=== PATIENT | female | born 1945 | race Caucasian/White ===

== ENCOUNTER 2020-09-13 18:36 | Outpatient (REF) | payer MEDICARE, BC, SELFPAY ==
[2020-09-13 19:17] LABS: HCT 43.8 % (36.0-46.0); HGB 14.3 g/dL (11.2-15.7); MCH 30.2 pg (27.0-33.0); MCHC 32.6 % (32.0-36.0); MCV 92.6 fL (80-95); MPV 10.2 fL (8.0-11.0); Platelet Count 201 10^3/uL (130-400); RBC 4.73 10^6/uL (3.93-5.22); RDW-SD 40.7 fL; WBC 4.93 10^3/uL (4.4-10.8)
[2020-09-13 20:11] LABS: ALT 34 U/L (14-59); AST 20 U/L (15-37); Albumin 4.4 g/dL (3.4-5.0); Alkaline Phosphatase 68 U/L (46-116); Anion Gap 11.1 mmol/L (3-11); BUN 18 mg/dL (7-18); Bilirubin, Total 0.3 mg/dL (0.2-1.0); CO2 26.9 mmol/L (21.0-32.0); CREATININE 0.89 mg/dL (0.55-1.02); Calcium 9.1 mg/dL (8.5-10.1); Chloride 104 mmol/L (98-107); Glucose 100 mg/dL (74-106); Potassium 4.5 mmol/L (3.5-5.1); Sodium 142 mmol/L (136-145); Total Protein 7.2 g/dL (6.4-8.2); Vitamin B12 720 pg/mL (193-986)
[2020-09-13 20:26] LABS: Creatine Kinase 64 U/L (26-192)
== END 2020-09-13 18:56 ==
LOC: NCHCN 18:36
PROVIDERS: PCP Family Medicine; Visit Provider Family Medicine
DX: R26.81 Unsteadiness on feet (principal); G25.0 Essential tremor; K76.0 Fatty (change of) liver, not elsewhere classified
CPT/HCPCS: 80053; 82550; 85027; 82607; 84443

== ENCOUNTER 2020-09-24 04:25 | Outpatient (CLI) | payer MEDICARE, BC, SELFPAY ==
--- NOTE | 2020-09-24 13:30 | DI.MAMMO_ITS ---
EXAM: MG MAMMO SCREENING CLINICAL HISTORY: screening TECHNIQUE: Bilateral full field digital CC and MLO mammographic images were obtained with 3D tomosyn thesis and utilizing computer aided detection (CAD). COMPARISON: Available for comparison. FINDINGS: Masses/Architectural Distortion: None seen. Microcalcifications: No suspicious pleomorphic-type are seen. Skin Thickening/Nipple Retraction: None. IMPRESSION: 1. No significant interval change with no specific features of malignancy noted. 2. Unless there is more urgent need, screening mammography is recommended, as per [employer] guidelines. BI-RADS Category 1 - Negative Breast Density - Category A - Almost entirely fatty A negative radiographic report should not delay biopsy if a dominant or clinically suspicious mass is present. Up to ten percent of cancers are not identified on mammography. A negative report may reinforce clinical impression. Adenosis and dense breasts may obscure an underlying neoplasm. False positive reports average 6 to 10%. Patient will receive a letter notifying them of these results.
== END 2020-09-24 04:45 ==
PROVIDERS: PCP Family Medicine; Visit Provider Obstetrics & Gynecology Gynecology
DX: Z12.31 Encounter for screening mammogram for malignant neoplasm of breast (principal)
CPT/HCPCS: 77063; 77067

== ENCOUNTER 2020-11-01 03:35 | Outpatient (CLI) | payer MEDICARE, BC, SELFPAY ==
[2020-11-02 16:50] LABS: COVID-19 RT-PCR UVMMC Result Negative (Negative)
== END 2020-11-01 03:55 ==
PROVIDERS: PCP Family Medicine; Visit Provider Surgery
DX: Z11.59 Encounter for screening for other viral diseases (principal); Z01.818 Encounter for other preprocedural examination
CPT/HCPCS: U0003

== ENCOUNTER 2021-02-25 01:53 | Outpatient (CLI) | payer MEDICARE, BC, SELFPAY ==
[2021-02-25 11:33] LABS: Source Nasal/Nares
[2021-02-25 15:19] LABS: COVID-19 PCR Negative (Negative)
== END 2021-02-25 01:54 | disposition home or self-care (01) ==
LOC: LBO 01:53
PROVIDERS: PCP Family Medicine; Visit Provider Surgery
DX: Z20.822 Contact with and (suspected) exposure to COVID-19 (principal); Z01.818 Encounter for other preprocedural examination
CPT/HCPCS: 87635

== ENCOUNTER 2021-08-05 00:56 | Outpatient (CLI) | payer MEDICARE, BC, SELFPAY ==
[2021-08-05 12:32] LABS: HCT 40.2 % (36.0-46.0); HGB 13.6 g/dL (11.2-15.7); MCH 30.6 pg (27.0-33.0); MCHC 33.8 % (32.0-36.0); MCV 90.5 fL (80-95); MPV 9.5 fL (8.0-11.0); Platelet Count 170 10^3/uL (130-400); RBC 4.44 10^6/uL (3.93-5.22); RDW 11.9 % (11.7-14.6); RDW-SD 39.4 fL; WBC 5.63 10^3/uL (4.4-10.8)
[2021-08-05 14:06] LABS: ALT 51 U/L (14-59); AST 23 U/L (15-37); Albumin 4.2 g/dL (3.4-5.0); Alkaline Phosphatase 64 U/L (46-116); Anion Gap 6.8 mmol/L (3-11); BUN 20 mg/dL (7-18); Bilirubin, Total 0.3 mg/dL (0.2-1.0); CO2 31.2 mmol/L (21.0-32.0); CREATININE 0.8 mg/dL (0.55-1.02); Calcium 9.2 mg/dL (8.5-10.1); Calculated LDL 106 mg/dL (<100); Chloride 103 mmol/L (98-107); Cholesterol 226 mg/dL (<200); Glucose 99 mg/dL (74-106); HDL Cholesterol 57 mg/dL (40-60); Potassium 4.6 mmol/L (3.5-5.1); Sodium 141 mmol/L (136-145); Total Protein 7.1 g/dL (6.4-8.2); Triglyceride 319 mg/dL (<150)
== END 2021-08-05 00:57 | disposition home or self-care (01) ==
LOC: LBO 00:57
PROVIDERS: PCP Family Medicine; Visit Provider Family Medicine
DX: I10 Essential (primary) hypertension (principal); K76.0 Fatty (change of) liver, not elsewhere classified; E78.5 Hyperlipidemia, unspecified
CPT/HCPCS: 36415; 80053; 80061; 85027

== ENCOUNTER 2021-10-21 01:40 | Outpatient (CLI) | payer MEDICARE, BC, SELFPAY ==
--- NOTE | 2021-10-21 08:00 | DI.MAMMO_ITS ---
Exam(s) MAMMO SCREENING EXAM: MAMMO SCREENING CLINICAL HISTORY: screening,Z12.39 TECHNIQUE: Bilateral full field digital CC and MLO mammographic images were obtained with 3D tomosyn thesis and utilizing computer aided detection (CAD). COMPARISON: Available for comparison. FINDINGS: Masses/Architectural Distortion: None seen. Microcalcifications: No suspicious pleomorphic-type are seen. Skin Thickening/Nipple Retraction: None. IMPRESSION: 1. No significant interval change with no specific features of malignancy noted. 2. Unless there is more urgent need, screening mammography is recommended, as per [employer] guidelines. BI-RADS Category 1 - Negative Breast Density - Category A - Almost entirely fatty Breast density category C or D implies that the patient has dense breast tissue. Dense breast tissue is very common and is not abnormal but dense breast tissue can make it harder to find cancer on a ma mmogram. Also, dense breast tissue may increase their breast cancer risk. This information about the result of the mammogram report was provided to the patient to raise their awareness. Use this report when you speak with the patient about their risks for breast cancer, which includes their family hist ory. At that time, you may recommend for more screening tests (Ultrasound or MRI) as they might be us eful based on their risk. A negative radiographic report should not delay biopsy if a dominant or clinically suspicious mass is present. Up to ten percent of cancers are not identified on mammography. A negative report may reinforce clinical impression. Adenosis and dense breasts may obscure an underlying neoplasm. False positive reports average 6 to 10%. Patient will receive a letter notifying them of these results.
== END 2021-10-21 02:00 ==
PROVIDERS: PCP Family Medicine; Visit Provider Obstetrics & Gynecology Gynecology
DX: Z12.31 Encounter for screening mammogram for malignant neoplasm of breast (principal)
CPT/HCPCS: 77063; 77067

== ENCOUNTER 2022-07-26 16:36 | Outpatient (REF) | payer MEDICARE, SELFPAY ==
[2022-07-26 16:09] LABS: HCT 40.5 % (36.0-46.0); HGB 13.8 g/dL (11.2-15.7); MCH 30.2 pg (27.0-33.0); MCHC 34.1 % (32.0-36.0); MCV 89 fL (80-95); MPV 10.4 fL (8.0-11.0); Platelet Count 210 10^3/uL (130-400); RBC 4.57 10^6/uL (3.93-5.22); RDW 11.9 % (11.7-14.6); RDW-SD 38.5 fL; WBC 5.51 10^3/uL (4.4-10.8)
[2022-07-26 16:39] LABS: ALT 28 U/L (14-59); AST 22 U/L (15-37); Albumin 4.2 g/dL (3.4-5.0); Alkaline Phosphatase 74 U/L (46-116); Anion Gap 11.3 mmol/L (3-11); BUN 20 mg/dL (7-18); Bilirubin, Total 0.3 mg/dL (0.2-1.0); CO2 24.7 mmol/L (21.0-32.0); Calcium 9.2 mg/dL (8.5-10.1); Chloride 104 mmol/L (98-107); Estimated GFR 57.66 (mL/min/1.73m2); Glucose 102 mg/dL (74-106); Potassium 4.3 mmol/L (3.5-5.1); Sodium 140 mmol/L (136-145); Total Protein 7.4 g/dL (6.4-8.2)
== END 2022-07-26 16:37 | disposition home or self-care (01) ==
LOC: NCHCN 16:36
PROVIDERS: PCP Family Medicine; Visit Provider Family Medicine
DX: K76.0 Fatty (change of) liver, not elsewhere classified (principal)
CPT/HCPCS: 80053; 85027

== ENCOUNTER → 2022-08-30 08:08 | Outpatient (BNVA) | payer MEDICARE, SELFPAY | PROVIDERS: PCP Family Medicine; Referring Provider Family Medicine; Visit Provider Psychiatry & Neurology Neurology | DX: G25.0 Essential tremor (principal) | CPT/HCPCS: 99204 ==

== ENCOUNTER → 2022-10-25 01:02 | Outpatient (CLI) | payer MEDICARE, SELFPAY ==
--- NOTE | 2022-10-25 11:45 | DI.MAMMO_ITS ---
Exam(s) MAMMO SCREENING EXAM: MAMMO SCREENING CLINICAL HISTORY: screening. TECHNIQUE: Bilateral full field digital CC and MLO mammographic images were obtained with 3D tomosyn thesis and utilizing computer aided detection (CAD). COMPARISON: Prior mammograms were reviewed. FINDINGS: There has been no significant change in the appearance and distribution of the fibroglandular tissue. There are no new spiculated masses nor malignant appearing microcalcification groups. There is no significant architectural distortion nor skin thickening-retraction. IMPRESSION: No radiographic evidence of malignancy. BI-RADS Category 1 - Negative Breast Density - Category B - Scattered areas of fibroglandular density Breast density Category C or D implies that the patient has dense breast tissue. Dense breast tissue can make it harder to find cancer on a mammogram. Dense breast tissue is also associated with an incr eased risk of breast cancer. This information about the result of the mammogram report was provided to the patient to raise their awareness. Use this report when you speak with the patient about their risks for breast cancer, which includes their family history. At that time, you may recommend additional screening tests (Ultrasoun d or MRI) as these tests may add significant information. A negative radiographic report should not delay biopsy if a dominant or clinically suspicious mass is present. Up to ten percent of cancers are not identified on mammography. A negative report may reinforce clinical impression. Adenosis and dense breasts may obscure an underlying neoplasm. False positive reports average 6 to 10%. Patient will receive a letter notifying them of these results.
== END ==
PROVIDERS: PCP Family Medicine; Visit Provider Obstetrics & Gynecology Gynecology
DX: Z12.31 Encounter for screening mammogram for malignant neoplasm of breast (principal)
CPT/HCPCS: 77063; 77067

== ENCOUNTER 2023-04-25 11:15 | Outpatient (CLI) | payer MEDICARE, SELFPAY ==
--- NOTE | 2023-04-25 10:00 | DI.RAD_ITS ---
Exam(s) XR WRIST LT COMPLETE EXAM: XR WRIST LT COMPLETE CLINICAL HISTORY: left thumb pain. TECHNIQUE: 2D digital imaging was performed of the left wrist. Images were obtained. Scaphoid, P A, oblique and lateral views were obtained. COMPARISON: No exams were available for comparison FINDINGS: BONES: No acute fracture is present. No bony destructive lesion is seen. JOINTS: The carpal bones are normally aligned. There are mild degenerative changes seen at the 1st CM C joint. SOFT TISSUE: Normal. IMPRESSION: Mild degenerative changes of the 1st CMC joint. DATA REPOSITORY: RADIATION DOSE DELIVERED:
== END 2023-04-25 11:16 | disposition home or self-care (01) ==
LOC: DIORS 11:16
PROVIDERS: PCP Family Medicine; Referring Provider Family Medicine; Visit Provider Physician Assistant
DX: M18.12 Unilateral primary osteoarthritis of first carpometacarpal joint, left hand
CPT/HCPCS: 99213; 73110

== ENCOUNTER → 2023-05-03 13:47 | Outpatient (BNVA) | payer MEDICARE, SELFPAY | PROVIDERS: PCP Family Medicine; Referring Provider Family Medicine; Visit Provider Student in an Organized Health Care Education/Training Program | DX: M18.12 Unilateral primary osteoarthritis of first carpometacarpal joint, left hand (principal) | CPT/HCPCS: 20604; J1030 ==

== ENCOUNTER 2023-07-12 10:55 | Outpatient (REF) | payer MEDICARE, SELFPAY ==
[2023-07-12 15:34] LABS: HCT 41.7 % (36.0-46.0); HGB 14.1 g/dL (11.2-15.7); MCH 30.6 pg (27.0-33.0); MCHC 33.8 % (32.0-36.0); MCV 91 fL (80-95); MPV 9.5 fL (8.0-11.0); Platelet Count 185 10^3/uL (130-400); RBC 4.61 10^6/uL (3.93-5.22); RDW-SD 40.1 fL; WBC 5.12 10^3/uL (4.4-10.8)
[2023-07-12 16:21] LABS: ALT 49 U/L (14-59); AST 28 U/L (15-37); Albumin 4.3 g/dL (3.4-5.0); Alkaline Phosphatase 91 U/L (46-116); Anion Gap 10.5 mmol/L (3-11); BUN 16 mg/dL (7-18); Bilirubin, Total 0.4 mg/dL (0.2-1.0); CO2 28.5 mmol/L (21.0-32.0); Calcium 9.2 mg/dL (8.5-10.1); Chloride 101 mmol/L (98-107); Estimated GFR 57.66 (mL/min/1.73m2); Glucose 115 mg/dL (74-106); Potassium 4.1 mmol/L (3.5-5.1); Sodium 140 mmol/L (136-145); Vitamin B12 1981 pg/mL (193-986)
== END 2023-07-12 10:56 | disposition home or self-care (01) ==
LOC: NCHCN 10:55
PROVIDERS: PCP Family Medicine; Visit Provider Family Medicine
DX: K76.0 Fatty (change of) liver, not elsewhere classified (principal); R26.81 Unsteadiness on feet
CPT/HCPCS: 80053; 85027; 82607

== ENCOUNTER → 2023-10-26 00:44 | Outpatient (CLI) | payer MEDICARE, SELFPAY ==
--- NOTE | 2023-10-26 12:15 | DI.MAMMO_ITS ---
Exam(s) MAMMO SCREENING EXAM: MAMMO SCREENING CLINICAL HISTORY: screening,z12.39 TECHNIQUE: Bilateral full field digital CC and MLO mammographic images were obtained with 3D tomosyn thesis and utilizing computer aided detection (CAD). COMPARISON: Available for comparison. FINDINGS: Masses/Architectural Distortion: There is a new 4 mm nodule in the outer right breast on the cranioca udad view 7 cm from the nipple. There are no areas of architectural distortion. Microcalcifications: No suspicious pleomorphic-type are seen. Skin Thickening/Nipple Retraction: None. IMPRESSION: 1. New nodule in the outer right breast. 2. Further evaluation with a spot compression views requested. Targeted right breast ultrasound shou ld also be obtained. BI-RADS Category 0 - Assessment Incomplete: Need additional imaging evaluation Breast Density - Category B - Scattered areas of fibroglandular density Breast density category C or D implies that the patient has dense breast tissue. Dense breast tissue is very common and is not abnormal but dense breast tissue can make it harder to find cancer on a ma mmogram. Also, dense breast tissue may increase their breast cancer risk. This information about the result of the mammogram report was provided to the patient to raise their awareness. Use this report when you speak with the patient about their risks for breast cancer, which includes their family hist ory. At that time, you may recommend for more screening tests (Ultrasound or MRI) as they might be us eful based on their risk. A negative radiographic report should not delay biopsy if a dominant or clinically suspicious mass is present. Up to ten percent of cancers are not identified on mammography. A negative report may reinforce clinical impression. Adenosis and dense breasts may obscure an underlying neoplasm. False positive reports average 6 to 10%. Patient will receive a letter notifying them of these results.
== END ==
PROVIDERS: PCP Family Medicine; Visit Provider Obstetrics & Gynecology Gynecology
DX: Z12.31 Encounter for screening mammogram for malignant neoplasm of breast (principal); N63.11 Unspecified lump in the right breast, upper outer quadrant
CPT/HCPCS: 77063; 77067

== ENCOUNTER → 2023-10-31 00:50 | Outpatient (CLI) | payer MEDICARE, SELFPAY ==
--- NOTE | 2023-10-31 | DI.MAMMO_ITS ---
Exam(s) MG MAMMO SCREEN CALL BACK UNI US BREAST RT COMPLETE EXAM: MG MAMMO SCREEN CALL BACK UNI-RIGHT AND COMPLETE RIGHT BREAST ULTRASOUND CLINICAL HISTORY: F/U MAMMO, R91.8.NEW NODULE OUTER RT BREAST,. TECHNIQUE: Unilateral spot mammographic images obtained with 3D tomosynthesisand utilizing computer aided detection (CAD). . Complete RIGHT breast Ultrasound was also performed, including all 4 quadrants, the retroareolar doc on, and the ipsilateral axilla. COMPARISON: Prior mammograms were reviewed. This additional imaging was performed due to findings described on the recent screening mammogram of 10/26/2023. FINDINGS: DIAGNOSTIC MAMMOGRAM: Additional mammographic views performed todaydo not dissipate this small nodule described on the scre ening mammogram. We proceeded with ultrasound COMPLETE RIGHT BREAST ULTRASOUND: Ultrasound performed today reveals a solitary finding which corresponds to the finding on the mammogr am. This is at the 10 o'clock position and has appearance of a small 3x 2 mm microcyst.. There are no other focal ultrasound findings in all 4 quadrants nor in the retroareolar region. Scanning of the ipsilateral axilla reveals no significant adenopathy. IMPRESSION: 1. Benign-appearing finding. There is a solitary 3 mm microcysts at 10 o'clock position of the righ t breast seen on ultrasound which most probably corresponds to the new small similar size nodule at s imilar location on the mammogram. 2. There are no solid lesions seen in the right breast on ultrasound exam. Appropriate follow-up is repeat right breast mammogram in 6 months. The patient and her daughter informed of these findings and recommendations by myself prior to leavin g the department today. BI-RADS Category 3 - 6 month - Probably Benign Finding: Recommend follow-up mammography in 6 months Breast Density - Category B - Scattered areas of fibroglandular density Breast density Category C or D implies that the patient has dense breast tissue. Dense breast tissue can make it harder to find cancer on a mammogram. Dense breast tissue is also associated with an incr eased risk of breast cancer. This information about the result of the mammogram report was provided to the patient to raise their awareness. Use this report when you speak with the patient about their risks for breast cancer, which includes their family history. At that time, you may recommend additional screening tests (Ultrasoun d or MRI) as these tests may add significant information. A negative radiographic report should not delay biopsy if a dominant or clinically suspicious mass is present. Up to ten percent of cancers are not identified on mammography. A negative report may reinforce clinical impression. Adenosis and dense breasts may obscure an underlying neoplasm. False positive reports average 6 to 10%. Patient will receive a letter notifying them of these results.
== END ==
PROVIDERS: PCP Family Medicine; Visit Provider Obstetrics & Gynecology Gynecology
DX: Z12.31 Encounter for screening mammogram for malignant neoplasm of breast (principal); N60.01 Solitary cyst of right breast
CPT/HCPCS: 76642; 77063; 77067

== ENCOUNTER → 2023-11-08 10:35 | Outpatient (BNVA) | payer MEDICARE, SELFPAY | PROVIDERS: PCP Family Medicine; Referring Provider Family Medicine; Visit Provider Student in an Organized Health Care Education/Training Program | DX: M18.12 Unilateral primary osteoarthritis of first carpometacarpal joint, left hand (principal) | CPT/HCPCS: 20604; J1030 ==

== ENCOUNTER → 2024-04-14 04:07 | Outpatient (CLI) | payer MEDICARE, SELFPAY ==
--- NOTE | 2024-04-14 | DI.MAMMO_ITS ---
Exam(s) MAMMO DIAGNOSTIC UNI EXAM: MAMMO DIAGNOSTIC UNI-RIGHT CLINICAL HISTORY: 6 MO F/U, F/U ABNL MAMMO, R92.8, RT MICROCYSTS. TECHNIQUE: Unilateral RIGHT BREAST CC AND MLO mammographic images were obtained with 3D tomosynthesi s technique and utilizing computer aided detection (CAD). COMPARISON: Prior mammograms were reviewed, the most recent being October 2023. Ultrasound at that time was also reviewed.. FINDINGS: The small nodular density seen at 10 o'clock position is mammographically unchanged from 10/26/2023. This was shown to be a microcyst on ultrasound exam of 10/31/2023. There are no new spiculated masses nor malignant-appearing microcalcification groups in the right tiara ast. There is no significant architectural distortion or skin thickening-traction. Do not feel that it is necessary to repeat the ultrasound examination at this time. IMPRESSION: Stable benign-appearing small nodule in the lateral aspect of the right breast, unchanged mammographi sergo from 10/26/2023 and correspond to a small microcyst on prior ultrasound examination of October 2023. Appropriate follow-up as discussed by myself with the patient today, is to keep her on her yearly [facility] mogram schedule, this implying the next bilateral mammogram would be in 6 months from now in October 2024, with earlier imaging if a self detected breast change is noted.. The patient was informed of the findings and follow-up recommendations by myself prior to leaving the department today. BI-RADS Category 2 - Benign Findings Breast Density - Category B - Scattered areas of fibroglandular density Breast density Category C or D implies that the patient has dense breast tissue. Dense breast tissue can make it harder to find cancer on a mammogram. Dense breast tissue is also associated with an incr eased risk of breast cancer. This information about the result of the mammogram report was provided to the patient to raise their awareness. Use this report when you speak with the patient about their risks for breast cancer, which includes their family history. At that time, you may recommend additional screening tests (Ultrasoun d or MRI) as these tests may add significant information. A negative radiographic report should not delay biopsy if a dominant or clinically suspicious mass is present. Up to ten percent of cancers are not identified on mammography. A negative report may reinforce clinical impression. Adenosis and dense breasts may obscure an underlying neoplasm. False positive reports average 6 to 10%. Patient will receive a letter notifying them of these results.
== END ==
PROVIDERS: PCP Family Medicine; Visit Provider Nurse Practitioner
DX: Z12.31 Encounter for screening mammogram for malignant neoplasm of breast (principal); R92.8 Other abnormal and inconclusive findings on diagnostic imaging of breast
CPT/HCPCS: 77061; 77065; G0279

== ENCOUNTER → 2024-08-07 13:46 | Outpatient (BNVA) | payer MEDICARE, SELFPAY | PROVIDERS: PCP Family Medicine; Referring Provider Family Medicine; Visit Provider Student in an Organized Health Care Education/Training Program | DX: M18.12 Unilateral primary osteoarthritis of first carpometacarpal joint, left hand (principal) | CPT/HCPCS: 20600; J1010 ==

== ENCOUNTER 2024-08-27 19:44 | Outpatient (REF) | payer MEDICARE, SELFPAY ==
--- OUTSIDE RECORDS SUMMARY | 2024-08-27 19:46 | XMS_ITS | Encounter Summary ---
Author Organization [facility] Address [address] [place] [address] Care Team Providers Care Cheerleading Coach Name Role Phone Unavailable Primary Care Provider Unavailabl e Encounter Details Date Type Department Care Team (Late st Contact Info) Description 06/25/2009 Orders Only [facility] Laboratory Services - [facility] ([facility]) [address] [place], [place] [id number] Gideon Bowen, DO [address] [facility] [address] [place] [address] Social History Tobacco Use Types Packs/Day Years Used Date Smoking Tobacco: Never Assessed Sex and Gender Information Value Date Recorded Sex Assigned at Female 02/05/2024 10:57 EDT Gender Identity Not on file Sexual Orientation Not on file documented as of this encounter Plan of Treatment Not on file documented as of this encounter Procedures Procedure Name Priority Date/Time Associated Diagnosis Comments SURGICAL PATHOLOGY Routine 06/25/2009 0:00 EDT documented in this encounter Results * SURGICAL PATHOLOGY (06/25/2009 0:00 EDT) Pathology Report: SURGICAL PATHOLOGY REPORT ? Reports generated via electronic interface contain original data; ? however they are lacking the format of the original report. ? Caution should be taken when reading/interpreti ng unformatted reports. ? Name: ? THELMA BONNER ? Accession #: ? [id number] ? : ? 1945 (Age: 63) ??F ? Collect Date: ? 06/25/2009 ? Location: ? [facility] ? Receive Date: ? 06/26/2009 ? Provider: GIDEON BOWEN DO ? Copy to: RAH ARGUELLES MD ? Final Pathologic Diagnosis: ? A. ?Stomach, antrum, biopsies: ? 1. ?Chronic gastritis, mild. ? 2. ? No Helicobacter pylori-like organisms identified on H+E stained sections. ? B. ?Esophagus, distal, biopsies: ? 1. ?Squamous mucosa with reactive changes. See comment. ? 2. ? Gastric, fundic type mucosa with mild chronic gastritis. ? Comment: ? Histologic sections of the esophageal biopsy show squamous mucosa with ? basal cell hyperplasia, elongated rete pegs, and inflammation. ??The histologic ?? features are consistent with reflux. ??Clinical and endoscopic correlation is ? required. ??(Dr. Martinez)/delilah ? Document reviewed and electronically signed by: ? Mack Martinez MD ? Report ??Date: 06/29/2009 12:12 ? By the signature above, the attending physician certifies that he/she has ? personally conducted a gross and/or microscopic examination of the described ? specimens and rendered or confirmed the above diagnosis. ? Specimen(s) Received: ? A. ?Bx antrum ? B. ? Bx distal esophagus ? Clinical History: ? Heme positive stool; distal esophagitis; gastritis ? Gross Description: ? Received in [employer]'s solution labelled Thelma Bonner and biopsy ? antrum are two pink-morales irregular soft tissues, 0.3 x 0.2 x 0.2 cm and 0.3 x ?? 0.3 x 0.2 cm. ??Submitted in toto as (A). ? Received in [employer]'s solution labelled Thelma Bonner and biopsy distal ? esophagus are three pink-morales irregular soft tissues ranging from 0.2 x 0.2 x ?? 0.2 cm to 0.5 x 0.3 x 0.1 cm. ??Submitted in toto as (B). ??(Jaqueline Gonzales)/delilah ? End of Report ? [facility] 06/25/2009 06/26/2009 9:1 7 EDT Gideon Bowen DO PATHOLOGY ORDER MAURISIO [facility] [address] [place] [address] documented in this encounter Visit Diagnoses Not on filedocumented in this encounter
--- OUTSIDE RECORDS SUMMARY | 2024-08-27 19:46 | XMS_ITS | Encounter Summary ---
Author Organization [facility] Address [address] [place] [address] Care Team Providers Care Tow Boat Captain Name Role Phone Handy Oneill MD Primary Care Provider [phone] Encounter Details Date Type Department Care Team (Late st Contact Info) Description 08/02/2004 Results Only [facility] - [facility] [address] [place] [address] Bebeto Ferrari MD [address] [facility] [address] [address] Social History Tobacco Use Types Packs/Day Years Used Date Smoking Tobacco: Never Assessed Sex and Gender Information Value Date Recorded Sex Assigned at Female 02/05/2024 10:57 EDT Gender Identity Not on file Sexual Orientation Not on file documented as of this encounter Plan of Treatment Not on file documented as of this encounter Procedures Procedure Name Priority Date/Time Associated Diagnosis Comments CYTOPATHOLOGY Routine 08/02/2004 0:00 EDT documented in this encounter Results * CYTOPATHOLOGY (08/02/2004 0:00 EDT) Pathology Report: CYTOPATHOLOGY REPORT Reports generated via electronic interface contain original data; however they are lacking the format of the original report. Caution should be taken when reading/interpreti ng unformatted reports. Name: ? THELMA BONNER ? Accession #: ? [id number] : ? 1945 (Age: 59) ??F ?Collect Date: ? 08/02/2004 Location: ? [facility] ? Receive Date: ? 08/04/2004 Provider: ?BEBETO FERRARI MD Copy to: ? Specimen/Source: ?ThinPrep Pap Test, Cervix/Endocervix Last Menstrual Period: ? SPECIMEN ADEQUACY ? Satisfactory for Evaluation - assessment of transformation zone component not applicable ( e.g. atrophy, vaginal sample, hysterectomy) GENERAL CATEGORIZATION ? Negative for Intraepithelial Lesion or Malignancy ? Document reviewed and electronically signed by: ? SUZI Rod(ASCP) ? Report Date: ??08/09/2004 10:38 End of Report [facility] 08/02/2004 08/04/2004 Bebeto Ferrari MD PATHOLOGY ORDERABLES Performing Organization Address City/State/[facility] Co de Phone Number [facility] [address] [place] [address] documented in this encounter Visit Diagnoses Not on filedocumented in this encounter Care Teams Tow Boat Captain Relationship Specialty Start Date End Date Handy Oneill MD [address] [place] [address] PCP - General 06/29/09 02/04/24 documented as of this encounter
--- OUTSIDE RECORDS SUMMARY | 2024-08-27 19:46 | XMS_ITS | Referral Summary ---
Author Organization [facility] Address [address] [place] [address] Care Team Providers Care Chief Payroll Clerk Name Role Phone Handy James MD Primary Care Provider [phone] Allergies No known active allergies Medications Medication Sig Dispensed Refills Start Date End Date Status primidone (MYSOLINE) 250 mg tablet Take 1 Tablet by mouth every evening. Active propRANolol (INDERAL LA) 60 mg SR capsule Take 160 mg by mouth daily. Active lisinopriL (PRINIVIL) 5 mg tablet Take 1 Tablet by mouth every evening. Active traZODone (DESYREL) 50 mg tablet Take 1 Tablet by mouth at bedtime. Active Multivitamin Cmb No.21-Iron-FA tablet Take 1 Tablet by mouth daily. Active calcium carbonate (OS-ANTWON) 1250 mg (500 mg elemental) tablet tablet Take 1 Tablet by mouth daily. Active Social History Tobacco Use Types Packs/Day Years Used Date Smoking Tobacco: Never Smokeless Tobacco: Never Tobacco Cessation:Counseling Given: Not Answered Alcohol Use Standard Drinks/Week Comments Not Currently 0 (1 standard drink = 0.6 oz pur e alcohol) Sex and Gender Information Value Date Recorded Sex Assigned at Female 02/05/2024 10:57 EDT Gender Identity Not on file Sexual Orientation Not on file Last Filed Vital Signs Vital Sign Reading Time Taken Comments Blood Pressure 125/72 02/05/2024 1041 EDT Pulse - - Temperature 36.7 ??C (98 ??F) 02/05/2024 1141 EDT Respiratory Rate 20 02/05/2024 1152 EDT Oxygen Saturation 97% 02/05/2024 1152 EDT Inhaled Oxygen Concentration - - Weight 73.8 kg (162 lb 12.8 oz) 02/05/2024 1041 EDT Height 167.6 cm (5' 6) 02/05/2024 1041 EDT Body Mass Index 26.28 02/05/2024 1041 EDT Plan of Treatment Not on file Medical Devices Implanted Type Area Tandem Mill Sticker Device Identifier Shelf Expiration Date Model / Serial / Lot Lens Intraocular Monofocal +6.5d [employer]ecnis Simplicity - [id number] Implanted:Qty: 1 on 01/22/2024 by Ray Kimball MD at [facility] Lens Right: Lens [employer] [id number] 09/15/2026 [id number] / [id number] / Lens Intraocular Monofocal +5.0d [employer]nis Simplicity - [id number] Implanted:Qty: 1 on 02/05/2024 by Ray Kimball MD at [facility] Lens Left: Eye [employer] [id number] 09/15/2025 [id number] / [id number] / Advance Directives For more information, please contact: [phone] * Full Code (Latest Code Status on File) Date Activated Date Inactivated Comments 02/05/2024 10:31 02/06/2024 6:06 Question Answer Comments When the patient has NO PULSE: Full Code / CPR Who Made the Decision? Patient * Full Code Date Activated Date Inactivated Comments 01/22/2024 11:19 01/22/2024 15:33 Question Answer Comments When the patient has NO PULSE: Full Code / CPR Who Made the Decision? Patient Care Teams Chief Payroll Clerk Relationship Specialty Start Date End Date [place]y [place] [address] [place] [address] PCP - General 02/05/24
--- OUTSIDE RECORDS SUMMARY | 2024-08-27 19:46 | XMS_ITS | Encounter Summary ---
[place] [address] Care Team Providers Care Prorate Clerk Name Role Phone Handy James MD Primary Care Provider [phone] Reason for Visit * Reason Onset Date Comments Botox Injection 03/24/2024 Encounter Details Date Type Department Care Team (Late st Contact Info) Description 03/24/2024 Telephone Neurology at [address] [phone] Debbie Becker MD [facility] [place] [address] Botox Injection Social History Tobacco Use Types Packs/Day Years Used Date Smoking Tobacco: Former Cigarettes Q uit: 11/05/1977 Smokeless Tobacco: Never Alcohol Use Standard Drinks/Week Comments Yes 0.8 (1 standard drink = 0.6 oz p ure alcohol) Sex and Gender Information Value Date Recorded Sex Assigned at Female 08/02/2021 10:16 PM EDT Gender Identity Female 08/02/2021 10:16 PM EDT Sexual Orientation Straight 08/02/2021 10 :16 PM EDT documented as of this encounter Miscellaneous Notes * Telephone Encounter - Regine Little 03/24/2024 2:07 PM EDT The updated process for Botox authorization includes needing a new order once a year. In order to get the authorization updated we need a new updated Botox entered using the Botox Smart Set Authorization for Botox Injection signed. The frequency on the previous order was q 12 wks, and the dx was G24.3. Thank you for your assistance with this. Claire documented in this encounter Plan of Treatment Upcoming Encounters Date Type Department Care Team (Late st Contact Info) Description 11/14/2024 9:30 AM EST Procedure visit Neurology at [address] [phone] Debbie Becker MD [facility] [address] documented as of this encounter Visit Diagnoses Not on filedocumented in this encounter Care Teams Prorate Clerk Relationship Specialty Start Date End Date Handy James MD PCP - General Family Medicine 08/09/20 documented as of this encounter
--- OUTSIDE RECORDS SUMMARY | 2024-08-27 19:46 | XMS_ITS | Clinical Summary ---
Author Organization [facility] Address [address] [place] [address] Care Team Providers Care Sales Inspector Name Role Phone Handy James MD Primary Care Provider [phone] Allergies No known active allergies Medications Medication [...] Take 1 Tablet by mouth daily. Active Medical History Medical History Date Comments Hypertension Essential tremor Social History Tobacco Use Types Packs/Day Years Used Date Smoking Tobacco: Never Smokeless Tobacco: Never Tobacco Cessation:Counseling Given: Not Answered Alcohol Use Standard Drinks/Week Comments Not Currently 0 (1 standard drink = 0.6 oz pur e alcohol) Sex and Gender Information Value Date Recorded Sex Assigned at Female 02/05/2024 10:57 EDT Gender Identity Not on file Sexual Orientation Not on file Obstetrics History Last Filed Vital Signs Vital Sign Reading [...] 26.28 02/05/2024 1041 EDT Plan of Treatment Health Maintenance Due Date Last Done Comments Hepatitis C Screen 1945 RSV Immunization ( o r 60+ Years) (1 - 1-dose 60+ series) 2004 Fall Risk Screening 2009 COVID-19 Vaccine (2022-24 season) 2023 Medical Devices Implanted Type Area Radiology Therapist Device Identifier Shelf Expiration Date Model / Serial / Lot Lens Intraocular Monofocal +6.5d Tecnis Simplicity - [id number] Implanted:Qty: 1 on 01/22/2024 by Ray Kimball MD at [facility] Lens Right: Lens [employer] [id number] 09/15/2026 [id number] / [id number] / Lens Intraocular Monofocal +5.0d [employer]nis Simplicity - [id number] Implanted:Qty: 1 on 02/05/2024 by Ray Kimball MD at [facility] Lens Left: Eye [employer] [id number] 09/15/2025 [id number] / [id number] / Advance Directives For more information, please contact: [phone] * Full Code (Latest Code Status on [...] Who Made the Decision? Patient Care Teams Sales Inspector Relationship Specialty Start Date End Date Handy James MD [address] [place] [address] PCP - General 02/05/24
--- OUTSIDE RECORDS SUMMARY | 2024-08-27 19:46 | XMS_ITS | Clinical Summary ---
Author Organization Count Includes [facility] [place] [address] [place] [address] Care Team Providers Care Elementary [employer] Reading Teacher Name Role Phone Handy James MD Primary Care Provider [phone] Allergies No known active allergies Medications Medication Sig Dispensed Refills Start Date End Date Status CLOBETASOL PROPIONATE, BULK, MISC Apply topically as needed. Cream form Active FEXOFENADINE HCL (FEXOFENADINE ORAL) Take 1 tablet by mouth as needed. 02/16/2011 Active CALCIUM CITRATE/VITAMIN D3 (CALCITRATE-VITAMIN D ORAL) Take 2 tablets by mouth daily. Active MULTIVITS W-FE,OTHER MIN (CENTRUM ORAL) Take 1 tablet by mouth daily. Active Propranolol (INDERAL LA) 160 mg CR capsuleIndications: Tremor Take 1 capsule by mouth daily. 90 capsule 3 02/15/2012 Active aspirin 81 mg EC tablet Take 81 mg by mouth daily. Active lisinopril (PRINIVIL;ZESTRIL) 10 mg tablet Take 10 mg by mouth daily. Active FLUoxetine (PROzac) 10 mg capsule Take 10 mg by mouth daily. 11/02/2022 Active primidone (Mysoline) 250 mg tablet Take 250 mg by mouth nightly. 11/02/2022 Active traZODone (Desyrel) 50 mg tablet Take 100 mg by mouth daily. 11/02/2022 Active primidone (Mysoline) 50 mg tablet Take 1 tablet by mouth daily. 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 Trigeminal neuralgia 08/22/2011 Meralgia paresthetica 08/22/2011 Essential tremor 01/22/2011 Encounters Date Type Department Care Team Description 08/22/2024 11:00 AM EDT Procedure visit Neurology at [address] [phone] Debbie Becker MD Cervical dystonia 08/22/2024 Travel from Last 3 Months Family History Medical History Relation Comments Lung Cancer Father High Blood Pressure Mother Relation Status Comments Father (Age 87) Mother Social History Tobacco Use Types Packs/Day Years [...] Orientation Straight 08/02/2021 10 :16 PM EDT Last Filed Vital Signs Vital Sign Reading Time Taken Comments Blood Pressure 141/62 02/06/2023 12:06 PM EDT Pulse 74 02/06/2023 12:06 PM EDT Temperature - - Respiratory Rate 16 08/22/2011 12:5 0 PM EDT Oxygen Saturation - - Inhaled Oxygen Concentration - - Weight 73.8 kg (162 lb 11.2 oz) 023 12:06 PM EDT Height 167.6 cm (5' 6) 02/06/2023 12:0 6 PM EDT Body Mass Index 26.26 02/06/2023 12:06 PM EDT Plan of Treatment Upcoming Encounters Date Type Department Care Team (Late st Contact Info) Description 11/14/2024 9:30 AM EST Procedure visit Neurology at [address] [phone] Debbie Becker MD [facility] [address] Health Maintenance Due Date Last Done Comments Hepatitis C Screening 1962 Tetanus/Diphtheria/Pertussis Vaccines (1 - Tdap) 07/17 Zoster vaccine (1 of 2) 1994 Advance Directive 1999 Bone Density Scan 2009 Pneumoccocal Vaccine: 65+ (1 of 1 - PCV) 2009 Covid-19 Vaccine (1 - 2022-24 season) 2024 Influenza (Flu) vaccine (1 o f 1 - Influenza standard series) 07/06/2024 Procedures Procedure Name Priority Date/Time Associated Diagnosis Comments CHEMODENERVATION W/ EMG GUIDANCE Routine 08/22/2024 11:00 AM EDT from Last 3 Months Results * CHEMODENERVATION W/ EMG GUIDANCE (08/22/2024 11:00 AM EDT) Narrative Debbie Becker MD - 08/22/2024 11:00 AM EDT Debbie Becker MD ? 08/22/2024 11:36 AM Chemodenervation Procedure Note Diagnosis: cervical dystonia with dystonic tremor HPI: She has head tremor and has not done well with oral medications. We discussed risks, benefits and reasonable expectations of botox and will proceed with injections today. She is still having some early wearing off but is having moderate benefit. There is some mild tremor between injections but much better than it was. She did better overall with the full 200 units dose. Codes for chemodenervation visit: 35070, 01520 Exam: Procedure: A time out was performed The patient was positioned for best access to muscles to be injected. The area was cleaned with alcohol swabs. 200 units of onabotulinumtoxinA was prepared by 1cc saline to 100 units toxin dilution with preservative free saline EMG guidance was used for this procedure for anatomic localization of the neck muscles. Injections: Bilateral SCM 40 units each side = 80 units Bilateral splenius capitus 40 units each side = 80 units Semisplenalis 20 units each side = 40 units Total 200 units Waste 0 units The patient tolerated the procedure well with no immediate adverse events. F/u in 3 months. Debbie Becker MD [facility] Neurology-Movement Disorders Debbie Becker MD NEUROLOGY ORDERABL ES from Last 3 Months Care Teams Elementary School Reading Teacher Relationship Specialty Start Date End Date Handy James MD PCP - General Family Medicine 08/09/20
--- OUTSIDE RECORDS SUMMARY | 2024-08-27 19:46 | XMS_ITS | Encounter Summary ---
Author Organization [facility] Address [address] [place] [address] Care Team Providers Care Quality Assurance Assessor Name Role Phone Handy Oneill MD Primary Care Provider [phone] Encounter Details Date Type Department Care Team (Late st Contact Info) Description 11/08/2010 Results Only [facility] Laboratory Services - [facility] ([facility]) [address] [place] [address] Ana Jerome MD [address] [place] [address] [place] [address] Social History Tobacco Use Types Packs/Day Years Used Date Smoking Tobacco: Never Assessed Sex and Gender Information Value Date Recorded Sex Assigned at Female 02/05/2024 10:57 EDT Gender Identity Not on file Sexual Orientation Not on file documented as of this encounter Plan of Treatment Not on file documented as of this encounter Procedures Procedure Name Priority Date/Time Associated Diagnosis Comments CYTOPATHOLOGY Routine 11/08/2010 0:00 EST documented in this encounter Results * CYTOPATHOLOGY (11/08/2010 0:00 EST) Pathology Report: CYTOPATHOLOGY REPORT ? Reports generated via electronic interface contain original data; ? however they are lacking the format of the original report. ? Caution should be taken when reading/interpreti ng unformatted reports. ? Name: ? THELMA BONNER ? Accession #: ? [id number] ? : ? 1945 (Age: 65) ??F ?Collect Date: ? 11/08/2010 ? Location: ? [facility] ? Receive Date: ? 11/09/2010 ? Provider: ANA RADHA MD ? Copy to: ? Final Report ? SPECIMEN ADEQUACY ? Satisfactory for Evaluation ? - assessment of transformation zone component not applicable ( e.g. atrophy, ? vaginal sample, hysterectomy) ? GENERAL CATEGORIZATION ? Negative for Intraepithelial Lesion or Malignancy ? Last Menstural Period: 06/05/00 ? Specimen/Source: ??Pap Test, Cervix/Endocervix, ThinPrep Imaging System with ? manual evaluation ? Document reviewed and electronically signed by: ? Doreen Verville,CT(ASCP) ? Report ??Date: 11/11/2010 14:05 ? HPV with Pap Test ? Date Ordered: ? 11/11/2010 ? Status: ?? Signed Out ?Date Complete: ? 11/15/2010 ? By: ??System Interface ? Date Reported: ? 11/15/2010 ? Interpretation ? RESULT: Negative for HPV types 16, 18, 31, 33, 35, 39, 45, 51, 52, ? 56, 58, 59, and 68. ? Comments ? Document reviewed and electronically signed by: ? System Interface ? Report date: 11/15/2010 ? By the signature above, the attending physician certifies that he/she has ? personally conducted a gross and/or microscopic examination of the described ? specimens and rendered or confirmed the above diagnosis. ? End of Report ? [facility] 11/08/2010 11/09/2010 Ana Jerome MD PATHOLOGY ORDERABLES [facility] [address] [place] [address] documented in this encounter Visit Diagnoses Not on filedocumented in this encounter Care Teams Quality Assurance Assessor Relationship Specialty Start Date End Date Handy Oneill MD [address] [place] [phone] PCP - General 06/29/09 02/04/24 documented as of this encounter
--- OUTSIDE RECORDS SUMMARY | 2024-08-27 19:46 | XMS_ITS | Encounter Summary ---
Author Organization [facility] Address [address] [place] [address] Care Team Providers Care Belt Lacer Name Role Phone Handy Oneill MD Primary Care Provider [phone] Handy James MD Primary Care Provider [phone] Encounter Details Date Type Department Care Team (Late st Contact Info) Description 11/01/2020 Lab Requisition [facility] Pathology & Laboratory Medicine - [address] [phone] Outr Resulting Lab, Provider Social History Tobacco Use Types Packs/Day Years Used Date Smoking Tobacco: Never Assessed Sex and Gender Information Value Date Recorded Sex Assigned at Female 02/05/2024 10:57 EDT Gender Identity Not on file Sexual Orientation Not on file documented as of this encounter Plan of Treatment Not on file documented as of this encounter Procedures Procedure Name Priority Date/Time Associated Diagnosis Comments ZZCOVID-19 TEST [facility] PCR Today 11/01/2020 10:52 EST COVID-19 TESTING Routine 11/01/2020 10:5 2 EST documented in this encounter Results * COVID-19 TEST [facility] PCR (11/01/2020 10:52 EST) Swab ENTIRE NASOPHARYNX / Unknown 11/01/2020 10:52 EST 11/01/2020 15:33 EST Provider Outr Resulting Lab MICROBIOLOGY - GENERAL ORDERABLES [facility] [address] [place] [address] * COVID-19 TESTING (11/01/2020 10:52 EST) COVID-19 rt-PCR Result Negative Negative 11/02/2020 16:[address] [facility] Comment: Negative results do not preclude 2019-nCoV infection and should not be used as the sole basis for treatment or other patient management decisions. Negative results must be combined with clinical observations, patient history, and epidemiological information. This test was developed and its performance characteristics determined by [facility]. It has not been cleared or approved by the US Food and Drug Administration. FDA does not require this test to go through premarket FDA review. This test is used for clinical purposes. It should not be regarded as investigational or for research. This laboratory is certified under the Clinical Laboratory Improvement Amendments (CLIA) as qualified to perform high complexity clinical laboratory testing. This test is based on the CDC COVID-19 Emergency Use Authorization (EUA) assay, with minor modification as defined by the FDA Performed on the Emgo 7 Flex. Performing Lab [employer] 7 [facility] 11/02/2020 16:[address] [facility] Swab 11/01/2020 10:5 2 EST 11/01/2020 15:33 EST Provider Outr Resulting Lab MICROBIOLOGY - GENERAL ORDERABLES [facility] [address] [place] [address] documented in this encounter Visit Diagnoses Not on filedocumented in this encounter Care Teams Belt Lacer Relationship Specialty Start Date End Date Handy Oneill MD [address] [place] [address] PCP - General 06/29/09 02/04/24 Handy James MD [address] [place] [address] [place] [address] PCP - General 02/05/24 documented as of this encounter
--- OUTSIDE RECORDS SUMMARY | 2024-08-27 19:46 | XMS_ITS | Encounter Summary ---
Author Organization [facility] Address [address] [place] [address] Care Team Providers Care Senior Business Process Analyst Name Role Phone Handy Oneill MD Primary Care Provider [phone] Encounter Details Date Type Department Care Team (Late st Contact Info) Description 07/18/2001 Results Only [facility] [address] [place] [address] Bebeto Ferrari MD [address] [facility] [address] [address] Social History Tobacco Use Types [...] Priority Date/Time Associated Diagnosis Comments CYTOPATHOLOGY Routine 07/18/2001 0:00 EDT documented in this encounter Results * CYTOPATHOLOGY (07/18/2001 0:00 EDT) Pathology Report: CYTOPATHOLOGY REPORT Reports generated via electronic interface contain original data; however they are lacking the format of the original report. Caution should be taken when reading/interpreti ng unformatted reports. Name: ? THELMA BONNER ? Accession #: ? [id number] : ? 1945 (Age: 56) ??F ?Collect Date: ? 07/18/2001 Location: ? [facility] ? Receive Date: ? 07/22/2001 Provider: ?BEBETO FERRARI MD Copy to: ? Specimen/Source: ?ThinPrep Pap Test, Cervix/Endocervix Last Menstrual Period: ? 06/11/01 Menstrual/Pregnanc y Status: ? Menopausal: tere, menses at 56 ? SPECIMEN ADEQUACY ? Satisfactory for evaluation. GENERAL CATEGORIZATION ? Within Normal Limits ? Document reviewed and electronically signed by: ? OLY Jhaveri(ASCP) ? Report Date: ??07/24/2001 09:09 End of Report [facility] 07/18/2001 07/22/2001 Bebeto Ferrari MD PATHOLOGY ORDERABLES Performing Organization Address City/State/[place] Co de Phone Number [facility] [address] [place] [address] documented in this encounter Visit Diagnoses Not on filedocumented in this encounter Care Teams Senior Business Process Analyst Relationship Specialty Start Date End Date Handy Oneill MD [address] [place] [address] PCP - General 06/29/09 02/04/24 documented as of this encounter
--- OUTSIDE RECORDS SUMMARY | 2024-08-27 19:46 | XMS_ITS | Encounter Summary ---
[place] [address] Care Team Providers Care Engineering Drafter Name Role Phone Handy James MD Primary Care Provider [phone] Reason for Visit * Reason Onset Date Comments Medication Refill 04/21/2024 Encounter Details Date Type Department Care Team (Late st Contact Info) Description 04/21/2024 Telephone Neurology at [address] [phone] Debbie Becker MD [facility] [place] [address] Medication Refill Social History Tobacco Use Types Packs/Day Years [...] encounter Miscellaneous Notes * Telephone Encounter - Makenzie Osborne RN - 04/22/2024 10:16 AM EDT Called and spoke with patient. I had called [facility] in [place], [place] yesterday and confirmed that they had the primidone (Mysoline) prescription. They stated that it could not be filled until 05/04. I relayed this to patient. She states she has enough of the medication to last until 05/04 and she wanted to make sure the current prescription was for a 90 day supply as she is not home for 6 months of the year. I confirmed that the prescription was for 90 days. Patient gets the nightly 250 mg Mysoline prescription from a different Provider and she said she does not need a refill for the nightly prescription. * Telephone Encounter - Makenzie Osborne RN - 04/21/2024 4:03 PM EDT Copied from CRM #[id number]. Topic: Specialty Dept CRMs - Medication Issues >> Apr 21, 2024 2:53 PM Maddison Cedeño wrote: Medication Issues Specialist Debbie Becker Relationship (if other than patient-full name): Thelma Bonner Reason for call: Medication Issue (if symptom based used Triage Subtopic) Message/information for the nurse: Patient called, states that her pharmacy[facility] did not receive the prescription that was sent on 04/18 for a 90 day supply, please advise. Name of Medication: primidone (Mysoline) 50 mg tablet Issue with the medication: pharmacy did not receive documented in this encounter Plan of Treatment Upcoming Encounters Date Type Department Care Team (Late st Contact Info) Description 11/14/2024 9:30 AM EST Procedure visit Neurology at [address] [phone] Debbie Becker MD [facility] [place] [address] documented as of this encounter Visit Diagnoses Not on filedocumented in this encounter Care Teams Engineering Drafter Relationship Specialty Start Date End Date Handy James MD PCP - General Family Medicine 08/09/20 documented as of this encounter
--- OUTSIDE RECORDS SUMMARY | 2024-08-27 19:46 | XMS_ITS | Encounter Summary ---
Author Organization [facility] Address [address] [place] [address] Care Team Providers Care Art Librarian Name Role Phone Handy Oneill MD Primary Care Provider [phone] Encounter Details Date Type Department Care Team (Late st Contact Info) Description 08/31/2014 Results Only [facility] Laboratory Services - [facility] ([facility]) [address] [place], [place] [phone] Ana Jerome MD [address] [place] [address] [place] [address] Social History Tobacco Use Types Packs/Day Years Used Date Smoking Tobacco: Never Assessed Sex and Gender Information Value Date Recorded Sex Assigned at Female 02/05/2024 10:57 EDT Gender Identity Not on file Sexual Orientation Not on file documented as of this encounter Plan of Treatment Not on file documented as of this encounter Procedures Procedure Name Priority Date/Time Associated Diagnosis Comments PAP TEST- RESULT ONLY Routine 08/31/2014 0:00 EDT documented in this encounter Results * PAP TEST- RESULT ONLY (08/31/2014 0:00 EDT) Pathology Report: CYTOPATHOLOGY REPORT Reports generated via electronic interface contain original data; however they are lacking the format of the original report. Caution should be taken when reading/interpreti ng unformatted reports. Name: ? THELMA BONNER ? Accession #: ? [id number] ? : ? 1945 (Age: 69) ??F ?Collect Date: ? 08/31/2014 ? Location: ? [facility] ? Receive Date: ? 09/01/2014 ? Provider: ANA JEROME MD Copy to: ALFONZO DOBSON MD ? Final Report SPECIMEN ADEQUACY ? Satisfactory for Evaluation - transformation zone component present GENERAL CATEGORIZATION ? Negative for Intraepithelial Lesion or Malignancy ?? Specimen/Source: ??Pap Test, Cervix/Endocervix, ThinPrep Imaging System with manual evaluation Document reviewed and electronically signed by: ? OLY Mortensen(ASCP) ? Report ??Date: 09/07/2014 10:50 HPV with Pap Test ? Date Ordered: ? 09/07/2014 ? Status: ?? Signed Out ?Date Complete: ? 09/08/2014 ? By: ??System Interface ? Date Reported: ? 09/08/2014 ? Interpretation RESULT: Negative for HPV. No E6 or E7 mRNA is detected from HPV types 16,18,31,33,35, 39,45,51,52,56,58, 59,66, and 68 by chancellor mediated amplification. Comments Document reviewed and electronically signed by: ? System Interface ? Report date: 09/08/2014 By the signature above, the attending physician certifies that he/she has personally conducted a gross and/or microscopic examination of the described specimens and rendered or confirmed the above diagnosis. End of Report [facility] 08/31/2014 09/01/2014 Ana Jerome MD PATHOLOGY ORDERABLES [facility] [address] [place] [address] documented in this encounter Visit Diagnoses Not on filedocumented in this encounter Care Teams Art Librarian Relationship Specialty Start Date End Date Handy Oneill MD [address] [place] [phone] PCP - General 06/29/09 02/04/24 documented as of this encounter
--- OUTSIDE RECORDS SUMMARY | 2024-08-27 19:46 | XMS_ITS | Encounter Summary ---
Author Organization [facility] Address [address] [place] [address] Care Team Providers Care Powertrain Control Systems Engineer Name Role Phone Handy James MD Primary Care Provider [phone] Reason for Visit * Auth/Cert (Routine) Specialty Diagnoses / Procedures [facility]erred To Contact Diagnoses Cataract, left Cataract, left [H26.9] Procedures MI XCAPSL CTRC RMVL INSJ IO LENS PROSTH W/O ECP EXTRACTION, CATARACT, EXTRACAPSULAR, WITH IOL INSERTION Referral ID Status Reason Start Date Expiration Date Visits Re quested Visits Authorized [id number] 1 1 Encounter Details Date Type Department Care Team (Late st Contact Info) Description 02/05/2024 11:35 EDT - 02/05/2024 12:10 EDT Surgery [facility] Operating Room [address] [place] [id number] Ray Kimball MD [facility] [address] [place] [address] [id number] EXTRACTION, CATARACT, EXTRACAPSULAR, WITH IOL INSERTION [31273 (CPT??)] Surgery Details Date/Time Status Location OR Service Patient Class Case Cl ass Case Type Trauma Case? 02/05/24 1135 Posted [facility] OR OR Ophthalmology Hosp ital Outpatient Surgery H - Elective Panel 1 Procedure LRB Anes Op Region Wound Class Comments EXTRACTION, CATARACT, EXTRACAPSULAR, WITH IOL INSERTION Left Monitored Anesthesia Care Eye Class I/ Clean Surgeon Surgeon Role Service Panel Ray Kimball MD Primary Ophthalmolog y 1 Special Needs SF documented in this encounter Social History Tobacco Use Types Packs/Day Years Used Date Smoking Tobacco: Never Smokeless Tobacco: Never Alcohol Use Standard Drinks/Week Comments Not Currently 0 (1 standard drink = 0.6 oz pur e alcohol) Sex and Gender Information Value Date Recorded Sex Assigned at Female 02/05/2024 10:57 EDT Gender Identity Not on file Sexual Orientation Not on file documented as of this encounter Last Filed Vital Signs Vital Sign Reading [...] Body Mass Index 26.28 02/05/2024 1041 EDT documented in this encounter Discharge Instructions * Discharge Instructions* Ray Kimball MD - 02/05/2024 11:37 EDT Images from the original note were not included. Cataract Surgery: What to Expect at Home Your Recovery You had cataract surgery. It replaced your cloudy natural lens with a clear artificial one. After surgery, your eye may feel scratchy, sticky, or uncomfortable. It may also water more than usual. Your vision will start off blurry and improve over the week following surgery. The average patient begins to see better 1 to 3 days after surgery, but it could take up to 4 weeksto get the full benefits of surgery and to see as clearly as possible. You may also need a new glasses prescription for your best vision. Your doctor may send you home with a bandage, patch, or clear shield on your eye. This will keep you from rubbing your eye. Your doctor will also give you eyedrops to help your eye heal. Use them exactly as directed. You can read or watch TV right away, but things may look blurry. Most people are able to return to work or their normal routine in 1 to 3 days. After your eye heals, you may still need to wear glasses, especially for reading. This care sheet gives you a general idea about how long it will take for you to recover. But each person recovers at a different pace. Follow the steps below to get better as quickly as possible. How can you care for yourself at home? Activity Rest when you feel tired. Getting enough sleep will help you recover. You may have trouble judging distances for a few days. Move slowly, and be careful going up and down stairs and pouring hot liquids. Ask for help if you need it. Ask your doctor when it is okay to drive. Wear your eye bandage, patch, or shield for as long as your doctor recommends. You may only need towear it when you sleep. You can shower or wash your hair the day after surgery. Keep water, soap, shampoo, hair spray, and shaving lotion out of your eye, especially for the first week. Do not rub or put pressure on your eye for at least 4 weeks. Do not wear eye makeup for 2 weeks. You may also want to avoid face cream or lotion. Do not get your hair colored or permed for 2 weeks after surgery. Do not bend over or do any strenuous activities, such as biking, jogging, weight lifting, or aerobic exercise, for 2 weeks or until your doctor says it is okay. Avoid swimming and hot tubs for 2 weeks. Wear sunglasses on bright days Medicines Your doctor will tell you if and when you can restart your medicines. You will also be given instructions about taking any new medicines. If you stopped taking aspirin or some other blood thinner, your doctor will tell you when to start taking it again. Follow your doctor's instructions for when to use your eyedrops. Always wash your hands before you put your drops in. To put in eyedrops: Tilt your head back, and pull your lower eyelid down with one finger. Drop or squirt the medicine inside the lower lid. Close your eye for 30 seconds to let the drops or ointment move around. Do not touch the ointment or dropper tip to your eyelashes or any other surface. Follow your doctor's instructions for taking pain medicines. Follow-up care is a hazel part of your treatment and safety. Be sure to make and go to all appointments, and call your doctor if you are having problems. When should you call for help? Call 911 anytime you think you may need emergency care. For example, call if: You passed out (lost consciousness). You have a sudden loss of vision. You have sudden chest pain, are short of breath, or cough up blood. Call your doctor now or seek immediate medical care if: You have signs of an eye infection, such as: Pus or thick discharge coming from the eye. Redness or swelling around the eye. A fever. You have new or worse eye pain. You have significant vision changes. You have symptoms of a blood clot in your leg (called a deep vein thrombosis), such as: Pain in the calf, back of the knee, thigh, or groin. Redness and swelling in your leg or groin. Watch closely for changes in your health, and be sure to contact your doctor if: You do not get better as expected. Where can you learn more? Go to [email or web address] or log into your [employer] account at [email or web address] Enter R255 in the search box to learn more about Cataract Surgery: What to Expect at Home. Current as of: November 28, 2021 Content Version: 13.4 ?? [employer]. Care instructions adapted under license by [facility]. If you have questions about a medical condition or this instruction, always ask your healthcare professional. [employer] disclaims any warranty or liability for your use of this information. documented in this encounter Medications at Time of Discharge Medication Sig Dispensed Refills Start Date End Date calcium carbonate (OS-ANTWON) 1250 mg (500 mg elemental) tablet tablet Take 1 Tablet by mouth daily. lisinopriL (PRINIVIL) 5 mg tablet Take 1 Tablet by mouth every evening. Multivitamin Cmb No.21-Iron-FA tablet Take 1 Tablet by mouth daily. primidone (MYSOLINE) 250 mg tablet Take 1 Tablet by mouth every evening. propRANolol (INDERAL LA) 60 mg SR capsule Take 160 mg by mouth daily. traZODone (DESYREL) 50 mg tablet Take 1 Tablet by mouth at bedtime. documented as of this encounter Discharge Disposition Disposition Code Departure Means Destination Comment s Home or Self Care Car Home documented in this encounter H&P Notes * Ray Kimball MD - 02/05/2024 1104 EDT The preoperative history and physical which was performed within 30 days of this procedure has been reviewed and the clinically appropriate elements of the physical examination have been repeated. There are no changes to the documented history and physical or if so such changes are documented below Ray Kimball MD 02/05/2024 11:04 Source Note - Handy James - 02/05/2024 0:00 EDT documented in this encounter OR Notes * OR Surgeon - Ray Kimball MD - 02/05/2024 1136 EDT EXTRACTION, CATARACT, EXTRACAPSULAR, WITH IOL INSERTION (L) Operative Note Date: 02/05/2024 Location: [facility] OR Name: Thelma Bonner, : 1945, Diagnosis Pre-Op Diagnosis Codes: * Cataract, left [H26.9] Post-op Diagnosis * Cataract, left [H26.9] Procedures * EXTRACTION, CATARACT, EXTRACAPSULAR, WITH IOL INSERTION Surgeons * Ray Kimball MD - Primary Procedure Summary Anesthesia: Monitored Anesthesia Care ASA: II Estimated Blood Loss: No Blood Loss Documented Total IV Fluids: 0 mL LDAs: Peripheral IV 02/05/24 1051 Anterior;Left Forearm (Active) Wound 01/22/24 Right Eye (Active) Wound 02/05/24 Left Eye (Active) Implants Type Name Action Serial No. Lens LENS INTRAOCULAR MONOFOCAL +5.0D TECNIS [id number] - [id number] Implanted [id number] Staff: Small Arms Artillery Repairer: Kristy Juan RN; Dior Momin RN Relief Small Arms Artillery Repairer: Daylin Doran RN Scrub Person: Jennifer Lew Indications: Thelma Bonner is an 78 y.o. female who is having surgery for Cataract, left [H26.9] Procedure Details: The patient was seen in the preoperative area. The risks, benefits, complications, treatment options, non-operative alternatives, expected recovery and outcomes were discussed with the patient. The possibilities of reaction to medication, pulmonary aspiration, injury to surrounding structures, bleeding, recurrent infection, the need for additional procedures, failure to diagnose a condition, and creating a complication requiring transfusion or operation were discussed with the patient. The patient concurred with the proposed plan, giving informed consent. The site of surgery was properly noted/marked if necessary per policy. The patient has been actively warmed in preoperative area. Preopera tive antibiotics are not indicated. Venous thrombosis prophylaxis are not indicated. Findings: none Complications: None; patient tolerated the procedure well. Disposition: PACU - hemodynamically stable. Condition: stable Specimens:None Implants: IOL The patient was identified in the preoperative holding area. The operative site was agreed upon andmarked by the surgeon. The patient was taken back to the operating room and prepped and draped in the usual sterile ophthalmic fashion with an eyelid speculum inserted into the left eye. A 1mm blade was used to create a paracentesis in the inferotemporal peripheral cornea. A preservative free lidocaine, BSS, and epinephrine mixture was injected into the anterior chamber followed by viscoelastic. A 2.6mm keratome was used to make the main corneal incision in the peripheral temporal cornea. A cystotome and Utrata forceps were used to create a continuous curvilinear capsulorhexis. Balanced salt solution on a blunt tipped cannula was used to hydrodissect and hydrodelineate the lens, following which free rotation within the capsular bag was noted. The phacoemulsification device was used to remove the nucleus with a vertical chop technique and the irrigation/aspiration device used to remove co rtical material and to dominican the capsular bag. The capsular bag was filled with viscoelastic and the intra-ocular lens inserted into the capsular bag. The remaining viscoelastic was removed from thecapsular bag and anterior chamber using the irrigation/aspiration device. The corneal wounds were hydrated with balanced salt solution on a blunt-tipped cannula and the eye pressurized to approximately 20mmHg. The wounds were tested with Weck-saige sponges and found to be water tight. At this time the eye had a good reflex, the intra-ocular lens was well centered and fully contained within the capsular bag. Two drops of Tobra-Dex ophthalmic solution were placed onto the cornea followed by removalof the eyelid speculum and drape and placement of a hard shield over the eye. Ray Kimball MD * Preprocedure Instructions - aKt Edwards RN - 01/30/2024 1238 EDT The following preoperative instructions have been provided via phone. Date of procedure: 02/05/24 Arrival time: 1015 (this time is subject to change, we would call you the day before if a change occurs) Thelma Bonner has been instructed as follows regarding medication administration for the day of the scheduled procedure. Instructions for Taking Medications Day of Surgery Medication Dose and frequency Last Dose Hold Day of Surgery Take Day of Surgery calcium carbonate (OS-ANTWON) 1250 mg (500 mg elemental) tablet tablet Take 1 Tablet by mouth daily. hold lisinopriL (PRINIVIL) 5 mg tablet Take 1 Tablet by mouth every evening. Takes at bedtime Multivitamin Cmb No.21-Iron-FA tablet Take 1 Tablet by mouth daily. hold primidone (MYSOLINE) 250 mg tablet Take 1 Tablet by mouth every evening. Takes at bedtime propRANolol (INDERAL LA) 60 mg SR capsule Take 160 mg by mouth daily. take traZODone (DESYREL) 50 mg tablet Take 1 Tablet by mouth at bedtime. Takes at bedtime Instructions for Thelma Leeann Kailey's Procedure at [facility] . These instructions are being given for your safety and to prevent your surgery from being delayed or canceled. IF YOU FEEL SICK within 7 days of your procedure CALL YOUR SURGEON. If you have MyChart, you will receive 2 questionnaires (???Pre-surgery Questionnaire?? and ???History?? ) prior to your procedure. Please fill these out so we can safely care for you during your procedure. Getting ready at home 24 hours before your procedure: Stop any smoking, vaping or chewing products. Before your procedure: Stop eating and drinking by midnight. This includes chewing gum, mints, candy and Tums. EXCEPT: You CAN have a small sip of water (only water) with the medications your doctor or nurse asked you to take before arriving at the hospital. You CAN have water or a clear electrolyte drink 4 hours before you arrive (Pedialyte, Gatorade, Powerade, etc.) Avoid red colored drinks Grooming Please take a bath or shower to clean your skin. Do not put on any lotions, makeup, deodorants, oils, powders, perfumes or colognes. Do not shave the procedure area. Remove all nail polishes from fingers and toes. What to bring to the hospital and what to keep at home: Plan to wear clean and comfortable clothing. If you wear contacts, plan to wear glasses instead. Please leave at home: Any body piercings or jewelry, including your wedding band. Your home medications. Extra luggage or a large bag. We will provide you with a bag for any items. Valuables, archuleta or credit cards. [facility] is not responsible for any lost items during your hospital visit. If you experience fevers, swelling, redness, rash or a break in your skin prior to your surgery contact your surgeon. Arriving for your procedure: Enter through the main entrance, and check in at the patient registration information desk. They will take your name and let us know you have arrived. A patient blue print control clerk will then verify your information and give you an identification bracelet. You will then be directed to the [employer] waiting area around the corner to check in at the window. You will be asked to provide the name and number of the responsible adult driving you home; this isrequired to receive sedation for a procedure. We recommend you are in the care of another adult for 24 hours after anesthesia. You should not drive or make any important personal decisions for 24 hours. You are at a high risk for a fall and nausea/vomiting after anesthesia. We recommend you rest at home with mild activity for the remainder of the day. Day of procedure at hospital: The nursing team will take your vital signs, check your information, and discuss what to expect. They may also prepare your procedural area (clip hair/clean skin), start an IV and give you medications as needed. Your anesthesia team will meet with you to discuss your anesthesia plan and any questions you may have prior to the procedure. Your doctor will see you before going into your procedure. They will verify the correct procedure and answer any questions you may have. Once you are ready, an operating room or procedural nurse will ask you many of the same questions for safety reasons. They will then take you to the procedural room. If you have additional questions before your procedure, please call . Updated 11/26/23 documented in this encounter Plan of Treatment Not on file documented as of this encounter Procedures Procedure Name Priority Date/Time Associated Diagnosis Comments ECG REPORT - SCANNED 02/06/2024 13:33 EDT EXTRACTION, CATARACT, EXTRACAPSULAR, WITH IOL INSERTION 02/05/2024 11:08 EDT Cataract, left Special Needs SF documented in this encounter Results * ECG REPORT - SCANNED (02/06/2024 13:33 EDT) 02/06/2024 13:3 3 EDT Scan 2 Machine Icer PROCEDURE/MINOR TARA GICAL ORDERABLES documented in this encounter Visit Diagnoses Diagnosis Cataract, left Unspecified cataract documented in this encounter Administered Medications Inactive Administered Medications - up to 3 most recent administrations Medication Order MAR Action Action Date Dose Rate Site balanced salt solution inrrigation solution (BSS PLUS) 500 mL, EPINEPHrine HCl (PF) (ADRENALIN) 0.3 mL irrigation PRN, Starting on Sun02/05/24 at 1124, Until Sun02/05/24 at 1137, Routine, Intraprocedure Given 02/05/2024 11:24 EDT 500 mL Left Eye balanced salts (BSS) ophthalmic solution PRN, Starting on Sun02/05/24 at 1124, Until Sun02/05/24 at 1137, Routine, Intraprocedure Given 02/05/2024 11:24 EDT 30 mL Left Eye chondroitin-sodium hyaluronate (VISCOAT) ophthalmic solution PRN, Starting on Sun02/05/24 at 1124, Until Sun02/05/24 at 1137, Routine, Intraprocedure Given 02/05/2024 11:24 EDT 0.5 mL Left Eye yqwrintbyklhkz-kdsznjridwk-lornz rqfqgnu-vhcseebrckorj-dryrxpeyq 1%-1%-0.1%-2.5%-0.4% ophthalmic solution drops 1 Drop 1 Drop, left eye, PREOP LINKED EYE MEDS-SEE ADMIN INSTRUCTIONS, 3 doses, First dose on Sun02/05/24 at 1100, Last dose on Sun02/05/24 at 1110, Routine, Preprocedure Given 02/05/2024 10:51 EDT 1 Drop Given 02/05/2024 10:41 EDT 1 Drop lidocaine (GLYDO/URO-JET) 2 % jelly in applicator PRN, Starting on Sun02/05/24 at 1124, Until Sun02/05/24 at 1137, Intraprocedure Given 02/05/2024 11:24 EDT 3 Drops Left Eye lidocaine (PF) 10 mg/mL (1 %) injection 2 mg 2 mg, intradermal, PRN, 4 doses, Starting on Sun02/05/24 at 1031, Until Sun02/06/24 at 0606, peripheral intravenous catheter placement, Routine, Preprocedure lidocaine 4 % (7.6 mg) + EPINEPHrine 1 mg/mL (0.25 mg) + BSS (0.56 mL) intra-op in 1 mL syringe 1 mL, intracameral, INTRA-OP ONCE, 1 dose, On Sun02/05/24 at 1145, Routine, Intraprocedure Given 02/05/2024 11:26 EDT 1 mL Left Eye povidone-iodine 5 % ophthalmic solution PRN, Starting on Sun02/05/24 at 1126, Until Sun02/05/24 at 1137, Routine, Intraprocedure Given 02/05/2024 11:26 EDT 3 Drops Left Eye sodium chloride 0.9 % (flush) flush 5 mL 5 mL, intravenous, EVERY 8 HOURS, First dose on Sun02/05/24 at 1100, Until Discontinued, Routine, Preprocedure sodium hyaluronate (HEALON) ophthalmic injection PRN, Starting on Sun02/05/24 at 1126, Until Sun02/05/24 at 1137, Routine, Intraprocedure Given 02/05/2024 11:26 EDT 8.5 mg Left Eye tetracaine (PONTOCAINE) 0.5 % ophthalmic solution PRN, Starting on Sun02/05/24 at 1126, Until Sun02/05/24 at 1137, Routine, Intraprocedure Given 02/05/2024 11:26 EDT 3 Drops Left Eye tobramycin-dexamethasone (TOBRADEX) ophthalmic suspension 2 Drop 2 Drop, left eye, INTRA-OP ONCE, 1 dose, On Sun02/05/24 at 1145, Routine, Intraprocedure Given 02/05/2024 11:27 EDT 2 Drops Left Eye documented in this encounter Active and Recently Administered Medications Times are shown in EDT. Scheduled Medication Order 02/03/2024 02/04/2024 02/05/2024 vpowazmfwmdblw-ksdqwjkwgwx-dzobj ymgsbyq-qkdpporyqzvtv-kzcsnhsfi 1%-1%-0.1%-2.5%-0.4% ophthalmic solution drops 1 Drop () 1 Drop, left eye, PREOP LINKED EYE MEDS-SEE ADMIN INSTRUCTIONS, 3 doses, First dose on Sun02/05/24 at 1100, Last dose on Sun02/05/24 at 1110, Routine, Preprocedure 1041 (Given - Provid er: Santiago Lozano RN)1051 (Given - Provider: Santiago Lozano RN)1110 (Due) lidocaine 4 % (7.6 mg) + EPINEPHrine 1 mg/mL (0.25 mg) + BSS (0.56 mL) intra-op in 1 mL syringe (COMPLETED) 1 mL, intracameral, INTRA-OP ONCE, 1 dose, On Sun02/05/24 at 1145, Routine, Intraprocedure 1126 (Given - Provid er: Ray Kimball MD)1145 (Due) sodium chloride 0.9 % (flush) flush 5 mL(Linked Group 1) 5 mL, intravenous, EVERY 8 HOURS, First dose on Sun02/05/24 at 1100, Until Discontinued, Routine, Preprocedure 1100 (Canceled Entry - Provider: Batch Job User Admin - Comment: Automatically canceled at discontinue of medication order)1600 (Canceled Entry - Provider: Batch Job User Admin - Comment: Automatically canceled at discontinue of medication order) tobramycin-dexamethasone (TOBRADEX) ophthalmic suspension 2 Drop (COMPLETED) 2 Drop, left eye, INTRA-OP ONCE, 1 dose, On Sun02/05/24 at 1145, Routine, Intraprocedure 1127 (Given - Provid er: Ray Kimball MD)1145 (Due) PRN Medication Order 02/03/2024 02/04/2024 02/05/2024 balanced salt solution inrrigation solution (BSS PLUS) 500 mL, EPINEPHrine HCl (PF) (ADRENALIN) 0.3 mL irrigation (CANCELED) PRN, Starting on Sun02/05/24 at 1124, Until Sun02/05/24 at 1137, Routine, Intraprocedure 1124 (Given - Provid er: Ray Kimball MD) balanced salts (BSS) ophthalmic solution (CANCELED) PRN, Starting on Sun02/05/24 at 1124, Until Sun02/05/24 at 1137, Routine, Intraprocedure 1124 (Given - Provid er: Ray Kimball MD) chondroitin-sodium hyaluronate (VISCOAT) ophthalmic solution (CANCELED) PRN, Starting on Sun02/05/24 at 1124, Until Sun02/05/24 at 1137, Routine, Intraprocedure 112 (Given - Provid er: Ray Kimball MD) lidocaine (GLYDO/URO-JET) 2 % jelly in applicator (CANCELED) PRN, Starting on Sun02/05/24 at 1124, Until Sun02/05/24 at 1137, Intraprocedure 112 (Given - Provid er: Ray Kimball MD) lidocaine (PF) 10 mg/mL (1 %) injection 2 mg 2 mg, intradermal, PRN, 4 doses, Starting on Sun02/05/24 at 1031, Until Sun02/06/24 at 0606, peripheral intravenous catheter placement, Routine, Preprocedure povidone-iodine 5 % ophthalmic solution (CANCELED) PRN, Starting on Sun02/05/24 at 1126, Until Sun02/05/24 at 1137, Routine, Intraprocedure 112 (Given - Provid er: Ray Kimball MD) sodium hyaluronate (HEALON) ophthalmic injection (CANCELED) PRN, Starting on Sun02/05/24 at 1126, Until Sun02/05/24 at 1137, Routine, Intraprocedure 1126 (Given - Provid er: Ray Kimball MD) tetracaine (PONTOCAINE) 0.5 % ophthalmic solution (CANCELED) PRN, Starting on Sun02/05/24 at 1126, Until Sun02/05/24 at 1137, Routine, Intraprocedure 1126 (Given - Provid er: Ray Kimball MD) Linked Groups Order Group 1: Insert Saline Lock (CANCELED) Routine, ONE TIME, On Sun02/05/24 at 1035, For 1 occurrence, Preprocedure And sodium chloride 0.9 % (flush) flush 5 mLJump to med 5 mL, intravenous, EVERY 8 HOURS, First dose on Sun02/05/24 at 1100, Until Discontinued, Routine, Preprocedure documented in this encounter Orders Medications Ordered That Josiah ht Not Have Been Administered Count Last Ordered Date First Ordered Date lidocaine (PF) 10 mg/mL (1 % ) injection 2 mg 1 02/05/2024 sodium chloride 0.9 % (flush) flush 5 mL 1 02/05/2024 Discharge Count Last Ordered Date First Orde red Date DISCHARGE PATIENT 1 02/05/2024 documented in this encounter Care Teams Powertrain Control Systems Engineer Relationship Specialty Start Date End Date Handy James MD [address] [facility] [place] [address] PCP - General 02/05/24 documented as of this encounter
--- OUTSIDE RECORDS SUMMARY | 2024-08-27 19:46 | XMS_ITS | Encounter Summary ---
Author Organization [facility] [place] [address] Care Team Providers Care Wire Frame Dipper Name Role Phone Handy James MD Primary Care Provider [phone] Reason for Visit * High Dollar Medication (Routine) - Authorized Specialty Diagnoses / Procedures Referred By Contac t Referred To Contact Neurology Diagnoses Cervical dystonia Procedures Onabotulinumtoxin A (BOTOX) Authorizations Request (IN CLINIC) TC ONABOTULINUMTOXINA, 1 UNIT, INJECTION Debbie Becker MD [facility] [place] [address] Debbie Becker MD [facility] [address] [place] [address] Referral ID Status Reason Start Date Expiration Date Visits Requested Visits Authorized [id number] Authorized Consult, Test & Treat 03/28/2024 03/28/2025 4 4 Encounter Details Date Type Department Care Team (Late st Contact Info) Description 08/22/2024 11:00 AM EDT Procedure visit Neurology at [facility] [address] [place] [address] Debbie Becker MD [facility] DR [place] [address] Cervical dystonia Social History Tobacco Use Types Packs/Day Years [...] PM EDT documented as of this encounter Procedure Notes * Debbie Becker MD - 08/22/2024 11:00 AM EDTAssociated Order(s): CHEMODENERVATION W/ EMG GUIDANCE Chemodenervation Procedure Note Diagnosis: cervical dystonia with dystonic tremor HPI: She has head tremor and has not done well with oral medications. We discussed risks, benefits and reasonable expectations of botox and will proceed with injections today. She is still having some early wearing off but is having moderate benefit. There is some mild tremor between injections but muchbetter than it was. She did better overall with the full 200 units dose. Codes for chemodenervation visit: 43128, 45537 Exam: Procedure: A time out was performed [...] F/u in 3 months. Debbie Becker MD [facility] Neurology-Movement Disorders documented in this encounter Plan of Treatment Upcoming Encounters Date Type Department Care Team (Late st Contact Info) Description 11/14/2024 9:30 AM EST Procedure visit Neurology at [facility] [address] [place] [address] Debbie Becker MD [facility] DR [place] [address] documented as of this encounter Procedures Procedure Name Priority Date/Time Associated Diagnosis Comments CHEMODENERVATION W/ EMG GUIDANCE Routine 08/22/2024 11:00 AM EDT documented in this encounter Results * CHEMODENERVATION W/ EMG GUIDANCE (08/22/2024 [...] 200 units dose. Codes for chemodenervation visit: 05928, 36219 Exam: Procedure: A time out was performed [...] F/u in 3 months. Debbie Becker MD [facility] Neurology-Movement Disorders Debbie Becker MD NEUROLOGY ORDERABL ES documented in this encounter Visit Diagnoses Diagnosis Cervical dystonia Spasmodic torticollis documented in this encounter Administered Medications Inactive Administered Medications - up to 3 most recent administrations Medication Order MAR Action Action Date Dose Rate Site botulinum toxin type A (Botox) injection 200 Units 200 Units, Intramuscular, ONCE, 1 dose, On Sun08/22/24 at 1130, Routine Given 08/22/2024 11:36 AM EDT 200 Units documented in this encounter Care Teams Wire Frame Dipper Relationship Specialty Start Date End Date Handy James MD PCP - General Family Medicine 08/09/20 documented as of this encounter
--- OUTSIDE RECORDS SUMMARY | 2024-08-27 19:46 | XMS_ITS | Encounter Summary ---
Author Organization [facility] Address [address] [place] [address] Care Team Providers Care Insulation Board Head Saw Operator Name Role Phone Handy Oneill MD Primary Care Provider [phone] Reason for Visit * Auth/Cert (Routine) Specialty Diagnoses / Procedures [facility] To Contact Diagnoses Cataract, right Cataract, right [H26.9] Procedures WA XCAPSL CTRC RMVL INSJ IO LENS PROSTH W/O ECP EXTRACTION, CATARACT, EXTRACAPSULAR, WITH IOL INSERTION Referral ID Status Reason Start Date Expiration Date Visits Re quested Visits Authorized [id number] 1 1 Encounter Details Date Type Department Care Team (Latest Contact Info) Description 01/22/2024 11:08 EDT - 01/22/2024 13:28 EDT Hospital Encounter [facility] Operating Room [address] [place] [address] Ray Kimball MD [facility] [address] [place] [address] [id number] Discharge Disposition: Home or Self Care Social History Tobacco Use Types Packs/Day Years [...] Sign Reading Time Taken Comments Blood Pressure 132/63 01/22/2024 1313 EDT Pulse - - Temperature 36.7 ??C (98 ??F) 01/22/2024 1313 EDT Respiratory Rate 19 01/22/2024 1313 EDT Oxygen Saturation 98% 01/22/2024 1313 EDT Inhaled Oxygen Concentration - - Weight 73 kg (161 lb) 01/22/2024 1125 EDT Height 167.6 cm (5' 6) 01/22/2024 1125 EDT Body Mass Index 25.99 01/22/2024 1125 EDT documented in this encounter Discharge Instructions * Discharge Instructions* Ray Kimball MD - 01/22/2024 12:50 EDT Images from the original note were [...] Where can you learn more? Go to [email or web address] or log into your [employer] account at [email or web address]://General [email or web address].IRL Connect Enter R255 in the search box to learn more about Cataract Surgery: What to Expect at Home. Current as of: November 28, 2021 Content Version: 13.4 ?? [employer]. Care instructions adapted under license by [facility]. If you have questions about a medical condition or this instruction, always ask your healthcare professional. [employer] disclaims any warranty or liability for your [...] Destination Comment s Home or Self Care Wheelchair Home documented in this encounter H&P Notes * Ray Kimball MD - 01/22/2024 1214 EDT The preoperative history and physical which was performed within 30 days of this procedure has been reviewed and the clinically appropriate elements of the physical examination have been repeated. There are no changes to the documented history and physical or if so such changes are documented below Ray Kimball MD 01/22/2024 12:14 Source Note - Handy James - 01/22/2024 0:00 EDT documented in this encounter OR Notes * OR Surgeon - Ray Kimball MD - 01/22/2024 1249 EDT EXTRACTION, CATARACT, EXTRACAPSULAR, WITH IOL INSERTION (R) Operative Note Date: 01/22/2024 Location: [facility] [place] [place] OR Name: Thelma Bonner, : 1945, Diagnosis Pre-Op Diagnosis Codes: * Cataract, right [H26.9] Post-op Diagnosis * Cataract, right [H26.9] Procedures * EXTRACTION, CATARACT, EXTRACAPSULAR, WITH IOL INSERTION Surgeons * Ray Kimball MD - Primary Procedure Summary Anesthesia: Monitored Anesthesia Care ASA: II Estimated Blood Loss: No Blood Loss Documented Total IV Fluids: 0 mL LDAs: Peripheral IV 01/22/24 1201 Posterior;Right Hand (Active) Wound 01/22/24 Right Eye (Active) Implants Type Name Action Serial No. Lens LENS INTRAOCULAR MONOFOCAL +6.5D TECNIS DCB00 - [id number] Implanted [id number] Staff: Plastics Fabricator And Assembler: Dior Momin RN; Patricia Cadet RN Scrub Person: Fannie Dowell Indications: Thelma Bonner is an 78 y.o. female who is having surgery for Cataract, right [H26.9] Procedure Details: The patient was seen [...] with an eyelid speculum inserted into the right eye. A 1mm bladewas used to create a paracentesis in the superotemporal peripheral cornea. A preservative free lidocaine, BSS, and epinephrine mixture was injected into the anterior chamber followed by viscoelastic.A 2.6mm keratome was used to make the main corneal incision in the peripheral temporal cornea. A cystotome and Utrata forceps were used to create a continuous curvilinear capsulorhexis. Balanced saltsolution on a blunt tipped cannula was used to hydrodissect and hydrodelineate the lens, following which free rotation within the capsular bag was noted. The phacoemulsification device was used to remove the nucleus with a vertical chop technique and the irrigation/aspiration device used to remove c ortical material and to divehi the capsular bag. The capsular bag was filled with viscoelastic and the intra-ocular lens inserted into the capsular bag. The remaining viscoelastic was removed from the capsular bag and anterior chamber using the irrigation/aspiration [...] were placed onto the cornea followed by removal of the eyelid speculum and drape and placement of a hard shield over the eye. Ray Kimball MD * Preprocedure Instructions - Carolina Andres RN - 01/17/2024 1247 EDT The following preoperative instructions have been provided via phone. Date of procedure: 01/22/24 Arrival time: 1120 am (this time is subject to change, we would call you the day before if a changeoccurs) Thelma Bonner has been instructed as follows regarding medication administration for the day of the scheduled procedure. Instructions for Taking Medications Day of Surgery Medication Dose and frequency Last Dose Hold Day of Surgery Take Day of Surgery calcium carbonate (OS-ANTWON) 1250 mg (500 mg elemental) tablet tablet Take 1 Tablet by mouth daily. Yes lisinopriL (PRINIVIL) 5 mg tablet Take 1 Tablet by mouth daily. Yes Multivitamin Cmb No.21-Iron-FA tablet Take 1 Tablet by mouth daily. Yes primidone (MYSOLINE) 250 mg tablet Take 1 Tablet by mouth daily. Yes propRANolol (INDERAL LA) 60 mg SR capsule Take 160 mg by mouth daily. Yes traZODone (DESYREL) 50 mg tablet Take 1 Tablet by mouth at bedtime. Yes Instructions for Thelma Bradshaw Kailey's Procedure at [facility] . These instructions [...] any items. Valuables, archuleta or credit cards. [facility] [place] [place] is not responsible for any lost items during your hospital visit. If you experience fevers, swelling, redness, rash or a break in your skin prior to your surgery contact your surgeon. Arriving for your procedure: Enter through the main entrance, and check in at the patient registration information desk. They will take your name and let us know you have arrived. A patient patient access manager will then verify your information and give you an identification bracelet. You will then be directed to the Plant Protection Officer waiting area around the corner to check [...] Associated Diagnosis Comments ECG REPORT - SCANNED 01/23/2024 14:44 EDT EXTRACTION, CATARACT, EXTRACAPSULAR, WITH IOL INSERTION 01/22/2024 12:24 EDT Cataract, right Special Needs SF documented in this encounter Results * ECG REPORT - SCANNED (01/23/2024 14:44 EDT) 01/23/2024 14:4 4 EDT Scan 2 Podopediatrician PROCEDURE/MINOR TARA GICAL ORDERABLES documented in this encounter Visit Diagnoses Not on filedocumented in this encounter Administered Medications Inactive Administered Medications - up to 3 most recent administrations Medication Order MAR Action Action Date Dose Rate Site acetaminophen (TYLENOL) tablet 650 mg 650 mg, oral, Once (Without Time Specified), Starting on Sun01/22/24 at 1301, Until Sun01/22/24 at 1528, Routine, Recovery (only) yosdasjztvyviy-yrytqgdofal-xgydeoxft gqo-ufrwlpnsqgfpp-qrysykqnh 1%-1%-0.1%-2.5%-0.4% ophthalmic solution drops 1 Drop 1 Drop, right eye, PREOP LINKED EYE MEDS-SEE ADMIN INSTRUCTIONS, 3 doses, First dose on Sun01/22/24 at 1145, Last dose on Sun01/22/24 at 1155, Routine, Preprocedure Given 01/22/2024 11:42 EDT 1 Drop Given 01/22/2024 11:36 EDT 1 Drop Given 01/22/2024 11:31 EDT 1 Drop lidocaine (PF) 10 mg/mL (1 %) injection 2 mg 2 mg, intradermal, PRN, 4 doses, Starting on Sun01/22/24 at 1119, Until Sun01/22/24 at 1528, peripheral intravenous catheter placement, Routine, Preprocedure ondansetron (PF) (ZOFRAN) injection 4 mg 4 mg, intravenous, ONCE PRN, 1 dose, Starting on Sun01/22/24 at 1301, Until Sun01/22/24 at 1528, Nausea, Routine, Recovery (only) sodium chloride 0.9 % (flush) flush 5 mL 5 mL, intravenous, EVERY 8 HOURS, First dose on Sun01/22/24 at 1600, Until Discontinued, Routine, Preprocedure documented in this encounter Historical Medications * This list may reflect changes made after this encounter. Medication Sig Dispensed Refills Start Date End Date calcium carbonate (OS-ANTWON) 1250 mg (500 mg elemental) tablet tablet Take 1 Tablet by mouth daily. Multivitamin Cmb No.21-Iron-FA tablet Take 1 Tablet by mouth daily. traZODone (DESYREL) 50 mg tablet Take 1 Tablet by mouth at bedtime. lisinopriL (PRINIVIL) 5 mg tablet Take 1 Tablet by mouth every evening. propRANolol (INDERAL LA) 60 mg SR capsule Take 160 mg by mouth daily. primidone (MYSOLINE) 250 mg tablet Take 1 Tablet by mouth every evening. added in this encounter Active and Recently Administered Medications Times are shown in EDT. Scheduled Medication Order 01/20/2024 01/21/2024 01/22/2024 acetaminophen (TYLENOL) tablet 650 mg 650 mg, oral, Once (Without Time Specified), Starting on Sun01/22/24 at 1301, Until Sun01/22/24 at 1528, Routine, Recovery (only) ltfgihkgajjnao-qyytjqcvnmy-fthjyt mxbnnp-oaemengxaqddx-ktxnrxexu 1%-1%-0.1%-2.5%-0.4% ophthalmic solution drops 1 Drop (COMPLETED) 1 Drop, right eye, PREOP LINKED EYE MEDS-SEE ADMIN INSTRUCTIONS, 3 doses, First dose on Sun01/22/24 at 1145, Last dose on Sun01/22/24 at 1155, Routine, Preprocedure 1131 (Given - Provid er: Narcisa Caldwell RN)1136 (Given - Provider: Narcisa Caldwell RN)1142 (Given - Provider: Narcisa Caldwell RN) lidocaine 4 % (7.6 mg) + EPINEPHrine 1 mg/mL (0.25 mg) + BSS (0.56 mL) intra-op in 1 mL syringe (COMPLETED) 1 mL, intracameral, INTRA-OP ONCE, 1 dose, On Sun01/22/24 at 1245, Routine, Intraprocedure 1236 (Given - Provid er: Ray Kimball MD)1245 (Due) sodium chloride 0.9 % (flush) flush 5 mL(Linked Group 1) 5 mL, intravenous, EVERY 8 HOURS, First dose on Sun01/22/24 at 1600, Until Discontinued, Routine, Preprocedure tobramycin-dexamethasone (TOBRADEX) ophthalmic suspension 2 Drop (COMPLETED) 2 Drop, right eye, INTRA-OP ONCE, 1 dose, On 01/21/24 at 1245, Routine, Intraprocedure 1237 (Given - Provid er: Ray Kimball MD)1245 (Due) PRN Medication Order 01/20/2024 01/21/2024 01/22/2024 balanced salt solution inrrigation solution (BSS PLUS) 500 mL, EPINEPHrine HCl (PF) (ADRENALIN) 0.3 mL irrigation (CANCELED) PRN, Starting on Sun01/22/24 at 1235, Until Sun01/22/24 at 1250, Routine, Intraprocedure 1235 (Given - Provid er: Ray Kimball MD) balanced salts (BSS) ophthalmic solution (CANCELED) PRN, Starting on Sun01/22/24 at 1235, Until Sun01/22/24 at 1250, Routine, Intraprocedure 1235 (Given - Provid er: Ray Kimball MD) chondroitin-sodium hyaluronate (VISCOAT) ophthalmic solution (CANCELED) PRN, Starting on Sun01/22/24 at 1236, Until 01/22/24 at 1250, Routine, Intraprocedure 1236 (Given - Provid er: Ray Kimball MD) lidocaine (GLYDO/URO-JET) 2 % jelly in applicator (CANCELED) PRN, Starting on Sun01/22/24 at 1236, Until 01/22/24 at 1250, Intraprocedure 1236 (Given - Provid er: Ray Kimball MD) lidocaine (PF) 10 mg/mL (1 %) injection 2 mg 2 mg, intradermal, PRN, 4 doses, Starting on Sun01/22/24 at 1119, Until e 01/22/24 at 1528, peripheral intravenous catheter placement, Routine, Preprocedure ondansetron (PF) (ZOFRAN) injection 4 mg 4 mg, intravenous, ONCE PRN, 1 dose, Starting on Sun01/22/24 at 1301, Until 01/22/24 at 1528, Nausea, Routine, Recovery (only) povidone-iodine 5 % ophthalmic solution (CANCELED) PRN, Starting on Sun01/22/24 at 1236, Until Sun01/22/24 at 1250, Routine, Intraprocedure 1236 (Given - Provid er: Ray Kimball MD) sodium hyaluronate (HEALON) ophthalmic injection (CANCELED) PRN, Starting on Sun01/22/24 at 1237, Until Sun01/22/24 at 1250, Routine, Intraprocedure 1237 (Given - Provid er: Ray Kimball MD) tetracaine (PONTOCAINE) 0.5 % ophthalmic solution (CANCELED) PRN, Starting on Sun01/22/24 at 1237, Until Sun01/22/24 at 1250, Routine, Intraprocedure 1237 (Given - Provid er: Ray Kimball MD) Linked Groups Order Group 1: Insert Saline Lock (CANCELED) Routine, ONE TIME, On Sun01/22/24 at 1120, For 1 occurrence, Preprocedure And sodium chloride 0.9 % (flush) flush 5 mLJump to med 5 mL, intravenous, EVERY 8 HOURS, First dose on Sun01/22/24 at 1600, Until Discontinued, Routine, Preprocedure documented in this encounter Orders Medications Ordered That Josiah ht Not Have Been Administered Count Last Ordered Date First Ordered Date acetaminophen (TYLENOL) tablet 650 mg 1 balanced salt solution inrri gation solution (BSS PLUS) 500 mL, EPINEPHrine HCl (PF) (ADRENALIN) 0.3 mL irrigation 1 01/22/2024 balanced salts (BSS) ophthalmic solution 01/22/2024 chondroitin-sodium hyalurona te (VISCOAT) ophthalmic solution 01/22/2024 lidocaine (GLYDO/URO-JET) 2 % jelly in applicator 1 01/22/2024 lidocaine (PF) 10 mg/mL (1 % ) injection 2 mg 1 01/22/2024 lidocaine 4 % (7.6 mg) + EPI NEPHrine 1 mg/mL (0.25 mg) + BSS (0.56 mL) intra-op in 1 mL syringe 1 01/22/2024 ondansetron (PF) (ZOFRAN) injection 4 mg 1 01/22/2024 povidone-iodine 5 % ophthalmic solution 1 0 01/22/2024 sodium chloride 0.9 % (flush) flush 5 mL 1 01/22/2024 sodium hyaluronate (HEALON) ophthalmic injection 1 01/22/2024 tetracaine (PONTOCAINE) 0.5 % ophthalmic solution 1 01/22/2024 tobramycin-dexamethasone (TO BRADEX) ophthalmic suspension 2 Drop 1 01/22/2024 Discharge Count Last Ordered Date First Orde red Date DISCHARGE PATIENT 1 01/22/2024 documented in this encounter Care Teams Insulation Board Head Saw Operator Relationship Specialty Start Date End Date Handy Oneill MD [address] [place] [address] PCP - General 06/29/09 02/04/24 documented as of this encounter
--- OUTSIDE RECORDS SUMMARY | 2024-08-27 19:46 | XMS_ITS | Encounter Summary ---
[place] [address] Care Team Providers Care Systems Analyst Engineer Name Role Phone Handy James MD Primary Care Provider [phone] Encounter Details Date Type Department Care Team (Latest Contact Info) Description 01/18/2024 Travel Social History Tobacco Use Types Packs/Day Years [...] PM EDT documented as of this encounter Plan of Treatment Upcoming Encounters Date Type Department Care Team (Late st Contact Info) Description 11/14/2024 9:30 AM EST Procedure visit Neurology at [facility] [address] [place] [id number] Debbie Becker MD [facility] [place] [address] documented as of this encounter Visit Diagnoses Not on filedocumented in this encounter Care Teams Systems Analyst Engineer Relationship Specialty Start Date End Date Handy James MD PCP - General Family Medicine 08/09/20 documented as of this encounter
--- OUTSIDE RECORDS SUMMARY | 2024-08-27 19:46 | XMS_ITS | Encounter Summary ---
Author Organization [facility] Address [address] [place] [address] Care Team Providers Care Nuisance Wildlife Specialist Name Role Phone Handy James MD Primary Care Provider [phone] Encounter Details Date Type Department Care Team (Latest Contact Info) Description 02/05/2024 Travel Social History Tobacco Use Types Packs/Day [...] on file documented as of this encounter Visit Diagnoses Not on filedocumented in this encounter Care Teams Nuisance Wildlife Specialist Relationship Specialty Start Date End Date Handy James MD [address] [place] [address] PCP - General 02/05/24 documented as of this encounter
--- OUTSIDE RECORDS SUMMARY | 2024-08-27 19:46 | XMS_ITS | Encounter Summary ---
Author Organization [facility] Address [address] [place] [address] Care Team Providers Care Professor Of Art History Name Role Phone Handy Oneill MD Primary Care Provider [phone] Encounter Details Date Type Department Care Team (Late st Contact Info) Description 11/26/2007 Results Only [facility] [address] [place] [address] Bebeto Ferrari MD [address] [place] [address] [address] Social History Tobacco Use Types [...] Priority Date/Time Associated Diagnosis Comments CYTOPATHOLOGY Routine 11/26/2007 0:00 EST documented in this encounter Results * CYTOPATHOLOGY (11/26/2007 0:00 EST) Pathology Report: CYTOPATHOLOGY REPORT Reports generated via electronic interface contain original data; however they are lacking the format of the original report. Caution should be taken when reading/interpreti ng unformatted reports. Name: ? THELMA BONNER ? Accession #: ? [id number] : ? 1945 (Age: 62) ??F ?Collect Date: ? 11/26/2007 Location: ? [facility] ? Receive Date: ? 11/27/2007 Provider: ?BEBETO FERRARI MD Copy to: ? Specimen/Source: ?ThinPrep Pap Test, Cervix/Endocervix, processed on PlaceFirst ThinPrep Imaging System, with manual evaluation Last Menstrual Period: ? Previous Gynecologic Pathology: ? Yes: Atrophic vagina Other: ? HPVA - HPV testing requested if ASC-US on the current ThinPrep Pap test. ? SPECIMEN ADEQUACY ? Satisfactory for Evaluation - assessment of transformation zone component not applicable ( e.g. atrophy, vaginal sample, hysterectomy) GENERAL CATEGORIZATION ? Negative for Intraepithelial Lesion or Malignancy ? Document reviewed and electronically signed by: ? Laura Gavin, [facility](ASCP) ? Report Date: ??12/02/2007 14:27 End of Report [facility] 11/26/2007 11/27/2007 Bebeto Ferrari MD PATHOLOGY ORDERABLES Performing Organization Address [facility]/State/ZIP Co de Phone Number [facility] [address] [place] [address] documented in this encounter Visit Diagnoses Not on filedocumented in this encounter Care Teams Professor Of Art History Relationship Specialty Start Date End Date Handy Oneill MD [address] [place] [address] PCP - General 06/29/09 02/04/24 documented as of this encounter
--- OUTSIDE RECORDS SUMMARY | 2024-08-27 19:46 | XMS_ITS | Encounter Summary ---
Author Organization [facility] Address [address] [place] [address] Care Team Providers Care Hand Pattern Marker Name Role Phone Handy Oneill MD Primary Care Provider [phone] Encounter Details Date Type Department Care Team (Late st Contact Info) Description 05/18/2000 Results Only [facility] - [facility] conversion [address] [place] [address] Bebeto Ferrari MD [address] [facility] [address] [address] Social History Tobacco Use Types [...] Priority Date/Time Associated Diagnosis Comments CYTOPATHOLOGY Routine 05/18/2000 0:00 EDT documented in this encounter Results * CYTOPATHOLOGY (05/18/2000 0:00 EDT) Pathology Report: CYTOPATHOLOGY REPORT Reports generated via electronic interface contain original data; however they are lacking the format of the original report. Caution should be taken when reading/interpreti ng unformatted reports. Name: ? GEOVANI BONNERITH Leeann ? Accession #: ? [id number] : ? 1945 (Age: 54) ??F ?Collect Date: ? 05/18/2000 Location: ? [facility] ? Receive Date: ? 05/22/2000 Provider: ?BEBETO FERRARI MD Copy to: ? Specimen/Source: ?ThinPrep Pap Test, Cervix/Endocervix Last Menstrual Period: ? 05/12/00 Menstrual/Pregnanc y Status: ? Regular Previous Gynecologic Pathology: ? Yes ? SPECIMEN ADEQUACY ? Satisfactory for evaluation. GENERAL CATEGORIZATION ? Benign Cellular Changes DESCRIPTIVE DIAGNOSIS ? Parakeratosis - surface reaction present. ? COMMENT ? Rare groups of benign endometrial cells are present representing most likely menstrual flow (day 7) ??induced by hormonal therapy. ? Document reviewed and electronically signed by: ? Zena James MD ? Report Date: ??05/30/2000 11:35 End of Report [facility] 05/18/2000 05/22/2000 Bebeto Ferrari MD PATHOLOGY ORDERABLES [facility] [address] [place] [address] documented in this encounter Visit Diagnoses Not on filedocumented in this encounter Care Teams Hand Pattern Marker Relationship Specialty Start Date End Date Handy Oneill MD [address] [place] [address] PCP - General 06/29/09 02/04/24 documented as of this encounter
--- OUTSIDE RECORDS SUMMARY | 2024-08-27 19:46 | XMS_ITS | Encounter Summary ---
Author Organization [facility] [place] [address] Care Team Providers Care Photographic Processor Name Role Phone Handy James MD Primary Care Provider [phone] Reason for Visit * High Dollar Medication (Routine) - Closed Specialty Diagnoses / Procedures Referred By Contac t Referred To Contact Neurology Diagnoses Cervical dystonia Procedures Onabotulinumtoxin A (BOTOX) Authorizations Request (IN CLINIC) TC ONABOTULINUMTOXINA, 1 UNIT, INJECTION Debbie Becker MD [facility] [place] [address] Debbie Becker MD [facility] [place] [address] Referral ID Status Reason Start Date Expiration Date V isits Requested Visits Authorized [id number] Closed Consult, Test & Treat 02/06/2023 03/24/2025 9 11 Encounter Details Date Type Department Care Team (Late st Contact Info) Description 04/11/2024 10:30 AM EDT Office Visit Neurology at [address] [address] Debbie Becker MD [facility] [place] [address] Cervical dystonia Social History Tobacco Use Types [...] Procedure Notes * Debbie Becker MD - 04/11/2024 10:30 AM EDTAssociated Order(s): CHEMODENERVATION W/ EMG GUIDANCE [...] 200 units dose. Codes for chemodenervation visit: 11543, 27308 Exam: Procedure: A time out was performed [...] F/u in 3 months. Debbie Becker MD [facility] Neurology-Movement Disorders documented in this encounter Plan of Treatment Upcoming Encounters Date Type Department Care Team (Late st Contact Info) Description 11/14/2024 9:30 AM EST Procedure visit Neurology at [facility] [address] [place] [address] Debbie Becker MD [facility] [place] [address] documented as of this encounter Procedures Procedure Name Priority Date/Time Associated Diagnosis Comments CHEMODENERVATION W/ EMG GUIDANCE Routine 04/11/2024 10:30 AM EDT documented in this encounter Results * CHEMODENERVATION W/ EMG GUIDANCE (04/11/2024 10:30 AM EDT) Narrative Debbie Becker MD - 04/11/2024 10:30 AM EDT Debbie Becker MD ? 04/11/2024 10:48 AM Chemodenervation Procedure Note Diagnosis: cervical dystonia [...] 200 units dose. Codes for chemodenervation visit: 56981, 88460 Exam: Procedure: A time out was performed [...] F/u in 3 months. Debbie Becker MD [facility] Neurology-Movement Disorders Debbie Becker MD NEUROLOGY ORDERABL ES documented in this encounter Visit Diagnoses Diagnosis Cervical dystonia Spasmodic torticollis documented in this encounter Administered Medications Inactive Administered Medications - up to 3 most recent administrations Medication Order MAR Action Action Date Dose Rate Site botulinum toxin type A (Botox) injection 200 Units 200 Units, Intramuscular, ONCE, 1 dose, On Sun04/11/24 at 1045, Routine Given 04/11/2024 10:48 AM EDT 200 Units documented in this encounter Care Teams Photographic Processor Relationship Specialty Start Date End Date Handy James MD PCP - General Family Medicine 08/09/20 documented as of this encounter
--- OUTSIDE RECORDS SUMMARY | 2024-08-27 19:46 | XMS_ITS | Encounter Summary ---
Author Organization [facility] [place] [place] [address] Care Team Providers Care Graphite Mill Operator Name Role Phone Handy James MD Primary Care Provider [phone] Reason for Referral * High Dollar Medication (Routine) - Authorized Specialty Diagnoses / Procedures Referred By Contac t Referred To Contact Neurology Diagnoses Cervical dystonia Procedures Onabotulinumtoxin A (BOTOX) Authorizations Request (IN CLINIC) TC ONABOTULINUMTOXINA, 1 UNIT, INJECTION Debbie Becker MD [facility] [place] [address] Debbie Becker MD [facility] [place] [address] Referral ID Status Reason Start Date Expiration Date Visits Requested Visits Authorized [id number] Authorized Consult, Test & Treat 03/28/2024 03/28/2025 4 4 Encounter Details Date Type Department Care Team (Late st Contact Info) Description 03/28/2024 Orders Only Neurology at [facility] [address] [place] [address] Debbie Becker MD [facility] [place] [address] Cervical dystonia Social History Tobacco Use Types [...] 9:30 AM EST Procedure visit Neurology at [address] [address] Debbie Becker MD [facility] [place] [address] documented as of this encounter Visit Diagnoses Diagnosis Cervical dystonia Spasmodic torticollis documented in this encounter Care Teams Graphite Mill Operator Relationship Specialty Start Date End Date Handy James MD PCP - General Family Medicine 08/09/20 documented as of this encounter
--- OUTSIDE RECORDS SUMMARY | 2024-08-27 19:46 | XMS_ITS | Encounter Summary ---
[place] [address] Care Team Providers Care Is Analyst Name Role Phone Handy James MD Primary Care Provider [phone] Encounter Details Date Type Department Care Team (Latest Contact Info) Description 08/22/2024 Travel Social History Tobacco Use Types Packs/Day [...] 9:30 AM EST Procedure visit Neurology at [facility] [address] [place] [phone] Debbie Becker MD [facility] [place] [address] documented as of this encounter Visit Diagnoses Not on filedocumented in this encounter Care Teams Is Analyst Relationship Specialty Start Date End Date Handy James MD PCP - General Family Medicine 08/09/20 documented as of this encounter
--- OUTSIDE RECORDS SUMMARY | 2024-08-27 19:46 | XMS_ITS | Encounter Summary ---
Author Organization [facility] Address [address] [place] [address] Care Team Providers Care Logistics Associate Name Role Phone Handy Oneill MD Primary Care Provider [phone] Reason for Visit * Auth/Cert (Routine) Specialty Diagnoses / Procedures [facility] Referred To Contact Diagnoses Cataract, right Cataract, right [H26.9] Procedures MT XCAPSL CTRC RMVL INSJ IO LENS PROSTH W/O ECP EXTRACTION, CATARACT, EXTRACAPSULAR, WITH IOL INSERTION Referral ID Status Reason Start Date Expiration Date Visits Re quested Visits Authorized [id number] 1 1 Encounter Details Date Type Department Care Team (Late st Contact Info) Description 01/22/2024 12:20 EDT - 01/22/2024 12:55 EDT Surgery [facility] [address] [place] [phone] Ray Kimball MD [facility] [address] [place] [address] [id number] EXTRACTION, CATARACT, EXTRACAPSULAR, WITH IOL INSERTION [21974 (CPT??)] Surgery Details Date/Time Status Location OR Service Patient Class Case Cl ass Case Type Trauma Case? 01/22/24 1220 Posted [facility] [place] Ophthalmology [facility] Outpatient Surgery H - Elective Panel 1 Procedure LRB Anes Op Region Wound Class Comments EXTRACTION, CATARACT, EXTRACAPSULAR, WITH IOL INSERTION Right Monitored Anesthesia Care Eye Class I/ Clean [...] Sign Reading Time Taken Comments Blood Pressure 117/74 01/22/2024 1254 EDT Pulse - - Temperature 36.8 ??C (98.2 ??F) 01/22/2024 1254 EDT Respiratory Rate 17 01/22/2024 1254 EDT Oxygen Saturation 95% 01/22/2024 1254 EDT Inhaled Oxygen Concentration - - Weight [...] Where can you learn more? Go to [email or web address] or log into your [email or web address] account at [email or web address] Enter R255 in the search box to learn more about Cataract Surgery: What to Expect at Home. Current as of: November 28, 2021 Content Version: 13.4 ?? [id number] [employer]. Care instructions adapted under license by [facility]. If you have questions about a medical condition or this instruction, always ask your healthcare professional. [employer] disclaims any warranty or liability for your [...] INSERTION (R) Operative Note Date: 01/22/2024 Location: [facility] [place] Name: Thelma Bonner, : 1945, Diagnosis [...] LENS INTRAOCULAR MONOFOCAL +6.5D TECNIS DCB00 - [id number] Implanted [id number] Staff: Toll Test Worker: Dior Momin RN; Patricia Cadet RN Scrub [...] to remove c ortical material and to greenlandic the capsular bag. The capsular bag was [...] mouth at bedtime. Yes Instructions for Thelma Bonner's Procedure at [facility] . These instructions are being [...] any items. Valuables, archuleta or credit cards. [facility] is not responsible for any lost items during your hospital visit. If you experience fevers, swelling, redness, rash or a break in your skin prior to your surgery contact your surgeon. Arriving for your procedure: Enter through the main entrance, and check in at the patient registration information desk. They will take your name and let us know you have arrived. A patient fishing accessories maker will then verify your information and give you an identification bracelet. You will then be directed to the Access Consultant waiting area around the corner to check [...] EDT) 01/23/2024 14:4 4 EDT Scan 2 Acquisition Analyst PROCEDURE/MINOR TARA GICAL ORDERABLES documented in this encounter Visit Diagnoses Diagnosis Cataract, right Unspecified cataract documented in this encounter Administered Medications Inactive Administered Medications - up to 3 most recent administrations Medication Order MAR Action Action Date Dose Rate Site acetaminophen (TYLENOL) tablet 650 mg 650 mg, oral, Once (Without Time Specified), Starting on Sun01/22/24 at 1301, Until Sun01/22/24 at 1528, Routine, Recovery (only) balanced salt solution inrrigation solution (BSS PLUS) 500 mL, EPINEPHrine HCl (PF) (ADRENALIN) 0.3 mL irrigation PRN, Starting on Sun01/22/24 at 1235, Until Sun01/22/24 at 1250, Routine, Intraprocedure Given 01/22/2024 12:35 EDT 500 mL Right Eye balanced salts (BSS) ophthalmic solution PRN, Starting on Sun01/22/24 at 1235, Until Sun01/22/24 at 1250, Routine, Intraprocedure Given 01/22/2024 12:35 EDT 15 mL chondroitin-sodium hyaluronate (VISCOAT) ophthalmic solution PRN, Starting on Sun01/22/24 at 1236, Until Sun01/22/24 at 1250, Routine, Intraprocedure Given 01/22/2024 12:36 EDT 1 Each cvwirlqabbhywk-slenzkpficv-eypg eayiarnt-xzyzogvwjmwot-avezsvjf c 1%-1%-0.1%-2.5%-0.4% ophthalmic solution drops 1 Drop 1 Drop, right eye, PREOP LINKED EYE MEDS-SEE ADMIN INSTRUCTIONS, 3 doses, First dose on Sun01/22/24 at 1145, Last dose on Sun01/22/24 at 1155, Routine, Preprocedure Given 01/22/2024 11:42 EDT 1 Drop Given 01/22/2024 11:36 EDT 1 Drop Given 01/22/2024 11:31 EDT 1 Drop lidocaine (GLYDO/URO-JET) 2 % jelly in applicator PRN, Starting on Sun01/22/24 at 1236, Until Sun01/22/24 at 1250, Intraprocedure Given 01/22/2024 12:36 EDT 3 mL Right Eye lidocaine (PF) 10 mg/mL (1 %) injection 2 mg 2 mg, intradermal, PRN, 4 doses, Starting on Sun01/22/24 at 1119, Until Sun01/22/24 at 1528, peripheral intravenous catheter placement, Routine, Preprocedure lidocaine 4 % (7.6 mg) + EPINEPHrine 1 mg/mL (0.25 mg) + BSS (0.56 mL) intra-op in 1 mL syringe 1 mL, intracameral, INTRA-OP ONCE, 1 dose, On Sun01/22/24 at 1245, Routine, Intraprocedure Given 01/22/2024 12:36 EDT 1 mL Right Eye ondansetron (PF) (ZOFRAN) injection 4 mg 4 mg, intravenous, ONCE PRN, 1 dose, Starting on Sun01/22/24 at 1301, Until Sun01/22/24 at 1528, Nausea, Routine, Recovery (only) povidone-iodine 5 % ophthalmic solution PRN, Starting on Sun01/22/24 at 1236, Until Sun01/22/24 at 1250, Routine, Intraprocedure Given 01/22/2024 12:36 EDT 5 Drops sodium chloride 0.9 % (flush) flush 5 mL 5 mL, intravenous, EVERY 8 HOURS, First dose on Sun01/22/24 at 1600, Until Discontinued, Routine, Preprocedure sodium hyaluronate (HEALON) ophthalmic injection PRN, Starting on Sun01/22/24 at 1237, Until Sun01/22/24 at 1250, Routine, Intraprocedure Given 01/22/2024 12:37 EDT 8.5 mg Right Eye tetracaine (PONTOCAINE) 0.5 % ophthalmic solution PRN, Starting on Sun01/22/24 at 1237, Until Sun01/22/24 at 1250, Routine, Intraprocedure Given 01/22/2024 12:37 EDT 2 Drops tobramycin-dexamethasone (TOBRADEX) ophthalmic suspension 2 Drop 2 Drop, right eye, INTRA-OP ONCE, 1 dose, On Sun01/22/24 at 1245, Routine, Intraprocedure Given 01/22/2024 12:37 EDT 2 Drops documented in this encounter Historical Medications * [...] Until Sun01/22/24 at 1528, Routine, Recovery (only) zlfirxyoemttsv-kezsvsqbgfa-qmuiwt jargny-idzsdebhkdwhn-gmtefixdi 1%-1%-0.1%-2.5%-0.4% ophthalmic solution drops 1 Drop (COMPLETED) [...] right eye, INTRA-OP ONCE, 1 dose, On Sun01/22/24 at 1245, Routine, Intraprocedure 1237 (Given - [...] Sun01/22/24 at 1236, Until Sun01/22/24 at 1250, Intraprocedure 1236 (Given - Provid [...] Sun01/22/24 at 1528, Nausea, Routine, Recovery (only) povidone-iodine [...] Date acetaminophen (TYLENOL) tablet 650 mg 1 lidocaine (PF) 10 mg/mL (1 % ) injection 2 mg 1 01/22/2024 ondansetron (PF) (ZOFRAN) injection 4 mg 1 01/22/2024 sodium chloride 0.9 % (flush) flush 5 mL 1 01/22/2024 Discharge Count Last Ordered Date First Orde red Date DISCHARGE PATIENT 1 01/22/2024 documented in this encounter Care Teams Logistics Associate Relationship Specialty Start Date End Date Handy Oneill MD [address] [place] [address] PCP - General 06/29/09 02/04/24 documented as of this encounter
--- OUTSIDE RECORDS SUMMARY | 2024-08-27 19:46 | XMS_ITS | Encounter Summary ---
Author Organization [facility] Address [address] [place] [address] Care Team Providers Care Mine Car Repairer Name Role Phone Handy James MD Primary Care Provider [phone] Reason for Visit * Auth/Cert (Routine) Specialty Diagnoses / Procedures [facility] Referred To Contact Diagnoses Cataract, left Cataract, left [H26.9] Procedures ND XCAPSL CTRC RMVL INSJ IO LENS PROSTH W/O ECP EXTRACTION, CATARACT, EXTRACAPSULAR, WITH IOL INSERTION Referral ID Status Reason Start Date Expiration Date Visits Re quested Visits Authorized [id number] 1 1 Encounter Details Date Type Department Care Team (Late st Contact Info) Description 02/05/2024 11:16 EDT Anesthesia Event [facility] Operating Room [address] [place], [place] [address] Bindu Farley MD [address] [place] [phone] Anesthesia Record Procedure Summary Procedure Name Responsible Anesthesiologist Anesthesia Start Time Anesthesia Stop Time EXTRACTION, CATARACT, EXTRACAPSULAR, WITH IOL INSERTION (Left: Eye) Bindu Farley MD 02/05/24 1116 02/05/24 1140 Events Date Time Event Comment 02/05/2024 1116 An Start The patient was re-evaluated immediately before moderate or deep sedation use, before anesthesia induction, or before the anesthesia procedure. 1116 An Start Data 1116 Anesthesia Ready 1136 an stop data 1140 Handoff to RN I completed my handoff to the receiving nurse during which we: 1. Identified the patient 2. Identified the responsible provider 3. Reviewed the pertinent medical history 4. Discussed the surgical course 5. Reviewed intra-op anesthesia management and issues during anesthesia 6. Set expectations for post-procedure period 7. Allowed opportunity for questions and acknowledgement of understanding. 1140 An Stop Meds Name Total midazolam 1 mg/mL 2 mL vial 2 mg * Agents Name O2 N2O Air * Blood No blood administrations on file. Lines, Drains, and Airways Type Details Placement Removal Wound 01/22/24; Right; Eye ; Healed 01/22/24 0000 by Dior Momin RN Wound 02/05/24; Left; Eye 02/05/24 000 0 by Dior Momin RN Peripheral IV 02/05/24; 1051; 22; Anterior, Left; Forearm; Inserted by RN; 1; None; 2% Chlorhexidine with IPA; 02/05/24; 1155; Discharged; Catheter intact, Dressing applied, No complications 02/05/24 1051 by Santiago Lozano RN 02/05/24 1155 by Santiago Lozano RN documented in this encounter Social History Tobacco [...] on file documented as of this encounter OR Notes * Anesthesia Postprocedure Evaluation - Bindu Farley MD - 02/05/2024 1140 EDT Patient: Thelma Bradshaw Kailey Vital signs were reviewed with the recovery nurse. Complete vitals history is available in the Epicflowsheets. Vitals Value Taken Time BP 02/05/24 1149 Temp 36.7 ??C (98 ??F) 02/05/24 1141 Resp 18 02/05/24 1149 Pulse From Oximetry 81 BPM 02/05/24 1149 SpO2 95 % 02/05/24 1149 Heart Rate 82 BPM 02/05/24 1149 Vitals shown include unvalidated device data. Last Pain Score - Numeric Pain Level (Scale 1-10): 0 Type of Anesthesia - MAC Anesthesia Post Evaluation Post-procedure vitals reviewed and are stable. Level of consciousness: awake and alert and oriented Temperature status: normothermia Respiratory status: airway patent and room air Cardiovascular status: stable and within patient's normal range Hydration status: adequate Nausea/Vomiting: none Pain management: adequate Post-Op Assessment: patient tolerated procedure well with no complications and patient satisfied with anesthesia care Patient participation: able to participate Disposition: outpatient/home Anesthesia Complications: No apparent anesthesia complications * Anesthesia Preprocedure Evaluation - Bindu Farley MD - 02/04/2024 1435 EDT Anesthesia Preprocedure Evaluation Patient Medical History, including Anesthesia History reviewed. Chart and Nursing Notes reviewed, including NPO status and Medication History. Additional ROS/History Findings: PMHx HTN, essential tremor S/p R cataract surgery w/ 2 mg versed 01/22/24 No Known Allergies Review of Systems Constitutional: Negative. Respiratory: Negative. Cardiovascular: Negative. Neurological: Positive for tremors. Past Medical History: Diagnosis Date Essential tremor Hypertension Relevant Problems No relevant active problems Physical Exam Airway Mallampati: II TM distance: >3 FB Neck ROM: full Cardiovascular - normal exam Dental Comments: Some missing teeth Pulmonary - normal exam Abdominal Anesthesia Plan ASA 2 Anesthesia Type - MAC Anesthesia plan and risks discussed. Informed consent obtained from patient. The preoperative history and physical which was performed within 30 days of this procedure, has been reviewed and the clinically appropriate elements of the physical examination have been repeated. There are no changes to the documented history and physical or, if so, such changes are documented inthis note PAT Note Notes from 01/05/24 through 02/04/24 No notes of this type exist for this encounter. documented in this encounter Plan of Treatment Not on file documented as of this encounter Visit Diagnoses Not on filedocumented in this encounter Administered Medications Inactive Administered Medications - up to 3 most recent administrations Medication Order MAR Action Action Date Dose Rate Site midazolam (PF) (VERSED) injection intravenous, PRN, Starting on Sun02/05/24 at 1118, Until Sun02/05/24 at 1149, Routine, Anesthesia Intraprocedure Given 02/05/2024 11:18 EDT 2 mg documented in this encounter Orders Medications Ordered That Josiah ht Not Have Been Administered Count Last Ordered Date First Ordered Date midazolam (PF) (VERSED) injection 1 024 documented in this encounter Care Teams Mine Car Repairer Relationship Specialty Start Date End Date Handy James MD [address] [place] [address] PCP - General 02/05/24 documented as of this encounter
--- OUTSIDE RECORDS SUMMARY | 2024-08-27 19:46 | XMS_ITS | Encounter Summary ---
Author Organization [facility] Address [address] [place] [address] Care Team Providers Care Hot Blast Worker Name Role Phone Handy James MD Primary Care Provider [phone] Reason for Visit * Auth/Cert (Routine) Specialty Diagnoses / Procedures [facility] Referred To Contact Diagnoses Cataract, left Cataract, left [H26.9] Procedures DE XCAPSL CTRC RMVL INSJ IO LENS PROSTH W/O ECP EXTRACTION, CATARACT, EXTRACAPSULAR, WITH IOL INSERTION Referral ID Status Reason Start Date Expiration Date Visits Re quested Visits Authorized [id number] 1 1 Encounter Details Date Type Department Care Team (Latest Contact Info) Description 02/05/2024 10:22 EDT - 02/05/2024 23:59 EDT Hospital Encounter [facility] Operating Room [address] [place] [address] Ray Kimball MD [facility] [address] [place] [address] [id number] Discharge Disposition: Home or Self Care Social [...] Where can you learn more? Go to [email or web address] or log into your Eat Local account at [email or web address] Enter R255 in the search box to learn more about Cataract Surgery: What to Expect at Home. Current as of: November 28, 2021 Content Version: 13.4 ?? [employer]. Care instructions adapted under license by [facility]. If you have questions about a medical condition or this instruction, always ask your healthcare professional. [employer] disclaims any warranty or liability for your [...] INSERTION (L) Operative Note Date: 02/05/2024 [place] [facility] [place] Thelma Bonner, : 1945, Diagnosis [...] LENS INTRAOCULAR MONOFOCAL +5.0D TECNIS DCB00 - [id number] Implanted [id number] Staff: Informatics Manager: Kristy Juan RN; Dior Momin RN Relief Informatics Manager: Daylin Doran RN Scrub Person: Jennifer Lew [...] to remove co rtical material and to ukrainian the capsular bag. The capsular bag was [...] Ray Kimball MD * Preprocedure Instructions - Kat Edwards RN - 01/30/2024 1238 EDT The [...] bedtime. Takes at bedtime Instructions for Thelma Bonner's Procedure at [facility] . These instructions are [...] any items. Valuables, archuleta or credit cards. [facility] [place] responsible for any lost items during your hospital visit. If you experience fevers, swelling, redness, rash or a break in your skin prior to your surgery contact your surgeon. Arriving for your procedure: Enter through the main entrance, and check in at the patient registration information desk. They will take your name and let us know you have arrived. A patient parachute accessories attacher will then verify your information and give you an identification bracelet. You will then be directed to the Pharmacoepidemiologist waiting area around the corner to check [...] EDT) 02/06/2024 13:3 3 EDT Scan 2 Retail Advertising Account Executive PROCEDURE/MINOR TARA GICAL ORDERABLES documented in this encounter Visit Diagnoses Not on filedocumented in this encounter Administered Medications Inactive Administered Medications - up to 3 most recent administrations Medication Order MAR Action Action Date Dose Rate Site pjgvcdnoimrbhu-ujhckjqzytw-itbbjyjmh foo-qqweykykawvxo-chynxzpky 1%-1%-0.1%-2.5%-0.4% ophthalmic solution drops 1 Drop 1 Drop, left eye, PREOP LINKED EYE MEDS-SEE ADMIN INSTRUCTIONS, 3 doses, First dose on Sun02/05/24 at 1100, Last dose on Sun02/05/24 at 1110, Routine, Preprocedure Given 02/05/2024 10:51 EDT 1 Drop Given 02/05/2024 10:41 EDT 1 Drop lidocaine (PF) 10 mg/mL (1 %) injection 2 mg 2 mg, intradermal, PRN, 4 doses, Starting on Sun02/05/24 at 1031, Until Sun02/06/24 at 0606, peripheral intravenous catheter placement, Routine, Preprocedure sodium chloride 0.9 % (flush) flush 5 mL 5 mL, intravenous, EVERY 8 HOURS, First dose on Sun02/05/24 at 1100, Until Discontinued, Routine, Preprocedure documented in this encounter Active and Recently Administered Medications Times are shown in EDT. Scheduled Medication Order 02/03/2024 02/04/2024 02/05/2024 hmjipgaxkodivg-hojrhlwudka-mxtgu xvskhda-afdgycslqtrfv-vvwdoamwd 1%-1%-0.1%-2.5%-0.4% ophthalmic solution drops 1 Drop () [...] at 1124, Until Sun02/05/24 at 1137, Intraprocedure 1124 (Given - Provid er: Ray [...] Count Last Ordered Date First Ordered Date balanced salt solution inrri gation solution (BSS PLUS) 500 mL, EPINEPHrine HCl (PF) (ADRENALIN) 0.3 mL irrigation 1 02/05/2024 balanced salts (BSS) ophthalmic solution 1 02/05/2024 chondroitin-sodium hyalurona te (VISCOAT) ophthalmic solution 1 02/05/2024 lidocaine (GLYDO/URO-JET) 2 % jelly in applicator 1 02/05/2024 lidocaine (PF) 10 mg/mL (1 % ) injection 2 mg 1 02/05/2024 lidocaine 4 % (7.6 mg) + EPI NEPHrine 1 mg/mL (0.25 mg) + BSS (0.56 mL) intra-op in 1 mL syringe 1 02/05/2024 povidone-iodine 5 % ophthalmic solution 1 0 02/05/2024 sodium chloride 0.9 % (flush) flush 5 mL 1 02/05/2024 sodium hyaluronate (HEALON) ophthalmic injection 1 02/05/2024 tetracaine (PONTOCAINE) 0.5 % ophthalmic solution 1 02/05/2024 tobramycin-dexamethasone (TO BRADEX) ophthalmic suspension 2 Drop 1 02/05/2024 Discharge Count Last Ordered Date First Orde red Date DISCHARGE PATIENT 1 02/05/2024 documented in this encounter Care Teams Hot Blast Worker Relationship Specialty Start Date End Date Handy James MD [address] [facility] [address] PCP - General 02/05/24 documented as of this encounter
--- OUTSIDE RECORDS SUMMARY | 2024-08-27 19:46 | XMS_ITS | Encounter Summary ---
Author Organization [facility] Address [address] [place] [address] Care Team Providers Care Wet Process Miller Head Assistant Name Role Phone Handy Oneill MD Primary Care Provider [phone] Reason for Visit * Auth/Cert (Routine) Specialty Diagnoses / Procedures [facility] Referred To Contact Diagnoses Cataract, right Cataract, right [H26.9] Procedures NC XCAPSL CTRC RMVL INSJ IO LENS PROSTH W/O ECP EXTRACTION, CATARACT, EXTRACAPSULAR, WITH IOL INSERTION Referral ID Status Reason Start Date Expiration Date Visits Re quested Visits Authorized [id number] 1 1 Encounter Details Date Type Department Care Team (Late st Contact Info) Description 01/22/2024 12:30 EDT Anesthesia Event [facility] Operating Room [address] [place] [address] Maddison Drake MD [address] [facility], [address] [place] [address] Anesthesia Record Procedure Summary Procedure Name Responsible Anesthesiologist Anesthesia Start Time Anesthesia Stop Time EXTRACTION, CATARACT, EXTRACAPSULAR, WITH IOL INSERTION (Right: Eye) Maddison Drake MD 01/22/24 1230 01/22/24 1252 Events Date Time Event Comment 01/22/2024 1230 An Start The patient was re-evaluated immediately before moderate or deep sedation use, before anesthesia induction, or before the anesthesia procedure. 1230 An Start Data 1233 Anesthesia Ready 1249 an stop data 1252 Handoff to RN I completed my handoff to the receiving nurse during which we: 1. Identified the patient 2. Identified the responsible provider 3. Reviewed the pertinent medical history 4. Discussed the surgical course 5. Reviewed intra-op anesthesia management and issues during anesthesia 6. Set expectations for post-procedure period 7. Allowed opportunity for questions and acknowledgement of understanding. 1252 An Stop Meds Name Total midazolam 1 mg/mL 2 mL vial 2 mg * Agents Name O2 N2O Air Aux O2 flow * Blood No blood administrations on file. Lines, Drains, and Airways Type Details Placement Removal Wound 01/22/24; Right; Eye ; Healed 01/22/24 0000 by Dior Momin RN Peripheral IV 01/22/24; 1201; 24; Posterior, Right; Hand; Inserted by RN; 2 (very tiny veins, reports difficult stick); None; Chlorhexidine; 01/22/24; 1321; Discharged; No complications 01/22/24 1201 by Narcisa Caldwell RN 01/22/24 1321 by Arelis Gonzáles RN documented in this encounter Social History [...] OR Notes * Anesthesia Postprocedure Evaluation - Maddison Drake MD - 01/22/2024 1253 EDT Patient: Thelma Bonner Vital signs were reviewed with the recovery nurse. Complete vitals history is available in the Epicflowsheets. Vitals Value Taken Time BP 117/74 01/22/24 1253 Temp 98.1 01/22/24 1253 Resp 18 01/22/24 1253 Pulse From Oximetry 72 BPM 01/22/24 1253 SpO2 95 % 01/22/24 1253 Heart Rate 72 BPM 01/22/24 1253 Vitals shown include unvalidated device data. Last Pain Score - Numeric Pain Level (Scale 1-10): 0 Type of Anesthesia - MAC Anesthesia Post Evaluation Post-procedure vitals reviewed and are stable. Level of consciousness: alert and oriented Temperature status: normothermia Respiratory status: airway patent Cardiovascular status: acceptable Hydration status: adequate Nausea/Vomiting: none Pain management: adequate Post-Op Assessment: patient tolerated procedure well with no complications Patient participation: able to participate Disposition: outpatient/home Anesthesia Complications: No apparent anesthesia complications * Anesthesia Preprocedure Evaluation - Devi Mansfield MD - 01/22/2024 0930 EDT Anesthesia Preprocedure Evaluation Patient Medical History, including Anesthesia History reviewed. Chart and Nursing Notes reviewed, including NPO status and Medication History. Additional ROS/History Findings: Past Medical History: Diagnosis Date Essential tremor Hypertension Relevant Problems No relevant active problems History reviewed. No pertinent surgical history. Past Anesthetics [] None on file SOCIAL HISTORY: [] None [] Current smoking [] Vaping [] Marijuana [] Alcohol Social History Tobacco Use Smoking Status Never Smokeless Tobacco Never Social History Substance and Sexual Activity Drug Use Never Social History Substance and Sexual Activity Alcohol Use Not Currently FAMILY HISTORY: []No family history of allergic reactions to anesthesia No current facility-administered medications on file prior to encounter. Current Outpatient Medications on File Prior to Encounter Medication Sig Dispense Refill calcium carbonate (OS-ANTWON) 1250 mg (500 mg elemental) tablet tablet Take 1 Tablet by mouth daily. lisinopriL (PRINIVIL) 5 mg tablet Take 1 Tablet by mouth daily. Multivitamin Cmb No.21-Iron-FA tablet Take 1 Tablet by mouth daily. primidone (MYSOLINE) 250 mg tablet Take 1 Tablet by mouth daily. propRANolol (INDERAL LA) 60 mg SR capsule Take 160 mg by mouth daily. traZODone (DESYREL) 50 mg tablet Take 1 Tablet by mouth at bedtime. No current facility-administered medications for this encounter. Current Outpatient Medications Medication calcium carbonate (OS-ANTWON) 1250 mg (500 mg elemental) tablet tablet lisinopriL (PRINIVIL) 5 mg tablet Multivitamin Cmb No.21-Iron-FA tablet primidone (MYSOLINE) 250 mg tablet propRANolol (INDERAL LA) 60 mg SR capsule traZODone (DESYREL) 50 mg tablet No Known Allergies EKG: [] None on file ECHO: [] None on file Cardiac Stress: [] None on file Left Heart Cath: [] None on file Ht 167.6 cm (66) Wt 72.6 kg (160 lb) BMI 25.82 kg/m?? NPO Status: Liquids: Solids: Review of Systems Constitutional: Negative for chills, fever and malaise/fatigue. Respiratory: Negative for shortness of breath and wheezing. Cardiovascular: Negative for chest pain and palpitations. HTN Gastrointestinal: Positive for heartburn. IBS Musculoskeletal: OA Neurological: Positive for tremors. Physical Exam Airway Mallampati: III TM distance: >3 FB Neck ROM: full Cardiovascular Rhythm: regular Rate: normal Dental - normal exam Pulmonary Breath sounds clear to auscultation Abdominal Anesthesia Plan ASA 2 Anesthesia Type - MAC Anesthesia plan and risks discussed. Informed consent obtained from patient. Specific risks discussed were , incomplete block, nausea, vomiting, infection, nerve damage, stroke and myocardial infarction. Code status discussed? Yes (Full) The preoperative history and physical which was performed within 30 days of this procedure, has been reviewed and the clinically appropriate elements of the physical examination have been repeated. There are no changes to the documented history and physical or, if so, such changes are documented inthis note documented in this encounter Plan of Treatment Not on file documented as of this encounter Visit Diagnoses Not on filedocumented in this encounter Administered Medications Inactive Administered Medications - up to 3 most recent administrations Medication Order MAR Action Action Date Dose Rate Site midazolam (PF) (VERSED) injection intravenous, PRN, Starting on Sun01/22/24 at 1232, Until Sun01/22/24 at 1252, Routine, Anesthesia Intraprocedure Given 01/22/2024 12:35 EDT 0.5 mg Given 01/22/2024 12:32 EDT 1.5 mg documented in this encounter Care Teams Wet Process Miller Head Assistant Relationship Specialty Start Date End Date Handy Oneill MD [address] [place] [id number] PCP - General 06/29/09 02/04/24 documented as of this encounter
--- OUTSIDE RECORDS SUMMARY | 2024-08-27 19:46 | XMS_ITS | Encounter Summary ---
Author Organization [facility] Address [address] [place] [address] Care Team Providers Care Scarf And Anneal Operator Name Role Phone Handy Oneill MD Primary Care Provider [phone] Encounter Details Date Type Department Care Team (Late st Contact Info) Description 07/31/2003 Results Only [facility] [address] [place] [address] Bebeto Ferrari MD [address] [facility] [address] [address] Social History Tobacco Use Types [...] Priority Date/Time Associated Diagnosis Comments CYTOPATHOLOGY Routine 07/31/2003 0:00 EDT documented in this encounter Results * CYTOPATHOLOGY (07/31/2003 0:00 EDT) Pathology Report: CYTOPATHOLOGY REPORT Reports generated via electronic interface contain original data; however they are lacking the format of the original report. Caution should be taken when reading/interpreti ng unformatted reports. Name: ? THELMA BONNER ? Accession #: ? [id number] : ? 1945 (Age: 58) ??F ?Collect Date: ? 07/31/2003 Location: ? [facility] ? Receive Date: ? 08/04/2003 Provider: ?BEBETO FERRARI MD Copy to: ? Specimen/Source: ?ThinPrep Pap Test, Cervix/Endocervix Last Menstrual Period: ? 06/05 ? SPECIMEN ADEQUACY ? Satisfactory for Evaluation - transformation zone component present GENERAL CATEGORIZATION ? Negative for Intraepithelial Lesion or Malignancy ? Document reviewed and electronically signed by: ? OLY Erickson(ASCP) ? Report Date: ??08/06/2003 10:50 End of Report [facility] 07/31/2003 08/04/2003 Bebeto Ferrari MD PATHOLOGY ORDERABLES Performing Organization Address City/State/[facility] Co de Phone Number [facility] [address] [place] [address] documented in this encounter Visit Diagnoses Not on filedocumented in this encounter Care Teams Scarf And Anneal Operator Relationship Specialty Start Date End Date Handy Oneill MD [address] [place] [address] PCP - General 06/29/09 02/04/24 documented as of this encounter
--- OUTSIDE RECORDS SUMMARY | 2024-08-27 19:46 | XMS_ITS | Encounter Summary ---
Author Organization [facility] Address [address] [place] [address] Care Team Providers Care Acrobatic Dancer Name Role Phone Handy Oneill MD Primary Care Provider [phone] Encounter Details Date Type Department Care Team (Latest Contact Info) Description 01/17/2024 Travel Social History Tobacco Use Types Packs/Day [...] on filedocumented in this encounter Care Teams Acrobatic Dancer Relationship Specialty Start Date End Date Handy Oneill MD [address] [place] [phone] PCP - General 06/29/09 02/04/24 documented as of this encounter
--- OUTSIDE RECORDS SUMMARY | 2024-08-27 19:46 | XMS_ITS | Encounter Summary ---
Author Organization [facility] Address [address] [place] [address] Care Team Providers Care Genetic Counselor Name Role Phone Handy Oneill MD Primary Care Provider [phone] Encounter Details Date Type Department Care Team (Late st Contact Info) Description 09/21/2006 Results Only [facility] - [facility] [address] [place] [address] Bebeto Ferrari MD [address] [place] [address] [address] [address] Social History Tobacco Use Types [...] Priority Date/Time Associated Diagnosis Comments CYTOPATHOLOGY Routine 09/21/2006 0:00 EST documented in this encounter Results * CYTOPATHOLOGY (09/21/2006 0:00 EST) Pathology Report: CYTOPATHOLOGY REPORT Reports generated via electronic interface contain original data; however they are lacking the format of the original report. Caution should be taken when reading/interpreti ng unformatted reports. Name: ? THELMA BONNER ? Accession #: ? [id number] : ? 1945 (Age: 61) ??F ?Collect Date: ? 09/21/2006 Location: ? [facility] ? Receive Date: ? 09/24/2006 Provider: ?BEBETO FERRARI MD Copy to: ? Specimen/Source: ?ThinPrep Pap Test, Cervix/Endocervix, processed on kinkon ThinPrep Imaging System, with manual evaluation Last Menstrual Period: ? SPECIMEN ADEQUACY ? Satisfactory for Evaluation - transformation zone component present GENERAL CATEGORIZATION ? Negative for Intraepithelial Lesion or Malignancy ? Document reviewed and electronically signed by: ? OLY Helm(ASCP) ? Report Date: ??10/03/2006 09:39 End of Report [facility] 09/21/2006 09/24/2006 Bebeto Ferrari MD PATHOLOGY ORDERABLES Performing Organization Address City/State/[facility] Co de Phone Number [facility] [address] [place] [address] documented in this encounter Visit Diagnoses Not on filedocumented in this encounter Care Teams Genetic Counselor Relationship Specialty Start Date End Date Handy Oneill MD [address] [place] [phone] PCP - General 06/29/09 02/04/24 documented as of this encounter
--- OUTSIDE RECORDS SUMMARY | 2024-08-27 19:46 | XMS_ITS | Continuity of Care Document ---
Author Organization [facility] Address [address] [place] [address] Encounter LTTL_MT FIN NBR [id number] Date(s): 04/27/24 - 04/27/24 [facility] [address] [place] [address]- Encounter Diagnosis Fall(Discharge Diagnosis) - 04/27/24 Laceration of face(Discharge Diagnosis) - 04/27/24 Contusion of forehead(Discharge Diagnosis) - 04/27/24 Discharge Disposition: Home f/u External Provider Attending Physician: Tamir Reilly MD Admitting Physician: Tamir Reilly MD Allergies, Adverse Reactions, Alerts No Known Allergies Assessment and Plan Extracted from: Title:ED Provider Note Author:ESTEFANÍA Aguero Date:04/27/24 Assessment/Plan 1.??Fall??W19.XXXA ??Patient discharged home with her daughter.?? Wound care and laceration care discussed. ??Plans on follow-up with primary care??in a week and suture removal in 7 to 10 days.?? Strict return precautions understood. Ordered: Discharge Patient, 04/27/24 14:36:00 EDT, Home Independently ?? 2.??Laceration of face??S01.81XA Ordered: Discharge Patient, 04/27/24 14:36:00 EDT, Home Independently ?? 3.??Contusion of forehead??S00.83XA Ordered: Discharge Patient, 04/27/24 14:36:00 EDT, Home Independently ?? Patient Education Laceration Care, Adult Facial Laceration Follow Up With When Contact Information Follow up with primary care provider Within 1 week Additional Instructions: Immunizations Given and Recorded Vaccine Date Status Refusal Reason tetanus/diphth/pertuss (Tdap) adult/adol 04/27/24 Given Medications FLUoxetine 10 mg oral capsule TAKE ONE CAPSULE BY MOUTH EVERY DAY Start Date: 04/27/24 Status: Ordered lisinopril 5 mg oral tablet TAKE ONE TABLET BY MOUTH EVERY NIGHT Start Date: 04/27/24 Status: Ordered primidone 250 mg oral tablet TAKE ONE TABLET BY MOUTH EVERY EVENING Start Date: 04/27/24 Status: Ordered primidone 50 mg oral tablet TAKE 1 TABLET BY MOUTH IN THE MORNING FOR 2 WEEKS THEN INCREASE TO 2 TABLETS IN THE MORNING IN ADDITION TO THE 250MG PRIMIDONE NIGHTLY Start Date: 04/27/24 Status: Ordered propranolol 160 mg oral capsule, extended release TAKE ONE CAPSULE BY MOUTH EVERY DAY Start Date: 04/27/24 Status: Ordered traZODone 50 mg oral tablet TAKE TWO TABLETS BY MOUTH EVERY DAY Start Date: 04/27/24 Status: Ordered Mental Status 04/27/24 Eye Opening Response [place] Spontaneous ly Best Verbal Response Asmita Oriented Best Motor Response Asmita Obeys comman ds Asmita Coma Score 15 Results Laboratory List Name Date Basic Metabolic Panel (BMP) 04/27/24 CBC w/ Diff 04/27/24 Automated Diff 04/27/24 Most recent to oldest [Reference Range]: 1 WBC [4.8-10.8 K/mcL] 4.5 K/mcL *LOW* (04/27/24 12:50 PM) RBC [4.20-5.40 Million/mcL] 3.96 Million /mcL *LOW* (04/27/24 12:50 PM) Neutro Auto [42.2-75.2 %] 61.9 % (04/27/24 12:50 PM) Lymph Auto [20.5-51.1 %] 23.6 % (04/27/24 12:50 PM) [place] Auto [1.7-9.3 %] 10.1 % *HI* (04/27/24 12:50 PM) Basophil Auto [0.0-0.8 %] 1.2 % *HI* (04/27/24 12:50 PM) BUN [7-25 mg/dL] 16 mg/dL (04/27/24 12:50 PM) Glucose Level [70-109 mg/dL] 124 mg/dL *HI* (04/27/24 12:50 PM) Potassium Level [3.5-5.1 mmol/L] 3.9 mmo l/L (04/27/24 12:50 PM) Baso Absolute [0.0-0.2 K/mcL] 0.1 K/mcL (04/27/24 12:50 PM) MCV [81.0-99.0 fL] 91.0 fL (04/27/24 12:50 PM) MCHC [32.0-37.0 g/dL] 34.9 g/dL (04/27/24 12:50 PM) Osmolality [275-295 mOsm/kg] 275 mOsm/kg (04/27/24 12:50 PM) Sodium Level [136-145 mmol/L] 136 mmol/L (04/27/24 12:50 PM) Lymph Absolute [1.2-3.4 K/mcL] 1.1 K/mcL *LOW* (04/27/24 12:50 PM) Hct [37.0-47.0 %] 36.0 % *LOW* (04/27/24 12:50 PM) Calcium Level [8.6-10.3 mg/dL] 8.9 mg/dL (04/27/24 12:50 PM) [place] Absolute [0.1-0.6 K/mcL] 0.5 K/mcL (04/27/24 12:50 PM) MCH [27.0-31.0 pg] 31.7 pg *HI* (04/27/24 12:50 PM) Neutro Absolute [1.4-6.5 K/mcL] 2.8 K/mc L (04/27/24 12:50 PM) Hgb [12.0-16.0 g/dL] 12.6 g/dL (04/27/24 12:50 PM) MPV [7.4-10.4 fL] 7.4 fL (04/27/24 12:50 PM) Platelets [130-400 K/mcL] 152 K/mcL (04/27/24 12:50 PM) CO2 [21-31 mmol/L] 23 mmol/L (04/27/24 12:50 PM) Eos Absolute [0.0-0.2 K/mcL] 0.1 K/mcL (04/27/24 12:50 PM) Chloride Level [98-107 mmol/L] 105 mmol/ L (04/27/24 12:50 PM) RDW-CV [11.5-14.5 %] 13.4 % (04/27/24 12:50 PM) BUN/Creat Ratio [8.0-20.0] 20.0 (04/27/24 12:50 PM) Creatinine Level [0.60-1.20 mg/dL] 0.80 mg/dL (04/27/24 12:50 PM) Anion Gap [3.0-12.0] 8.0 (04/27/24 12:50 PM) Eos, Auto [0.00-3.00 %] 3.20 % *HI* (04/27/24 12:50 PM) eGFR CKD-EPI [>=60 mL/min/1.73 m2] 75 mL /min/1.73 m2 (04/27/24 12:50 PM) Radiology Reports * Exam Date Time Procedure Performing Provider Status 04/27/24 1:[address] Head w/o Contrast Fior Palmer; Auth (Verified) Notes: (CT Head w/o Contrast) Reason For Exam: headache fall CT Head w/o Contrast PROCEDURE INFORMATION: Exam: CT Head Without Contrast Exam date and time: 04/27/2024 1:01 PM Age: 78 years old Clinical indication: Injury or trauma; Fall; Blunt trauma (contusions or hematomas); Consciousness not specified; Additional info: Headache fall TECHNIQUE: Imaging protocol: Computed tomography of the head without contrast. Radiation optimization: All CT scans at this facility use at least one of these dose optimization techniques: automated exposure control; mA and/or kV adjustment per patient size (includes targeted exams where dose is matched to clinical indication); or iterative reconstruction. COMPARISON: CT SPINE CERVICAL WO CONTRAST 04/27/2024 1:01 PM FINDINGS: Brain: Generalized atrophy and chronic white matter ischemic changes. There is no mass, acute hemorrhage or acute infarct. Cerebral ventricles: No ventriculomegaly. Paranasal sinuses: Visualized sinuses are unremarkable. No fluid levels. Mastoid air cells: Visualized mastoid air cells are well aerated. Bones: Unremarkable. No acute fracture. Soft tissues: Mild forehead contusion. IMPRESSION: Superficial scalp injury without intra-cranial hemorrhage or acute fracture. THIS DOCUMENT HAS BEEN ELECTRONICALLY SIGNED BY JAY GILLIAM MD on 04/27/2024 02:13 PM Final Signed by: Jay Gilliam MD Signed (Electronic Signature): 04/27/2024 2:13 pm * Exam Date Time Procedure Performing Provider Status 04/27/24 1:[address] Spine Cervical w/o Contrast Fior Palmer; Kenny (Verified) Notes: (CT Spine Cervical w/o Contrast) Reason For Exam: fall CT Spine Cervical w/o Contrast PROCEDURE INFORMATION: Exam: CT Cervical Spine Without Contrast Exam date and time: 04/27/2024 1:01 PM Age: 78 years old Clinical indication: Injury or trauma; Fall; Concussion/head injury TECHNIQUE: Imaging protocol: Computed tomography of the cervical spine without contrast. Radiation optimization: All CT scans at this facility use at least one of these dose optimization techniques: automated exposure control; mA and/or kV adjustment per patient size (includes targeted exams where dose is matched to clinical indication); or iterative reconstruction. COMPARISON: CT HEAD WO CONTRAST 04/27/2024 1:01 PM FINDINGS: Bones: No acute fracture. Normal alignment. No significant disc bulge or herniation. Degenerative changes of the spine without acute osseous abnormality. Lungs: Lung apices are normal. Soft tissues: Unremarkable. IMPRESSION: No acute findings. THIS DOCUMENT HAS BEEN ELECTRONICALLY SIGNED BY JAY GILLIAM MD on 04/27/2024 02:14 PM Final Signed by: Jay Gilliam MD Signed (Electronic Signature): 04/27/2024 2:14 pm * Exam Date Time Procedure Performing Provider Status 04/27/24 12:49 PM XR Chest 1 View Wilbert Kumar ( Verified) Notes: (XR Chest 1 View) Reason For Exam: fall XR Chest 1 View PROCEDURE INFORMATION: Exam: XR Chest Exam date and time: 04/27/2024 12:39 PM Age: 78 years old Clinical indication: Injury or trauma; Fall; Blunt trauma (contusions or hematomas) TECHNIQUE: Imaging protocol: Radiologic exam of the chest. Views: 1 view. COMPARISON: No relevant prior studies available. FINDINGS: Lungs: The lungs are hyperinflated with changes of COPD. No consolidation. Pleural spaces: Unremarkable. No pleural effusion. No pneumothorax. Heart/Mediastinum: Unremarkable. No cardiomegaly. Bones/joints: Unremarkable. IMPRESSION: No acute findings. THIS DOCUMENT HAS BEEN ELECTRONICALLY SIGNED BY JAY GILLIAM MD on 04/27/2024 01:50 PM Final Signed by: Jay Gilliam MD Signed (Electronic Signature): 04/27/2024 1:50 pm * Exam Date Time Procedure Performing Provider Status 04/27/24 12:56 PM XR Knee 3 Views Right Catia Kumar; Kenny (Verified) Notes: (XR Knee 3 Views Right) Reason For Exam: fall XR Knee 3 Views Right PROCEDURE INFORMATION: Exam: XR Right Knee Exam date and time: 04/27/2024 12:35 PM Age: 78 years old Clinical indication: Injury or trauma; Fall; Blunt trauma and laceration; Right; Patella or knee; Without foreign body TECHNIQUE: Imaging protocol: Radiologic exam of the right knee. Views: 3 views. COMPARISON: No relevant prior studies available. FINDINGS: Bones/joints: No acute fracture or dislocation. Soft tissues: Chondrocalcinosis of the menisci. IMPRESSION: No acute findings. THIS DOCUMENT HAS BEEN ELECTRONICALLY SIGNED BY JAY GILLIAM MD on 04/27/2024 01:51 PM Final Signed by: Jay Gilliam MD Signed (Electronic Signature): 04/27/2024 1:51 pm Vital Signs Most recent to oldest [Reference Range]: 1 Temperature Temporal Artery [36-38 Deg C ] 36.6 Deg C (04/27/24 12:17 PM) Peripheral Pulse Rate [60-100 bpm] 77 bp m (04/27/24 12:17 PM) Respiratory Rate [12-24 br/min] 16 br/mi n (04/27/24 12:17 PM) Blood Pressure [90-140/60-90 mmHg] 144/7 2mmHg *HI* (04/27/24 12:17 PM) Mean Arterial Pressure, Cuff [65-140 mmH g] 96 mmHg (04/27/24 12:17 PM) Weight Estimated 77 kg (04/27/24 12:17 PM) Body Mass Index Estimated 27.28 kg/m2 (04/27/24 12:17 PM) Height/Length Estimated 168 cm (04/27/24 12:17 PM) Social History Social History Type Response Tobacco Never tobacco user T obacco Use:. Sex Hospital Discharge Instructions Patient Education 04/27/2024 13:38:06 Laceration Care, Adult Laceration Care, Adult A laceration is a cut that may go through all layers of the skin and into the tissue that is right under the skin. Some lacerations heal on their own. Others need to be closed with stitches (sutures), murtaza, skin adhesive strips, or skin glue. Proper care of a laceration reduces the risk for infection, helps the laceration heal better, and may prevent scarring. General tips ??? Keep the wound clean and dry. ??? Do not scratch or pick at the wound. ??? Wash your hands with soap and water for at least 20 seconds before and after touching your wound or changing your bandage (dressing). If soap and water are not available, use hand retail coordinator. ??? Do not usedisinfectants or antiseptics, such as rubbing alcohol, to clean your wound unless told by your health care provider. ??? If you were given a dressing, you should change it at least once a day, or as told by your health care provider. You should also change it if it becomes wet or dirty. How to care for your laceration If sutures or murtaza were used: ??? Keep the wound completely dry for the first 24 hours, or as told by your health care provider. After that time, you may shower or bathe. Do not soak your wound in water until after the sutures orstaples have been removed. ??? Clean the wound once each day, or as told by your health care provider. To do this: ??? Wash the wound with soap and water. ??? Rinse the wound with water to remove all soap. ??? Pat the wound dry with a clean towel. Do not rub the wound. ??? After cleaning the wound, apply a thin layer of antibiotic ointment, other topical ointments, or a non-adherent dressing as told by your health care provider. This will help prevent infection andkeep the dressing from sticking to the wound. ??? Have the sutures or murtaza removed as told by your health care provider. Do not remove suturesor murtaza yourself. If skin adhesive strips were used: ??? Do not get the skin adhesive strips wet. You may shower or bathe, but keep the wound dry. ??? If the wound gets wet, pat it dry with a clean towel. Do not rub the wound. ??? Skin adhesive strips fall off on their own. If adhesive strip edges start to loosen and curl up, you may trim the loose edges. Do not remove adhesive strips completely unless your health care provider tells you to do that. If skin glue was used: ??? You may shower or bathe, but try to keep the wound dry. Do not soak the wound in water. ??? After showering or bathing, pat the wound dry with a clean towel. Do not rub the wound. ??? Do not do any activities that will make you sweat a lot until the skin glue has fallen off. ??? Do not apply liquid, cream, or ointment medicine to the wound while the skin glue is in place. Doing this may loosen the film before the wound has healed. ??? If a dressing is placed over the wound, do not apply tape directly over the skin glue. Doing this may cause the glue to be pulled off before the wound has healed. ??? Do not pick at the glue. Skin glue usually remains in place for 5???10 days and then falls off the skin. Follow these instructions at home: Medicines ??? Take myoa-wyk-khmxivt and prescription medicines only as told by your health care provider. ??? If you were prescribed an antibiotic medicine or ointment, take or apply it as told by your health care provider. Do not stop using it even if your condition improves. Managing pain and swelling ??? If directed, put ice on the injured area. To do this: ??? Put ice in a plastic bag. ??? Place a towel between your skin and the bag. ??? Leave the ice on for 20 minutes, 2???3 times a day. ??? Remove the ice if your skin turns bright red. This is very important. If you cannot feel pain, heat, or cold, you have a greater risk of damage to the area. ??? Raise (elevate) the injured area above the level of your heart while you are sitting or lying down for the first 24???48 hours after the laceration is repaired. General instructions ??? Avoid any activity that could cause your wound to reopen. ??? Check your wound every day for signs of infection. Watch for: ??? More redness, swelling, or pain. ??? Fluid or blood. ??? Warmth. ??? Pus or a bad smell. ??? Keep all follow-up visits. This is important. Contact a health care provider if: ??? You received a tetanus shot and you have swelling, severe pain, redness, or bleeding at the injection site. ??? Your closed wound breaks open. ??? You have any of these signs of infection: ??? More redness, swelling, or pain around your wound. ??? Fluid or blood coming from your wound. ??? Warmth coming from your wound. ??? Pus or a bad smell coming from your wound. ??? A fever. ??? You notice something coming out of the wound, such as wood or glass. ??? Your pain is not controlled with medicine. ??? You notice a change in the color of your skin near your wound. ??? You need to change the dressing often. ??? You develop a new rash. ??? You have numbness around the wound. Get help right away if: ??? You develop severe swelling around the wound. ??? Your pain suddenly increases and is severe. ??? You develop painful lumps near the wound or on skin anywhere else on your body. ??? You have a red streak going away from your wound. ??? The wound is on your hand or foot, and you cannot properly move a finger or toe. ??? The wound is on your hand or foot, and you notice that your fingers or toes look pale or bluish. Summary ??? A laceration is a cut that may go through all layers of the skin and into the tissue that is right under the skin. ??? Some lacerations heal on their own. Others need to be closed with stitches (sutures), murtaza, skin adhesive strips, or skin glue. ??? Proper care of a laceration reduces the risk of infection, helps the laceration heal better, and may prevent scarring. This information is not intended to replace advice given to you by your health care provider. Make sure you discuss any questions you have with your health care provider. Document Revised: 12/29/2021 Document Reviewed: 12/29/2021 Elsevier Patient Education ?? 2022 [employer]. 04/27/2024 13:38:02 Facial Laceration Facial Laceration A facial laceration is a cut (laceration) on the face. It is caused by any injury that cuts or tears the skin or tissues on the face. Facial lacerations can bleed and be painful. You may need medical attention to stop the bleeding, help the wound heal, lower your risk of infection, and prevent scarring. Lacerations usually heal quickly after treatment. What are the causes? This condition may be caused by: ??? A motor vehicle crash. ??? A sports injury. ??? A violent attack. ??? A fall. What are the signs or symptoms? Common symptoms of this condition include: ??? An obvious cut on the face. ??? Bleeding. ??? Pain. ??? Swelling. ??? Bruising. ??? A change in the appearance of the face. How is this diagnosed? Your health care provider can diagnose a facial laceration by doing a physical exam and asking how the injury happened. Your health care provider may also check for areas of bleeding, tissue damage, nerve injury, and objects (foreign bodies) in your wound. How is this treated? Treatment for a facial laceration depends on how severe and deep the wound is. It also depends on the risk for infection. First, your health care provider will clean the wound to prevent infection. Then, your health care provider will decide whether to close the wound. This depends on how deep the laceration is and how long ago your injury happened. If there is an increased risk of infection, thewound will not be closed. ??? If your wound needs to be closed: ??? Your health care provider will use stitches (sutures), skin glue (skin adhesive), or skin adhesive strips to repair the laceration. ??? Your health care provider may numb the area around your wound by injecting a numbing medicine in and around your laceration before doing the sutures. ??? Torn skin edges or skin may be removed. ??? If sutures are used, the laceration may be closed in layers. Absorbable sutures will be used for deep tissues and muscle. Removable sutures will be used to close the skin. ??? You may be given: ??? Pain medicine. ??? A tetanus shot. ??? Oral antibiotic medicines. ??? Antibiotic ointment. Follow these instructions at home: Wound care Follow instructions from your health care provider about how to take care of your wound. Make sure you: ??? Wash your hands with soap and water for at least 20 seconds before and after you change your bandage (dressing). If soap and water are not available, use hand retail coordinator. ??? Change your dressing as told by your health care provider. ??? Leave sutures, skin adhesive, or adhesive strips in place. These skin closures may need to stayin place for 2 weeks or longer. If adhesive strip edges start to loosen and curl up, you may trim the loose edges. Do not remove adhesive strips completely unless your health care provider tells you to do that. These instructions will vary depending on how the wound was closed. For sutures: ??? Keep the wound clean and dry. ??? If you were given a dressing, change it at least once a day, or as told by your health care provider. Also change the dressing if it gets wet or dirty. ??? Wash the wound with soap and water two times a day, or as told by your health care provider. Rinse off the soap with water. Pat the wound dry with a clean towel. ??? After cleaning, apply a thin layer of antibiotic ointment as told by your health care provider.This helps prevent infection and keeps the dressing from sticking to the wound. ??? You may shower as usual after the first 24 hours. Do not soak the wound until the sutures are removed. ??? Return to have your sutures removed as told by your health care provider. ??? Do not wear makeup in the area of the wound until your health care provider has approved. For skin adhesive: ??? You may briefly wet your wound in the shower or bath. ??? Do not soak or scrub the wound. ??? Do not swim. ??? Do not sweat heavily until the skin adhesive has fallen off on its own. ??? After showering or bathing, gently pat the wound dry with a clean towel. ??? Do not apply liquid medicine, cream medicine, ointment, or makeup to your wound while the skin adhesive is in place. This may loosen the film before your wound is healed. ??? If you have a dressing over your wound, be careful not to apply tape directly over the skin adhesive. This may pull off the adhesive before the wound is healed. ??? Do not spend a long time in the sun or use a tanning lamp while the skin adhesive is in place. ??? The skin adhesive will usually remain in place for 5???10 days and then naturally fall off the skin. Do not pick at the adhesive film. For skin adhesive strips: ??? Keep the wound clean and dry. ??? Do not let the skin adhesive strips get wet. ??? Bathe carefully to keep the wound and adhesive strips dry. If the wound gets wet, pat it dry with a clean towel right away. ??? Skin adhesive strips fall off on their own over time. You may trim the strips as the wound heals. Do not remove skin adhesive strips that are still stuck to the wound. General instructions ??? Check your wound area every day for signs of infection. Check for: ??? More redness, swelling, or pain. ??? Fluid or blood. ??? Warmth. ??? Pus or a bad smell. ??? Take yaqb-thv-cjylkys and prescription medicines only as told by your health care provider. ??? If you were prescribed an antibiotic medicine, take it or apply it as told by your health care provider. Do not stop using the antibiotic even if you start to feel better. ??? After the laceration has healed: ??? Know that it can take a year or two for redness or scarring to fade. ??? Apply sunscreen to the skin of your healed wound to minimize scarring. Ultraviolet (UV) rays can darken scar tissue. Contact a health care provider if: ??? You have a fever. A fever is a body temperature that is 100.4??F (38??C) or higher. ??? You have more redness, swelling, or pain around your wound. ??? You have fluid or blood coming from your wound. ??? Your wound feels warm to the touch. ??? You have pus or a bad smell coming from your wound. Get help right away if: ??? You have a red streak going away from your wound. Summary ??? You may need treatment for a facial laceration to prevent infection, stop bleeding, help healing, and prevent scarring. ??? A deep laceration may be closed with stitches (sutures). ??? Follow your health care provider's wound care instructions carefully. This information is not intended to replace advice given to you by your health care provider. Make sure you discuss any questions you have with your health care provider. Document Revised: 01/19/2021 Document Reviewed: 01/19/2021 Elsevier Patient Education ?? 2022 [employer]. Follow Up Care 04/27/2024 12:14:55 With:Follow up with primary care provider Address: When:1 week Physician Emergency department Note * ESTEFANÍA Aguero: PERFORM Event Display: ED Note Physician Authored Date: [id number] DEON MCKOY :1945 Age:78 years Sex:Female Visit Date:04/27/2024 Basic Information Time Seen: ESTEFANÍA Aguero / 04/27/2024 12:16 Chief Complaint Pt BIBA after tripping on stairs at [place] and hitting head. Pt has lac on L eye, abrasion to nose and R knee. History Of Present Illness: This is a 78-year-old??female not anticoagulated brought in by ambulance??for concern of a mechanical fall. ??She explains that she was walking up to the cement??steps into her bahai approximately an hour ago when she fell forward??landing on the??right knee and??forehead. ??She??is expressing a fr ontal headache??but denies pain elsewhere. ??She??denies loss of consciousness or vomiting since the fall.?? Denies any chest pain or dyspnea pelvic pain or abdominal pain.?? She denies any precedingmedical events. ??She does have a history of??tremors and so she typically walks using 2 canes which she was using at the time. Review of Systems: See HPI Physical Exam Vitals & Measurements T:??36.6?C ??(Temporal Artery)?? HR:??77??(Peripheral)?? RR:??16?? BP:??144/72?? SpO2:??97%?? HT:??168??cm?? WT:??77??kg??(Estimated)?? BMI:??27.28?? Pain Score:??5?? O2 Therapy:??Room air?? General: Patient is alert and engaging, appears well. Is in no acute distress. Speaking comfortablyin full sentences.?? Constitutional: No fevers, chills or diaphoresis.?? HEENT: Head normocephalic. 3??cm laceration??directly above the??left??brow. ??Minor abrasions on the forehead??and bridge of the nose. ??Neck supple with FROM w/o lymphadenopathy or JVD. Trachea midline. No c-spine tenderness. EOMs intact w/o pain. Pupils equal and reactive to light.?No??perior bital??ecchymosis. Respiratory: ??No obvious work of breathing, regular rate. BS equal b/l, clear to auscultation.?? Cardiovascular: Heart regular rate and rhythm w/o murmurs, rubs or gallops. No peripheral edema present.?? GI: normoactive BS. Abdomen soft non tender, nondistended without guarding, rebound or rigidity. NoHSM Extremities: No obvious deformities. FROM.?? Integumentary: Skin warm and pink. No rashes or ecchymosis present.?? Neuro: CN III-XII grossly intact.?? Psychiatric: acting appropriate for age and circumstance. Normal mood without obvious ??affect.?? Medical Decision Making: This is a pleasant well-appearing 78-year-old female??here for evaluation after mechanical fall.?? She is alert and oriented??with a GCS of 15.?? Exam as described above. ??Patient is sitting comfortably on the bed speaking in full sentences managing??her own airway. ??Lungs clear to auscultation and abdomen is soft nontender. ??There is no focal neurological deficits??on exam and she has good strength in the upper or lower extremities.?? She does have??minor bleeding from a laceration of the left eyebrow??along with abrasions on the forehead??and the bridge of the nose.?? No epistaxis.?Nodeformity or tenderness to palpation along the bridge of the nose or??orbits.?? Obtain the labs miguel CT of the head and neck.?? Given Tylenol. Patient remained feeling well and hemodynamically stable in the emergency department.?? The laceration was cleaned and closed with 4 simple interrupted sutures. ??Please see??procedural note below for further details. ??Tetanus updated. No acute findings on the head and neck CT.?? Neurological exam remained??unremarkable. She did well with ambulation trial. ??We did use a walker as she did not have her cane's here. Case discussed with Dr. Reilly Procedure For??6-0 nylon sutures placed. No Qualifying Data Assessment/Plan 1.??Fall??W19.XXXA ??Patient discharged home with her daughter.?? Wound care and laceration care discussed. ??Plans onfollow-up with primary care??in a week and suture removal in 7 to 10 days.?? Strict return precautions understood. Ordered: Discharge Patient, 04/27/24 14:36:00 EDT, Home Independently ?? 2.??Laceration of face??S01.81XA Ordered: Discharge Patient, 04/27/24 14:36:00 EDT, Home Independently ?? 3.??Contusion of forehead??S00.83XA Ordered: Discharge Patient, 04/27/24 14:36:00 EDT, Home Independently ?? Patient Education Laceration Care, Adult Facial Laceration Follow Up With When Contact Information Follow up with primary care provider Within 1 week Additional Instructions: Medication Reconciliation Unchanged FLUoxetine (FLUoxetine 10 mg oral capsule)TAKE ONE CAPSULE BY MOUTH EVERY DAY. ?? lisinopril (lisinopril 5 mg oral tablet)TAKE ONE TABLET BY MOUTH EVERY NIGHT. ?? primidone (primidone 250 mg oral tablet)TAKE ONE TABLET BY MOUTH EVERY EVENING. ?? primidone (primidone 50 mg oral tablet)TAKE 1 TABLET BY MOUTH IN THE MORNING FOR 2 WEEKS THEN INCREASE TO 2 TABLETS IN THE MORNING IN ADDITION TO THE 250MG PRIMIDONE NIGHTLY. ?? propranolol (propranolol 160 mg oral capsule, extended release)TAKE ONE CAPSULE BY MOUTH EVERY DAY. ?? traZODone (traZODone 50 mg oral tablet)TAKE TWO TABLETS BY MOUTH EVERY DAY. Problem List/Past Medical History Ongoing No qualifying data Historical No qualifying data Medication Administration Given Sodium Chloride 0.9%, 1000 mL, Hydration Bolus acetaminophen, 1000 mg, IV Piggyback tetanus/diphth/pertuss (Tdap) adult/adol, 0.5 mL, Intramuscular Allergies No Known Allergies Social History Alcohol Never Electronic Cigarette/Vaping Electronic Cigarette Use: Never. Substance Use Never Tobacco Never tobacco user Tobacco Use:. Diagnostic Results CT Head w/o Contrast 04/27/2024 14:[address] Spine Cervical w/o Contrast 04/27/2024 14:15 EDT XR Chest 1 View 04/27/2024 13:50 EDT XR Knee 3 Views Right 04/27/2024 13:[address] Spine Cervical w/o Contrast ?? 04/27/24 13:01:00 PROCEDURE INFORMATION: Exam: CT Cervical Spine Without Contrast Exam date and time: 04/27/2024 1:01 PM Age: 78 years old Clinical indication: Injury or trauma; Fall; Concussion/head injury ?? TECHNIQUE: Imaging protocol: Computed tomography of the cervical spine without contrast. Radiation optimization: All CT scans at this facility use at least one of these dose optimization techniques: automated exposure control; mA and/or kV adjustment per patient size (includes targeted exams where dose is matched to clinical indication); or iterative reconstruction. ?? COMPARISON: CT HEAD WO CONTRAST 04/27/2024 1:01 PM ?? FINDINGS: Bones: No acute fracture. Normal alignment. No significant disc bulge or herniation. Degenerative changes of the spine without acute osseous abnormality. ?? Lungs: Lung apices are normal. ?? Soft tissues: Unremarkable. ?? IMPRESSION: No acute findings. ? THIS DOCUMENT HAS BEEN ELECTRONICALLY SIGNED BY JAY GILLIAM MD on 04/27/2024 02:14 PM ?? Signed By: Jay Gilliam MD ?? XR Knee 3 Views Right ?? 04/27/24 12:35:16 PROCEDURE INFORMATION: Exam: XR Right Knee Exam date and time: 04/27/2024 12:35 PM Age: 78 years old Clinical indication: Injury or trauma; Fall; Blunt trauma and laceration; Right; Patella or knee; Without foreign body ?? TECHNIQUE: Imaging protocol: Radiologic exam of the right knee. Views: 3 views. ?? COMPARISON: No relevant prior studies available. ?? FINDINGS: Bones/joints: No acute fracture or dislocation. Soft tissues: Chondrocalcinosis of the menisci. ?? IMPRESSION: No acute findings. ? THIS DOCUMENT HAS BEEN ELECTRONICALLY SIGNED BY JAY GILLIAM MD on 04/27/2024 01:51 PM ?? Signed By: Jay Gilliam MD ?? CT Head w/o Contrast ?? 04/27/24 13:01:00 PROCEDURE INFORMATION: Exam: CT Head Without Contrast Exam date and time: 04/27/2024 1:01 PM Age: 78 years old Clinical indication: Injury or trauma; Fall; Blunt trauma (contusions or hematomas); Consciousness not specified; Additional info: Headache fall ?? TECHNIQUE: Imaging protocol: Computed tomography of the head without contrast. Radiation optimization: All CT scans at this facility use at least one of these dose optimization techniques: automated exposure control; mA and/or kV adjustment per patient size (includes targeted exams where dose is matched to clinical indication); or iterative reconstruction. ?? COMPARISON: CT SPINE CERVICAL WO CONTRAST 04/27/2024 1:01 PM ?? FINDINGS: Brain: Generalized atrophy and chronic white matter ischemic changes. There is no mass, acute hemorrhage or acute infarct. Cerebral ventricles: No ventriculomegaly. Paranasal sinuses: Visualized sinuses are unremarkable. No fluid levels. Mastoid air cells: Visualized mastoid air cells are well aerated. Bones: Unremarkable. No acute fracture. Soft tissues: Mild forehead contusion. ?? IMPRESSION: Superficial scalp injury without intra-cranial hemorrhage or acute fracture. ? THIS DOCUMENT HAS BEEN ELECTRONICALLY SIGNED BY JAY GILLIAM MD on 04/27/2024 02:13 PM ?? Signed By: Jay Gilliam MD ?? XR Chest 1 View ?? 04/27/24 12:39:33 PROCEDURE INFORMATION: Exam: XR Chest Exam date and time: 04/27/2024 12:39 PM Age: 78 years old Clinical indication: Injury or trauma; Fall; Blunt trauma (contusions or hematomas) ?? TECHNIQUE: Imaging protocol: Radiologic exam of the chest. Views: 1 view. ?? COMPARISON: No relevant prior studies available. ?? FINDINGS: Lungs: The lungs are hyperinflated with changes of COPD. No consolidation. Pleural spaces: Unremarkable. No pleural effusion. No pneumothorax. Heart/Mediastinum: Unremarkable. No cardiomegaly. Bones/joints: Unremarkable. ?? IMPRESSION: No acute findings. ? THIS DOCUMENT HAS BEEN ELECTRONICALLY SIGNED BY JAY GILLIAM MD on 04/27/2024 01:50 PM ?? Signed By: Jay Gilliam MD Lab Results CBC and Differential?? LATEST RESULTS?? WBC?? 04/27/24 12:50?? 4.5 ??Low?? RBC?? 04/27/24 12:50?? 3.96 ??Low?? Hgb?? 04/27/24 12:50?? 12.6?? Hct?? 04/27/24 12:50?? 36.0 ??Low?? MCV?? 04/27/24 12:50?? 91.0?? MCH?? 04/27/24 12:50?? 31.7 ??High?? MCHC?? 04/27/24 12:50?? 34.9?? RDW-CV?? 04/27/24 12:50?? 13.4?? Platelets?? 04/27/24 12:50?? 152?? MPV?? 04/27/24 12:50?? 7.4?? Neutro Auto?? 04/27/24 12:50?? 61.9?? Lymph Auto?? 04/27/24 12:50?? 23.6?? [place] Auto?? 04/27/24 12:50?? 10.1 ??High?? Eos, Auto?? 04/27/24 12:50?? 3.20 ??High?? Basophil Auto?? 04/27/24 12:50?? 1.2 ??High?? Neutro Absolute?? 04/27/24 12:50?? 2.8?? Lymph Absolute?? 04/27/24 12:50?? 1.1 ??Low?? [place] Absolute?? 04/27/24 12:50?? 0.5?? Eos Absolute?? 04/27/24 12:50?? 0.1?? Baso Absolute?? 04/27/24 12:50?? 0.1? Routine Chemistry?? LATEST RESULTS?? Sodium Level?? 04/27/24 12:50?? 136?? Potassium Level?? 04/27/24 12:50?? 3.9?? Chloride Level?? 04/27/24 12:50?? 105?? CO2?? 04/27/24 12:50?? 23?? BUN?? 04/27/24 12:50?? 16?? Glucose Level?? 04/27/24 12:50?? 124 ??High?? Creatinine Level?? 04/27/24 12:50?? 0.80?? BUN/Creat Ratio?? 04/27/24 12:50?? 20.0?? eGFR CKD-EPI?? 04/27/24 12:50?? 75?? Calcium Level?? 04/27/24 12:50?? 8.9?? Anion Gap?? 04/27/24 12:50?? 8.0?? Osmolality?? 04/27/24 12:50?? 275? Electronically Signed on 04/27/2024 15:27 EDT [facility] Emergency department Discharge instructions * ESTEFAN[facility]A Augero: PERFORM Event Display: ED Discharge Information Authored Date: [id number] DEON MCKOY :1945 Age:78 years Sex:Female Visit Date:04/27/2024 Discharge Instructions We would like to thank you for allowing us to assist you with your healthcare needs. The following includes patient education materials and information regarding your injury/illness. Diagnosis from Today's Visit Fall Laceration of face Contusion of forehead Discharge Vitals Temperature??(Temporal Artery) 97.9 ??F (36.6 ??C) Heart Rate??(Peripheral) 77 Respiratory Rate?? 16 Blood Pressure?? 144/72?? SpO2?? 97% Height?? 66.14 in (168 cm) Weight??(Estimated) 169.78 lb (77 kg) BMI?? 27.28 Allergies No Known Allergies What to Do Next Instructions from Your Care Team You were seen here for evaluation after a fall. ??There was??fortunately no acute findings on the head and neck CT as well as CF x-ray of the right knee.?? Abrasions were cleaned and covered with bacitracin and the laceration on??the left eyebrow was closed with 4 simple interrupted sutures. ??These need to be removed in 7 to 10 days.?? Please keep this dressing on for the next 24 hours and can change daily??to keep clean. ??Wash gently with soap and water refrain from putting any antiseptic??washes or hydrogen peroxide on the area.?? Tetanus was updated while here. ??Return to your nearest emergency department if you begin to experience any worsening of headache, vision changes vomiting??or any redness swelling??or increased pain at the site of the laceration. You Need to Schedule the Following Appointments Follow Up with??Follow up with primary care provider When:??Within 1 week You were treated today on an emergency basis; it may be chowdary to contact your primary care provider to notify them of your visit today. You may have been referred to your regular doctor or a specialist, please follow up as instructed. If your condition worsens or you can't get in to see the doctor, contact the Emergency Department. Medications What When Instructions Next Dose Unchanged FLUoxetine (FLUoxetine 10 mg oral capsule) TAKE ONE CAPSULE BY MOUTH EVERY DAY ?? Unchanged lisinopril (lisinopril 5 mg oral tablet) TAKE ONE TABLET BY MOUTH EVERY NIGHT ?? Unchanged primidone (primidone 250 mg oral tablet) TAKE ONE TABLET BY MOUTH EVERY EVENING ?? Unchanged primidone (primidone 50 mg oral tablet) TAKE 1 TABLET BY MOUTH IN THE MORNING FOR 2 WEEKS THEN INCREASE TO 2 TABLETS IN THE MORNING IN ADDITION TO THE 250MG PRIMIDONE NIGHTLY ?? Unchanged propranolol (propranolol 160 mg oral capsule, extended release) TAKE ONE CAPSULE BY MOUTH EVERY DAY ?? Unchanged traZODone (traZODone 50 mg oral tablet) TAKE TWO TABLETS BY MOUTH EVERY DAY ?? Education Materials Laceration Care, Adult A laceration is a cut that may go through all layers of the skin and into the tissue that is right under the skin. Some lacerations heal on their own. Others need to be closed with stitches (sutures), murtaza, skin adhesive strips, or skin glue. Proper care of a laceration reduces the risk for infection, helps the laceration heal better, and may prevent scarring. General tips ? Keep the wound clean and dry. ? Do not scratch or pick at the wound. ? Wash your hands with soap and water for at least 20 seconds before and after touching your wound orchanging your bandage (dressing). If soap and water are not available, use hand retail coordinator. ? Do not usedisinfectants or antiseptics, such as rubbing alcohol, to clean your wound unless told byyour health care provider. ? If you were given a dressing, you should change it at least once a day, or as told by your health care provider. You should also change it if it becomes wet or dirty. How to care for your laceration If sutures or murtaza were used: ? Keep the wound completely dry for the first 24 hours, or as told by your health care provider. After that time, you may shower or bathe. Do not soak your wound in water until after the sutures or murtaza have been removed. ? Clean the wound once each day, or as told by your health care provider. To do this: ? Wash the wound with soap and water. ? Rinse the wound with water to remove all soap. ? Pat the wound dry with a clean towel. Do not rub the wound. ? After cleaning the wound, apply a thin layer of antibiotic ointment, other topical ointments, or a non-adherent dressing as told by your health care provider. This will help prevent infection and keep the dressing from sticking to the wound. ? Have the sutures or murtaza removed as told by your health care provider. Do not remove sutures or murtaza yourself. If skin adhesive strips were used: ? Do not get the skin adhesive strips wet. You may shower or bathe, but keep the wound dry. ? If the wound gets wet, pat it dry with a clean towel. Do not rub the wound. ? Skin adhesive strips fall off on their own. If adhesive strip edges start to loosen and curl up, you may trim the loose edges. Do not remove adhesive strips completely unless your health care provider tells you to do that. If skin glue was used: ? You may shower or bathe, but try to keep the wound dry. Do not soak the wound in water. ? After showering or bathing, pat the wound dry with a clean towel. Do not rub the wound. ? Do not do any activities that will make you sweat a lot until the skin glue has fallen off. ? Do not apply liquid, cream, or ointment medicine to the wound while the skin glue is in place. Doing this may loosen the film before the wound has healed. ? If a dressing is placed over the wound, do not apply tape directly over the skin glue. Doing this may cause the glue to be pulled off before the wound has healed. ? Do not pick at the glue. Skin glue usually remains in place for 5???10 days and then falls off the skin. Follow these instructions at home: Medicines ? Take [id number] and prescription medicines only as told by your health care provider. ? If you were prescribed an antibiotic medicine or ointment, take or apply it as told by your health care provider. Do not stop using it even if your condition improves. Managing pain and swelling ? If directed, put ice on the injured area. To do this: ? Put ice in a plastic bag. ? Place a towel between your skin and the bag. ? Leave the ice on for 20 minutes, 2???3 times a day. ? Remove the ice if your skin turns bright red. This is very important. If you cannot feel pain, heat, or cold, you have a greater risk of damage to the area. ? Raise (elevate) the injured area above the level of your heart while you are sitting or lying down for the first 24???48 hours after the laceration is repaired. General instructions ? Avoid any activity that could cause your wound to reopen. ? Check your wound every day for signs of infection. Watch for: ? More redness, swelling, or pain. ? Fluid or blood. ? Warmth. ? Pus or a bad smell. ? Keep all follow-up visits. This is important. Contact a health care provider if: ? You received a tetanus shot and you have swelling, severe pain, redness, or bleeding at the injection site. ? Your closed wound breaks open. ? You have any of these signs of infection: ? More redness, swelling, or pain around your wound. ? Fluid or blood coming from your wound. ? Warmth coming from your wound. ? Pus or a bad smell coming from your wound. ? A fever. ? You notice something coming out of the wound, such as wood or glass. ? Your pain is not controlled with medicine. ? You notice a change in the color of your skin near your wound. ? You need to change the dressing often. ? You develop a new rash. ? You have numbness around the wound. Get help right away if: ? You develop severe swelling around the wound. ? Your pain suddenly increases and is severe. ? You develop painful lumps near the wound or on skin anywhere else on your body. ? You have a red streak going away from your wound. ? The wound is on your hand or foot, and you cannot properly move a finger or toe. ? The wound is on your hand or foot, and you notice that your fingers or toes look pale or bluish. Summary ? A laceration is a cut that may go through all layers of the skin and into the tissue that is right under the skin. ? Some lacerations heal on their own. Others need to be closed with stitches (sutures), murtaza, skinadhesive strips, or skin glue. ? Proper care of a laceration reduces the risk of infection, helps the laceration heal better, and may prevent scarring. This information is not intended to replace advice given to you by your health care provider. Make sure you discuss any questions you have with your health care provider. Document Revised: 12/29/2021 Document Reviewed: 12/29/2021 [employer] Patient Education ?? 2022 [employer] Facial Laceration A facial laceration is a cut (laceration) on the face. It is caused by any injury that cuts or tears the skin or tissues on the face. Facial lacerations can bleed and be painful. You may need medical attention to stop the bleeding, help the wound heal, lower your risk of infection, and prevent scarring. Lacerations usually heal quickly after treatment. What are the causes? This condition may be caused by: ? A motor vehicle crash. ? A sports injury. ? A violent attack. ? A fall. What are the signs or symptoms? Common symptoms of this condition include: ? An obvious cut on the face. ? Bleeding. ? Pain. ? Swelling. ? Bruising. ? A change in the appearance of the face. How is this diagnosed? Your health care provider can diagnose a facial laceration by doing a physical exam and asking how the injury happened. Your health care provider may also check for areas of bleeding, tissue damage, nerve injury, and objects (foreign bodies) in your wound. How is this treated? Treatment for a facial laceration depends on how severe and deep the wound is. It also depends on the risk for infection. First, your health care provider will clean the wound to prevent infection. Then, your health care provider will decide whether to close the wound. This depends on how deep the laceration is and how long ago your injury happened. If there is an increased risk of infection, thewound will not be closed. ? If your wound needs to be closed: ? Your health care provider will use stitches (sutures), skin glue (skin adhesive), or skin adhesive strips to repair the laceration. ? Your health care provider may numb the area around your wound by injecting a numbing medicine in and around your laceration before doing the sutures. ? Torn skin edges or skin may be removed. ? If sutures are used, the laceration may be closed in layers. Absorbable sutures will be used for deep tissues and muscle. Removable sutures will be used to close the skin. ? You may be given: ? Pain medicine. ? A tetanus shot. ? Oral antibiotic medicines. ? Antibiotic ointment. Follow these instructions at home: Wound care Follow instructions from your health care provider about how to take care of your wound. Make sure you: ? Wash your hands with soap and water for at least 20 seconds before and after you change your bandage (dressing). If soap and water are not available, use hand retail coordinator. ? Change your dressing as told by your health care provider. ? Leave sutures, skin adhesive, or adhesive strips in place. These skin closures may need to stay in place for 2 weeks or longer. If adhesive strip edges start to loosen and curl up, you may trim the loose edges. Do not remove adhesive strips completely unless your health care provider tells you to do that. These instructions will vary depending on how the wound was closed. For sutures: ? Keep the wound clean and dry. ? If you were given a dressing, change it at least once a day, or as told by your health care provider. Also change the dressing if it gets wet or dirty. ? Wash the wound with soap and water two times a day, or as told by your health care provider. Rinse off the soap with water. Pat the wound dry with a clean towel. ? After cleaning, apply a thin layer of antibiotic ointment as told by your health care provider. This helps prevent infection and keeps the dressing from sticking to the wound. ? You may shower as usual after the first 24 hours. Do not soak the wound until the sutures are removed. ? Return to have your sutures removed as told by your health care provider. ? Do not wear makeup in the area of the wound until your health care provider has approved. For skin adhesive: ? You may briefly wet your wound in the shower or bath. ? Do not soak or scrub the wound. ? Do not swim. ? Do not sweat heavily until the skin adhesive has fallen off on its own. ? After showering or bathing, gently pat the wound dry with a clean towel. ? Do not apply liquid medicine, cream medicine, ointment, or makeup to your wound while the skin adhesive is in place. This may loosen the film before your wound is healed. ? If you have a dressing over your wound, be careful not to apply tape directly over the skin adhesive. This may pull off the adhesive before the wound is healed. ? Do not spend a long time in the sun or use a tanning lamp while the skin adhesive is in place. ? The skin adhesive will usually remain in place for 5???10 days and then naturally fall off the skin. Do not pick at the adhesive film. For skin adhesive strips: ? Keep the wound clean and dry. ? Do not let the skin adhesive strips get wet. ? Bathe carefully to keep the wound and adhesive strips dry. If the wound gets wet, pat it dry with aclean towel right away. ? Skin adhesive strips fall off on their own over time. You may trim the strips as the wound heals. Do not remove skin adhesive strips that are still stuck to the wound. General instructions ? Check your wound area every day for signs of infection. Check for: ? More redness, swelling, or pain. ? Fluid or blood. ? Warmth. ? Pus or a bad smell. ? Take [id number] and prescription medicines only as told by your health care provider. ? If you were prescribed an antibiotic medicine, take it or apply it as told by your health care provider. Do not stop using the antibiotic even if you start to feel better. ? After the laceration has healed: ? Know that it can take a year or two for redness or scarring to fade. ? Apply sunscreen to the skin of your healed wound to minimize scarring. Ultraviolet (UV) rays can darken scar tissue. Contact a health care provider if: ? You have a fever. A fever is a body temperature that is 100.4??F (38??C) or higher. ? You have more redness, swelling, or pain around your wound. ? You have fluid or blood coming from your wound. ? Your wound feels warm to the touch. ? You have pus or a bad smell coming from your wound. Get help right away if: ? You have a red streak going away from your wound. Summary ? You may need treatment for a facial laceration to prevent infection, stop bleeding, help healing, and prevent scarring. ? A deep laceration may be closed with stitches (sutures). ? Follow your health care provider's wound care instructions carefully. This information is not intended to replace advice given to you by your health care provider. Make sure you discuss any questions you have with your health care provider. Document Revised: 01/19/2021 Document Reviewed: 01/19/2021 Elsevier Patient Education ?? 2022 [employer] Tests Performed Radiology CT Head w/o Contrast 04/27/2024 14:[address] Spine Cervical w/o Contrast 04/27/2024 14:15 EDT XR Chest 1 View 04/27/2024 13:50 EDT XR Knee 3 Views Right 04/27/2024 13:51 EDT Medications and Immunizations Administered Given Sodium Chloride 0.9%, 1000 mL, Hydration Bolus acetaminophen, 1000 mg, IV Piggyback tetanus/diphth/pertuss (Tdap) adult/adol, 0.5 mL, Intramuscular Lab Test Name Test Result Date/Time WBC 4.5 K/mcL 04/27/2024 12:50 EDT RBC 3.96 Million/mcL 04/27/2024 12:50 EDT Hgb 12.6 g/dL 04/27/2024 12:50 EDT Hct 36.0 % 04/27/2024 12:50 EDT MCV 91.0 fL 04/27/2024 12:50 EDT MCH 31.7 pg 04/27/2024 12:50 EDT MCHC 34.9 g/dL 04/27/2024 12:50 EDT RDW-CV 13.4 % 04/27/2024 12:50 EDT Platelets 152 K/mcL 04/27/2024 12:50 EDT MPV 7.4 fL 04/27/2024 12:50 EDT Neutro Auto 61.9 % 04/27/2024 12:50 EDT Lymph Auto 23.6 % 04/27/2024 12:50 EDT Newport Auto 10.1 % 04/27/2024 12:50 EDT Eos, Auto 3.20 % 04/27/2024 12:50 EDT Basophil Auto 1.2 % 04/27/2024 12:50 EDT Neutro Absolute 2.8 K/mcL 04/27/2024 12:50 EDT Lymph Absolute 1.1 K/mcL 04/27/2024 12:50 EDT Newport Absolute 0.5 K/mcL 04/27/2024 12:50 EDT Eos Absolute 0.1 K/mcL 04/27/2024 12:50 EDT Baso Absolute 0.1 K/mcL 04/27/2024 12:50 EDT Sodium Level 136 mmol/L 04/27/2024 12:50 EDT Potassium Level 3.9 mmol/L 04/27/2024 12:50 EDT Chloride Level 105 mmol/L 04/27/2024 12:50 EDT CO2 23 mmol/L 04/27/2024 12:50 EDT BUN 16 mg/dL 04/27/2024 12:50 EDT Glucose Level 124 mg/dL 04/27/2024 12:50 EDT Creatinine Level 0.80 mg/dL 04/27/2024 12:50 EDT BUN/Creat Ratio 20.0 04/27/2024 12:50 EDT eGFR CKD-EPI 75 mL/min/1.73 m2 04/27/2024 12:50 EDT Calcium Level 8.9 mg/dL 04/27/2024 12:50 EDT Anion Gap 8.0 04/27/2024 12:50 EDT Osmolality 275 mOsm/kg 04/27/2024 12:50 EDT Patient/Pole Frame Construction Worker Signature Patient Name:DEON MCKOY I have received this information and my questions have been answered. Patient/Pole Frame Construction Worker Name: Patient/Pole Frame Construction Worker Signature: Relationship to Patient: Witness Name/Signature: Date: Electronically Signed on: 04/27/2024 14:40 EDTSigned by:MAYELA Patient Care team information Care Team Related Persons Name: GIOVANI MCKOY
--- OUTSIDE RECORDS SUMMARY | 2024-08-27 19:46 | XMS_ITS | Encounter Summary ---
Author Organization [facility] Address [address] [place] [address] Care Team Providers Care Head Shipper Name Role Phone Rah Arguelles MD Primary Care Provider [phone] Encounter Details Date Type Department Care Team (Late st Contact Info) Description 05/23/2004 Results Only [facility] - Maple conversion [address] [place] [address] Gideon Bowen, DO [address] [facility] [address] [place], [place] [id number] Social History Tobacco Use Types Packs/Day Years [...] Date/Time Associated Diagnosis Comments SURGICAL PATHOLOGY Routine 05/23/2004 0:00 EDT documented in this encounter Results * SURGICAL PATHOLOGY (05/23/2004 0:00 EDT) Pathology Report: SURGICAL PATHOLOGY REPORT Reports generated via electronic interface contain original data; however they are lacking the format of the original report. Caution should be taken when reading/interpreti ng unformatted reports. Name: ? THELMA BONNER ? Accession #: ? [id number] ? : ? 1945 (Age: 58) ??F ? N #: ? [id number] ? Collect Date: ? 05/23/2004 ? Location: ? [facility] ? Receive Date: ? 05/23/2004 ? Provider: GIDEON BOWEN DO Copy to: RAH ARGUELLES MD ? Final Pathologic Diagnosis: A. ?Stomach, antrum, biopsy: 1. ?Mild chronic gastritis. 2. ?Negative for Helicobacter pylori-like microorganisms on Alcian yellow stain. B. ?Stomach, fundus, polypectomy: 1. ?Hyperplastic polyp. C. ?Distal esophagus, biopsy: 1. ?No specific pathologic features. Document reviewed and electronically signed by: Delfino Daly MD Report ??Date: 05/25/2004 14:54 By the signature above, the attending physician certifies that he/she has personally conducted a gross and/or microscopic examination of the described specimens and rendered or confirmed the above diagnosis. Specimen(s) Received: A. ?Antral biopsy B. ?Polyp fundus stomach C. ?Distal esophageal biopsy Clinical History: ? Heme-positive stool Gross Description: ? Received in Hollande's fixative labelled Kailey and antral biopsy is an irregular 0.1 x 0.1 x 0.1 cm morales-pink soft tissue which is submitted in toto as (A). ?? Received in Hollande's fixative labelled Kailey and stomach polyp/hot biopsy is an irregular 0.5 x 0.4 x 0.4 cm morales-pink lobulated polypoid tissue which is submitted in toto as (B). ?? Received in [facility]'s fixative labelled Kailey and distal esophagus biopsy are two irregular morales-pink soft tissues averaging 0.2 x 0.2 x 0.1 cm which are submitted in toto as (C). ??(Leila Hazel)/tmg ?? End of Report [facility] 05/23/2004 05/23/2004 15: 18 EDT Gideon Bowen DO PATHOLOGY ORDER MAURISIO [facility] [address] [place] [address] documented in this encounter Visit Diagnoses Not on filedocumented in this encounter Care Teams Head Shipper Relationship Specialty Start Date End Date Rah Arguelles MD [address] [place] [phone] PCP - General 06/29/09 02/04/24 documented as of this encounter
--- OUTSIDE RECORDS SUMMARY | 2024-08-27 19:46 | XMS_ITS | Encounter Summary ---
Author Organization [facility] Address [address] [place] [address] Care Team Providers Care Cigar Packer And Picker Name Role Phone Handy Arguelles MD Primary Care Provider [phone] Encounter Details Date Type Department Care Team (Late st Contact Info) Description 06/08/2000 Results Only [facility] - Maple conversion [address] [place] [address] Bebeto Ferrari MD [address] [place] [address] [address] Social History Tobacco Use Types [...] Date/Time Associated Diagnosis Comments SURGICAL PATHOLOGY Routine 06/08/2000 0:00 EDT documented in this encounter Results * SURGICAL PATHOLOGY (06/08/2000 0:00 EDT) Pathology Report: SURGICAL PATHOLOGY REPORT Reports generated via electronic interface contain original data; however they are lacking the format of the original report. Caution should be taken when reading/interpreti ng unformatted reports. Name: ? THELMA BONNER ? Accession #: ? [id number] ? : ? 1945 (Age: 54) ??F ? Collect Date: ? 06/08/2000 ? Location: ? [facility] ? Receive Date: ? 06/12/2000 ? Provider: BEBETO FERRARI MD Copy to: GEORGES ARGUELLES MD ? Final Pathologic Diagnosis: ? Endometrium, biopsy: - Secretory endometrium. (Jefferson Yanez M.D.) Document reviewed and electronically signed by: Mario Alberto Loredo MD Report ??Date: 06/14/2000 18:46 By the signature above, the attending physician certifies that he/she has personally conducted a gross and/or microscopic examination of the described specimens and rendered or confirmed the above diagnosis. Specimen(s) Received: ? Endometrial biopsy Clinical History: ? Menses at age 54; R/O hyperplasia; LMP 05/12/00 Gross Description: ? Received in formalin labelled Kailey and endometrium is 2.0 x 1.5 x 0.2 cm of multiple morales-red slightly mucoid soft tissue fragments. ??The specimen is entirely submitted in one cassette. ??(Elizabeth Juárez)/delilah End of Report [facility] 06/08/2000 06/12/2000 8:0 9 EDT Bebeto Ferrari MD PATHOLOGY ORDERABLES [facility] [address] [place] [address] documented in this encounter Visit Diagnoses Not on filedocumented in this encounter Care Teams Cigar Packer And Picker Relationship Specialty Start Date End Date Handy Arguelles MD [address] [place] [address] [phone] (work) PCP - General 06/29/09 02/04/24 documented as of this encounter
--- OUTSIDE RECORDS SUMMARY | 2024-08-27 19:46 | XMS_ITS | Encounter Summary ---
[place] [address] Care Team Providers Care Testing Manager Name Role Phone Handy James MD Primary Care Provider [phone] Reason for Visit * Reason Onset Date Comments Medication Problem 04/14/2024 Encounter Details Date Type Department Care Team (Late st Contact Info) Description 04/14/2024 Refill Neurology at [address] [address] Debbie Becker MD [facility] [place] [address] Social History Tobacco Use Types Packs/Day Years [...] encounter Miscellaneous Notes * Telephone Encounter - Scarlet Miguel CMA - 04/18/2024 7:45 AM EDT Prescription Renewal Request Name: Thelma Bonner : 1945 Prescription(s) Requested: Requested Prescriptions Pending Prescriptions Disp Refills primidone (Mysoline) 50 mg tablet 180 tablet 3 Sig: Take 50mg morning for two weeks then increase to 100mg in the morning. In addition to the 250mg primidone nightly. Pt requesting 90 day supply, note from call center: Issue with the medication: Patient called and states that she travels proximately 3 months at a time. Patient states she is leave 05/01/2024 and is requesting for a 90 day supply. Patient has alreadypicked up a one month supply. Please call to further discuss. Date of Encounter last in This Dept (If need an appointment send to secretaries to schedule): 04/11/2024 with Debbie Becker MD Next Encounter in This Dept: 07/18/2024 with Debbie Becker MD Date of Last Refill (for each medication): primidone (Mysoline) 50 mg tablet Take 50mg morning for two weeks then increase to 100mg in the morning. In addition to the 250mg primidone nightly. Dispense: 60 tablet, Refills: 11 ordered 04/11/2024 Status of request: Pended No Known Allergies Scarlet Miguel CMA 04/18/24 7:45 AM * Telephone Encounter - Marisa Maldonado RN - 04/14/2024 10:09 AM EDT Copied from [facility] #[id number]. Topic: Specialty Dept CRMs - Medication Issues >> Apr 14, 2024 9:19 AM Nayana Lewis wrote: Medication Issues Specialist Dr. Becker Relationship (if other than patient-full name): Thelma Bonner Reason for call: Medication Issue (if symptom based used Triage Subtopic) Message/information for the nurse: needs a 90 day supply Name of Medication: primidone (Mysoline) 50 mg tablet Issue with the medication: Patient called and states that she travels proximately 3 months at a time. Patient states she is leave 05/01/2024 and is requesting for a 90 day supply. Patient has already picked up a one month supply. Please call to further discuss. documented in this encounter Plan of Treatment Upcoming Encounters Date Type Department Care Team (Late st Contact Info) Description 11/14/2024 9:30 AM EST Procedure visit Neurology at [address] [address] Debbie Becker MD [facility] [place] [address] documented as of this encounter Visit Diagnoses Not on filedocumented in this encounter Care Teams Testing Manager Relationship Specialty Start Date End Date Handy James MD PCP - General Family Medicine 08/09/20 documented as of this encounter
--- OUTSIDE RECORDS SUMMARY | 2024-08-27 19:46 | XMS_ITS | Encounter Summary ---
Author Organization [facility] Address [address] [place] [address] Care Team Providers Care Sales Host Name Role Phone Handy Oneill MD Primary Care Provider [phone] Encounter Details Date Type Department Care Team (Late st Contact Info) Description 08/04/2005 Results Only [facility] - Maple conversion [address] [place] [address] Bebeto Ferrari MD [address] [facility] [address] [address] Social History Tobacco Use Types [...] Priority Date/Time Associated Diagnosis Comments CYTOPATHOLOGY Routine 08/04/2005 0:00 EDT documented in this encounter Results * CYTOPATHOLOGY (08/04/2005 0:00 EDT) Pathology Report: CYTOPATHOLOGY REPORT Reports generated via electronic interface contain original data; however they are lacking the format of the original report. Caution should be taken when reading/interpreti ng unformatted reports. Name: ? THELMA BONNER ? Accession #: ? [id number] : ? 1945 (Age: 60) ??F ?Collect Date: ? 08/04/2005 Location: ? [facility] ? Receive Date: ? 08/08/2005 Provider: ?BEBETO FERRARI MD Copy to: ? Specimen/Source: ?ThinPrep Pap Test, Cervix/Endocervix, processed on [employer] ThinPrep Imaging System, with manual evaluation Last Menstrual Period: ? SPM Other: ? Additional clinical information: Atrophic vagina HPVA - HPV testing requested if ASC-US on the current ThinPrep Pap test. ? SPECIMEN ADEQUACY ? Satisfactory for Evaluation - assessment of transformation zone component not applicable ( e.g. atrophy, vaginal sample, hysterectomy) GENERAL CATEGORIZATION ? Negative for Intraepithelial Lesion or Malignancy ? Document reviewed and electronically signed by: ? OLY Diop(ASCP) ? Report Date: ??08/14/2005 09:38 End of Report [facility] 08/04/2005 08/08/2005 Bebeto Ferrari MD PATHOLOGY ORDERABLES [facility] [address] [place] [address] documented in this encounter Visit Diagnoses Not on filedocumented in this encounter Care Teams Sales Host Relationship Specialty Start Date End Date Handy Oneill MD [address] [place] [address] PCP - General 06/29/09 02/04/24 documented as of this encounter
--- OUTSIDE RECORDS SUMMARY | 2024-08-27 19:46 | XMS_ITS | Encounter Summary ---
Author Organization [facility] Address [address] [place] [address] Care Team Providers Care Director Of Software Development Name Role Phone Handy Oneill MD Primary Care Provider [phone] Encounter Details Date Type Department Care Team (Late st Contact Info) Description 07/25/2002 Results Only [facility] - Maple conversion [address] [place] [address] Bebeto Ferrari MD [address] [facility] [address] [address] Social History Tobacco Use Types [...] Priority Date/Time Associated Diagnosis Comments CYTOPATHOLOGY Routine 07/25/2002 0:00 EDT documented in this encounter Results * CYTOPATHOLOGY (07/25/2002 0:00 EDT) Pathology Report: CYTOPATHOLOGY REPORT Reports generated via electronic interface contain original data; however they are lacking the format of the original report. Caution should be taken when reading/interpreti ng unformatted reports. Name: ? EAN THELMA Leeann ? Accession #: ? [id number] : ? 1945 (Age: 57) ??F ?Collect Date: ? 07/25/2002 Location: ? [facility] ? Receive Date: ? 07/29/2002 Provider: ?BEBETO FERRARI MD Copy to: ? Specimen/Source: ?ThinPrep Pap Test, Cervix/Endocervix Last Menstrual Period: ? 06/05 Menstrual/Pregnanc y Status: ? Amenorrhea ? SPECIMEN ADEQUACY ? Satisfactory for Evaluation - transformation zone component present GENERAL CATEGORIZATION ? Negative for Intraepithelial Lesion or Malignancy ? Document reviewed and electronically signed by: ? Laura Gavin, SCT(ASCP) ? Report Date: ??08/05/2002 10:06 End of Report [facility] 07/25/2002 07/29/2002 Bebeto Ferrari MD PATHOLOGY ORDERABLES Performing Organization Address City/State/[facility] Co de Phone Number [facility] [address] [place] [address] documented in this encounter Visit Diagnoses Not on filedocumented in this encounter Care Teams Director Of Software Development Relationship Specialty Start Date End Date Handy Oneill MD [address] [place] [address] PCP - General 06/29/09 02/04/24 documented as of this encounter
--- OUTSIDE RECORDS SUMMARY | 2024-08-27 19:46 | XMS_ITS | Encounter Summary ---
[place] [address] Care Team Providers Care Roller Inspector And Mender Name Role Phone Handy Jaems MD Primary Care Provider [phone] Encounter Details Date Type Department Care Team (Latest Contact Info) Description 04/11/2024 Travel Social History Tobacco Use Types Packs/Day [...] 9:30 AM EST Procedure visit Neurology at [facility] [address] [place] [phone] Debbie Becker MD [facility] [place] [address] documented as of this encounter Visit Diagnoses Not on filedocumented in this encounter Care Teams Roller Inspector And Mender Relationship Specialty Start Date End Date Handy James MD PCP - General Family Medicine 08/09/20 documented as of this encounter
--- OUTSIDE RECORDS SUMMARY | 2024-08-27 19:46 | XMS_ITS | Encounter Summary ---
[place] [address] Care Team Providers Care Hot Mix Operator Name Role Phone Handy James MD Primary Care Provider [phone] Encounter Details Date Type Department Care Team (Late st Contact Info) Description 10/12/2023 [place] [phone] Josiane Jaime Social History Tobacco Use Types Packs/Day Years [...] 9:30 AM EST Procedure visit Neurology at [address] [address] Debbie Becker MD [facility] [address] NEUROLOGY DEPT [place], [place] [phone] documented as of this encounter Visit Diagnoses Not on filedocumented in this encounter Care Teams Hot Mix Operator Relationship Specialty Start Date End Date Handy James MD PCP - General Family Medicine 08/09/20 documented as of this encounter
--- OUTSIDE RECORDS SUMMARY | 2024-08-27 19:46 | XMS_ITS | Encounter Summary ---
Author Organization [facility] [place] [address] Care Team Providers Care Fitter Mechanic Name Role Phone Handy James MD Primary Care Provider [phone] Reason for Visit * High Dollar Medication (Routine) - Closed Specialty Diagnoses / Procedures Referred By Contac t Referred To Contact Neurology Diagnoses Cervical dystonia Procedures Onabotulinumtoxin A (BOTOX) Authorizations Request (IN CLINIC) TC ONABOTULINUMTOXINA, 1 UNIT, INJECTION Debbie Becker MD [facility] [place] [address] Debbie Becker MD [facility] [place] [address] Referral ID Status Reason Start Date Expiration Date V isits Requested Visits Authorized [id number] Closed Consult, Test & Treat 02/06/2023 03/24/2025 9 11 Encounter Details Date Type Department Care Team (Late st Contact Info) Description 01/18/2024 10:00 AM EDT Office Visit Neurology at [address] [address] Debbie Becker MD [facility] [place] [address] Cervical dystonia Social History Tobacco Use Types [...] Procedure Notes * Debbie Becker MD - 01/18/2024 10:00 AM EDTAssociated Order(s): CHEMODENERVATION W/ EMG GUIDANCE [...] 200 units dose. Codes for chemodenervation visit: 10009, 28960 Exam: Procedure: A time out was performed [...] F/u in 3 months. Debbie Becker MD [facility] Neurology-Movement Disorders documented in this encounter Plan of Treatment Upcoming Encounters Date Type Department Care Team (Late st Contact Info) Description 11/14/2024 9:30 AM EST Procedure visit Neurology at [facility] [address] [place] [address] Debbie Becker MD [facility] [place] [address] documented as of this encounter Procedures Procedure Name Priority Date/Time Associated Diagnosis Comments CHEMODENERVATION W/ EMG GUIDANCE Routine 01/18/2024 10:00 AM EDT documented in this encounter Results * CHEMODENERVATION W/ EMG GUIDANCE (01/18/2024 10:00 AM EDT) Narrative Debbie Becker MD - 01/18/2024 10:00 AM EDT Debbie Becker MD ? 01/18/2024 10:06 AM Chemodenervation Procedure Note Diagnosis: cervical dystonia [...] 200 units dose. Codes for chemodenervation visit: 27480, 26961 Exam: Procedure: A time out was performed [...] F/u in 3 months. Debbie Becker MD [facility] Neurology-Movement Disorders Debbie Becker MD NEUROLOGY ORDERABL ES documented in this encounter Visit Diagnoses Diagnosis Cervical dystonia Spasmodic torticollis documented in this encounter Administered Medications Inactive Administered Medications - up to 3 most recent administrations Medication Order MAR Action Action Date Dose Rate Site botulinum toxin type A (Botox) injection 200 Units 200 Units, Intramuscular, ONCE, 1 dose, On Sun01/18/24 at 1015, Routine Given 01/18/2024 10:05 AM EDT 200 Units documented in this encounter Care Teams Fitter Mechanic Relationship Specialty Start Date End Date Handy James MD PCP - General Family Medicine 08/09/20 documented as of this encounter
--- OUTSIDE RECORDS SUMMARY | 2024-08-27 19:46 | XMS_ITS | Encounter Summary ---
Author Organization [facility] Address [address] [place] [address] Care Team Providers Care Still Operator Helper Name Role Phone Rah Arguelles MD Primary Care Provider [phone] Encounter Details Date Type Department Care Team (Late st Contact Info) Description 09/11/2002 Results Only [facility] - Maple conversion [address] [place] [address] Rah Arguelles MD [address] [place] [address] Social History Tobacco Use Types Packs/Day Years [...] Date/Time Associated Diagnosis Comments SURGICAL PATHOLOGY Routine 09/11/2002 0:00 EST documented in this encounter Results * SURGICAL PATHOLOGY (09/11/2002 0:00 EST) Pathology Report: SURGICAL PATHOLOGY REPORT Reports generated via electronic interface contain original data; however they are lacking the format of the original report. Caution should be taken when reading/interpreti ng unformatted reports. Name: ? THELMA BONNER ? Accession #: ? [id number] ? : ? 1945 (Age: 57) ??F ? Collect Date: ? 09/11/2002 ? Location: ? [facility] ? Receive Date: ? 09/15/2002 ? Provider: RAH ARGUELLES MD Copy to: GEORGES POWER MD ? Final Pathologic Diagnosis: ? Skin of ear, left, shave biopsy: - Hemangioma. Document reviewed and electronically signed by: Tripp Solorzano MD Report ??Date: 09/16/2002 16:26 By the signature above, the attending physician certifies that he/she has personally conducted a gross and/or microscopic examination of the described specimens and rendered or confirmed the above diagnosis. Specimen(s) Received: ? Shave biopsy lesion L ear Clinical History: ? Not listed Gross Description: ? Received in formalin labelled Kailey and shave biopsy lesion L ear is a shave biopsy of morales-falcon smooth tissue measuring 0.2 x 0.2 cm. ??The specimen is submitted intact in one cassette. ??(Dr. Tan)/delilah End of Report [facility] 09/11/2002 09/15/2002 9:0 2 EST Rah Arguleles MD PATHOLOGY ORDERABLES [facility] [address] [place] [address] documented in this encounter Visit Diagnoses Not on filedocumented in this encounter Care Teams Still Operator Helper Relationship Specialty Start Date End Date Rah Arguelles MD [address] [place] [phone] PCP - General 06/29/09 02/04/24 documented as of this encounter
--- OUTSIDE RECORDS SUMMARY | 2024-08-27 19:46 | XMS_ITS | Encounter Summary ---
Author Organization [facility] Address [address] [place] [address] Care Team Providers Care Consulting Group Analyst Name Role Phone Handy Oneill MD Primary Care Provider [phone] Encounter Details Date Type Department Care Team (Latest Contact Info) Description 01/22/2024 Travel Social History Tobacco Use Types Packs/Day [...] on filedocumented in this encounter Care Teams Consulting Group Analyst Relationship Specialty Start Date End Date Handy Oneill MD [address] [place] [address] PCP - General 06/29/09 02/04/24 documented as of this encounter
--- OUTSIDE RECORDS SUMMARY | 2024-08-27 19:46 | XMS_ITS | Encounter Summary ---
Author Organization [facility] Address [address] [place] [address] Care Team Providers Care Deburring Machine Operator Name Role Phone Handy Oneill MD Primary Care Provider [phone] Encounter Details Date Type Department Care Team (Latest Contact Info) Description 01/30/2024 Travel Social History Tobacco Use Types Packs/Day [...] on filedocumented in this encounter Care Teams Deburring Machine Operator Relationship Specialty Start Date End Date Handy Oneill MD [address] [place] [address] PCP - General 06/29/09 02/04/24 documented as of this encounter
--- OUTSIDE RECORDS SUMMARY | 2024-08-27 19:47 | XMS_ITS | Encounter Summary ---
Author Organization [place] [address] Care Team Providers Care Senior Director Name Role Phone Handy James MD Primary Care Provider [phone] Reason for Referral * Diagnostic Test (Routine) - Closed Specialty Diagnoses / Procedures Referred By Contac t Referred To Contact Radiology Diagnoses Pulmonary nodule Procedures CT Chest wo Contrast (Generic) Teresa Nair MD [address] [place] [phone] [facility] [place] [address] Referral ID Status Reason Start Date Expiration Date V isits Requested Visits Authorized [id number] Closed Specialty Service Requested 08/17/2020 02/12/2021 1 1 Reason for Visit * Diagnostic Test (Routine) - Closed Specialty Diagnoses / Procedures Referred By Contac t Referred To Contact Radiology Diagnoses Pulmonary nodule Procedures CT Chest wo Contrast (Generic) Teresa Nair MD [address] [place] [phone] [facility] [place] [address] Referral ID Status Reason Start Date Expiration Date V isits Requested Visits Authorized [id number] Closed Specialty Service Requested 08/17/2020 02/12/2021 1 1 Encounter Details Date Type Department Care Team (Latest Contact Info) Description 08/17/2020 11:38 AM EDT - 08/17/2020 11:59 PM EDT Hospital [place] [address] Teresa Nair MD [address] [place] [phone] Pulmonary nodule Discharge Disposition: Home Social History Tobacco Use Types Packs/Day Years [...] PM EDT documented as of this encounter Medications at Time of Discharge Medication Sig Dispensed Refills Start Date End Date lisinopril (PRINIVIL;ZESTRIL) 10 mg tablet Take 10 mg by mouth daily. aspirin 81 mg EC tablet Take 81 mg by mouth daily. Propranolol (INDERAL LA) 160 mg CR capsuleIndications:Trem or Take 1 capsule by mouth daily. 90 capsule 3 02/15/2012 CALCIUM CITRATE/VITAMIN D3 (CALCITRATE-VITAMIN D ORAL) Take 2 tablets by mouth daily. MULTIVITS W-FE,OTHER MIN (CENTRUM ORAL) Take 1 tablet by mouth daily. CLOBETASOL PROPIONATE, BULK, MISC Apply topically as needed. Cream form FEXOFENADINE HCL (FEXOFENADINE ORAL) Take 1 tablet by mouth as needed. 02/16/2011 documented as of this encounter Plan of Treatment Upcoming Encounters Date Type Department Care Team (Late st Contact Info) Description 11/14/2024 9:30 AM EST Procedure visit Neurology at [facility] [address] [place] [phone] Debbie Becker MD [facility] [place] [address] documented as of this encounter Procedures Procedure Name Priority Date/Time Associated Diagnosis Comments CT CHEST WO CONTRAST (GENERIC) Routine 08/17/2020 11:58 AM EDT Pulmonary nodule documented in this encounter Results * CT Chest wo Contrast (Generic) (08/17/2020 11:58 AM EDT) Anatomical Region Laterality Modality Chest Computed Tomogra phy Impressions 08/17/2020 1:23 PM EDT 1. ??Scattered bilateral pulmonary nodules, predominantly peripheral, perifissural, juxtavascular, and subpleural, most sub-3 mm in size, several others sub-6 mm, and one that is 7 mm at the right base, favored to be intrapulmonary lymph nodes, although some indeterminate. Thus, if no prior chest CTs are available for comparison of interval stability versus change, consider noncontrast low radiation dose chest CT follow-up in 6 months. 2. ??Hepatic steatosis. Thank you for letting us participate in the care of this patient. For questions regarding this report, please contact the number below. ? Electronically signed by: Syeda Rene MD, [facility] ([phone]), at 08/17/2020 1:23 PM Narrative 08/17/2020 1:23 PM EDT EXAMINATION: CT CHEST WO CONTRAST (GENERIC) CLINICAL HISTORY: Pulmonary nodule TECHNIQUE: 3.0mm thick axial contiguous sections were obtained through the chest via helical acquisition without intravenous contrast administration. Thin-section reconstructions as well as coronal and sagittal reformatted images were generated. COMPARISON: None FINDINGS: Pulmonary parenchyma: Scattered sub-3 mm nodules in the lungs, predominantly peripheral, perifissural, juxtavascular, and subpleural, see for example series 4 images 71, 87, 108, 112, 132, 137, 153, 158, 163, 210 and 216 on the right as well as series 4 images 134, 156, 182, 195, 220 on the left. Nodules measuring 3 mm in the right middle lobe, 5 mm, 4 mm, 5 mm and 7 mm in the right lower lobe as well as 4 mm left upper lobe nodule on series 4 images 186, 186, 191, 196, 261, and 139, predominantly peripheral and juxtavascular, with the largest at the right lung base being subpleural just above the dome of the right hemidiaphragm. No air trapping, allowing for expiratory technique. No significant heterogeneity of pulmonary parenchymal attenuation. Airways: No endobronchial opacities, airways wall thickening, or bronchiectasis. Pleura: No pleural effusion. Lymph nodes:Within limits of noncontrast technique, no enlarged lymph nodes seen. Heart, pericardium, and great vessels: Mild coronary atherosclerotic calcification. Mild descending thoracic aortic atherosclerotic calcification, focally moderate by the aortic arch. Other mediastinal structures: No significant findings. Lower neck: No significant findings. Upper abdomen: Mild atherosclerotic calcification of upper abdominal aorta. Slightly reduced attenuation of liver parenchyma, 35 Hounsfield units, compared to 55 Hounsfield units for the spleen, consistent with fatty change. Body wall soft tissues: No significant findings. Skeletal structures: Mild degenerative changes of the spine. Procedure Note Syeda Rene MD - 08/17/2020 EXAMINATION: CT CHEST WO CONTRAST (GENERIC) CLINICAL HISTORY: Pulmonary nodule TECHNIQUE: 3.0mm thick axial contiguous sections were obtained through thechest via helical acquisition without intravenous contrast administration. Thin-section reconstructions as well as coronal and sagittal reformattedimages were generated. COMPARISON: None FINDINGS: Pulmonary parenchyma: Scattered sub-3 mm nodules in the lungs, predominantly peripheral,perifissural, juxtavascular, and subpleural, see for example series 4 images 71, 87,108, 112, 132, 137, 153, 158, 163, 210 and 216 on the right as well as series 4images 134, 156, 182, 195, 220 on the left. Nodules measuring 3 mm in the right middle lobe, 5 mm, 4 mm, 5 mm and 7 mmin the right lower lobe as well as 4 mm left upper lobe nodule on series 4images 186, 186, 191, 196, 261, and 139, predominantly peripheral andjuxtavascular, with the largest at the right lung base being subpleural just above thedome of the right hemidiaphragm. No air trapping, allowing for expiratory technique. No significantheterogeneity of pulmonary parenchymal attenuation. Airways: No endobronchial opacities, airways wall thickening, orbronchiectasis. Pleura: No pleural effusion. Lymph nodes:Within limits of noncontrast technique, no enlarged lymphnodes seen. Heart, pericardium, and great vessels: Mild coronary atherosclerotic calcification. Mild descending thoracic aortic atheroscleroticcalcification, focally moderate by the aortic arch. Other mediastinal structures: No significant findings. Lower neck: No significant findings. Upper abdomen: Mild atherosclerotic calcification of upper abdominalaorta. Slightly reduced attenuation of liver parenchyma, 35 Hounsfield units,compared to 55 Hounsfield units for the spleen, consistent with fatty change. Body wall soft tissues: No significant findings. Skeletal structures: Mild degenerative changes of the spine. IMPRESSION 1. Scattered bilateral pulmonary nodules, predominantly peripheral, perifissural, juxtavascular, and subpleural, most sub-3 mm in size,several others sub-6 mm, and one that is 7 mm at the right base, favored to be intrapulmonary lymph nodes, although some indeterminate. Thus, if no priorchest CTs are available for comparison of interval stability versus change,consider noncontrast low radiation dose chest CT follow-up in 6 months. 2. Hepatic steatosis. Thank you for letting us participate in the care of this patient. Forquestions regarding this report, please contact the number below. Teresa Nair MD IMG CT ORDERABLES documented in this encounter Visit Diagnoses Diagnosis Pulmonary nodule Solitary pulmonary nodule documented in this encounter Care Teams Senior Director Relationship Specialty Start Date End Date Handy James MD PCP - General Family Medicine 08/09/20 documented as of this encounter
--- OUTSIDE RECORDS SUMMARY | 2024-08-27 19:47 | XMS_ITS | Encounter Summary ---
Author Organization [facility] [place] [address] Care Team Providers Care Security Systems Technician Name Role Phone Handy James MD Primary Care Provider [phone] Reason for Visit * High Dollar Medication (Routine) - Closed Specialty Diagnoses / Procedures Referred By Contac t Referred To Contact Neurology Diagnoses Cervical dystonia Procedures Onabotulinumtoxin A (BOTOX) Authorizations Request (IN CLINIC) TC ONABOTULINUMTOXINA, 1 UNIT, INJECTION Debbie Becker MD [facility] [place] [address] [facility] [place] [address] Referral ID Status Reason Start Date Expiration Date V isits Requested Visits Authorized [id number] Closed Consult, Test & Treat 02/06/2023 03/24/2025 9 11 Encounter Details Date Type Department Care Team (Late st Contact Info) Description 10/08/2023 11:30 AM EST Office Visit Neurology at [facility] [address] [place] [address] [facility] [place] [address] Cervical dystonia Social History Tobacco Use Types [...] Procedure Notes * Debbie Becker MD - 10/08/2023 11:30 AM ESTAssociated Order(s): CHEMODENERVATION W/ EMG GUIDANCE Chemodenervation Procedure Note Diagnosis: cervical dystonia with dystonic tremor HPI: She has head tremor and has not done well with oral medications. We discussed risks, benefits and reasonable expectations of botox and will proceed with injections today. She is still having some early wearing off but is having moderate benefit. We will increase the dose to give the full 200 units today. Codes for chemodenervation visit: 77724, 34683 Exam: Procedure: A time out was performed [...] in 3 months. Debbie Becker MD [facility] Neurology-Movement Disorders documented in this encounter Plan of Treatment Upcoming Encounters Date Type Department Care Team (Late st Contact Info) Description 11/14/2024 9:30 AM EST Procedure visit Neurology at [address] [place] [address] [facility] [place] [address] documented as of this encounter Procedures Procedure Name Priority Date/Time Associated Diagnosis Comments CHEMODENERVATION W/ EMG GUIDANCE Routine 10/08/2023 11:30 AM EST documented in this encounter Results * CHEMODENERVATION W/ EMG GUIDANCE (10/08/2023 11:30 AM EST) Narrative Debbie Becker MD - 10/08/2023 11:30 AM EST Debbie Becker MD ? 10/08/2023 11:57 AM Chemodenervation Procedure Note Diagnosis: cervical dystonia with dystonic tremor HPI: She has head tremor and has not done well with oral medications. We discussed risks, benefits and reasonable expectations of botox and will proceed with injections today. She is still having some early wearing off but is having moderate benefit. We will increase the dose to give the full 200 units today. Codes for chemodenervation visit: 66953, 87467 Exam: Procedure: A time out was performed [...] in 3 months. Debbie Becker MD [facility] Neurology-Movement Disorders Debbie Becker MD NEUROLOGY ORDERABL ES documented in this encounter Visit Diagnoses Diagnosis Cervical dystonia Spasmodic torticollis documented in this encounter Administered Medications Inactive Administered Medications - up to 3 most recent administrations Medication Order MAR Action Action Date Dose Rate Site botulinum toxin type A (Botox) injection 200 Units 200 Units, Intramuscular, ONCE, 1 dose, On Sun10/08/23 at 1200, Routine Given 10/08/2023 11:54 AM EST 200 Units documented in this encounter Care Teams Security Systems Technician Relationship Specialty Start Date End Date Handy James MD PCP - General Family Medicine 08/09/20 documented as of this encounter
--- OUTSIDE RECORDS SUMMARY | 2024-08-27 19:47 | XMS_ITS | Encounter Summary ---
[place] [address] Care Team Providers Care All Around Patternmaker Name Role Phone Handy James MD Primary Care Provider [phone] Encounter Details Date Type Department Care Team (Latest Contact Info) Description 03/02/2021 9:19 PM EDT - 03/02/2021 11:59 PM EDT Hospital [place] [phone] Discharge Disposition: Home Social History Tobacco Use [...] 9:30 AM EST Procedure visit Neurology at [address] [address] Debbie Becker MD [facility] [place] [address] documented as of this encounter Procedures Procedure Name Priority Date/Time Associated Diagnosis Comments SURGICAL PATHOLOGY REPORT Routine 03/02/2021 12:22 PM EDT documented in this encounter Results * Surgical Pathology Report (03/02/2021 12:22 PM EDT) Final Diagnosis [id number] ? Location: [facility] The signing pathologist has (i) examined the relevant preparation(s) for the specimen(s) and (ii) rendered or confirmed the diagnosis(es). . ?Surgical Pathology DIAGNOSIS Rectum, ??polypectomy: Hyperplastic polyp. CR-PX Electronically signed by: ?Lyndsey CAMPO PhD, Meron Verified: ??03/07/2021 9:36 ?? Pathologist Performed at: ??-[facility] Dept. of Pathology, [place], [place] SPECIMEN(S) SUBMITTED A - Rectal polyp, biopsy (1) Referring Identifier: ?(not provided) Report to: O'moe, Arelis CLINICAL INFORMATION Screening colonoscopy SPECIMEN PROCESSING A - Labeled/Fixativ e: Rectal polyp, formalin. Quantity/Size: Single, 0.2 cm. Tissue Description: Soft, morales-brown tissue. Sections/Proces sing: Submitted en toto ??in 1 cassette labeled A1. ??eunice 03/07/2021 9:36 AM EDT [facility] GI Biopsy 03/02/2021 12:2 2 PM EDT 03/02/2021 12:22 PM EDT Gideon Forman DO PATHOLOGY/CYTOL OGY ORDERABLES [facility] [place] [address] documented in this encounter Visit Diagnoses Not on filedocumented in this encounter Care Teams All Around Patternmaker Relationship Specialty Start Date End Date Handy James MD PCP - General Family Medicine 08/09/20 documented as of this encounter
--- OUTSIDE RECORDS SUMMARY | 2024-08-27 19:47 | XMS_ITS | Encounter Summary ---
[place] [address] Care Team Providers Care Sprigger Name Role Phone Handy James MD Primary Care Provider [phone] Encounter Details Date Type Department Care Team (Latest Contact Info) Description 02/19/2023 Travel Social History Tobacco Use Types Packs/Day [...] 9:30 AM EST Procedure visit Neurology at [facility] [address] [place] [phone] Debbie Becker MD [facility] [place] [address] documented as of this encounter Visit Diagnoses Not on filedocumented in this encounter Care Teams Sprigger Relationship Specialty Start Date End Date Handy James MD PCP - General Family Medicine 08/09/20 documented as of this encounter
--- OUTSIDE RECORDS SUMMARY | 2024-08-27 19:47 | XMS_ITS | Encounter Summary ---
[place] [address] Care Team Providers Care Roller Printing Supervisor Name Role Phone Handy James MD Primary Care Provider [phone] Encounter Details Date Type Department Care Team (Late st Contact Info) Description 01/25/2021 Telephone [place] [phone] Laureen Turcios Social History Tobacco Use Types Packs/Day Years [...] encounter Miscellaneous Notes * Telephone Encounter - Laureen Turcios - 01/25/2021 1:41 PM EDT Called patient to pre-chart, but was unable to reach her. Left voicemail notifying patient that shedoes not need to call back. documented in this encounter Plan of Treatment Upcoming Encounters Date Type Department Care Team (Late st Contact Info) Description 11/14/2024 9:30 AM EST Procedure visit Neurology at [facility] [address] [place] [address] Debbie Becker MD [facility] [place] [address] documented as of this encounter Visit Diagnoses Not on filedocumented in this encounter Care Teams Roller Printing Supervisor Relationship Specialty Start Date End Date Handy James MD PCP - General Family Medicine 08/09/20 documented as of this encounter
--- OUTSIDE RECORDS SUMMARY | 2024-08-27 19:47 | XMS_ITS | Encounter Summary ---
[place] [address] Care Team Providers Care Motor Overhauler Name Role Phone Handy James MD Primary Care Provider [phone] Reason for Referral * Consultation (Routine) - Canceled Specialty Diagnoses / Procedures Referred By Ileana alexis Referred To Contact Endocrinology Diagnoses Hypothyroidism, unspecified type Clarisa Day MD [address] [place] [address] [facility] [address] [place] [phone] Referral ID Status Reason Start Date Expiration Date V isits Requested Visits Authorized [id number] Canceled Consult, Test & Treat 09/11/2022 09/11/2022 6 6 Encounter Details Date Type Department Care Team (Latest Contact Info) Description 09/12/2022 Transcribe Orders eDH Incoming Referrals [phone] Clarisa Day MD [address] [place] [address] Hypothyroidism, unspecified type Social History Tobacco Use Types Packs/Day Years [...] 9:30 AM EST Procedure visit Neurology at [address] [address] Debbie Becker MD [facility] [place] [address] Scheduled Referrals Name Type Priority Associated Diagnoses Order Schedule Referral to Endocrinology Outpatient Referral Routine Hypothyroidism, unspecified type Ordered: 09/12/2022 documented as of this encounter Visit Diagnoses Diagnosis Hypothyroidism, unspecified type documented in this encounter Care Teams Motor Overhauler Relationship Specialty Start Date End Date Handy James MD PCP - General Family Medicine 08/09/20 documented as of this encounter
--- OUTSIDE RECORDS SUMMARY | 2024-08-27 19:47 | XMS_ITS | Encounter Summary ---
[place] [address] Care Team Providers Care Industrial Millwright Name Role Phone Handy James MD Primary Care Provider [phone] Encounter Details Date Type Department Care Team (Latest Contact Info) Description 02/06/2023 Travel Social History Tobacco Use Types Packs/Day [...] 9:30 AM EST Procedure visit Neurology at [facility] [address] [place] [phone] Debbie Becker MD [facility] [place] [address] documented as of this encounter Visit Diagnoses Not on filedocumented in this encounter Care Teams Industrial Millwright Relationship Specialty Start Date End Date Handy James MD PCP - General Family Medicine 08/09/20 documented as of this encounter
--- OUTSIDE RECORDS SUMMARY | 2024-08-27 19:47 | XMS_ITS | Encounter Summary ---
[place] [address] Care Team Providers Care Veterinary Surgery Technician Name Role Phone Handy Oneill MD Primary Care Provider [phone] Reason for Visit * Reason Comments Essential Tremor Encounter Details Date Type Department Care Team (Late st Contact Info) Description 08/22/2011 11:15 AM EDT [place] [phone] Pete Zurita MD [facility] [place] [address] Tremor; Trigeminal neuralgia; Essential and other specified forms of tremor; Meralgia paresthetica Discharge Disposition: Home Social History Tobacco Use Types Packs/Day Years Used Date Smoking Tobacco: Former Cigarettes Q uit: 11/05/1977 Alcohol Use Standard Drinks/Week Comments Yes 0.8 (1 standard drink = 0.6 oz p ure alcohol) Sex and Gender Information Value Date Recorded Sex Assigned at Female 08/02/2021 10:16 PM EDT Gender Identity Female 08/02/2021 10:16 PM EDT Sexual Orientation Straight 08/02/2021 10 :16 PM EDT documented as of this encounter Last Filed Vital Signs Vital Sign [place] Time Taken Comments Blood Pressure 127/82 08/22/2011 12:50 PM EDT Pulse 64 08/22/2011 12:50 PM EDT Temperature - - Respiratory Rate 16 08/22/2011 12:50 PM EDT Oxygen Saturation - - Inhaled Oxygen Concentration - - Weight - - Height - - Body Mass Index - - documented in this encounter Progress Notes * Pete Zurita MD - 08/22/2011 12:49 PM EDT Copy: Handy Oneill M.D. [facility], [address] [place] [address] I saw Thelma Bonner today in follow up. Twenty minutes of our 30-minute visit were in supportive counseling and therapeutic planning with regards to several issues. First of all, the meralgia paresthetica symptoms that she had before have simply gotten better with no real explanation. This is fortunate, of course. Beginning several months ago, she began having throbbing, severe burning pain in the left side of her face in the lower two divisions of the trigeminal nerve distribution. These did not seem to be accompanied by any lancinations or stabbing components and she did not have a trigger point. She did have a very thorough workup, however, including several visits to her dentist, a Panorex x-ray of her dentition and jaw, CT scan of the head looking for any structural issues, and a pleural ENT examination, which did not reveal any primary cause for this pain. Therefore, it is considered that it is likely to be a form of trigeminal neuralgia. Dr. Oneill wisely treated this with Neurontin, now at a dose of 300 mg twice daily. 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 The essential tremor for which we treat Thelma does tend to be worse if she is under stress or in pain, but is under pretty good control all in all right now. Sometimes her head tremor comes out. That does not bother her too much since it does not interfere with function. It is more visible to her in fact than it is to her. All in all, she would like to keep the medicines as they are, but I rewrote her prescription for gabapentin to include a third dose daily if needed. This may correspond better to the half life of this particular medication. I will see her back in follow up. documented in this encounter Plan of Treatment Upcoming Encounters Date Type Department Care Team (Late st Contact Info) Description 11/14/2024 9:30 AM EST Procedure visit Neurology at [address] [address] Debbie Becker MD [facility] [place] [place] [address] documented as of this encounter Visit Diagnoses Diagnosis Tremor Abnormal involuntary movements Trigeminal neuralgia Essential and other specified forms of tremor Meralgia paresthetica documented in this encounter Care Teams Veterinary Surgery Technician Relationship Specialty Start Date End Date Handy Oneill MD PCP - General 09/27/10 02/23/19 documented as of this encounter
--- OUTSIDE RECORDS SUMMARY | 2024-08-27 19:47 | XMS_ITS | Encounter Summary ---
[place] [address] Care Team Providers Care Lifestyle Block Farmer Name Role Phone Handy James MD Primary Care Provider [phone] Encounter Details Date Type Department Care Team (Late st Contact Info) Description 03/06/2023 Telephone [place] [phone] Debbie Becker MD [facility] [place] [address] Social History Tobacco Use Types Packs/Day Years [...] encounter Miscellaneous Notes * Telephone Encounter - Maria L Torres RN - 03/13/2023 3:[address] Becker, could try higher dose of Botox, or pt could try Artane if she wants to try a medication. Pt would like to discuss increasing dose of Botox/changing/adding muscles before trying an oral medication * Telephone Encounter - Maria L Torres RN - 03/06/2023 12:19 PM EDT Will forward update to Dr Becker * Telephone Encounter - Maria L Torres RN - 03/06/2023 12:08 PM EDT Copied from [facility] #[id number]. Topic: Specialty Dept CRMs - Generic Call >> March 06, 2023 11:24 AM Guzman Oquendo wrote: Specialist: Debbie Becker MD Relationship (if other than patient-full name): Reason for Call: Thelma Bradshaw Kailey called to inform Dr Becker that she and her family observed no differences over the past 2 weeks. Thelma explained that Dr Becker asked her to report if there hadbeen a change upon receiving the 100 mg of Botox at her neck. documented in this encounter Plan of Treatment Upcoming Encounters Date Type Department Care Team (Late st Contact Info) Description 11/14/2024 9:30 AM EST Procedure visit Neurology at [address] [address] Debbie Becker MD [facility] [place] [address] documented as of this encounter Visit Diagnoses Not on filedocumented in this encounter Care Teams Lifestyle Block Farmer Relationship Specialty Start Date End Date Handy James MD PCP - General Family Medicine 08/09/20 documented as of this encounter
--- OUTSIDE RECORDS SUMMARY | 2024-08-27 19:47 | XMS_ITS | Encounter Summary ---
[place] [address] Care Team Providers Care Hearings Reporter Name Role Phone Handy Oneill MD Primary Care Provider Reason for Visit * Reason Onset Date Comments Medication Refill 02/15/2012 Encounter Details Date Type Department Care Team (Late st Contact Info) Description 02/15/2012 [place] [phone] Pete Zurita MD [facility] [place] [address] Tremor Social History Tobacco Use Types Packs/Day Years [...] encounter Miscellaneous Notes * Telephone Encounter - Josiane Valdez - 02/15/2012 11:07 AM EDT Name of Med: Propranolol ER Strength of Pills: 160 mg Dosing Directions: Take once a day Pharmacy: [facility] 30 [facility] 90 Day: Patient would like 90 days, with enough refills to get her through the year documented in this encounter Plan of Treatment Upcoming Encounters Date Type Department Care Team (Late st Contact Info) Description 11/14/2024 9:30 AM EST Procedure visit Neurology at [address] [address] [facility] [place] [address] documented as of this encounter Visit Diagnoses Diagnosis Tremor Abnormal involuntary movements documented in this encounter Care Teams Hearings Reporter Relationship Specialty Start Date End Date Handy Oneill MD PCP - General 09/27/10 02/23/19 documented as of this encounter
--- OUTSIDE RECORDS SUMMARY | 2024-08-27 19:47 | XMS_ITS | Encounter Summary ---
Author Organization [facility] [place] [place] [address] Care Team Providers Care Caramel Candy Maker Name Role Phone Handy James MD Primary Care Provider [phone] Reason for Referral * Diagnostic Test (Routine) - Closed Specialty Diagnoses / Procedures Referred By Ileana alexis Referred To Contact Radiology Diagnoses Lung nodules Procedures CT Chest w Contrast Handy James MD [address] [place] [address] [place] [address] [facility] [place] [address] Referral ID Status Reason Start Date Expiration Date V isits Requested Visits Authorized [id number] Closed Specialty Service Requested 09/10/2023 03/10/2025 1 1 Reason for Visit * Diagnostic Test (Routine) - Closed Specialty Diagnoses / Procedures Referred By Ileana alexis Referred To Contact Radiology Diagnoses Lung nodules Procedures CT Chest w Contrast Handy James MD [address] [place] [address] [place] [address] [facility] [place] [address] Referral ID Status Reason Start Date Expiration Date V isits Requested Visits Authorized [id number] Closed Specialty Service Requested 09/10/2023 03/10/2025 1 1 Encounter Details Date Type Department Care Team (Latest Contact Info) Description 10/08/2023 9:53 AM EST - 10/08/2023 11:59 PM EST Hospital [place] [address] Handy James MD [address] [place] [address] [place] [address] Lung nodules Discharge Disposition: Home Social History Tobacco Use [...] Sig Dispensed Refills Start Date End Date FLUoxetine (PROzac) 10 mg capsule Take 10 mg by mouth daily. 11/02/2022 primidone (Mysoline) 250 mg tablet Take 250 mg by mouth nightly. 11/02/2022 traZODone (Desyrel) 50 mg tablet Take 100 mg by mouth daily. 11/02/2022 lisinopril (PRINIVIL;ZESTRIL) 10 mg tablet Take 10 mg by mouth daily. aspirin 81 mg EC tablet Take 81 mg by mouth daily. Propranolol (INDERAL LA) 160 mg CR capsuleIndications:Markie mor Take 1 capsule by mouth daily. 90 capsule 3 02/15/2012 CALCIUM CITRATE/VITAMIN D3 (CALCITRATE-VITAMIN D ORAL) Take 2 tablets by mouth daily. MULTIVITS W-FE,OTHER MIN (CENTRUM ORAL) Take 1 tablet by mouth daily. CLOBETASOL PROPIONATE, BULK, MISC Apply topically as needed. Cream form FEXOFENADINE HCL (FEXOFENADINE ORAL) Take 1 tablet by mouth as needed. 02/16/2011 primidone (Mysoline) 50 mg tablet TAKE 1 TABLET BY MOUTH EVERY NIGHT AT BEDTIME WITH 250 MG 11/25/2022 04/11/2024 documented as of this encounter Plan of Treatment Upcoming Encounters Date Type Department Care Team (Late st Contact Info) Description 11/14/2024 9:30 AM EST Procedure visit Neurology at [address] [address] Debbie Becker MD [facility] DR NEUROLOGY [place] [address] documented as of this encounter Procedures Procedure Name Priority Date/Time Associated Diagnosis Comments CT CHEST W CONTRAST Routine 10/08/2023 1 0:28 AM EST Lung nodules documented in this encounter Results * CT Chest w Contrast (10/08/2023 10:28 AM EST) Anatomical Region Laterality Modality Chest Computed Tomogra phy Impressions 10/08/2023 8:25 PM EST Stable bilateral pulmonary nodules dating back to August 17, 2020. No further routine follow-up is indicated. Thank you for letting us participate in the care of this patient. ??If you are a health care provider and have any questions regarding this report, please contact the number below. ??For patients who have questions please contact the health home visit field care manager that requested your imaging first. ? Electronically signed by: Starla Tierney MD, [facility] ([phone]), at 10/08/2023 8:25 PM Narrative 10/08/2023 8:25 PM EST EXAMINATION: CT CHEST W CONTRAST CLINICAL HISTORY: Pulmonary nodule follow-up TECHNIQUE: Chest CT with 60 ml of Omnipaque 350 COMPARISON: 08/14/2022 FINDINGS: Pulmonary parenchyma: Again seen are numerous bilateral sub-6 mm pulmonary nodules. There has been no overt change in number or size dating back to 08/17/2020. The dominant nodule at the right base measures again 7 to 8 mm (series 4 image 248). Minimal new atelectasis/scarring in the middle lobe. Airways: Central and segmental airways are patent. Pleura: No effusion. Lymph nodes: No lymphadenopathy within the chest. Heart and vasculature: Normal size of the heart. No pericardial effusion. Mild coronary artery atherosclerotic calcification. Limited upper abdomen: No significant change. Skeleton: No significant change. Procedure Note Starla Pak MD - 10/08/2023 EXAMINATION: CT CHEST W CONTRAST CLINICAL HISTORY: Pulmonary nodule follow-up TECHNIQUE: Chest CT with 60 ml of Omnipaque 350 COMPARISON: 08/14/2022 FINDINGS: Pulmonary parenchyma: Again seen are numerous bilateral sub-6 mmpulmonary nodules. There has been no overt change in number or size dating back to 08/17/2020. The dominant nodule at the right base measures again 7 to 8mm (series 4 image 248). Minimal new atelectasis/scarring in the middle lobe. Airways: Central and segmental airways are patent. Pleura: No effusion. Lymph nodes: No lymphadenopathy within the chest. Heart and vasculature: Normal size of the heart. No pericardial effusion.Mild coronary artery atherosclerotic calcification. Limited upper abdomen: No significant change. Skeleton: No significant change. IMPRESSION Stable bilateral pulmonary nodules dating back to August 17, 2020. No further routine follow-up is indicated. Thank you for letting us participate in the care of this patient. If youare a health care provider and have any questions regarding this report,please contact the number below. For patients who have questions please contactthe health home visit field care manager that requested your imaging first. Handy James MD IMG CT ORDERABLES documented in this encounter Visit Diagnoses Diagnosis Lung nodules Other nonspecific abnormal finding of lung field documented in this encounter Administered Medications Inactive Administered Medications - up to 3 most recent administrations Medication Order MAR Action Action Date Dose Rate Site iohexoL (Omnipaque) (350 mg/mL) solution 0-200 mL 0-200 mL, Intravenous, ONCE PRN, 1 dose, Starting on Sun10/08/23 at 1028, Until Sun10/08/23 at 1028, Per Protocol, Warning Vesicant/Irritant Medication , Radiology Contrast, Routine Given 10/08/2023 10:28 AM EST 60 mLs documented in this encounter Care Teams Caramel Candy Maker Relationship Specialty Start Date End Date Handy James MD PCP - General Family Medicine 08/09/20 documented as of this encounter
--- OUTSIDE RECORDS SUMMARY | 2024-08-27 19:47 | XMS_ITS | Encounter Summary ---
[place] [address] Care Team Providers Care Semiconductor Equipment Technician Name Role Phone Handy James MD Primary Care Provider Reason for Visit * Reason Onset Date Comments Referral 09/28/2020 Encounter Details Date Type Department Care Team (Late st Contact Info) Description 09/28/2020 Telephone [place] [phone] Letty Alicea LPN Referral Social History Tobacco Use Types Packs/Day Years [...] encounter Miscellaneous Notes * Telephone Encounter - Letty Carmichael - 09/28/2020 10:01 AM EST Patient called to schedule with for a Cat eval. I let her know our policy and she opted to schedulean appointment with an optom to hold a spot but she will also have her Precision Thread Grinder Operator in [place] send us notes and referral to see a cataract specialist. She is particularly concerned about the surgery due to her head termor and how it would effect the surgery. documented in this encounter Plan of Treatment Upcoming Encounters Date Type Department Care Team (Late st Contact Info) Description 11/14/2024 9:30 AM EST Procedure visit Neurology at [address] [address] Debbie Becker MD [facility] [place] [address] documented as of this encounter Visit Diagnoses Not on filedocumented in this encounter Care Teams Semiconductor Equipment Technician Relationship Specialty Start Date End Date Handy James MD PCP - General Family Medicine 08/09/20 documented as of this encounter
--- OUTSIDE RECORDS SUMMARY | 2024-08-27 19:47 | XMS_ITS | Encounter Summary ---
[place] [address] Care Team Providers Care Filling Station Laborer Name Role Phone Handy James MD Primary Care Provider [phone] Encounter Details Date Type Department Care Team (Late st Contact Info) Description 08/16/2020 [place] [address] Lynn Fairbanks LNA Social History Tobacco Use Types Packs/Day Years [...] encounter Miscellaneous Notes * Telephone Encounter - Lynn Fairbanks LNA - 08/16/2020 10:53 AM EDT Call from pt asking what she needs to be scheduled her in pulmonary? Her family is relocating back to [place]. Let her know we need a referral from her physician and notes,reports, images sent to us and we will call her to schedule when we have the referral. documented in this encounter Plan of Treatment Upcoming Encounters Date Type Department Care Team (Late st Contact Info) Description 11/14/2024 9:30 AM EST Procedure visit Neurology at [address] [address] Debbie Becker MD [facility] [place] [address] documented as of this encounter Visit Diagnoses Not on filedocumented in this encounter Care Teams Filling Station Laborer Relationship Specialty Start Date End Date Handy James MD PCP - General Family Medicine 08/09/20 documented as of this encounter
--- OUTSIDE RECORDS SUMMARY | 2024-08-27 19:47 | XMS_ITS | Encounter Summary ---
[place] [address] Care Team Providers Care Blood Splatter Analyst Name Role Phone Handy Oneill MD Primary Care Provider [phone] Encounter Details Date Type Department Care Team (Late st Contact Info) Description 08/21/2011 Abstract [place] [address] Pete Zurita MD [facility] [place] [address] Social History Tobacco Use Types Packs/Day Years [...] 9:30 AM EST Procedure visit Neurology at [facility] [address] [place] [address] Debbie Becker MD [facility] [place] [address] documented as of this encounter Visit Diagnoses Not on filedocumented in this encounter Care Teams Blood Splatter Analyst Relationship Specialty Start Date End Date Handy Oneill MD PCP - General 09/27/10 02/23/19 documented as of this encounter
--- OUTSIDE RECORDS SUMMARY | 2024-08-27 19:47 | XMS_ITS | Encounter Summary ---
[place] [address] Care Team Providers Care Transformer Repairer Name Role Phone Handy Oneill MD Primary Care Provider [phone] Reason for Visit * Reason Comments Follow-up Encounter Details Date Type Department Care Team (Late st Contact Info) Description 02/16/2011 1:00 PM EDT [place] [phone] Pete Zurita MD [facility] [place] [address] Tremor, essential (Primary Dx) Discharge Disposition: Home Social History Tobacco Use [...] Sign Reading Time Taken Comments Blood Pressure 125/68 02/16/2011 1:02 PM EDT Pulse 78 02/16/2011 1:02 PM EDT Temperature - - Respiratory Rate - - Oxygen Saturation - - Inhaled Oxygen Concentration - - Weight - - Height - - Body Mass Index - - documented in this encounter Progress Notes * Pete Zurita MD - 02/16/2011 4:30 PM EDT AUDIO LOSS AT BLANK I saw Thelma Bonner today in followup in reference to essential tremor to other concerns that she raised during our counseling session today. 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 Oneill believes are probably on the basis of osteoarthritis, after doing very specific x-ray and laboratory testing. The tremor that she has is much improved in her hands, and shows up only rarely when operating a computer mouse or doing some other dexterous task. She seems to be getting reasonably good control of her tremor with the current dose of Inderal and I think we can leave it as it is. With regard to her meralgia paresthetica symptoms, examination shows that she has decreased sensitivity, but tenderness in the distribution of the left lateral femoral cutaneous nerve only. There is no corresponding reflex change. There is no change in bulk, tone or power of muscles. This is a pure sensory phenomenon. I talked to her at some length about meralgia paresthetica and provided her with written materials and diagrams for her understanding. In my examination of her joints, I would agree that she seems to have osteoarthritis. This is particularly true in the distal interphalangeal joints, although she is symptomatic in her neck and shoulders as well. Dr. Oneill will be addressing that. We will schedule a followup for her. As always, she knows that she can call if she has any concerns and we can bring her in for additional discussion. documented in this encounter Plan of Treatment Upcoming Encounters Date Type Department Care Team (Late st Contact Info) Description 11/14/2024 9:30 AM EST Procedure visit Neurology at [facility] [address] [place] [address] Debbie Becker MD [facility] [place] [address] documented as of this encounter Visit Diagnoses Diagnosis Tremor, essential- Primary Essential and other specified forms of tremor documented in this encounter Care Teams Transformer Repairer Relationship Specialty Start Date End Date Handy Oneill MD PCP - General 09/27/10 02/23/19 documented as of this encounter
--- OUTSIDE RECORDS SUMMARY | 2024-08-27 19:47 | XMS_ITS | Encounter Summary ---
[place] [address] Care Team Providers Care Manager Utilization Name Role Phone Handy Oneill MD Primary Care Provider [phone] Encounter Details Date Type Department Care Team (Late st Contact Info) Description 08/21/2013 1:45 PM EDT [place] [phone] Pete Zurita MD [facility] [place] [address] Tremor (Primary Dx) Discharge Disposition: Home Social History [...] Sign Reading Time Taken Comments Blood Pressure 128/55 08/21/2013 2:05 PM EDT Pulse 77 08/21/2013 2:05 PM EDT Temperature - - Respiratory Rate - - Oxygen Saturation - - Inhaled Oxygen Concentration - - Weight 72.6 kg (160 lb) 08/21/2013 2:05 PM EDT Height 168.9 cm (5' 6.5) 08/21/2013 2:05 PM EDT Body Mass Index 25.44 08/21/2013 2:05 PM EDT documented in this encounter Progress Notes * Pete Zurita MD - 08/21/2013 2:54 PM EDT COPY: Handy Oneill M.D. It was my pleasure to see Thelma Bonner today in followup. It has been about a year. We have treated her over quite a long time for three different conditions: essential tremor, trigeminal neuralgia, and meralgia paresthetica. In reviewing any changes that may have taken place in her overall condition since we saw her last, we, by review, discover that she is feeling a little less control of her balance than she used to. This is not severe and does not have any specific symptoms or signs associated with it otherwise. I do not see anything in her examination to account for it from a neurological perspective and I do not really think it requires additional workup. Usually the best approach to improving balance is either physical therapy or an alternative equivalent such as yoga, vickie chi, or other exercise. She inquires as to whether the Neurontin is still needed. It definitely helped face pain and thigh pain from her other conditions but she has been asymptomatic for so long that she could reasonably, I think, try to taper off the Neurontin and see if she still needs it. Certainly, if pain reemerges, she should just go back to what she is doing now. Inderal at its current dose does not completely abolish her hand and head tremor but it is in sufficient control by her accounting and by mine as well. Fifteen minutes of our 25-minute visit today were in supportive counseling and therapeutic planning with regard to these issues. I will see her back in followup. documented in this encounter Plan of Treatment Upcoming Encounters Date Type Department Care Team (Late st Contact Info) Description 11/14/2024 9:30 AM EST Procedure visit Neurology at [address] [address] Debbie Becker MD [facility] [place] [address] documented as of this encounter Visit Diagnoses Diagnosis Tremor- Primary Abnormal involuntary movements documented in this encounter Care Teams Manager Utilization Relationship Specialty Start Date End Date Handy Oneill MD PCP - General 09/27/10 02/23/19 documented as of this encounter
--- OUTSIDE RECORDS SUMMARY | 2024-08-27 19:47 | XMS_ITS | Encounter Summary ---
[place] [address] Care Team Providers Care Mushroom Growing Supervisor Name Role Phone Handy James MD Primary Care Provider [phone] Reason for Visit * Reason Onset Date Comments Appointment 02/06/2023 Encounter Details Date Type Department Care Team (Late st Contact Info) Description 02/06/2023 [place] [phone] Debbie Becker MD [facility] [place] [address] Appointment Social History Tobacco Use Types Packs/Day Years [...] encounter Miscellaneous Notes * Telephone Encounter - Ann Marie Hart - 02/07/2023 8:08 AM EDT Patient called about this stating she is leaving state on 02/20/22 and needs to have the BOTOX done before then, please call to assist in rescheduling * Telephone Encounter - EddiJayde - 02/06/2023 4:21 PM EDT Copied from CRM #[id number]. Topic: Specialty Dept CRMs - Appointment Needed >> Feb 06, 2023 4:10 PM Cy Anaya wrote: Appt Needed Specialist Debbie Becker Relationship (if other than patient-full name): Patient Appt. Type Needed: Other Reason for Visit: Patient called asking to reschedule her 02/14/23 BOTOX to later in the day. Patient states Debbie Becker advised there was a 2:00 or 2:30 that day. Please call to advise at [phone]. documented in this encounter Plan of Treatment Upcoming Encounters Date Type Department Care Team (Late st Contact Info) Description 11/14/2024 9:30 AM EST Procedure visit Neurology at [address] [address] Debbie Becker MD [facility] [place] [address] documented as of this encounter Visit Diagnoses Not on filedocumented in this encounter Care Teams Mushroom Growing Supervisor Relationship Specialty Start Date End Date Handy James MD PCP - General Family Medicine 08/09/20 documented as of this encounter
--- OUTSIDE RECORDS SUMMARY | 2024-08-27 19:47 | XMS_ITS | Encounter Summary ---
[place] [address] Care Team Providers Care Parking Meter Mechanic Name Role Phone Handy James MD Primary Care Provider [phone] Reason for Visit * High Dollar Medication (Routine) - Closed Specialty Diagnoses / Procedures Referred By Contac t Referred To Contact Neurology Diagnoses Cervical dystonia Procedures Onabotulinumtoxin A (BOTOX) Authorizations Request (IN CLINIC) TC ONABOTULINUMTOXINA, 1 UNIT, INJECTION Debbie Becker MD [facility] [place] [address] Debbie Becker MD [facility] [place] [address] Referral ID Status Reason Start Date Expiration Date V isits Requested Visits Authorized [id number] Closed Consult, Test & Treat 02/06/2023 03/24/2025 9 11 Encounter Details Date Type Department Care Team (Late st Contact Info) Description 02/19/2023 3:30 PM EDT [place] [address] Debbie Becker MD [facility] [address] Cervical dystonia; Essential tremor Social History Tobacco Use Types [...] Procedure Notes * Debbie Becker MD - 02/19/2023 3:30 PM EDTAssociated Order(s): CHEMODENERVATION W/ EMG GUIDANCE Chemodenervation Procedure Note Diagnosis: cervical dystonia with dystonic tremor HPI: She has head tremor and has not done well with oral medications. We discussed risks, benefits and reasonable expectations of botox and will proceed with injections today. Codes for chemodenervation visit: 58340, [id number] Exam: Procedure: A time out was performed The patient was positioned for best access to muscles to be injected. The area was cleaned with alcohol swabs. 100 units of onabotulinumtoxinA was prepared by 1cc saline to 100 units toxin dilution with preservative free saline EMG guidance was used for this procedure for anatomic localization of the neck muscles. Injections: Bilateral SCM 25 units each side = 50 units Bilateral splenius capitus 25 units each side = 50 units Total 100 units Waste 0 units The patient tolerated the procedure well with no immediate adverse events. She will let me know howthis works. She will be in [place] when her next injections are due. If she has great benefit I will try to find someone there to do her injections end of May. If she does not have good benefitI will have her come here in July when she is back so we can regroup on dosing pattern. Debbie Becker MD [facility] Neurology-Movement Disorders documented in this encounter Plan of Treatment Upcoming Encounters Date Type Department Care Team (Late st Contact Info) Description 11/14/2024 9:30 AM EST Procedure visit Neurology at [facility] [address] [place] [address] Debbie Becker MD [facility] [place] [address] documented as of this encounter Procedures Procedure Name Priority Date/Time Associated Diagnosis Comments CHEMODENERVATION W/ EMG GUIDANCE Routine 02/19/2023 3:30 PM EDT documented in this encounter Results * CHEMODENERVATION W/ EMG GUIDANCE (02/19/2023 3:30 PM EDT) Narrative Debbie Becker MD - 02/19/2023 3:30 PM EDT Debbie Becker MD ? 02/19/2023 ??4:05 PM Chemodenervation Procedure Note Diagnosis: cervical dystonia with dystonic tremor HPI: She has head tremor and has not done well with oral medications. We discussed risks, benefits and reasonable expectations of botox and will proceed with injections today. Codes for chemodenervation visit: 89583, 04392 Exam: Procedure: A time out was performed The patient was positioned for best access to muscles to be injected. The area was cleaned with alcohol swabs. 100 units of onabotulinumtoxinA was prepared by 1cc saline to 100 units toxin dilution with preservative free saline EMG guidance was used for this procedure for anatomic localization of the neck muscles. Injections: Bilateral SCM 25 units each side = 50 units Bilateral splenius capitus 25 units each side = 50 units Total 100 units Waste 0 units The patient tolerated the procedure well with no immediate adverse events. She will let me know how this works. She will be in [place] when her next injections are due. If she has great benefit I will try to find someone there to do her injections end of May. If she does not have good benefit I will have her come here in July when she is back so we can regroup on dosing pattern. Debbie Becker MD [facility] Neurology-Movement Disorders Debbie Becker MD NEUROLOGY ORDERABL ES documented in this encounter Visit Diagnoses Diagnosis Cervical dystonia Spasmodic torticollis Essential tremor Essential and other specified forms of tremor documented in this encounter Administered Medications Inactive Administered Medications - up to 3 most recent administrations Medication Order MAR Action Action Date Dose Rate Site botulinum toxin type A (Botox) injection 100 Units 100 Units, Intramuscular, ONCE, 1 dose, On Sun02/19/23 at 1600, Routine Given 02/19/2023 4:05 PM EDT 100 Units documented in this encounter Care Teams Parking Meter Mechanic Relationship Specialty Start Date End Date Handy James MD PCP - General Family Medicine 08/09/20 documented as of this encounter
--- OUTSIDE RECORDS SUMMARY | 2024-08-27 19:47 | XMS_ITS | Encounter Summary ---
[place] [address] Care Team Providers Care Transfer Machine Operator Name Role Phone Handy James MD Primary Care Provider [phone] Reason for Referral * Consultation (Routine) - Closed Specialty Diagnoses / Procedures Referred By Contac t Referred To Contact Pulmonology Diagnoses Abnormal findings on diagnostic imaging of lung Handy James MD [address] [place] [address] [place] [address] [facility] [address] [place] [phone] Referral ID Status Reason Start Date Expiration Date V isits Requested Visits Authorized [id number] Closed Consult, Test & Treat 10/02/2023 10/01/2024 6 6 Encounter Details Date Type Department Care Team (Late st Contact Info) Description 10/02/2023 Transcribe Orders eDH Incoming Referrals [phone] Handy James MD [address] [place] [address] [address] [place], [place] [id number] Abnormal findings on diagnostic imaging of lung Social History Tobacco Use Types Packs/Day Years [...] AM EST Procedure visit Neurology at [address] [address] Debbie Becker MD [facility] [place] [address] Scheduled Referrals Name Type Priority Associated Diagnoses Order Schedule Referral to Pulmonology Outpatient Referral Routine Abnormal findings on diagnostic imaging of lung Ordered: 10/02/2023 documented as of this encounter Visit Diagnoses Diagnosis Abnormal findings on diagnostic imaging of lung Other nonspecific abnormal finding of lung field documented in this encounter Care Teams Transfer Machine Operator Relationship Specialty Start Date End Date Handy James MD PCP - General Family Medicine 08/09/20 documented as of this encounter
--- OUTSIDE RECORDS SUMMARY | 2024-08-27 19:47 | XMS_ITS | Encounter Summary ---
[place] [address] Care Team Providers Care Program Professional Name Role Phone Handy James MD Primary Care Provider [phone] Encounter Details Date Type Department Care Team (Latest Contact Info) Description 06/25/2023 Travel Social History Tobacco Use Types Packs/Day [...] 9:30 AM EST Procedure visit Neurology at [facility] [address] [place] [phone] Debbie Becker MD [facility] [place] [address] documented as of this encounter Visit Diagnoses Not on filedocumented in this encounter Care Teams Program Professional Relationship Specialty Start Date End Date Handy James MD PCP - General Family Medicine 08/09/20 documented as of this encounter
--- OUTSIDE RECORDS SUMMARY | 2024-08-27 19:47 | XMS_ITS | Encounter Summary ---
[place] [address] Care Team Providers Care Slide Forming Machine Operator Name Role Phone Handy James MD Primary Care Provider [phone] Encounter Details Date Type Department Care Team (Latest Contact Info) Description 10/08/2023 Travel Social History Tobacco Use Types Packs/Day [...] 9:30 AM EST Procedure visit Neurology at [facility] [address] [place] [address] Debbie Becker MD [facility] [place] [address] documented as of this encounter Visit Diagnoses Not on filedocumented in this encounter Care Teams Slide Forming Machine Operator Relationship Specialty Start Date End Date Handy James MD PCP - General Family Medicine 08/09/20 documented as of this encounter
--- OUTSIDE RECORDS SUMMARY | 2024-08-27 19:47 | XMS_ITS | Encounter Summary ---
[place] [address] Care Team Providers Care City Plant Supervisor Name Role Phone Handy James MD Primary Care Provider Reason for Referral * Consultation (Routine) - Closed Specialty Diagnoses / Procedures Referred By Ileana alexis Referred To Contact Neurology Diagnoses Essential tremor Fior Deal MD [facility] [address] [place] [address] [facility] [address] [place] [phone] Referral ID Status Reason Start Date Expiration Date V isits Requested Visits Authorized [id number] Closed Consult, Test & Treat 08/31/2022 08/31/2023 1 1 Encounter Details Date Type Department Care Team (Late st Contact Info) Description 08/31/2022 Transcribe Orders eDH Incoming Referrals [phone] Fior Deal MD [facility] [address] [place], [place] [id number] Essential tremor (Primary Dx) Social History Tobacco Use Types Packs/Day Years [...] AM EST Procedure visit Neurology at [address] [address] Debbie Becker MD [facility] [place] [address] Scheduled Referrals Name Type Priority Associated Diagnoses Orde r Schedule Referral to Neurology Outpatient Referral Routine Essential tremor Ordered: 08/31/2022 documented as of this encounter Visit Diagnoses Diagnosis Essential tremor- Primary Essential and other specified forms of tremor documented in this encounter Care Teams City Plant Supervisor Relationship Specialty Start Date End Date Handy James MD PCP - General Family Medicine 08/09/20 documented as of this encounter
--- OUTSIDE RECORDS SUMMARY | 2024-08-27 19:47 | XMS_ITS | Encounter Summary ---
[place] [address] Care Team Providers Care Film Flat Inspector Name Role Phone Handy Oneill MD Primary Care Provider [phone] Encounter Details Date Type Department Care Team (Late st Contact Info) Description 05/20/2012 2:45 PM EDT [place] [address] Pete Zurita MD [facility] [address] Essential and other specified forms of tremor; Meralgia paresthetica; Trigeminal neuralgia Discharge Disposition: Home Social History Tobacco Use [...] Sign Reading Time Taken Comments Blood Pressure 129/61 05/20/2012 2:53 PM EDT Pulse 70 05/20/2012 2:53 PM EDT Temperature - - Respiratory Rate - - Oxygen Saturation - - Inhaled Oxygen Concentration - - Weight 72.6 kg (160 lb) 05/20/2012 2:53 PM EDT Height 168.9 cm (5' 6.5) 05/20/2012 2:53 PM EDT Body Mass Index 25.44 05/20/2012 2:53 PM EDT documented in this encounter Progress Notes * Pete Zurita MD - 05/20/2012 4:34 PM EDT I saw Thelma Bonner today in follow up. Ordinarily, we would see one another every year, but in this case, there were three separate issues that needed to be addressed and we agreed that it would be a six-month interval, as it has been. I am pleased to report that after we discussed it in detail, I now learned that the trigeminal neuralgia pain in her face and the neuralgia paresthetica pain in her thigh have both largely disappeared with the use of Neurontin. In reviewing it with her, I find no evidence for any side effects of the Neurontin and she is very pleased, as am I. With regard to her tremor, it comes and goes, but when it occurs, she has developed strategies to deal with it. She is not upset by it emotionally and it does not interfere with her willingness to participate in any activities, including such things as going out to eat, which she still enjoys immensely. She had a busy year, but all in activities that she has enjoyed. A lot of time has been spent traveling to visit with family members and this has been gratifying for her and her . She is really enjoying assisted on that account. Her medications do not need renewal at the moment. Once again, we reviewed their purposes, potential side effects, and drawbacks, as well as answering any questions she have about them. Fifteen minutes of our 25-minute visit were in supportive counseling and therapeutic planning. I will see her back in follow up in a year, or sooner if needed. documented in this encounter Plan of Treatment Upcoming Encounters Date Type Department Care Team (Late st Contact Info) Description 11/14/2024 9:30 AM EST Procedure visit Neurology at [facility] [address] [place] [address] Debbie Becker MD [facility] [place] [address] documented as of this encounter Visit Diagnoses Diagnosis Essential and other specified forms of tremor Meralgia paresthetica Trigeminal neuralgia documented in this encounter Care Teams Film Flat Inspector Relationship Specialty Start Date End Date Handy Oneill MD PCP - General 09/27/10 02/23/19 documented as of this encounter
--- OUTSIDE RECORDS SUMMARY | 2024-08-27 19:47 | XMS_ITS | Encounter Summary ---
Author Organization [facility] [place] [address] Care Team Providers Care Chaplain Name Role Phone Handy James MD Primary Care Provider [phone] Reason for Visit * High Dollar Medication (Routine) - Closed Specialty Diagnoses / Procedures Referred By Contac t Referred To Contact Neurology Diagnoses Cervical dystonia Procedures Onabotulinumtoxin A (BOTOX) Authorizations Request (IN CLINIC) TC ONABOTULINUMTOXINA, 1 UNIT, INJECTION Debbie Becker MD [facility] [place] [address] Dbebie Becker MD [facility] [place] [address] Referral ID Status Reason Start Date Expiration Date V isits Requested Visits Authorized [id number] Closed Consult, Test & Treat 02/06/2023 03/24/2025 9 11 Encounter Details Date Type Department Care Team (Late st Contact Info) Description 06/25/2023 11:30 AM EDT Office Visit Neurology at [address] [address] Debbie Becker MD [facility] [place] [address] Cervical dystonia Social History Tobacco Use Types [...] Procedure Notes * Debbie Becker MD - 06/25/2023 11:30 AM EDTAssociated Order(s): CHEMODENERVATION W/ EMG GUIDANCE Chemodenervation Procedure Note Diagnosis: cervical dystonia with dystonic tremor HPI: She has head tremor and has not done well with oral medications. We discussed risks, benefits and reasonable expectations of botox and will proceed with injections today. This is her second round of shots. We went conservative with dosing on the first round and she had minimal benefit with no weakness. I am going to increase the dose today to try to attain better benefit. Codes for chemodenervation visit: 09387, 79069 Exam: Procedure: A time out was performed [...] side = 80 units Bilateral splenius capitus 45 units each side = 90 units Total 170 units Waste 30 units The patient tolerated the procedure well with no immediate adverse events. F/u in 3 months. Debbie Becker MD [facility] Neurology-Movement Disorders documented in this encounter Plan of Treatment Upcoming Encounters Date Type Department Care Team (Late st Contact Info) Description 11/14/2024 9:30 AM EST Procedure visit Neurology at [facility] [address] [place] [address] Debbie Becker MD [facility] [place] [address] documented as of this encounter Procedures Procedure Name Priority Date/Time Associated Diagnosis Comments CHEMODENERVATION W/ EMG GUIDANCE Routine 06/25/2023 11:30 AM EDT documented in this encounter Results * CHEMODENERVATION W/ EMG GUIDANCE (06/25/2023 11:30 AM EDT) Narrative Debbie Becker MD - 06/25/2023 11:30 AM EDT Debbie Becker MD ? 06/25/2023 11:56 AM Chemodenervation Procedure Note Diagnosis: cervical dystonia with dystonic tremor HPI: She has head tremor and has not done well with oral medications. We discussed risks, benefits and reasonable expectations of botox and will proceed with injections today. This is her second round of shots. We went conservative with dosing on the first round and she had minimal benefit with no weakness. I am going to increase the dose today to try to attain better benefit. Codes for chemodenervation visit: 62257, 97928 Exam: Procedure: A time out was performed [...] side = 80 units Bilateral splenius capitus 45 units each side = 90 units Total 170 units Waste 30 units The patient tolerated the procedure well with no immediate adverse events. F/u in 3 months. Debbie Becker MD [facility] Neurology-Movement Disorders Debbie Becker MD NEUROLOGY ORDERABL ES documented in this encounter Visit Diagnoses Diagnosis Cervical dystonia Spasmodic torticollis documented in this encounter Administered Medications Inactive Administered Medications - up to 3 most recent administrations Medication Order MAR Action Action Date Dose Rate Site botulinum toxin type A (Botox) injection 200 Units 200 Units, Intramuscular, ONCE, 1 dose, On Sun06/25/23 at 1200, Routine Given 06/25/2023 11:55 AM EDT 170 Units documented in this encounter Care Teams Chaplain Relationship Specialty Start Date End Date Handy James MD PCP - General Family Medicine 08/09/20 documented as of this encounter
--- OUTSIDE RECORDS SUMMARY | 2024-08-27 19:47 | XMS_ITS | Encounter Summary ---
[place] [address] Care Team Providers Care Notching Press Operator Name Role Phone Handy Oneill MD Primary Care Provider [phone] Reason for Visit * Reason Onset Date Comments Medication Refill 08/25/2011 Encounter Details Date Type Department Care Team (Late st Contact Info) Description 08/25/2011 [place] [address] Pete Zurita MD [facility] [place] [address] Trigeminal neuralgia; Tremor Social History Tobacco Use Types Packs/Day [...] 9:30 AM EST Procedure visit Neurology at [address] [place] [address] Debbie Becker MD [facility] [place] [address] documented as of this encounter Visit Diagnoses Diagnosis Trigeminal neuralgia Tremor Abnormal involuntary movements documented in this encounter Care Teams Notching Press Operator Relationship Specialty Start Date End Date Handy Oneill MD PCP - General 09/27/10 02/23/19 documented as of this encounter
--- OUTSIDE RECORDS SUMMARY | 2024-08-27 19:47 | XMS_ITS | Encounter Summary ---
Author Organization [facility] [place] [address] Care Team Providers Care Airplane Fueler Name Role Phone Handy James MD Primary Care Provider [phone] Reason for Referral * High Dollar Medication (Routine) - Closed Specialty Diagnoses / Procedures Referred By Contac t Referred To Contact Neurology Diagnoses Cervical dystonia Procedures Onabotulinumtoxin A (BOTOX) Authorizations Request (IN CLINIC) TC ONABOTULINUMTOXINA, 1 UNIT, INJECTION Debbie Becker MD [facility] [place] [place] [address] Debbie Becker MD [facility] [place] [address] Referral ID Status Reason Start Date Expiration Date V isits Requested Visits Authorized [id number] Closed Consult, Test & Treat 02/06/2023 03/24/2025 9 11 Reason for Visit * Consultation (Routine) - Closed Specialty Diagnoses / Procedures Referred By Contac t Referred To Contact Neurology Diagnoses Essential tremor Fior Deal MD [facility] [address] [place] [address] [facility] [address] [place] [phone] Referral ID Status Reason Start Date Expiration Date V isits Requested Visits Authorized [id number] Closed Consult, Test & Treat 08/31/2022 08/31/2023 1 1 Encounter Details Date Type Department Care Team (Late st Contact Info) Description 02/06/2023 12:00 PM EDT Office [place] [address] Debbie Becker MD [facility] [place] [address] Essential tremor; Cervical dystonia Social History Tobacco Use Types [...] Mass Index 26.26 02/06/2023 12:06 PM EDT documented in this encounter Progress Notes * Debbie Becker MD - 02/06/2023 12:00 PM EDT Images from the original note were not included. [facility] Movement Disorders New Patient Evaluation Date of service 02/06/2023 Referring provider Handy James MD [address] [place] [address] Cc: tremor History of present illness Thelma Bonner is a 77 y.o. right handed woman who presents to the movement disorders clinic for evaluation of tremor. 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 Tremors since her 40s. She has noted some worsening of her head and voice tremor since she retired at age 64. She is on propranolol and primidone. The propranolol has been on for over 30 years and the primidone was added in about 2014. The primidone has been somewhat helpful for the hands but not helping thehead tremor. No pain from the head tremor. No particular alleviating or exacerbating factors for the tremor. She has noted some balance changes. She did some PT in the fall and she did not continue to do the exercises. She also has dry macular degeneration. Her father had ET. Her brother had LBD. She has been considering the idea of invasive therapies for the tremor. She is more interested in DBS than FUS because she would want benefit from the head tremor. Patient Active Problem List Diagnosis Code ??? Essential tremor G25.0 ??? Trigeminal neuralgia G50.0 ??? Meralgia paresthetica G57.10 Current Outpatient Medications: ??? FLUoxetine (PROzac) 10 mg capsule, Take 10 mg by mouth daily., Disp: , Rfl: ??? primidone (Mysoline) 250 mg tablet, Take 250 mg by mouth nightly., Disp: , Rfl: ??? primidone (Mysoline) 50 mg tablet, TAKE 1 TABLET BY MOUTH EVERY NIGHT AT BEDTIME WITH 250 MG, Disp: , Rfl: ??? traZODone (Desyrel) 50 mg tablet, Take 100 mg by mouth daily., Disp: , Rfl: ??? lisinopril (PRINIVIL;ZESTRIL) 10 mg tablet, Take 10 mg by mouth daily., Disp: , Rfl: ??? Propranolol (INDERAL LA) 160 mg CR capsule, Take 1 capsule by mouth daily., Disp: 90 capsule, Rfl: 3 ??? CALCIUM CITRATE/VITAMIN D3 (CALCITRATE-VITAMIN D ORAL), Take 2 tablets by mouth daily., Disp: ,Rfl: ??? MULTIVITS W-FE,OTHER MIN (CENTRUM ORAL), Take 1 tablet by mouth daily., Disp: , Rfl: ??? CLOBETASOL PROPIONATE, BULK, MISC, Apply topically as needed. Cream form, Disp: , Rfl: ??? aspirin 81 mg EC tablet, Take 81 mg by mouth daily., Disp: , Rfl: ??? FEXOFENADINE HCL (FEXOFENADINE ORAL), Take 1 tablet by mouth as needed., Disp: , Rfl: Past Medical History: Diagnosis Date ??? Arthritis ??? Eczema ??? Hearing loss ??? High blood pressure ??? IBS (irritable bowel syndrome) ??? Insomnia ??? Rectocele Past Surgical History: Procedure Laterality Date ??? CHOLECYSTECTOMY ??? TUBAL LIGATION Social History: Four children live around the country, Daughter lives close in [place] Family History Problem Relation Age of Onset ??? Lung Cancer Father ??? High Blood Pressure Mother Review of Systems - All others negative except as per HPI Physical Exam Patient Vitals for the past 24 hrs: Pulse BP 02/06/23 1206 74 141/62 General: the patient appears stated age, not in any acute distress, well groomed, Body mass index is 26.26 kg/m??. HEENT: normal cephalic atraumatic, eye conjunctiva moist with no abnormal discharge, no abnormal nasal discharge Voice/language: no vocal tremor or dysarthria. Normal fluency and comprehension Mental status: oriented to place, self, date and reason for visit Cranial Nerves: III, IV, : EOMI, normal saccades and pursuit VIII: hearing normal in conversation Coordination: Finger to nose: L>R action tremor Gait: Pushes up to standing, uses a cane for further distance Additional movement disorder specific findings: Head tremor, no no tremor direction Review of available labs and imaging: Assessment: ICD-10-CM 1. Essential tremor G25.0 2. Cervical dystonia G24.3 Onabotulinumtoxin A (BOTOX) Authorizations Request (IN CLINIC) She has many years of action tremor in the hands and more recently worsening in the head. She has some impaired balance and hearing which can also go along with ET. The head tremor is now the most bothersome symptom and is significantly worse than the hand tremors. We discussed advanced options of DBS and FUS. FUS would not necessarily help the head. I did also bring up botox for the head tremor and she is willing to try this. Plan: - prior auth for botox for dystonic head tremor and plan to inject 02/14 Debbie Becker MD [facility] Neurology-Movement Disorders documented in this encounter Plan of Treatment Upcoming Encounters Date Type Department Care Team (Late st Contact Info) Description 11/14/2024 9:30 AM EST Procedure visit Neurology at [address] [address] Debbie Becker MD [facility] [place] [place] [address] documented as of this encounter Visit Diagnoses Diagnosis Essential tremor Essential and other specified forms of tremor Cervical dystonia Spasmodic torticollis documented in this encounter Care Teams Airplane Fueler Relationship Specialty Start Date End Date Handy James MD PCP - General Family Medicine 08/09/20 documented as of this encounter
--- OUTSIDE RECORDS SUMMARY | 2024-08-27 19:47 | XMS_ITS | Encounter Summary ---
Author Organization [facility] [place] [address] Care Team Providers Care Stamp Pad Finisher Name Role Phone Handy James MD Primary Care Provider Reason for Referral * Diagnostic Test (Routine) - Closed Specialty Diagnoses / Procedures [facility] Referred To Contact Radiology Diagnoses Lung nodule Procedures CT Chest wo Contrast (Generic) Handy James MD [address] [place] [address] [place] [address] [facility] [place] [address] Referral ID Status Reason Start Date Expiration Date V isits Requested Visits Authorized [id number] Closed Specialty Service Requested 08/08/2022 02/07/2024 1 1 Reason for Visit * Diagnostic Test (Routine) - Closed Specialty Diagnoses / Procedures Referred By [facility] Referred To Contact Radiology Diagnoses Lung nodule Procedures CT Chest wo Contrast (Generic) Handy James MD [address] [place] [address] [place] [address] [facility] [place] [address] Referral ID Status Reason Start Date Expiration Date V isits Requested Visits Authorized [id number] Closed Specialty Service Requested 08/08/2022 02/07/2024 1 1 Encounter Details Date Type Department Care Team (Latest Contact Info) Description 08/14/2022 12:00 PM EDT - 08/14/2022 11:59 PM EDT Hospital [place] [address] Handy James MD [address] [place] [address] [place] [address] Lung nodule Discharge Disposition: Home Social History Tobacco [...] 9:30 AM EST Procedure visit Neurology at [facility] [address] [place] [phone] Debbie Becker MD [facility] [place] [address] documented as of this encounter Procedures Procedure Name Priority Date/Time Associated Diagnosis Comments CT CHEST WO CONTRAST (GENERIC) Routine 08/14/2022 12:13 PM EDT Lung nodule documented in this encounter Results * CT Chest wo Contrast (Generic) (08/14/2022 12:13 PM EDT) Anatomical Region Laterality Modality Chest Computed Tomogra phy 08/14/2022 12:2 8 PM EDT Impressions 08/14/2022 2:24 PM EDT 1. ??Stable size and number of subcentimeter bilateral pulmonary nodules. 2. ??Hepatic steatosis. I have personally reviewed the image(s) and the resident's interpretation and agree with the findings, Arelis Carrington MD at 08/14/2022 2:24 PM Thank you for letting us participate in the care of this patient. ??If you are a health care provider and have any questions regarding this report, please contact the number below. ??For patients who have questions please contact the health manager of care that requested your imaging first. ? Narrative 08/14/2022 2:24 PM EDT EXAMINATION: CT CHEST WO CONTRAST (GENERIC) CLINICAL HISTORY: follow up mulitple nodules from 08/25 scan TECHNIQUE: CT of the chest without contrast. Coronal and sagittal reformatted images were generated. COMPARISON: CT chest 08/09/2021 FINDINGS: Pulmonary parenchyma: Multiple small bilateral pulmonary nodules, largest being 8 mm at the right lung base, are unchanged in size and number from previous exam. No new or enlarging nodules. Airways: The large airways are patent. Pleura: No pleural effusions. Lymph nodes, mediastinum and maddy: No mass or enlarged lymphadenopathy. Small hiatal hernia. Heart, pericardium, and great vessels: Normal cardiac size. No pericardial effusion. No thoracic aortic aneurysm. Mild coronary artery and aortic calcifications. Lower neck: Unremarkable thyroid gland. No visible cervical lymphadenopathy. Upper abdomen: Hepatic steatosis. Body wall soft tissues: Normal. Skeletal structures: Degenerative changes in the spine. No suspicious lesions. Procedure Note Arelis Carrington MD - 08/14/2022 EXAMINATION: CT CHEST WO CONTRAST (GENERIC) CLINICAL HISTORY: follow up mulitple nodules from 08/25 scan TECHNIQUE: CT of the chest without contrast. Coronal and sagittalreformatted images were generated. COMPARISON: CT chest 08/09/2021 FINDINGS: Pulmonary parenchyma: Multiple small bilateral pulmonary nodules, largestbeing 8 mm at the right lung base, are unchanged in size and number fromprevious exam. No new or enlarging nodules. Airways: The large airways are patent. Pleura: No pleural effusions. Lymph nodes, mediastinum and maddy: No mass or enlarged lymphadenopathy.Small hiatal hernia. Heart, pericardium, and great vessels: Normal cardiac size. Nopericardial effusion. No thoracic aortic aneurysm. Mild coronary artery and aortic calcifications. Lower neck: Unremarkable thyroid gland. No visible cervicallymphadenopathy. Upper abdomen: Hepatic steatosis. Body wall soft tissues: Normal. Skeletal structures: Degenerative changes in the spine. No suspiciouslesions. IMPRESSION 1. Stable size and number of subcentimeter bilateral pulmonary nodules. 2. Hepatic steatosis. I have personally reviewed the image(s) and the resident's interpretationand agree with the findings, Arelis Carrington MD at 08/14/2022 2:24 PM Thank you for letting us participate in the care of this patient. If youare a health care provider and have any questions regarding this report,please contact the number below. For patients who have questions please contactthe health manager of care that requested your imaging first. Handy James MD IMG CT ORDERABLES documented in this encounter Visit Diagnoses Diagnosis Lung nodule Solitary pulmonary nodule documented in this encounter Care Teams Stamp Pad Finisher Relationship Specialty Start Date End Date Handy James MD PCP - General Family Medicine 08/09/20 documented as of this encounter
--- OUTSIDE RECORDS SUMMARY | 2024-08-27 19:47 | XMS_ITS | Encounter Summary ---
Author Organization [place] [address] Care Team Providers Care Meat Wrapper Name Role Phone Handy James MD Primary Care Provider [phone] Reason for Referral * Diagnostic Test (Routine) - Closed Specialty Diagnoses / Procedures [facility] Referred To Contact Radiology Diagnoses Lung nodule Procedures CT Chest wo Contrast (Generic) CT Chest w Contrast Handy James MD [address] [place] [address] [place] [address] [facility] [place] [address] Referral ID Status Reason Start Date Expiration Date V isits Requested Visits Authorized [id number] Closed Specialty Service Requested 07/26/2021 09/23/2021 1 1 Reason for Visit * Diagnostic Test (Routine) - Closed Specialty Diagnoses / Procedures [facility] Referred To Contact Radiology Diagnoses Lung nodule Procedures CT Chest wo Contrast (Generic) CT Chest w Contrast Handy James MD [address] [place] [address] [place] [address] [facility] [place] [address] Referral ID Status Reason Start Date Expiration Date V isits Requested Visits Authorized [id number] Closed Specialty Service Requested 07/26/2021 09/23/2021 1 1 Encounter Details Date Type Department Care Team (Latest Contact Info) Description 08/09/2021 10:26 AM EDT - 08/09/2021 11:59 PM EDT Hospital En[place] [phone] Handy James MD [address] [place] [address] [place] [address] Lung nodule Discharge Disposition: Home Social History [...] at [facility] [address] [place] [phone] Debbie Becker MD [facility] [place] [address] documented as of this encounter Procedures Procedure Name Priority Date/Time Associated Diagnosis Comments CT CHEST WO CONTRAST (GENERIC) Routine 08/09/2021 10:43 AM EDT Lung nodule documented in this encounter Results * CT Chest wo Contrast (Generic) (08/09/2021 10:43 AM EDT) Anatomical Region Laterality Modality Chest Computed Tomogra phy Impressions 08/09/2021 11:14 AM EDT Mild interval enlargement in a few of the patient's right lower lobe nodules. The remaining pulmonary nodules are unchanged in size. The patient's dominant nodule located in the right lung base is unchanged from prior. Thank you for letting us participate in the care of this patient. ??If you are a health care provider and have any questions regarding this report, please contact the number below. ??For patients who have questions please contact the health reservoir caretaker that requested your imaging first. ? Narrative 08/09/2021 11:14 AM EDT EXAMINATION: CT CHEST WO CONTRAST (GENERIC) CLINICAL HISTORY: 7 mm nodule seen 12/2019 (in [place]) 08/2020 without change; Director [employer] in [place] recommended 12 month follow up (August 2021) TECHNIQUE: 3.75 mm thick axial contiguous sections were obtained through the chest via helical acquisition without intravenous contrast administration. Thin-section reconstructions as well as coronal and sagittal reformatted images were generated. COMPARISON: None FINDINGS: Pulmonary parenchyma: Multiple bilateral pulmonary nodules which have been saved as hazel images in PACS. Majority of these nodules are unchanged in size; however, a few nodules in the right lower lobe have intervally increased in size between the comparison examination and the current study. For instance, a right lower lobe nodule which previously measured 4 mm now measures 5 mm as seen on series 4 image 40 for the current examination and just inferior to this nodule in the right lower lobe, a nodule now measures 4 mm as seen on series 4 image 45 which previously measured 3 mm. Similarly, a nodule in the posterior aspect of the right lower lobe now measures 4 mm as seen on series 4 image 50 and previously measured 2 mm. The patient 7 mm nodule in the right lung base is unchanged from prior. Airways: Widely patent. No bronchial wall thickening. No bronchiectasis. Pleura: No pleural effusion. No pneumothorax. Lymph nodes: Within the limits of this noncontrast examination, there is no appreciable hilar adenopathy. No mediastinal nor axillary lymphadenopathy. Heart, pericardium, and great vessels: No significant findings. Other mediastinal structures: No significant findings. Lower neck: No significant findings. Upper abdomen: No significant findings. Body wall soft tissues: No significant findings. Skeletal structures: No significant findings. Procedure Note Rajeev Gonzalez MD - 08/09/2021 EXAMINATION: CT CHEST WO CONTRAST (GENERIC) CLINICAL HISTORY: 7 mm nodule seen 12/2019 (in [place]) 08/2020 without change; Pulmonologistin [place] recommended 12 month follow up (August 2021) TECHNIQUE: 3.75 mm thick axial contiguous sections were obtained throughthe chest via helical acquisition without intravenous contrastadministration. Thin-section reconstructions as well as coronal and sagittal reformattedimages were generated. COMPARISON: None FINDINGS: Pulmonary parenchyma: Multiple bilateral pulmonary nodules which have beensaved as hazel images in PACS. Majority of these nodules are unchanged in size;however, a few nodules in the right lower lobe have intervally increased in sizebetween the comparison examination and the current study. For instance, a right lower lobe nodule which previously measured 4 mmnow measures 5 mm as seen on series 4 image 40 for the current examination andjust inferior to this nodule in the right lower lobe, a nodule now measures 4mm as seen on series 4 image 45 which previously measured 3 mm. Similarly, anodule in the posterior aspect of the right lower lobe now measures 4 mm as seen onseries 4 image 50 and previously measured 2 mm. The patient 7 mm nodule in the right lung base is unchanged from prior. Airways: Widely patent. No bronchial wall thickening. No bronchiectasis. Pleura: No pleural effusion. No pneumothorax. Lymph nodes: Within the limits of this noncontrast examination, there isno appreciable hilar adenopathy. No mediastinal nor axillarylymphadenopathy. Heart, pericardium, and great vessels: No significant findings. Other mediastinal structures: No significant findings. Lower neck: No significant findings. Upper abdomen: No significant findings. Body wall soft tissues: No significant findings. Skeletal structures: No significant findings. IMPRESSION Mild interval enlargement in a few of the patient's right lower lobenodules. The remaining pulmonary nodules are unchanged in size. The patient'sdominant nodule located in the right lung base is unchanged from prior. Thank you for letting us participate in the care of this patient. If youare a health care provider and have any questions regarding this report,please contact the number below. For patients who have questions please contactthe health reservoir caretaker that requested your imaging first. Handy James MD IMG CT ORDERABLES documented in this encounter Visit Diagnoses Diagnosis Lung nodule Solitary pulmonary nodule documented in this encounter Care Teams Meat Wrapper Relationship Specialty Start Date End Date Handy James MD PCP - General Family Medicine 08/09/20 documented as of this encounter
[2024-08-27 19:52] LABS: Anion Gap 10.4 mmol/L (3-11); BUN 17 mg/dL (7-18); CO2 27.6 mmol/L (21.0-32.0); CREATININE 0.8 mg/dL (0.55-1.02); Calcium 9.5 mg/dL (8.5-10.1); Chloride 105 mmol/L (98-107); Estimated GFR 74.44 (mL/min/1.73m2); Glucose 88 mg/dL (74-106); Potassium 4.5 mmol/L (3.5-5.1); Sodium 143 mmol/L (136-145)
== END 2024-08-27 19:45 | disposition home or self-care (01) ==
LOC: NCHCN 19:44
PROVIDERS: PCP Family Medicine; Visit Provider Physician Assistant
DX: G50.0 Trigeminal neuralgia (principal)
CPT/HCPCS: 80048

== ENCOUNTER 2024-09-03 00:47 | Outpatient (CLI) | payer MEDICARE, SELFPAY ==
--- NOTE | 2024-09-03 | DI.MRI_ITS ---
Exam(s) MR BRAIN WO/W EXAM: MR BRAIN WO/W CLINICAL HISTORY: TRIGEMINAL NEURALGIA G50.0RIGHT SIDED. TECHNIQUE: Multiplanar multisequence MRI of the brain was performed. CONTRAST MATERIAL: IV Contrast: 15 ML of Dotarem contrast administered. COMPARISON: CT HEAD WITHOUT CONTRAST from 04/06/2016 MR MR ANGIO BRAIN WO from 09/03/2024 FINDINGS: VENTRICLES AND EXTRA AXIAL SPACES: Normal in size and morphology for the patient's age. HEMORRHAGE: None. CEREBRAL PARENCHYMA: No focus of restricted diffusion to suggest acute infarct. No space-occupying le ramon identified. Scattered high signal foci in the white matter consistent with chronic microvascula r ischemia. Mild atrophy. BRAINSTEM/CEREBELLUM: Normal. Trigeminal nerves appear symmetric bilaterally. CALVARIUM: Normal. ENHANCEMENT: No suspicious enhancement identified. VISUALIZED PARANASAL SINUSES/MASTOIDS: Clear. Orbits: The globes have an oblong appearance. Pituitary: Not enlarged. Partially empty sella. Vasculature: Normal flow voids. IMPRESSION: No acute abnormality. Mild atrophy and white matter changes of microvascular disease. Bilateral elongated globes. DATA REPOSITORY:
[2024-09-03] MEDS: Gadoterate meglumine 20 ML SYRINGE 15 ML IVP (10:59)
[2024-09-03] MEDS: Normal Saline Flush 10 ML SYR IVP (11:00)
--- NOTE | 2024-09-03 11:20 | DI.MRI_ITS ---
Exam(s) MR ANGIO BRAIN WO CLINICAL HISTORY: TRIGEMINAL NEURALGIA G50.0. TECHNIQUE: 3D netn-xy-wooffo study was performed without contrast. COMPARISON: MRI brain of the same day. FINDINGS: Carotid Arteries: Petrous: Normal. Cavernous: Normal. Cerebral: Normal. Middle Cerebral Arteries: Right: No aneurysm or significant stenosis. Left: No aneurysm or significant stenosis. Anterior Cerebral Arteries: Right: No aneurysm or significant stenosis. Left: No aneurysm or significant stenosis. Posterior cerebral arteries: Right: No aneurysm or significant stenosis Left: No aneurysm or significant stenosis Vertebral Arteries: Right: No aneurysm or significant stenosis. No dissection. Left: No aneurysm or significant stenosis. No dissection.. Basilar Artery: No aneurysm or significant stenosis. Small Vessels: No evidence of beading. IMPRESSION: Normal MRA examination of the [place]. DATA REPOSITORY:
== END 2024-09-03 01:07 ==
LOC: DI 00:47
PROVIDERS: PCP Family Medicine; Visit Provider Physician Assistant
DX: G50.0 Trigeminal neuralgia (principal)
CPT/HCPCS: 70544; 70553

== ENCOUNTER 2024-11-07 16:44 | Outpatient (REF) | payer MEDICARE, SELFPAY ==
[2024-11-07 16:32] LABS: HCT 37.8 % (36.0-46.0); HGB 12.9 g/dL (11.2-15.7); MCH 30.9 pg (27.0-33.0); MCHC 34.1 % (32.0-36.0); MCV 91 fL (80-95); MPV 10.5 fL (8.0-11.0); Platelet Count 180 10^3/uL (130-400); RBC 4.17 10^6/uL (3.93-5.22); RDW 12.4 % (11.7-14.6); RDW-SD 40.7 fL; WBC 5.83 10^3/uL (4.4-10.8)
[2024-11-07 16:39] LABS: ALT 39 U/L (14-59); AST 19 U/L (15-37); Albumin 4.2 g/dL (3.4-5.0); Alkaline Phosphatase 130 U/L (46-116); Bilirubin, Direct 0.1 mg/dL (0.0-0.2); Bilirubin, Total 0.31 mg/dL (0.2-1.0); Total Protein 6.8 g/dL (6.4-8.2)
--- OUTSIDE RECORDS SUMMARY | 2024-11-07 16:46 | XMS_ITS | Encounter Summary ---
Author Organization [facility] Address [address] [place] [address] Care Team Providers Care Title Vehicle Service Attendant Name Role Phone Handy James MD Primary Care Provider Reason for Visit * Auth/Cert (Routine) Specialty Diagnoses / Procedures [facility] Referred To Contact Diagnoses Cataract, left Cataract, left [H26.9] Procedures [place] XCAPSL CTRC RMVL INSJ IO LENS PROSTH W/O ECP EXTRACTION, CATARACT, EXTRACAPSULAR, WITH IOL INSERTION Referral ID Status Reason Start Date Expiration Date Visits Re quested Visits Authorized [id number] 1 1 Encounter Details Date Type Department Care Team (Late st Contact Info) Description 02/05/2024 11:35 EDT - 02/05/2024 12:10 EDT Surgery [facility] Operating Room [address] [place] [id number] Ray Kimball MD [facility] [address] [place] [address] [id number] EXTRACTION, CATARACT, EXTRACAPSULAR, WITH IOL INSERTION [87747 (CPT??)] Surgery Details Date/Time Status Location OR Service Patient Class Case Cl ass Case Type Trauma Case? 02/05/2024 1135 Posted [facility] OR [facility] H - Elective Panel 1 [...] drink = 0.6 oz pur e alcohol) Comments No Sex and Gender Information Value Date Recorded Sex Assigned at Female 02/05/2024 10:57 EDT Legal Sex Female 18:22 EST Gender Identity Not on file Sexual Orientation [...] When should you call for help? Call 141 anytime you think you may need emergency [...] Where can you learn more? Go to [email or web address] or log into your Gigoptix account at [email or web address] Enter R255 in the search box to learn more about Cataract Surgery: What to Expect at Home. Current as of: November 28, 2021 Content Version: 13.4 ?? Sodraft. Care instructions adapted under license by [facility]. If you have questions about a medical condition or this instruction, always ask your healthcare professional. Sodraft disclaims any warranty or liability for your use of this information. documented in this encounter Medications at Time of Discharge calcium carbonate (OS-ANTWON) 1250 mg (500 mg [...] INSERTION (L) Operative Note Date: 02/05/2024 Location: [facility] OR Name: Thelma Bonner, : 1945, Diagnosis [...] LENS INTRAOCULAR MONOFOCAL +5.0D TECNIS DCB00 - [id number] Implanted [id number] Staff: Bed Laster: Kristy Juan RN; Dior Momin RN Relief Bed Laster: Daylin Doran RN Scrub Person: Jennifer Lew [...] to remove co rtical material and to frisian the capsular bag. The capsular bag was [...] bedtime Instructions for Thelma Bonner's Procedure at [facility] . These instructions [...] any items. Valuables, archuleta or credit cards. [facility] is not responsible for any lost items during your hospital visit. If you experience fevers, swelling, redness, rash or a break in your skin prior to your surgery contact your surgeon. Arriving for your procedure: Enter through the main entrance, and check in at the patient registration information desk. They will take your name and let us know you have arrived. A patient clerk guide will then verify your information and give you an identification bracelet. You will then be directed to the Broadcast Traffic Coordinator waiting area around the corner to check [...] (02/06/2024 13:33 EDT) 02/06/2024 13:3 3 EDT us Scan 2 Social Media Editor PROCEDURE/MINOR SURGICAL OR DERABLES Final Result documented in this encounter Visit Diagnoses Diagnosis [...] 02/05/2024 11:24 EDT 0.5 mL Left Eye parnuhhoetbbvt-dhmnjguomga-pcree teclssm-mrjbbcvdurfuo-qvrthqilx 1%-1%-0.1%-2.5%-0.4% ophthalmic solution drops 1 Drop 1 [...] EDT. Scheduled Medication Order 02/03/2024 02/04/2024 02/05/2024 xbnppkpcpluprz-nfqgkdevjft-nnqgw dknrgwm-ukujzsobqacfg-hsfadysiq 1%-1%-0.1%-2.5%-0.4% ophthalmic solution drops 1 Drop () 1 Drop, left eye, PREOP LINKED EYE MEDS-SEE ADMIN INSTRUCTIONS, 3 doses, First dose on Sun02/05/24 at 1100, Last dose on Sun02/05/24 at 1110, Routine, Preprocedure 1041 (Given - Provid er: Santiago Lozano)1051 (Given - Provider: Santiago Lozano)1110 (Due) lidocaine 4 % (7.6 mg) + [...] 02/05/2024 documented in this encounter Care Teams Title Vehicle Service Attendant Relationship Specialty Start Date End Date Handy James MD [address] [place] [address] PCP - General 02/05/24 documented as of this encounter
--- OUTSIDE RECORDS SUMMARY | 2024-11-07 16:46 | XMS_ITS | Encounter Summary ---
Author Organization [facility] Address [address] [place] [address] Care Team Providers Care Component Technician Name Role Phone Handy Oneill MD Primary Care Provider [phone] Encounter Details Date Type Department Care Team (Late st Contact Info) Description 08/02/2004 Results Only [facility] - Maple conversion [address] [place] [address] Bebeto Ferrari MD [address] [place] [address] [address] Social History Tobacco Use Types Packs/Day Years Used Date Smoking Tobacco: Never Assessed Comments Unknown Sex and Gender Information Value Date Recorded [...] ng unformatted reports. Name: ? EAN THELMA Bradhsaw ? Accession #: ? [id number] : ? 1945 (Age: 59) ??F ?Collect [...] End of Report [facility] 08/02/2004 08/04/2004 us Bebeto Ferrari MD PATHOLOGY ORDERABLES Final Resu lt [facility] [address] [place] [address] documented in this encounter Visit Diagnoses Not on filedocumented in this encounter Care Teams Component Technician Relationship Specialty Start Date End Date Handy Oneill MD [address] [place] [address] PCP - General 06/29/09 02/04/24 documented as of this encounter
--- OUTSIDE RECORDS SUMMARY | 2024-11-07 16:46 | XMS_ITS | Encounter Summary ---
Author Organization [facility] Address [address] [place] [address] Care Team Providers Care Technology Solutions Architect Name Role Phone Handy Arguelles MD Primary Care Provider [phone] Encounter Details Date Type Department Care Team (Late st Contact Info) Description 06/08/2000 Results Only [facility] - Maple conversion [address] [place] [address] Bebeto Ferrari MD [address] [place] [address] [address] Social History Tobacco Use Types [...] ? THELMA BONNER ? Accession #: ? [id number] ? : ? 1945 (Age: 54) ??F [...] [facility] 06/08/2000 06/12/2000 8:0 9 EDT us Bebeto Ferrari MD PATHOLOGY ORDERABLES Final Resu lt [facility] [address] [place] [address] documented in this encounter Visit Diagnoses Not on filedocumented in this encounter Care Teams Technology Solutions Architect Relationship Specialty Start Date End Date Handy Arguelles MD [address] [place] [address] PCP - General 06/29/09 02/04/24 documented as of this encounter
--- OUTSIDE RECORDS SUMMARY | 2024-11-07 16:46 | XMS_ITS | Encounter Summary ---
Author Organization [facility] Address [address] [place] [address] Care Team Providers Care Lance Crewmember Name Role Phone Rah Arguelles MD Primary Care Provider [phone] Encounter Details Date Type Department Care Team (Late st Contact Info) Description 09/11/2002 Results Only [facility] - Maple conversion [address] [place] [address] Rah Arguelles MD [address] [place] [address] Social History Tobacco Use Types [...] ? THELMA BONNER ? Accession #: ? [id number] ? : ? 1945 (Age: 57) ??F [...] cassette. ??(Dr. Tan)/delilah End of Report [facility] 09/11/2002 09/15/2002 9:0 2 EST us Rah Arguelles MD PATHOLOGY ORDERABLES Final Resul t [facility] [address] [place] [address] documented in this encounter Visit Diagnoses Not on filedocumented in this encounter Care Teams Lance Crewmember Relationship Specialty Start Date End Date Rah Arguelles MD [address] [place] [phone] PCP - General 06/29/09 02/04/24 documented as of this encounter
--- OUTSIDE RECORDS SUMMARY | 2024-11-07 16:46 | XMS_ITS | Encounter Summary ---
Author Organization [facility] Address [address] [place] [address] Care Team Providers Care Lug Loader Name Role Phone Handy Oneill MD Primary Care Provider [phone] Encounter Details Date Type Department Care Team (Late st Contact Info) Description 08/04/2005 Results Only [facility] - Maple conversion [address] [place] [address] Bebeto Ferrari MD [address] [place] [address] [address] [address] Social History Tobacco Use Types [...] ? THELMA BONNER ? Accession #: ? [id number] : ? 1945 (Age: 60) ??F ?Collect Date: ? 08/04/2005 Location: ? [facility] ? Receive Date: ? 08/08/2005 Provider: ?BEBETO FERRARI MD Copy to: ? Specimen/Source: ?ThinPrep Pap Test, Cervix/Endocervix, processed on [facility] ThinPrep Imaging System, with manual evaluation Last [...] End of Report [facility] 08/04/2005 08/08/2005 us Bebeto Ferrari MD PATHOLOGY ORDERABLES Final Resu lt [facility] [address] [place] [address] documented in this encounter Visit Diagnoses Not on filedocumented in this encounter Care Teams Lug Loader Relationship Specialty Start Date End Date Handy Oneill MD [address] [place] [address] PCP - General 06/29/09 02/04/24 documented as of this encounter
--- OUTSIDE RECORDS SUMMARY | 2024-11-07 16:46 | XMS_ITS | Referral Summary ---
Author Organization [facility] Address [address] [place] [address] Care Team Providers Care Concrete Floater Name Role Phone Handy James MD Primary Care Provider [phone] Allergies No known active allergies Medications primidone (MYSOLINE) 250 mg tablet Take 1 [...] on file Medical Devices Implanted Type Area Skills Instructor Device Identifier Shelf Expiration Date Model / Serial / Lot Lens Intraocular Monofocal +6.5d Tecnis Simplicity - [id number] Implanted:Qty: 1 on 01/22/2024 by Ray Kimball MD at [facility] Lens Right: Lens [employer] [id number] 09/15/2026 [id number] / [id number] / Lens Intraocular Monofocal +5.0d Tecnis Simplicity - [id number] Implanted:Qty: 1 on 02/05/2024 by Ray Kimball MD at [facility] Lens Left: Eye [employer] [id number] 09/15/2025 [id number] / [id number] / Insurance MEDICARE Advance Directives For more information, please contact: [phone] * Full Code (Latest Code Status on [...] Who Made the Decision? Patient Care Teams Concrete Floater Relationship Specialty Start Date End Date Handy James MD [address] [facility] [place] [address] PCP - General 02/05/24
--- OUTSIDE RECORDS SUMMARY | 2024-11-07 16:46 | XMS_ITS | Encounter Summary ---
Author Organization [facility] Address [address] [place] [address] Care Team Providers Care Raw Mill Operator Name Role Phone Handy Oneill MD Primary Care Provider [phone] Reason for Visit * Auth/Cert (Routine) Specialty Diagnoses / Procedures [facility] Referred To Contact Diagnoses Cataract, right Cataract, right [H26.9] Procedures [place] XCAPSL CTRC RMVL INSJ IO LENS PROSTH W/O ECP EXTRACTION, CATARACT, EXTRACAPSULAR, WITH IOL INSERTION Referral ID Status Reason Start Date Expiration Date Visits Re quested Visits Authorized [id number] 1 1 Encounter Details Date Type Department Care Team (Latest Contact Info) Description 01/22/2024 11:08 EDT - 01/22/2024 13:28 EDT Hospital Encounter [facility] Operating Room [address] [place] [address] Ray Kimball MD [facility] [address] [place] [id number] Discharge Disposition: Home or Self Care Social [...] Where can you learn more? Go to [email or web address] GroupealHangzhou Huato Software or log into your Varolii account at [email or web address] Enter R255 in the search box to learn more about Cataract Surgery: What to Expect at Home. Current as of: November 28, 2021 Content Version: 13.4 ?? Innovative Sports Strategies. Care instructions adapted under license by [facility]. If you have questions about a medical condition or this instruction, always ask your healthcare professional. [employer] disclaims any warranty or liability for your [...] INSERTION (R) Operative Note Date: 01/22/2024 Location: [facility] OR Name: Thelma Bonner, : 1945, Diagnosis [...] LENS INTRAOCULAR MONOFOCAL +6.5D TECNIS DCB00 - [id number] Implanted [id number] Staff: Staff Internist Office Based Only: Dior Momin RN; Patricia Cadet RN Scrub [...] to remove c ortical material and to faroese the capsular bag. The capsular bag was [...] Yes Instructions for Thelma Bonner's Procedure at [facility] . These instructions are [...] any items. Valuables, archuleta or credit cards. [facility] is not responsible for any lost items [...] You will then be directed to the Glazier Apprentice waiting area around the corner to check [...] (01/23/2024 14:44 EDT) 01/23/2024 14:4 4 EDT us Scan 2 Floor Cleaner PROCEDURE/MINOR SURGICAL OR DERABLES Final Result documented in this encounter Visit Diagnoses Not on filedocumented in this encounter Administered Medications Inactive Administered Medications - up to 3 most recent administrations Medication Order MAR Action Action Date Dose Rate Site acetaminophen (TYLENOL) tablet 650 mg 650 mg, oral, Once (Without Time Specified), Starting on Sun01/22/24 at 1301, Until Sun01/22/24 at 1528, Routine, Recovery (only) wvgjepzxcripky-fcosnxgjcfi-neclhhaza zgo-negibfviidxfb-veljkhoxr 1%-1%-0.1%-2.5%-0.4% ophthalmic solution drops 1 Drop 1 [...] may reflect changes made after this encounter. calcium carbonate (OS-ANTWON) 1250 mg (500 mg [...] Until Sun01/22/24 at 1528, Routine, Recovery (only) izvvhytsgndocp-fnbnqochqid-jnmiyg gcykdk-goprytndeiwxb-xiuitnxne 1%-1%-0.1%-2.5%-0.4% ophthalmic solution drops 1 Drop (COMPLETED) 1 Drop, right eye, PREOP LINKED EYE MEDS-SEE ADMIN INSTRUCTIONS, 3 doses, First dose on Sun01/22/24 at 1145, Last dose on Sun01/22/24 at 1155, Routine, Preprocedure 1131 (Given - Provid er: Narcisa Caldwell RN)1136 (Given - Provider: Narcisa Caldwell RN)1142 (Given - Provider: Nacrisa Caldwell RN) lidocaine 4 % (7.6 mg) [...] right eye, INTRA-OP ONCE, 1 dose, On e 01/22/24 at 1245, Routine, Intraprocedure 1237 (Given - Provid er: Ray Kimball MD)1245 (Due) PRN Medication Order 01/20/2024 01/21/2024 01/22/2024 balanced salt solution inrrigation solution (BSS PLUS) 500 mL, EPINEPHrine HCl (PF) (ADRENALIN) 0.3 mL irrigation (CANCELED) PRN, Starting on e 01/22/24 at 1235, Until e 01/22/24 at 1250, Routine, Intraprocedure 1235 (Given - Provid er: Ray Kimball MD) balanced salts (BSS) ophthalmic solution (CANCELED) PRN, Starting on e 01/22/24 at 1235, Until e 01/22/24 at 1250, Routine, Intraprocedure 1235 (Given - Provid er: Ray Kimball MD) chondroitin-sodium hyaluronate (VISCOAT) ophthalmic solution (CANCELED) PRN, Starting on e 01/22/24 at 1236, Until 01/22/24 at 1250, Routine, Intraprocedure 1236 (Given - Provid er: Ray Kimball MD) lidocaine (GLYDO/URO-JET) 2 % jelly in applicator (CANCELED) PRN, Starting on Sun01/22/24 at 1236, Until e 01/22/24 at 1250, Intraprocedure 1236 (Given - [...] Ordered Date acetaminophen (TYLENOL) tablet 650 mg balanced salt solution inrri gation solution (BSS PLUS) 500 mL, EPINEPHrine HCl (PF) (ADRENALIN) 0.3 mL irrigation 01/22/2024 balanced salts (BSS) ophthalmic solution 01/22/2024 chondroitin-sodium hyalurona te (VISCOAT) ophthalmic solution 01/22/2024 lidocaine (GLYDO/URO-JET) 2 % jelly in applicator 01/22/2024 lidocaine (PF) 10 mg/mL (1 % ) injection 2 mg 01/22/2024 lidocaine 4 % (7.6 mg) + EPI NEPHrine 1 mg/mL (0.25 mg) + BSS (0.56 mL) intra-op in 1 mL syringe 01/22/2024 ondansetron (PF) (ZOFRAN) injection 4 mg [...] 01/22/2024 documented in this encounter Care Teams Raw Mill Operator Relationship Specialty Start Date End Date Handy Oneill MD [address] [place] [phone] PCP - General 06/29/09 02/04/24 documented as of this encounter
--- OUTSIDE RECORDS SUMMARY | 2024-11-07 16:46 | XMS_ITS | Encounter Summary ---
Author Organization [facility] Address [address] [place] [address] Care Team Providers Care Face Burler Name Role Phone Handy Oneill MD Primary Care Provider [phone] Encounter Details Date Type Department Care Team (Late st Contact Info) Description 07/18/2001 Results Only [facility] - Maple conversion [address] [place] [address] Bebeto Ferrari MD [address] [place] [address] [address] Social History Tobacco Use Types [...] ? THELMA BONNER ? Accession #: ? [id number] : ? 1945 (Age: 56) ??F ?Collect [...] End of Report [facility] 07/18/2001 07/22/2001 us Bebeto Ferrari MD PATHOLOGY ORDERABLES Final Resu lt [facility] [address] [place] [address] documented in this encounter Visit Diagnoses Not on filedocumented in this encounter Care Teams Face Burler Relationship Specialty Start Date End Date Handy Oneill MD [address] [place] [address] PCP - General 06/29/09 02/04/24 documented as of this encounter
--- OUTSIDE RECORDS SUMMARY | 2024-11-07 16:46 | XMS_ITS | Encounter Summary ---
Author Organization [facility] Address [address] [place] [address] Care Team Providers Care Door Frame Assembler Machine Name Role Phone Handy James MD Primary Care Provider [phone] Reason for Visit * Auth/Cert (Routine) Specialty Diagnoses / Procedures [facility] Referred To Contact Diagnoses Cataract, left Cataract, left [H26.9] Procedures [place] XCAPSL CTRC RMVL INSJ IO LENS PROSTH W/O ECP EXTRACTION, CATARACT, EXTRACAPSULAR, WITH IOL INSERTION Referral ID Status Reason Start Date Expiration Date Visits Re quested Visits Authorized [id number] 1 1 Encounter Details Date Type Department Care Team (Late st Contact Info) Description 02/05/2024 11:[address] [facility] Operating Room [address] [place], [place] [address] Bindu Farley MD [address] [place] [phone] Anesthesia Record Procedure Summary Procedure Name Responsible [...] No complications 02/05/24 1051 by Santiago Lozano FNP 02/05/24 1155 by Santiago Lozano FNP documented in this encounter Social History Tobacco [...] MD - 02/05/2024 1140 EDT Patient: Thelma Leeann Bonner Vital signs were reviewed with the recovery nurse. Complete vitals history is available [facility]. Vitals Value Taken Time BP 02/05/24 1149 [...] 024 documented in this encounter Care Teams Door Frame Assembler Machine Relationship Specialty Start Date End Date Handy James MD [address] [place] [address] PCP - General 02/05/24 documented as of this encounter
--- OUTSIDE RECORDS SUMMARY | 2024-11-07 16:46 | XMS_ITS | Encounter Summary ---
Author Organization [facility] Address [address] [place] [address] Care Team Providers Care Embedded Nurse Name Role Phone Rah Arguelles MD Primary Care Provider [phone] Encounter Details Date Type Department Care Team (Late st Contact Info) Description 05/23/2004 Results Only [facility] - Maple conversion [address] [place] [address] Gideon Bowen, DO [address] [facility] [place], [place] [id number] Social History Tobacco Use Types Packs/Day Years [...] ? THELMA BONNER ? Accession #: ? [id number] ? : ? 1945 (Age: 58) ??F ? Collect Date: ? 05/23/2004 ? Location: [...] in toto as (B). ?? Received in [facility]'s fixative labelled Kailey and distal esophagus biopsy are two irregular morales-pink soft tissues averaging 0.2 x 0.2 x 0.1 cm which are submitted in toto as (C). ??(Leila Hazel)/tmg ?? End of Report [facility] 05/23/2004 05/23/2004 15: 18 EDT us Gideon Bowen DO PATHOLOGY ORDERABLES Fi nal Result Performing Organization Address City/State/[facility] Co de Phone Number [facility] [address] [place] [address] documented in this encounter Visit Diagnoses Not on filedocumented in this encounter Care Teams Embedded Nurse Relationship Specialty Start Date End Date Rah Arguelles MD [address] [place] [phone] PCP - General 06/29/09 02/04/24 documented as of this encounter
--- OUTSIDE RECORDS SUMMARY | 2024-11-07 16:46 | XMS_ITS | Encounter Summary ---
Author Organization [facility] Address [address] [place] [address] Care Team Providers Care Rig Hand Name Role Phone Handy James MD Primary Care Provider [phone] Reason for Visit * Auth/Cert (Routine) Specialty Diagnoses / Procedures [facility] Referred To Contact Diagnoses Cataract, left Cataract, left [H26.9] Procedures [place] XCAPSL CTRC RMVL INSJ IO LENS PROSTH W/O ECP EXTRACTION, CATARACT, EXTRACAPSULAR, WITH IOL INSERTION Referral ID Status Reason Start Date Expiration Date Visits Re quested Visits Authorized [id number] 1 1 Encounter Details Date Type Department Care Team (Latest Contact Info) Description 02/05/2024 10:22 EDT - 02/05/2024 23:59 EDT Hospital Encounter [facility] Operating Room [address] [place] [address] Ray Kimball MD [facility] [address] [place] [id number] Discharge Disposition: Home or Self Care Social [...] Where can you learn more? Go to [email or web address] Telecom or log into your SmartSynch account at [email or web address] Enter R255 in the search box to learn more about Cataract Surgery: What to Expect at Home. Current as of: November 28, 2021 Content Version: 13.4 ?? Location. Care instructions adapted under license by [facility]. If you have questions about a medical condition or this instruction, always ask your healthcare professional. Location disclaims any warranty or liability for your [...] INSERTION (L) Operative Note Date: 02/05/2024 Location: [facility] OR Name: Thelma Bonner, : 1945, Diagnosis [...] LENS INTRAOCULAR MONOFOCAL +5.0D TECNIS DCB00 - [id number] Implanted [id number] Staff: Circulation Sales Representative: Kristy Juan RN; Dior Momin RN Relief Circulation Sales Representative: Daylin Doran RN Scrub Person: Jennifer Lew [...] to remove co rtical material and to irish the capsular bag. The capsular bag was [...] bedtime Instructions for Thelma Bonner's Procedure at [facility] . These instructions are [...] any items. Valuables, archuleta or credit cards. [facility] is not responsible for any lost items during your hospital visit. If you experience fevers, swelling, redness, rash or a break in your skin prior to your surgery contact your surgeon. Arriving for your procedure: Enter through the main entrance, and check in at the patient registration information desk. They will take your name and let us know you have arrived. A patient insurance processing clerk will then verify your information and give you an identification bracelet. You will then be directed to the Insurance Business Analyst waiting area around the corner to check [...] 02/06/2024 13:3 3 EDT us Scan 2 Eyewear Manufacturing Tech PROCEDURE/MINOR SURGICAL OR DERABLES Final Result documented in this encounter Visit Diagnoses Not on filedocumented in this encounter Administered Medications Inactive Administered Medications - up to 3 most recent administrations Medication Order MAR Action Action Date Dose Rate Site jumososbhegyja-aafyudrgjra-dmtjrfflb qvh-ldysfozguzqhd-fvlidjzqn 1%-1%-0.1%-2.5%-0.4% ophthalmic solution drops 1 Drop 1 [...] EDT. Scheduled Medication Order 02/03/2024 02/04/2024 02/05/2024 tetwevarlrfmol-ignhbdodita-imrds czyweph-sndcnvdlqfahw-mxrwifytg 1%-1%-0.1%-2.5%-0.4% ophthalmic solution drops 1 Drop () [...] 02/05/2024 documented in this encounter Care Teams Rig Hand Relationship Specialty Start Date End Date Handy James MD [address] [place] [address] PCP - General 02/05/24 documented as of this encounter
--- OUTSIDE RECORDS SUMMARY | 2024-11-07 16:46 | XMS_ITS | Encounter Summary ---
Author Organization [facility] Address [address] [place] [address] Care Team Providers Care Woods Warden Name Role Phone Handy Oneill MD Primary Care Provider [phone] Reason for Visit * Auth/Cert (Routine) Specialty Diagnoses / [facility] To Contact Diagnoses Cataract, right Cataract, right [H26.9] Procedures SC XCAPSL CTRC RMVL INSJ IO LENS PROSTH W/O ECP EXTRACTION, CATARACT, EXTRACAPSULAR, WITH IOL INSERTION Referral ID Status Reason Start Date Expiration Date Visits Re quested Visits Authorized [id number] 1 1 Encounter Details Date Type Department Care Team (Late st Contact Info) Description 01/22/2024 12:30 EDT Anesthesia Event [facility] Operating Room [address] [place] [address] Maddison Drake MD [address] [facility], Level 2 [place] [address] Anesthesia Record Procedure Summary Procedure [...] mg documented in this encounter Care Teams Woods Warden Relationship Specialty Start Date End Date Handy Oneill MD [address] [place] [address] PCP - General 06/29/09 02/04/24 documented as of this encounter
--- OUTSIDE RECORDS SUMMARY | 2024-11-07 16:46 | XMS_ITS | Encounter Summary ---
Author Organization [facility] Address [address] [place] [address] Care Team Providers Care Lion Tamer Name Role Phone Handy Oneill MD Primary Care Provider [phone] Encounter Details Date Type Department Care Team [...] on filedocumented in this encounter Care Teams Lion Tamer Relationship Specialty Start Date End Date Handy Oneill MD [address] [place] [address] PCP - General 06/29/09 02/04/24 documented as of this encounter
--- OUTSIDE RECORDS SUMMARY | 2024-11-07 16:46 | XMS_ITS | Clinical Summary ---
Author Organization [facility] Address [address] [place] [address] Care Team Providers Care Vacuum Furnace Operator Name Role Phone Handy James MD Primary Care Provider [phone] Allergies No known active allergies Medications primidone [...] Last Done Comments Hepatitis C Screen 1945 Fall Risk Screening 2009 RSV Immunization ( o r 60+ Years) (1 - 1-dose 75+ series) 2019 COVID-19 Vaccine ( season) 2024 Medical Devices Implanted Type Area Rip Sawyer Device Identifier Shelf Expiration Date Model / Serial / Lot Lens Intraocular Monofocal +6.5d Tecnis Simplicity - [id number] Implanted:Qty: 1 on 01/22/2024 by Ray Kimball MD at [facility] Lens Right: Lens [employer] [id number] 09/15/2026 [id number] 5 / [id number] / Lens Intraocular Monofocal +5.0d Tecnis Simplicity - [id number] Implanted:Qty: 1 on 02/05/2024 by Ray Kimball MD at [facility] Lens Left: Eye [employer] [id number] 09/15/2025 [id number] / [id number] / Insurance [facility] MEDICARE JEAN CARLOS GAYLE [id number] Advance Directives For more information, please contact: [phone] * Full Code (Latest Code Status on [...] Who Made the Decision? Patient Care Teams Vacuum Furnace Operator Relationship Specialty Start Date End Date Handy James MD [address] [place] [address] PCP - General 02/05/24
--- OUTSIDE RECORDS SUMMARY | 2024-11-07 16:46 | XMS_ITS | Clinical Summary ---
Author Organization [facility] [place] [address] Care Team Providers Care Table And Desk Finisher Name Role Phone Handy James MD Primary Care Provider [phone] Allergies No known active allergies Medications Medication [...] 11:00 AM EDT Procedure visit Neurology at [address] [phone] Debbie Becker MD Cervical dystonia 08/22/2024 Travel [...] 9:30 AM EST Procedure visit Neurology at [address] [phone] Debbie Becker MD [facility] [place] [address] Health Maintenance Due Date Last Done Comments Hepatitis C Screening 1962 Tetanus/Diphtheria/Pertussis Vaccines (1 - Tdap) 07/17 Pneumoccocal Vaccine: 65+ (1 of 1 - PCV) 1994 Zoster vaccine (1 of 2) 1994 Advance Directive 1999 Bone Density Scan 2009 RSV Vaccine (1 - 1-dose 75+ series) 2019 Covid-19 Vaccine (1 - 2023- season) 2024 Influenza (Flu) vaccine (1 o [...] 200 units dose. Codes for chemodenervation visit: 45429, 62274 Exam: Procedure: A time out was performed [...] F/u in 3 months. Debbie Becker MD [facility] Neurology-Movement Disorders Debbie Becker MD NEUROLOGY ORDERABL ES from Last 3 Months Care Teams Table And Desk Finisher Relationship Specialty Start Date End Date Handy James MD PCP - General Family Medicine 08/09/20
--- OUTSIDE RECORDS SUMMARY | 2024-11-07 16:46 | XMS_ITS | Encounter Summary ---
Author Organization [facility] Address [address] [place] [address] Care Team Providers Care Blanker Press Operator Name Role Phone Handy Oneill MD Primary Care Provider [phone] Encounter Details Date Type Department Care Team (Late st Contact Info) Description 07/25/2002 Results Only [facility] - Maple conversion [address] [place] [address] Bebeto Ferrari MD [address] [place] [address] [address] Social History Tobacco Use Types [...] ? THELMA BONNER ? Accession #: ? [id number] : ? 1945 (Age: 57) ??F ?Collect [...] and electronically signed by: ? Laura Gavin, [facility](ASCP) ? Report Date: ??08/05/2002 10:06 End of Report [facility] 07/25/2002 07/29/2002 us Bebeto Ferrari MD PATHOLOGY ORDERABLES Final Resu lt [facility] [address] [place] [address] documented in this encounter Visit Diagnoses Not on filedocumented in this encounter Care Teams Blanker Press Operator Relationship Specialty Start Date End Date Handy Oneill MD [address] [place] [address] PCP - General 06/29/09 02/04/24 documented as of this encounter
--- OUTSIDE RECORDS SUMMARY | 2024-11-07 16:46 | XMS_ITS | Encounter Summary ---
Author Organization [facility] Address [address] [place] [address] Care Team Providers Care Technology Recruiter Name Role Phone Handy Oneill MD Primary Care Provider [phone] Encounter Details Date Type Department Care Team (Late st Contact Info) Description 09/21/2006 Results Only [facility] - Maple conversion [address] [place] [address] Bebeto Ferrari MD [address] [place] [address] [address] Social History Tobacco Use Types [...] ? THELMA BONNER ? Accession #: ? [id number] : ? 1945 (Age: 61) ??F ?Collect Date: ? 09/21/2006 Location: ? [facility] ? Receive Date: ? 09/24/2006 Provider: ?BEBETO FERRARI MD Copy to: ? Specimen/Source: ?ThinPrep Pap Test, Cervix/Endocervix, processed on [employer] ThinPrep Imaging System, with manual evaluation Last Menstrual Period: ? SPECIMEN ADEQUACY ? Satisfactory for Evaluation - transformation zone component present GENERAL CATEGORIZATION ? Negative for Intraepithelial Lesion or Malignancy ? Document reviewed and electronically signed by: ? OLY Helm(ASCP) ? Report Date: ??10/03/2006 09:39 End of Report [facility] 09/21/2006 09/24/2006 us Bebeto Ferrari MD PATHOLOGY ORDERABLES Final Resu lt [facility] [address] [place] [address] documented in this encounter Visit Diagnoses Not on filedocumented in this encounter Care Teams Technology Recruiter Relationship Specialty Start Date End Date Handy Oneill MD [address] [place] [address] PCP - General 06/29/09 02/04/24 documented as of this encounter
--- OUTSIDE RECORDS SUMMARY | 2024-11-07 16:46 | XMS_ITS | Encounter Summary ---
Author Organization [facility] Address [address] [place] [address] Care Team Providers Care Photovoltaic Technician Name Role Phone Handy Oneill MD Primary Care Provider [phone] Encounter Details Date Type Department Care Team (Late st Contact Info) Description 07/31/2003 Results Only [facility] - Maple conversion [address] [place] [address] Bebeto Ferrari MD [address] [place] [address] [address] Social History Tobacco Use Types [...] ? THELMA BONNER ? Accession #: ? [id number] : ? 1945 (Age: 58) ??F ?Collect [...] Document reviewed and electronically signed by: ? Delicia Gordon, [place](ASCP) ? Report Date: ??08/06/2003 10:50 End of Report [facility] 07/31/2003 08/04/2003 us Bebeto Ferrari MD PATHOLOGY ORDERABLES Final Resu lt [facility] [address] [place] [address] documented in this encounter Visit Diagnoses Not on filedocumented in this encounter Care Teams Photovoltaic Technician Relationship Specialty Start Date End Date Handy Oneill MD [address] [place] [address] PCP - General 06/29/09 02/04/24 documented as of this encounter
--- OUTSIDE RECORDS SUMMARY | 2024-11-07 16:46 | XMS_ITS | Encounter Summary ---
Author Organization [facility] Address [address] [place] [address] Care Team Providers Care Boiler/Chiller Operator Name Role Phone Handy Oneill MD Primary Care Provider [phone] Encounter Details Date Type Department Care Team (Late st Contact Info) Description 05/18/2000 Results Only [facility] - Maple conversion [address] [place] [address] Bebeto Ferrari MD [address] [place] [address] [address] Social History Tobacco Use Types [...] ? THELMA BONNER ? Accession #: ? [id number] : ? 1945 (Age: 54) ??F ?Collect [...] Report Date: ??05/30/2000 11:35 End of Report [facility] 05/18/2000 05/22/2000 us Bebeto Ferrari MD PATHOLOGY ORDERABLES Final Resu lt [facility] [address] [place] [address] documented in this encounter Visit Diagnoses Not on filedocumented in this encounter Care Teams Boiler/Chiller Operator Relationship Specialty Start Date End Date Handy Oneill MD [address] [place] [phone] PCP - General 06/29/09 02/04/24 documented as of this encounter
--- OUTSIDE RECORDS SUMMARY | 2024-11-07 16:46 | XMS_ITS | Encounter Summary ---
[place] [address] Care Team Providers Care Business Management Manager Name Role Phone Handy James MD Primary Care Provider [phone] Encounter Details Date Type Department Care Team [...] AM EST Procedure visit Neurology at [facility] [address] [place] [phone] Debbie Becker MD [facility] [place] [address] documented as of this encounter Visit Diagnoses Not on filedocumented in this encounter Care Teams Business Management Manager Relationship Specialty Start Date End Date Handy James MD PCP - General Family Medicine 08/09/20 documented as of this encounter
--- OUTSIDE RECORDS SUMMARY | 2024-11-07 16:46 | XMS_ITS | Encounter Summary ---
Author Organization [facility] Address [address] [place] [address] Care Team Providers Care Welfare Adviser Name Role Phone Handy Oneill MD Primary Care Provider [phone] Encounter Details Date Type Department Care Team (Late st Contact Info) Description 11/08/2010 Results Only [facility] Laboratory Services - [facility] ([facility]) [address] [place] [address] Ana Jerome MD [address] [place] [address] [place] [address] Social History Tobacco Use Types Packs/Day Years [...] of Report ? [facility] 11/08/2010 11/09/2010 us Ana S Radha MD PATHOLOGY ORDERABLES Final Resu lt [facility] [address] [place] [address] documented in this encounter Visit Diagnoses Not on filedocumented in this encounter Care Teams Welfare Adviser Relationship Specialty Start Date End Date Handy Oneill MD [address] [place] [address] PCP - General 06/29/09 02/04/24 documented as of this encounter
--- OUTSIDE RECORDS SUMMARY | 2024-11-07 16:46 | XMS_ITS | Encounter Summary ---
Author Organization [facility] Address [address] [place] [address] Care Team Providers Care Carpenter'S Helper Name Role Phone Handy Oneill MD Primary Care Provider [phone] Encounter Details Date Type Department Care Team (Late st Contact Info) Description 08/31/2014 Results Only [facility] Laboratory Services - [facility] [address] [place], [place] [id number] Ana Jerome MD [address] [place] [address] [place] [address] Social History Tobacco Use Types Packs/Day Years [...] ? THELMA BONNER ? Accession #: ? [id number] ? : ? 1945 (Age: 69) ??F [...] types 16,18,31,33,35, 39,45,51,52,56,58, 59,66, and 68 by pattern carrier mediated amplification. Comments Document reviewed and electronically signed by: ? System Interface ? Report date: 09/08/2014 By the signature above, the attending physician certifies that he/she has personally conducted a gross and/or microscopic examination of the described specimens and rendered or confirmed the above diagnosis. End of Report [facility] 08/31/2014 09/01/2014 us Ana Jerome MD PATHOLOGY ORDERABLES Final Resu lt [facility] [address] [place] [address] documented in this encounter Visit Diagnoses Not on filedocumented in this encounter Care Teams Carpenter'S Helper Relationship Specialty Start Date End Date Handy Oneill MD [address] [place] [address] PCP - General 06/29/09 02/04/24 documented as of this encounter
--- OUTSIDE RECORDS SUMMARY | 2024-11-07 16:46 | XMS_ITS | Encounter Summary ---
Author Organization [facility] Address [address] [place] [address] Care Team Providers Care Historical Guide Name Role Phone Handy Oneill MD Primary Care Provider [phone] Reason for Visit * Auth/Cert (Routine) Specialty Diagnoses / Procedures [facility] Referred To Contact Diagnoses Cataract, right Cataract, right [H26.9] Procedures [place] XCAPSL CTRC RMVL INSJ IO LENS PROSTH W/O ECP EXTRACTION, CATARACT, EXTRACAPSULAR, WITH IOL INSERTION Referral ID Status Reason Start Date Expiration Date Visits Re quested Visits Authorized [id number] 1 1 Encounter Details Date Type Department Care Team (Late st Contact Info) Description 01/22/2024 12:20 EDT - 01/22/2024 12:55 EDT Surgery [facility] Operating Room [address] [place] [id number] Ray Kimball MD [facility] [address] [place] [address] [id number] EXTRACTION, CATARACT, EXTRACAPSULAR, WITH IOL INSERTION [66453 (CPT??)] Surgery Details Date/Time Status Location OR Service Patient Class Case Cl ass Case Type Trauma Case? 01/22/2024 1220 Posted [facility] OR [facility] Outpatient Surgery H - Elective [...] Where can you learn more? Go to [email or web address] or log into your Voxel account at [email or web address] Appointment Scheduler Enter R255 in the search box to learn more about Cataract Surgery: What to Expect at Home. Current as of: November 28, 2021 Content Version: 13.4 ?? [employer]. Care instructions adapted under license by [facility]. If you have questions about a medical condition or this instruction, always ask your healthcare professional. [employer] disclaims any warranty or liability for your [...] Kimball MD 01/22/2024 12:14 Source Note - Benjaminmaria elenaHandy - 01/22/2024 0:00 EDT documented in this encounter OR Notes * OR Surgeon - Ray Kimball MD - 01/22/2024 1249 EDT EXTRACTION, CATARACT, EXTRACAPSULAR, WITH IOL INSERTION (R) Operative Note Date: 01/22/2024 Location: [facility] OR Name: Thelma Bonner, : 1945, Diagnosis [...] LENS INTRAOCULAR MONOFOCAL +6.5D TECNIS DCB00 - [id number] Implanted [id number] Staff: Boil Off Worker: Dior Momin RN; Patricia Cadet RN [...] to remove c ortical material and to czech the capsular bag. The capsular bag was [...] Instructions - Carolina Andres RN - 01/17/2024 9109 EDT The following preoperative instructions have been [...] mouth at bedtime. Yes Instructions for Thelma Leeann Kailey's Procedure at [facility] Surgical Services [...] any items. Valuables, archuleta or credit cards. [facility] is not responsible for any lost items during your hospital visit. If you experience fevers, swelling, redness, rash or a break in your skin prior to your surgery contact your surgeon. Arriving for your procedure: Enter through the main entrance, and check in at the patient registration information desk. They will take your name and let us know you have arrived. A patient access service representative will then verify your information and give you an identification bracelet. You will then be directed to the Funeral Home Manager waiting area around the corner to check [...] 01/23/2024 14:4 4 EDT us Scan 2 Paperboard Boxes Estimator PROCEDURE/MINOR SURGICAL OR DERABLES Final Result documented [...] Intraprocedure Given 01/22/2024 12:36 EDT 1 Each dypqzykadcevvl-yqnxqtjagij-pzud cnrulrdc-etclfbppnqasl-odzdhbwn c 1%-1%-0.1%-2.5%-0.4% ophthalmic solution drops 1 Drop [...] Until Sun01/22/24 at 1528, Routine, Recovery (only) mspyarurqwmwzt-xkminnqqbsz-bdvylz zbdeox-fjxkjdwkjlrtc-xmtrnvfya 1%-1%-0.1%-2.5%-0.4% ophthalmic solution drops 1 Drop (COMPLETED) 1 Drop, right eye, PREOP LINKED EYE MEDS-SEE ADMIN INSTRUCTIONS, 3 doses, First dose on Sun01/22/24 at 1145, Last dose on Sun01/22/24 at 1155, Routine, Preprocedure 1131 (Given - Provid er: Narcisa Caldwell, RILEY)1136 (Given - Provider: Narcisa Caldwell RN)1142 (Given [...] 01/22/2024 documented in this encounter Care Teams Historical Guide Relationship Specialty Start Date End Date Handy Oneill MD [address] [place] [address] PCP - General 06/29/09 02/04/24 documented as of this encounter
--- OUTSIDE RECORDS SUMMARY | 2024-11-07 16:46 | XMS_ITS | Encounter Summary ---
Author Organization [facility] Address [address] [place] [address] Care Team Providers Care Fleece Tier Name Role Phone Handy Oneill MD Primary Care Provider [phone] Encounter Details Date Type Department Care Team (Late st Contact Info) Description 11/26/2007 Results Only [facility] - Maple conversion [address] [place] [address] Bebeto Ferrari MD [address] [place] [address] [address] Social History Tobacco Use Types [...] ? THELMA BONNER ? Accession #: ? [id number] : ? 1945 (Age: 62) ??F ?Collect Date: ? 11/26/2007 Location: ? [facility] ? Receive Date: ? 11/27/2007 Provider: ?BEBETO FERRARI MD Copy to: ? Specimen/Source: ?ThinPrep Pap Test, Cervix/Endocervix, processed on [employer] ThinPrep Imaging System, with manual evaluation Last [...] ? Laura Gavin, SCT(ASCP) ? Report Date: ??12/02/2007 14:27 End of Report [facility] 11/26/2007 11/27/2007 us Bebeto Ferrari MD PATHOLOGY ORDERABLES Final Resu lt [facility] [address] [place] [address] documented in this encounter Visit Diagnoses Not on filedocumented in this encounter Care Teams Fleece Tier Relationship Specialty Start Date End Date Handy Oneill MD [address] [place] [address] PCP - General 8/25/09 4/1/24 documented as of this encounter
--- OUTSIDE RECORDS SUMMARY | 2024-11-07 16:46 | XMS_ITS | Encounter Summary ---
Author Organization [facility] Address [address] [place] [address] Care Team Providers Care Cat Scan Tech Name Role Phone Handy James MD Primary Care Provider [phone] Encounter Details Date Type Department Care Team [...] on filedocumented in this encounter Care Teams Cat Scan Tech Relationship Specialty Start Date End Date Handy James MD [address] [place] [address] PCP - General 02/05/24 documented as of this encounter
--- OUTSIDE RECORDS SUMMARY | 2024-11-07 16:46 | XMS_ITS | Encounter Summary ---
Author Organization [facility] Address [address] [place] [address] Care Team Providers Care Infantryman Name Role Phone Handy Oneill MD Primary Care Provider [phone] Handy James MD Primary Care Provider Encounter Details Date Type Department Care Team (Late st Contact Info) Description 11/01/2020 Lab Requisition [facility] Pathology & Laboratory Medicine - [address] [id number] Outr Resulting Lab, Provider Social History Tobacco [...] Unknown 11/01/2020 10:52 EST 11/01/2020 15:33 EST us Provider Outr Resulting Lab MICROBIOLOGY - GENER AL ORDERABLES Final Result [facility] [address] [place] [address] * COVID-19 TESTING (11/01/2020 10:52 EST) COVID-19 rt-PCR Result Negative Negative 11/02/2020 16:43 EST [facility] Comment: Negative results do not [...] defined by the FDA Performed on the Dragon Insideo 7 Flex. Performing Lab Quantstudio 7 [facility] Lab 11/02/2020 16:43 EST [facility] Swab 11/01/2020 10:5 2 EST 11/01/2020 15:33 EST us Provider Outr Resulting Lab MICROBIOLOGY - GENER AL ORDERABLES Final Result [facility] [address] [place] [address] documented in this encounter Visit Diagnoses Not on filedocumented in this encounter Care Teams Infantryman Relationship Specialty Start Date End Date Handy Oneill MD [address] [place] [address] PCP - General 06/29/09 02/04/24 Handy James MD [address] [place] [address] [place] [address] PCP - General 02/05/24 documented as of this encounter
--- OUTSIDE RECORDS SUMMARY | 2024-11-07 16:46 | XMS_ITS | Encounter Summary ---
Author Organization [facility] [place] [address] Care Team Providers Care Hydrometeorologist Name Role Phone Handy James MD Primary Care Provider [phone] Reason for Visit * High Dollar Medication (Routine) - Authorized Specialty Diagnoses / Procedures Referred By Contac t Referred To Contact Neurology Diagnoses Cervical dystonia Procedures Onabotulinumtoxin A (BOTOX) Authorizations Request (IN CLINIC) TC ONABOTULINUMTOXINA, 1 UNIT, INJECTION Debbie Becker MD [facility] [place] [address] Debbie Becker MD [facility] [place] [address] Referral ID Status Reason Start Date Expiration Date Visits Requested Visits Authorized [id number] Authorized Consult, Test & Treat 03/28/2024 03/28/2025 4 4 Encounter Details Date Type Department Care Team (Late st Contact Info) Description 08/22/2024 11:00 AM EDT Procedure visit Neurology at [facility] [address] [place] [address] Debbie Becker MD [facility] [place] [address] Cervical dystonia Social History Tobacco Use Types [...] 200 units dose. Codes for chemodenervation visit: 93968, [address]1237 Exam: Procedure: A time out was performed [...] F/u in 3 months. Debbie Becker MD [facility] Neurology-Movement Disorders documented in this encounter Plan of Treatment Upcoming Encounters Date Type Department Care Team (Late st Contact Info) Description 11/14/2024 9:30 AM EST Procedure visit Neurology at [facility] [address] [place] [address] Debbie Becker MD [facility] [place] [address] documented as of this encounter Procedures Procedure [...] 200 units dose. Codes for chemodenervation visit: 73791, [address]2475 Exam: Procedure: A time out was performed [...] F/u in 3 months. Debbie Becker MD [facility] Neurology-Movement Disorders Debbie Becker MD NEUROLOGY ORDERABL [...] Units documented in this encounter Care Teams Hydrometeorologist Relationship Specialty Start Date End Date Handy James MD PCP - General Family Medicine 08/09/20 documented as of this encounter
--- OUTSIDE RECORDS SUMMARY | 2024-11-07 16:46 | XMS_ITS | Encounter Summary ---
Author Organization [facility] Address [address] [place] [address] Care Team Providers Care Bottle Assembler Name Role Phone Handy Oneill MD Primary Care Provider [phone] Encounter Details Date Type Department Care Team [...] on filedocumented in this encounter Care Teams Bottle Assembler Relationship Specialty Start Date End Date Handy Oneill MD [address] [place] [address] PCP - General 06/29/09 02/04/24 documented as of this encounter
--- OUTSIDE RECORDS SUMMARY | 2024-11-07 16:46 | XMS_ITS | Encounter Summary ---
Author Organization [facility] Address [address] [place] [address] Care Team Providers Care Cut Off Saw Tender Metal Name Role Phone Handy Oneill MD Primary Care Provider [phone] Encounter Details Date Type Department Care Team [...] on filedocumented in this encounter Care Teams Cut Off Saw Tender Metal Relationship Specialty Start Date End Date Handy Oneill MD [address] [place] [address] PCP - General 06/29/09 02/04/24 documented as of this encounter
--- OUTSIDE RECORDS SUMMARY | 2024-11-07 16:46 | XMS_ITS | Encounter Summary ---
Author Organization [facility] Address [address] [place] [address] Care Team Providers Care Recruitment Director Name Role Phone Unavailable Primary Care Provider Unavailabl e Encounter Details Date Type Department Care Team (Late st Contact Info) Description 06/25/2009 Orders Only [facility] Laboratory Services - [facility] ([facility]) [address] [place], [place] [id number] Gideon Bowen, DO [address] [facility] [address] [place] [address] Social History Tobacco Use Types [...] ? THELMA BONNER ? Accession #: ? [id number] ? : ? 1945 (Age: 63) ??F [...] gastritis ? Gross Description: ? Received in Movile's solution labelled Kailey, Thelma and biopsy ? antrum are two pink-morales irregular soft tissues, 0.3 x 0.2 x 0.2 cm and 0.3 x ?? 0.3 x 0.2 cm. ??Submitted in toto as (A). ? Received in Movile's solution labelled Kailey Thelma and biopsy distal ? esophagus are three pink-morales irregular soft tissues ranging from 0.2 x 0.2 x ?? 0.2 cm to 0.5 x 0.3 x 0.1 cm. ??Submitted in toto as (B). ??(Jaqueline Gonzales)/nicolen ? End of Report ? [facility] 06/25/2009 06/26/2009 9:1 7 EDT us Gideon Bowen DO PATHOLOGY ORDERABLES Fi nal Result [facility] [address] [place] [address] documented in this encounter Visit Diagnoses Not on filedocumented in this encounter
--- OUTSIDE RECORDS SUMMARY | 2024-11-07 16:47 | XMS_ITS | Encounter Summary ---
[place] [address] Care Team Providers Care Zinc Miner Name Role Phone Handy James MD Primary Care Provider [phone] Reason for Visit * Reason Onset Date Comments Medication Problem 04/14/2024 Encounter Details Date Type Department Care Team (Late st Contact Info) Description 04/14/2024 Refill Neurology at [address] [address] Debbie Becker MD [facility] [place] [place] [address] Social History Tobacco Use Types Packs/Day Years [...] - 04/14/2024 10:09 AM EDT Copied from [facility] #[id number]. Topic: Specialty Dept CRMs - Medication Issues [...] 9:30 AM EST Procedure visit Neurology at [address] [address] Debbie Becker MD [facility] [place] [place] [address] documented as of this encounter Visit Diagnoses Not on filedocumented in this encounter Care Teams Zinc Miner Relationship Specialty Start Date End Date Handy James MD PCP - General Family Medicine 08/09/20 documented as of this encounter
--- OUTSIDE RECORDS SUMMARY | 2024-11-07 16:47 | XMS_ITS | Encounter Summary ---
[place] [address] Care Team Providers Care Logistics Analyst Name Role Phone Handy James MD Primary Care Provider [phone] Encounter Details Date Type Department Care Team (Late st Contact Info) Description 01/25/2021 [place] [phone] Laureen Turcios Social History Tobacco Use Types [...] Miscellaneous Notes * Telephone Encounter - Laureen Turicos - 01/25/2021 1:41 PM EDT Called patient to pre-chart, but was unable to reach her. Left voicemail notifying patient that shedoes not need to call back. documented in this encounter Plan of Treatment Upcoming Encounters Date Type Department Care Team (Late st Contact Info) Description 11/14/2024 9:30 AM EST Procedure visit Neurology at [facility] [address] [place] [address] Debbie Becker MD [facility] [place] [address] documented as of this encounter Visit Diagnoses Not on filedocumented in this encounter Care Teams Logistics Analyst Relationship Specialty Start Date End Date Handy James MD PCP - General Family Medicine 08/09/20 documented as of this encounter
--- OUTSIDE RECORDS SUMMARY | 2024-11-07 16:47 | XMS_ITS | Encounter Summary ---
[place] [address] Care Team Providers Care Wire Threader Name Role Phone Handy Oneill MD Primary Care Provider [phone] Encounter Details Date Type Department Care Team (Late st Contact Info) Description 08/21/2011 [place] [address] Pete Zurita MD Social History Tobacco Use Types Packs/Day Years [...] 9:30 AM EST Procedure visit Neurology at [address] [address] Debbie Becker MD [facility] [place] [address] documented as of this encounter Visit Diagnoses Not on filedocumented in this encounter Care Teams Wire Threader Relationship Specialty Start Date End Date Handy Oneill MD PCP - General 09/27/10 02/23/19 documented as of this encounter
--- OUTSIDE RECORDS SUMMARY | 2024-11-07 16:47 | XMS_ITS | Encounter Summary ---
Author Organization [facility] [place] [address] Care Team Providers Care Marine Fire Fighter Name Role Phone Handy James MD Primary Care Provider [phone] Reason for Referral * Diagnostic Test (Routine) - Closed Specialty Diagnoses / Procedures Referred By Contac t Referred To Contact Radiology Diagnoses Pulmonary nodule Procedures CT Chest wo Contrast (Generic) Teresa Nair MD [address] [place] [phone] [facility] [place] [address] Referral ID Status Reason Start Date Expiration Date V isits Requested Visits Authorized [id number] Closed Specialty Service Requested 08/17/2020 02/12/2021 1 1 Reason for Visit * Diagnostic Test (Routine) - Closed Specialty Diagnoses / Procedures Referred By Contac t Referred To Contact Radiology Diagnoses Pulmonary nodule Procedures CT Chest wo Contrast (Generic) Teresa Nair MD [address] [place] [phone] [facility] [place] [address] Referral ID Status Reason Start Date Expiration Date V isits Requested Visits Authorized [id number] Closed Specialty Service Requested 08/17/2020 02/12/2021 1 1 Encounter Details Date Type Department Care Team (Latest Contact Info) Description 08/17/2020 11:38 AM EDT - 08/17/2020 11:59 PM EDT Hospital [place] [address] Teresa Nair MD [address] [place] [phone] Pulmonary nodule Discharge Disposition: Home Social [...] 9:30 AM EST Procedure visit Neurology at [facility] [address] [place] [phone] Debbie Becker MD [facility] [place] [address] documented as of this encounter Procedures Procedure [...] ? Electronically signed by: Syeda Rene MD, [facility] ([phone]), at 08/17/2020 1:23 PM Narrative 08/17/2020 1:23 [...] nodule documented in this encounter Care Teams Marine Fire Fighter Relationship Specialty Start Date End Date Handy James MD PCP - General Family Medicine 08/09/20 documented as of this encounter
--- OUTSIDE RECORDS SUMMARY | 2024-11-07 16:47 | XMS_ITS | Encounter Summary ---
Author Organization [facility] [address] [place], [place] Care Team Providers Care Elevator Service Technician Name Role Phone Handy James MD Primary Care Provider Reason for Referral * Diagnostic Test (Routine) - Closed Specialty Diagnoses / Procedures [facility] Referred To Contact Radiology Diagnoses Lung nodule Procedures CT Chest wo Contrast (Generic) Handy James MD [address] [place] [address] [place] [address] [facility] [place] [address] Referral ID Status Reason Start Date Expiration Date V isits Requested Visits Authorized [id number] Closed Specialty Service Requested 08/08/2022 02/07/2024 1 1 Reason for Visit * Diagnostic Test (Routine) - Closed Specialty Diagnoses / Procedures [facility] Referred To Contact Radiology Diagnoses Lung nodule Procedures CT Chest wo Contrast (Generic) Handy James MD [address] [place] [address] [place] [address] [facility] [place] [address] Referral ID Status Reason Start Date Expiration Date V isits Requested Visits Authorized [id number] Closed Specialty Service Requested 08/08/2022 02/07/2024 1 1 Encounter Details Date Type Department Care Team (Latest Contact Info) Description 08/14/2022 12:00 PM EDT - 08/14/2022 11:59 PM EDT Hospital [place] [address] Handy James MD [address] [place] [address] [place] [address] Lung nodule Discharge Disposition: Home Social History [...] 9:30 AM EST Procedure visit Neurology at [facility] [address] [place] [phone] Debbie Becker MD [facility] [place] [address] documented as of this encounter Procedures Procedure [...] who have questions please contact the health progressive care unit registered nurse that requested your imaging first. ? Narrative [...] patients who have questions please contactthe health progressive care unit registered nurse that requested your imaging first. Handy James MD IMG CT ORDERABLES documented in this encounter Visit Diagnoses Diagnosis Lung nodule Solitary pulmonary nodule documented in this encounter Care Teams Elevator Service Technician Relationship Specialty Start Date End Date Handy James MD PCP - General Family Medicine 08/09/20 documented as of this encounter
--- OUTSIDE RECORDS SUMMARY | 2024-11-07 16:47 | XMS_ITS | Encounter Summary ---
[place] [address] Care Team Providers Care Machine Feed Operator Name Role Phone Handy James MD Primary Care Provider [phone] Encounter Details Date Type Department Care Team [...] AM EST Procedure visit Neurology at [facility] [address] [place] [phone] Debbie Becker MD [facility] [place] [address] documented as of this encounter Visit Diagnoses Not on filedocumented in this encounter Care Teams Machine Feed Operator Relationship Specialty Start Date End Date Handy James MD PCP - General Family Medicine 08/09/20 documented as of this encounter
--- OUTSIDE RECORDS SUMMARY | 2024-11-07 16:47 | XMS_ITS | Encounter Summary ---
[place] [address] Care Team Providers Care Trimming Operator Name Role Phone Handy James MD Primary Care Provider [phone] Reason for Referral * Consultation (Routine) - Closed Specialty Diagnoses / Procedures Referred By Contac t Referred To Contact Pulmonology Diagnoses Abnormal findings on diagnostic imaging of lung Handy James MD [address] [place] [address] [place] [address] [facility] [address] [place] [phone] Referral ID Status Reason Start Date Expiration Date V isits Requested Visits Authorized [id number] Closed Consult, Test & Treat 10/02/2023 10/01/2024 6 6 Encounter Details Date Type Department Care Team (Late st Contact Info) Description 10/02/2023 Transcribe Orders eDH Incoming Referrals [phone] Handy James MD [address] [place] [address] [place], [place] [phone] Abnormal findings on diagnostic imaging of lung [...] 9:30 AM EST Procedure visit Neurology at [address] [address] Debbie Becker MD [facility] [place] [address] Scheduled Referrals Name Type Priority Associated Diagnoses Order Schedule Referral to Pulmonology Outpatient Referral Routine Abnormal findings on diagnostic imaging of lung Ordered: 10/02/2023 documented as of this encounter Visit Diagnoses Diagnosis Abnormal findings on diagnostic imaging of lung Other nonspecific abnormal finding of lung field documented in this encounter Care Teams Trimming Operator Relationship Specialty Start Date End Date Handy James MD PCP - General Family Medicine 08/09/20 documented as of this encounter
--- OUTSIDE RECORDS SUMMARY | 2024-11-07 16:47 | XMS_ITS | Encounter Summary ---
[place] [address] Care Team Providers Care Director Water And Waste Services Name Role Phone Handy James MD Primary Care Provider [phone] Reason for Referral * Consultation (Routine) - Closed Specialty Diagnoses / Procedures Referred By Ileana alexis Referred To Contact Neurology Diagnoses Essential tremor Fior Deal MD [facility] [address] [place] [address] [facility] [address] [place] [phone] Referral ID Status Reason Start Date Expiration Date V isits Requested Visits Authorized [id number] Closed Consult, Test & Treat 08/31/2022 08/31/2023 1 1 Encounter Details Date Type Department Care Team (Late st Contact Info) Description 08/31/2022 Transcribe Orders eDH Incoming Referrals [phone] Fior Deal MD [facility] [address] [place], [place] [id number] Essential tremor (Primary Dx) Social History Tobacco [...] 9:30 AM EST Procedure visit Neurology at [address] [address] Debbie Becker MD [facility] [place] [address] Scheduled Referrals Name Type Priority Associated Diagnoses Orde r Schedule Referral to Neurology Outpatient Referral Routine Essential tremor Ordered: 08/31/2022 documented as of this encounter Visit Diagnoses Diagnosis Essential tremor- Primary Essential and other specified forms of tremor documented in this encounter Care Teams Director Water And Waste Services Relationship Specialty Start Date End Date Handy James MD PCP - General Family Medicine 08/09/20 documented as of this encounter
--- OUTSIDE RECORDS SUMMARY | 2024-11-07 16:47 | XMS_ITS | Encounter Summary ---
Author Organization [facility] [place] [address] Care Team Providers Care Galley Stripper Name Role Phone Handy James MD Primary Care Provider [phone] Reason for Visit * High Dollar Medication (Routine) - Closed Specialty Diagnoses / Procedures Referred By Contac t Referred To Contact Neurology Diagnoses Cervical dystonia Procedures Onabotulinumtoxin A (BOTOX) Authorizations Request (IN CLINIC) TC ONABOTULINUMTOXINA, 1 UNIT, INJECTION Debbie Becker MD [facility] [place] [address] Debbie Becker MD [facility] [place] [place] [address] Referral ID Status Reason Start Date Expiration Date V isits Requested Visits Authorized [id number] Closed Consult, Test & Treat 02/06/2023 03/24/2025 9 11 Encounter Details Date Type Department Care Team (Late st Contact Info) Description 06/25/2023 11:30 AM EDT Office Visit Neurology at [address] [address] Debbie Becker MD [facility] [place] [place] [address] Cervical dystonia Social History Tobacco Use Types [...] attain better benefit. Codes for chemodenervation visit: 00733, 64469 Exam: Procedure: A time out was performed [...] 3 months. Debbie Becker MD [facility] Neurology-Movement Disorders documented in this encounter Plan of Treatment Upcoming Encounters Date Type Department Care Team (Late st Contact Info) Description 11/14/2024 9:30 AM EST Procedure visit Neurology at [facility] [address] [place] [address] Debbie Becker MD [facility] [place] [place] [address] documented as of this encounter Procedures Procedure [...] attain better benefit. Codes for chemodenervation visit: 24711, 12463 Exam: Procedure: A time out was performed [...] 3 months. Debbie Becker MD [facility] Neurology-Movement Disorders Debbie Becker MD NEUROLOGY ORDERABL [...] Units documented in this encounter Care Teams Galley Stripper Relationship Specialty Start Date End Date Handy James MD PCP - General Family Medicine 08/09/20 documented as of this encounter
--- OUTSIDE RECORDS SUMMARY | 2024-11-07 16:47 | XMS_ITS | Encounter Summary ---
[place] [address] Care Team Providers Care Aerographer Name Role Phone Handy Oneill MD Primary Care Provider [phone] Reason for Visit * Reason Comments Essential Tremor Encounter Details Date Type Department Care Team (Late st Contact Info) Description 08/22/2011 11:15 AM EDT [place] [phone] Pete Zurita MD Tremor; Trigeminal neuralgia; Essential and other specified [...] 12:49 PM EDT Copy: Handy Oneill M.D. 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
--- OUTSIDE RECORDS SUMMARY | 2024-11-07 16:47 | XMS_ITS | Encounter Summary ---
Author Organization [place] [address] Care Team Providers Care Repairer Engine Production Name Role Phone Handy James MD Primary Care Provider [phone] Reason for Referral * Diagnostic Test (Routine) - Closed Specialty Diagnoses / Procedures Referred By [facility] Referred To Contact Radiology Diagnoses Lung nodule Procedures CT Chest wo Contrast (Generic) CT Chest w Contrast Handy James MD [address] [place] [address] [place] [address] [facility] [place] [address] Referral ID Status Reason Start Date Expiration Date V isits Requested Visits Authorized [id number] Closed Specialty Service Requested 07/26/2021 09/23/2021 1 1 Reason for Visit * Diagnostic Test (Routine) - Closed Specialty Diagnoses / Procedures Referred By [facility] Referred To Contact Radiology Diagnoses Lung nodule Procedures CT Chest wo Contrast (Generic) CT Chest w Contrast Handy James MD [address] [place] [address] [place] [address] [facility] [place] [address] Referral ID Status Reason Start Date Expiration Date V isits Requested Visits Authorized [id number] Closed Specialty Service Requested 07/26/2021 09/23/2021 1 1 Encounter Details Date Type Department Care Team (Latest Contact Info) Description 08/09/2021 10:26 AM EDT - 08/09/2021 11:59 PM EDT Hospital [place] [phone] Handy James MD [address] [place] [address] [place] [address] Lung nodule Discharge Disposition: Home Social History [...] visit Neurology at [facility] [address] [place] [address] Debbie Becker MD [facility] [place] [place] [address] documented as of this encounter Procedures Procedure [...] who have questions please contact the health weekend caregiver that requested your imaging first. ? Narrative 08/09/2021 11:14 AM EDT EXAMINATION: CT CHEST WO CONTRAST (GENERIC) CLINICAL HISTORY: 7 mm nodule seen 12/2019 (in [place]) 08/2020 without change; Metal Alloy Scientist in [place] recommended 12 month follow up (August 2021) [...] HISTORY: 7 mm nodule seen 12/2019 (in [place]) 08/2020 without change; Pulmonologistin [place] recommended 12 month follow up (August 2021) [...] patients who have questions please contactthe health weekend caregiver that requested your imaging first. Handy James MD IMG CT ORDERABLES documented in this encounter Visit Diagnoses Diagnosis Lung nodule Solitary pulmonary nodule documented in this encounter Care Teams Repairer Engine Production Relationship Specialty Start Date End Date Handy James MD PCP - General Family Medicine 08/09/20 documented as of this encounter
--- OUTSIDE RECORDS SUMMARY | 2024-11-07 16:47 | XMS_ITS | Encounter Summary ---
[place] [address] Care Team Providers Care Cabinet Installer Name Role Phone Handy James MD Primary Care Provider [phone] Reason for Visit * Reason Onset Date Comments Botox Injection 03/24/2024 Encounter Details Date Type Department Care Team (Late st Contact Info) Description 03/24/2024 Telephone Neurology at [address] [phone] Debbie Becker MD [facility] [place] [address] Botox Injection Social History Tobacco Use Types [...] AM EST Procedure visit Neurology at [address] [address] Debbie Becker MD [facility] [place] [address] documented as of this encounter Visit Diagnoses Not on filedocumented in this encounter Care Teams Cabinet Installer Relationship Specialty Start Date End Date Handy James MD PCP - General Family Medicine 08/09/20 documented as of this encounter
--- OUTSIDE RECORDS SUMMARY | 2024-11-07 16:47 | XMS_ITS | Encounter Summary ---
Author Organization [facility] [place] [address] Care Team Providers Care Psychology Fellow Name Role Phone Handy James MD Primary Care Provider [phone] Reason for Visit * High Dollar Medication (Routine) - Closed Specialty Diagnoses / Procedures Referred By Contac t Referred To Contact Neurology Diagnoses Cervical dystonia Procedures Onabotulinumtoxin A (BOTOX) Authorizations Request (IN CLINIC) TC ONABOTULINUMTOXINA, 1 UNIT, INJECTION Debbie Becker MD [facility] [address] Debbie Becker MD [facility] [place] [address] Referral ID Status Reason Start Date Expiration Date V isits Requested Visits Authorized [id number] Closed Consult, Test & Treat 02/06/2023 03/24/2025 9 11 Encounter Details Date Type Department Care Team (Late st Contact Info) Description 04/11/2024 10:30 AM EDT Office Visit Neurology at [address] [address] Debbie Becker MD [facility] [place] [address] Cervical dystonia Social History Tobacco Use Types [...] 200 units dose. Codes for chemodenervation visit: 34995, [address]6621 Exam: Procedure: A time out was performed [...] F/u in [address]. [address] Becker MD [facility] Neurology-Movement Disorders documented in this encounter Plan of Treatment Upcoming Encounters Date Type Department Care Team (Late st Contact Info) Description 11/14/2024 9:30 AM EST Procedure visit Neurology at [facility] [address] [place] [address] Debbie Becker MD [facility] [place] [address] documented as of this encounter Procedures Procedure [...] 200 units dose. Codes for chemodenervation visit: 86761, 58789 Exam: Procedure: A time out was performed [...] F/u in [address] Becker [address] [facility] Neurology-Movement Disorders Debbie Becker MD NEUROLOGY [...] Units documented in this encounter Care Teams Psychology Fellow Relationship Specialty Start Date End Date Handy James MD PCP - General Family Medicine 08/09/20 documented as of this encounter
--- OUTSIDE RECORDS SUMMARY | 2024-11-07 16:47 | XMS_ITS | Encounter Summary ---
[place] [address] Care Team Providers Care Barrel Bung Remover And Dumper Name Role Phone Handy James MD Primary Care Provider [phone] Encounter Details Date Type Department Care Team [...] 9:30 AM EST Procedure visit Neurology at [facility] [address] [place] [phone] Debbie Becker MD [facility] [place] [address] documented as of this encounter Visit Diagnoses Not on filedocumented in this encounter Care Teams Barrel Bung Remover And Dumper Relationship Specialty Start Date End Date Handy James MD PCP - General Family Medicine 08/09/20 documented as of this encounter
--- OUTSIDE RECORDS SUMMARY | 2024-11-07 16:47 | XMS_ITS | Encounter Summary ---
Author Organization [facility]ly [facility] [place] [address] Care Team Providers Care Tar Heater Operator Name Role Phone Handy James MD Primary Care Provider [phone] Reason for Referral * High Dollar Medication (Routine) - Authorized Specialty Diagnoses / Procedures Referred By Contac t Referred To Contact Neurology Diagnoses Cervical dystonia Procedures Onabotulinumtoxin A (BOTOX) Authorizations Request (IN CLINIC) TC ONABOTULINUMTOXINA, 1 UNIT, INJECTION Debbie Becker MD [facility] [place] [address] Debbie Becker MD [facility] [place] [address] Referral ID Status Reason Start Date Expiration Date Visits Requested Visits Authorized [id number] Authorized Consult, Test & Treat 03/28/2024 03/28/2025 4 4 Encounter Details Date Type Department Care Team (Late st Contact Info) Description 03/28/2024 Orders Only Neurology at [facility] [address] [place] [address] Debbie Becker MD [facility] [place] [place] [address] Cervical dystonia Social History Tobacco Use Types [...] 9:30 AM EST Procedure visit Neurology at [address] [address] Debbie Becker MD [facility] [place] [address] documented as of this encounter Visit Diagnoses Diagnosis Cervical dystonia Spasmodic torticollis documented in this encounter Care Teams Tar Heater Operator Relationship Specialty Start Date End Date Handy James MD PCP - General Family Medicine 08/09/20 documented as of this encounter
--- OUTSIDE RECORDS SUMMARY | 2024-11-07 16:47 | XMS_ITS | Encounter Summary ---
[place] [address] Care Team Providers Care Manager Transportation Name Role Phone Handy Oneill MD Primary Care Provider [phone] Reason for Visit * Reason Onset Date Comments Medication Refill 02/15/2012 Encounter Details Date Type Department Care Team (Late st Contact Info) Description 02/15/2012 [place] [phone] Pete Zurita MD Tremor Social History Tobacco Use Types Packs/Day [...] AM EST Procedure visit Neurology at [address] [address] Debbie Becker MD [facility] [place] [address] documented as of this encounter Visit Diagnoses Diagnosis Tremor Abnormal involuntary movements documented in this encounter Care Teams Manager Transportation Relationship Specialty Start Date End Date Handy Oneill MD PCP - General 09/27/10 02/23/19 documented as of this encounter
--- OUTSIDE RECORDS SUMMARY | 2024-11-07 16:47 | XMS_ITS | Encounter Summary ---
[place] [address] Care Team Providers Care Construction Coordinator Name Role Phone Handy James MD Primary Care Provider [phone] Encounter Details Date Type Department Care Team [...] 9:30 AM EST Procedure visit Neurology at [facility] [address] [place] [phone] Debbie Becker MD [facility] [place] [address] documented as of this encounter Visit Diagnoses Not on filedocumented in this encounter Care Teams Construction Coordinator Relationship Specialty Start Date End Date Handy James MD PCP - General Family Medicine 08/09/20 documented as of this encounter
--- OUTSIDE RECORDS SUMMARY | 2024-11-07 16:47 | XMS_ITS | Encounter Summary ---
[place] [address] Care Team Providers Care Train Director Name Role Phone Handy James MD Primary Care Provider [phone] Encounter Details Date Type Department Care Team (Latest Contact Info) Description 03/02/2021 9:19 PM EDT - 03/02/2021 11:59 PM EDT Hospital [place] [address] Discharge Disposition: Home Social History Tobacco Use [...] 9:30 AM EST Procedure visit Neurology at [address] [address] Debbie Becker MD [facility] [place] [place] [address] documented as of this encounter Procedures Procedure Name Priority Date/Time Associated Diagnosis Comments SURGICAL PATHOLOGY REPORT Routine 03/02/2021 12:22 PM EDT documented in this encounter Results * Surgical Pathology Report (03/02/2021 12:22 PM EDT) Final Diagnosis [id number] ? Location: [facility] The signing pathologist has (i) examined the relevant preparation(s) for the specimen(s) and (ii) rendered or confirmed the diagnosis(es). . ?Surgical Pathology DIAGNOSIS Rectum, ??polypectomy: Hyperplastic polyp. CR-PX Electronically signed by: ?Lyndsey CAMPO PhD, Meron Verified: ??03/07/2021 9:36 ?? Pathologist Performed at: ??-[facility] Dept. of Pathology, [place], [place] SPECIMEN(S) SUBMITTED A - Rectal polyp, biopsy (1) Referring Identifier: ?(not provided) Report to: O'moe, Arelis CLINICAL INFORMATION Screening colonoscopy SPECIMEN PROCESSING A - Labeled/Fixativ e: Rectal polyp, formalin. Quantity/Size: Single, 0.2 cm. Tissue Description: Soft, morales-brown tissue. Sections/Proces sing: Submitted en toto ??in 1 cassette labeled A1. ??eunice 03/07/2021 9:36 AM EDT [facility] GI Biopsy 03/02/2021 12:2 2 PM EDT 03/02/2021 12:22 PM EDT Gideon Forman DO PATHOLOGY/CYTOL OGY ORDERABLES [facility] [place] [address] documented in this encounter Visit Diagnoses Not on filedocumented in this encounter Care Teams Train Director Relationship Specialty Start Date End Date Handy James MD PCP - General Family Medicine 08/09/20 documented as of this encounter
--- OUTSIDE RECORDS SUMMARY | 2024-11-07 16:47 | XMS_ITS | Encounter Summary ---
[place] [address] Care Team Providers Care Remedial Project Manager Name Role Phone Handy Oneill MD Primary Care Provider [phone] Encounter Details Date Type Department Care Team (Late st Contact Info) Description 05/20/2012 2:45 PM EDT [place] [phone] Pete Zurita MD Essential and other specified forms of tremor; [...] and her . She is really enjoying fpc on that account. 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
--- OUTSIDE RECORDS SUMMARY | 2024-11-07 16:47 | XMS_ITS | Encounter Summary ---
Author Organization [facility] [address] Care Team Providers Care Mystery Shopper Name Role Phone Handy James MD Primary Care Provider [phone] Reason for Visit * High Dollar Medication (Routine) - Closed Specialty Diagnoses / Procedures Referred By Contac t Referred To Contact Neurology Diagnoses Cervical dystonia Procedures Onabotulinumtoxin A (BOTOX) Authorizations Request (IN CLINIC) TC ONABOTULINUMTOXINA, 1 UNIT, INJECTION Debbie Becker MD [facility] [address] Debbie Becker MD [facility] [place] [address] Referral ID Status Reason Start Date Expiration Date V isits Requested Visits Authorized [id number] Closed Consult, Test & Treat 02/06/2023 03/24/2025 9 11 Encounter Details Date Type Department Care Team (Late st Contact Info) Description 01/18/2024 10:00 AM EDT Office Visit Neurology at [address] [address] Debbie Becker MD [facility] [place] [address] Cervical dystonia Social History Tobacco Use Types [...] 200 units dose. Codes for chemodenervation visit: 83582, 56734 Exam: Procedure: A time out was performed [...] in 3 months. Debbie Becker MD [facility] Neurology-Movement Disorders documented in this encounter Plan of Treatment Upcoming Encounters Date Type Department Care Team (Late st Contact Info) Description 11/14/2024 9:30 AM EST Procedure visit Neurology at [facility] [address] [place] [address] Debbie Becker MD [facility] [place] [address] documented as of this encounter Procedures Procedure [...] 200 units dose. Codes for chemodenervation visit: 63761, 13446 Exam: Procedure: A time out was performed [...] in 3 months. Debbie Becker MD [facility] Neurology-Movement Disorders Debbie Becker MD NEUROLOGY [...] Units documented in this encounter Care Teams Mystery Shopper Relationship Specialty Start Date End Date Handy James MD PCP - General Family Medicine 08/09/20 documented as of this encounter
--- OUTSIDE RECORDS SUMMARY | 2024-11-07 16:47 | XMS_ITS | Encounter Summary ---
[place] [address] Care Team Providers Care Electrical And Instrument Mechanic Name Role Phone Handy James MD Primary Care Provider [phone] Encounter Details Date Type Department Care Team [...] 9:30 AM EST Procedure visit Neurology at [facility] [address] [place] [phone] Debbie Becker MD [facility] [place] [address] documented as of this encounter Visit Diagnoses Not on filedocumented in this encounter Care Teams Electrical And Instrument Mechanic Relationship Specialty Start Date End Date Handy James MD PCP - General Family Medicine 08/09/20 documented as of this encounter
--- OUTSIDE RECORDS SUMMARY | 2024-11-07 16:47 | XMS_ITS | Encounter Summary ---
[place] [address] Care Team Providers Care Treasury Management Sales Consultant Name Role Phone Handy James MD Primary Care Provider [phone] Encounter Details Date Type Department Care Team [...] 9:30 AM EST Procedure visit Neurology at [facility] [address] [place] [address] Debbie Becker MD [facility] [place] [address] documented as of this encounter Visit Diagnoses Not on filedocumented in this encounter Care Teams Treasury Management Sales Consultant Relationship Specialty Start Date End Date Handy James MD PCP - General Family Medicine 08/09/20 documented as of this encounter
--- OUTSIDE RECORDS SUMMARY | 2024-11-07 16:47 | XMS_ITS | Encounter Summary ---
[place] [address] Care Team Providers Care Patient Care Associate Name Role Phone Handy James MD Primary Care Provider [phone] Encounter Details Date Type Department Care Team (Late st Contact Info) Description 10/12/2023 Tele[place] [phone] Josiane Jaime Social History Tobacco Use Types [...] 9:30 AM EST Procedure visit Neurology at [address] [address] Debbie Becker MD [facility] [address] NEUROLOGY DEPT [place], [place] [address] documented as of this encounter Visit Diagnoses Not on filedocumented in this encounter Care Teams Patient Care Associate Relationship Specialty Start Date End Date Handy James MD PCP - General Family Medicine 08/09/20 documented as of this encounter
--- OUTSIDE RECORDS SUMMARY | 2024-11-07 16:47 | XMS_ITS | Encounter Summary ---
[place] [address] Care Team Providers Care Monitor And Storage Bin Tender Name Role Phone Handy James MD Primary Care Provider [phone] Reason for Visit * Reason Onset Date Comments Appointment 02/06/2023 Encounter Details Date Type Department Care Team (Late st Contact Info) Description 02/06/2023 [place] [phone] Debbie Becker MD [facility] [place] [address] Appointment Social History Tobacco Use Types Packs/Day [...] 02/06/2023 4:21 PM EDT Copied from CRM #[id number]. Topic: Specialty Dept CRMs - Appointment Needed [...] that day. Please call to advise at [phone]. documented in this encounter Plan of Treatment Upcoming Encounters Date Type Department Care Team (Late st Contact Info) Description 11/14/2024 9:30 AM EST Procedure visit Neurology at [address] [address] Debbie Becker MD [facility] [place] [address] documented as of this encounter Visit Diagnoses Not on filedocumented in this encounter Care Teams Monitor And Storage Bin Tender Relationship Specialty Start Date End Date Handy James MD PCP - General Family Medicine 08/09/20 documented as of this encounter
--- OUTSIDE RECORDS SUMMARY | 2024-11-07 16:47 | XMS_ITS | Encounter Summary ---
[place] [address] Care Team Providers Care Online Merchandiser Name Role Phone Handy James MD Primary Care Provider [phone] Reason for Referral * Consultation (Routine) - Canceled Specialty Diagnoses / Procedures Referred By Ileana alexis Referred To Contact Endocrinology Diagnoses Hypothyroidism, unspecified type Clarisa Day MD [address] [place] [address] [facility] Endocrinology [address] [place] [phone] Referral ID Status Reason Start Date Expiration Date V isits Requested Visits Authorized [id number] Canceled Consult, Test & Treat 09/11/2022 09/11/2022 6 6 Encounter Details Date Type Department Care Team (Latest Contact Info) Description 09/12/2022 Transcribe Orders eDH Incoming Referrals [phone] Clarisa Day MD [address] [place] [address] Hypothyroidism, unspecified type Social History Tobacco Use [...] 9:30 AM EST Procedure visit Neurology at [address] [address] Debbie Becker MD [facility] [place] [address] Scheduled Referrals Name Type Priority Associated Diagnoses Order Schedule Referral to Endocrinology Outpatient Referral Routine Hypothyroidism, unspecified type Ordered: 09/12/2022 documented as of this encounter Visit Diagnoses Diagnosis Hypothyroidism, unspecified type documented in this encounter Care Teams Online Merchandiser Relationship Specialty Start Date End Date Handy James MD PCP - General Family Medicine 08/09/20 documented as of this encounter
--- OUTSIDE RECORDS SUMMARY | 2024-11-07 16:47 | XMS_ITS | Encounter Summary ---
[place] [address] Care Team Providers Care Photoengraver Apprentice Name Role Phone Handy James MD Primary Care Provider [phone] Encounter Details Date Type Department Care Team [...] 9:30 AM EST Procedure visit Neurology at [facility] [address] [place] [address] Debbie Becker MD [facility] [place] [address] documented as of this encounter Visit Diagnoses Not on filedocumented in this encounter Care Teams Photoengraver Apprentice Relationship Specialty Start Date End Date Handy James MD PCP - General Family Medicine 08/09/20 documented as of this encounter
--- OUTSIDE RECORDS SUMMARY | 2024-11-07 16:47 | XMS_ITS | Encounter Summary ---
[place] [address] Care Team Providers Care Business Advisor Name Role Phone Handy James MD Primary Care Provider [phone] Encounter Details Date Type Department Care Team (Late st Contact Info) Description 03/06/2023 Telephone [place] [phone] Debbie Becker MD [facility] [place] [address] Social History Tobacco Use Types Packs/Day Years [...] 12:08 PM EDT Copied from [facility] #[id number]. Topic: Specialty Dept CRMs - Generic Call [...] 9:30 AM EST Procedure visit Neurology at [address] [address] Debbie Becker MD [facility] [place] [address] documented as of this encounter Visit Diagnoses Not on filedocumented in this encounter Care Teams Business Advisor Relationship Specialty Start Date End Date Handy James MD PCP - General Family Medicine 08/09/20 documented as of this encounter
--- OUTSIDE RECORDS SUMMARY | 2024-11-07 16:47 | XMS_ITS | Encounter Summary ---
Author Organization [facility] [place] [address] Care Team Providers Care Sheetrock Applicator Name Role Phone Handy James MD Primary Care Provider [phone] Reason for Visit * High Dollar Medication (Routine) - Closed Specialty Diagnoses / Procedures Referred By Contac t Referred To Contact Neurology Diagnoses Cervical dystonia Procedures Onabotulinumtoxin A (BOTOX) Authorizations Request (IN CLINIC) TC ONABOTULINUMTOXINA, 1 UNIT, INJECTION Debbie Becker MD [facility] [place] [address] Debbie Becker MD [facility] [place] [address] Referral ID Status Reason Start Date Expiration Date V isits Requested Visits Authorized [id number] Closed Consult, Test & Treat 02/06/2023 03/24/2025 9 11 Encounter Details Date Type Department Care Team (Late st Contact Info) Description 10/08/2023 11:30 AM EST Office Visit Neurology at [facility] [address] [place] [address] Debbie Becker MD [facility] [place] [address] Cervical dystonia Social History Tobacco Use Types [...] 200 units today. Codes for chemodenervation visit: 94536, [address] Exam: Procedure: A time out was performed [...] F/u in 3 months. Debbie Becker MD [facility] Neurology-Movement Disorders documented in this encounter Plan of Treatment Upcoming Encounters Date Type Department Care Team (Late st Contact Info) Description 11/14/2024 9:30 AM EST Procedure visit Neurology at [address] [place] [address] Debbie Becker MD [facility] [place] [address] documented as of this encounter Procedures Procedure [...] 200 units today. Codes for chemodenervation visit: 81843, [address] Exam: Procedure: A time out was performed [...] F/u in 3 months. Debbie Becker MD [facility] Neurology-Movement Disorders Debbie Becker MD NEUROLOGY [...] Units documented in this encounter Care Teams Sheetrock Applicator Relationship Specialty Start Date End Date Handy James MD PCP - General Family Medicine 08/09/20 documented as of this encounter
--- OUTSIDE RECORDS SUMMARY | 2024-11-07 16:47 | XMS_ITS | Encounter Summary ---
[place] [address] Care Team Providers Care Audiometrist Name Role Phone Handy James MD Primary Care Provider [phone] Reason for Visit * Reason Onset Date Comments Medication Refill 04/21/2024 Encounter Details Date Type Department Care Team (Late st Contact Info) Description 04/21/2024 Telephone Neurology at [address] [phone] Debbie Becker MD [facility] [place] [address] Medication Refill Social History Tobacco Use Types [...] spoke with patient. I had called [facility] in [place], [place] yesterday and confirmed that they had [...] 04/21/2024 4:03 PM EDT Copied from CRM #[id number]. Topic: Specialty Dept CRMs - Medication Issues >> Apr 21, 2024 2:53 PM Maddison Cedeño wrote: Medication Issues Specialist Debbie Becker Relationship (if other than patient-full name): Thelma Bonner Reason for call: Medication Issue (if symptom based used Triage Subtopic) Message/information for the nurse: Patient called, states that her pharmacy, [facility] did not receive the prescription that was sent on 04/18 for a 90 day supply, please advise. Name of Medication: primidone (Mysoline) 50 mg tablet Issue with the medication: pharmacy did not receive documented in this encounter Plan of Treatment Upcoming Encounters Date Type Department Care Team (Late st Contact Info) Description 11/14/2024 9:30 AM EST Procedure visit Neurology at [address] [phone] Debbie Becker MD [facility] [place] [address] documented as of this encounter Visit Diagnoses Not on filedocumented in this encounter Care Teams Audiometrist Relationship Specialty Start Date End Date Handy James MD PCP - General Family Medicine 08/09/20 documented as of this encounter
--- OUTSIDE RECORDS SUMMARY | 2024-11-07 16:47 | XMS_ITS | Encounter Summary ---
[place] [address] Care Team Providers Care Apparel Cutter Name Role Phone Handy Oneill MD Primary Care Provider [phone] Encounter Details Date Type Department Care Team (Late st Contact Info) Description 08/21/2013 1:45 PM EDT [place] [phone] Pete Zurita MD Tremor (Primary Dx) Discharge Disposition: Home Social [...] AM EST Procedure visit Neurology at [address] [address] Debbie Becker MD [facility] [place] [address] documented as of this encounter Visit Diagnoses Diagnosis Tremor- Primary Abnormal involuntary movements documented in this encounter Care Teams Apparel Cutter Relationship Specialty Start Date End Date Handy Oneill MD PCP - General 09/27/10 02/23/19 documented as of this encounter
--- OUTSIDE RECORDS SUMMARY | 2024-11-07 16:47 | XMS_ITS | Encounter Summary ---
[place] [address] Care Team Providers Care Day Haul Youth Supervisor Name Role Phone Handy James MD Primary Care Provider [phone] Reason for Visit * Reason Onset Date Comments Referral 09/28/2020 Encounter Details Date Type Department Care Team (Late st Contact Info) Description 09/28/2020 [place] [address] Letty Alicea LPN Referral Social History Tobacco [...] spot but she will also have her Master Pilot in [place] send us notes and referral to see a cataract specialist. She is particularly concerned about the surgery due to her head termor and how it would effect the surgery. documented in this encounter Plan of Treatment Upcoming Encounters Date Type Department Care Team (Late st Contact Info) Description 11/14/2024 9:30 AM EST Procedure visit Neurology at [address] [address] Debbie Becker MD [facility] [place] [address] documented as of this encounter Visit Diagnoses Not on filedocumented in this encounter Care Teams Day Haul Youth Supervisor Relationship Specialty Start Date End Date Handy James MD PCP - General Family Medicine 08/09/20 documented as of this encounter
--- OUTSIDE RECORDS SUMMARY | 2024-11-07 16:47 | XMS_ITS | Encounter Summary ---
[place] [address] Care Team Providers Care Senior Mechanical Estimator Name Role Phone Handy Oneill MD Primary Care Provider [phone] Reason for Visit * Reason Comments Follow-up Encounter Details Date Type Department Care Team (Late st Contact Info) Description 02/16/2011 1:00 PM EDT [place] [phone] Pete Zurita MD Tremor, essential (Primary Dx) Discharge Disposition: Home [...] 9:30 AM EST Procedure visit Neurology at [address] [address] Debbie Becker MD [facility] [place] [address] documented as of this encounter Visit Diagnoses Diagnosis Tremor, essential- Primary Essential and other specified forms of tremor documented in this encounter Care Teams Senior Mechanical Estimator Relationship Specialty Start Date End Date Handy Oneill MD PCP - General 09/27/10 02/23/19 documented as of this encounter
--- OUTSIDE RECORDS SUMMARY | 2024-11-07 16:47 | XMS_ITS | Encounter Summary ---
[place] [address] Care Team Providers Care Cattle Trader Name Role Phone Handy Oneill MD Primary Care Provider [phone] Reason for Visit * Reason Onset Date Comments Medication Refill 08/25/2011 Encounter Details Date Type Department Care Team (Late st Contact Info) Description 08/25/2011 [place] [address] Pete Zurita MD Trigeminal neuralgia; Tremor Social History Tobacco Use [...] 9:30 AM EST Procedure visit Neurology at [address] [phone] Debbie Becker MD [facility] [place] [address] documented as of this encounter Visit Diagnoses Diagnosis Trigeminal neuralgia Tremor Abnormal involuntary movements documented in this encounter Care Teams Cattle Trader Relationship Specialty Start Date End Date Handy Oneill MD PCP - General 09/27/10 02/23/19 documented as of this encounter
--- OUTSIDE RECORDS SUMMARY | 2024-11-07 16:47 | XMS_ITS | Encounter Summary ---
[place] [address] Care Team Providers Care Fire Technology Instructor Name Role Phone Handy James MD Primary Care Provider [phone] Encounter Details Date Type Department Care Team (Late st Contact Info) Description 08/16/2020 Telephone [place] [address] Lynn Fairbanks Social History Tobacco Use Types Packs/Day Years [...] Miscellaneous Notes * Telephone Encounter - Lynn Fairbanks, NUTRITION SERVICES AIDE - 08/16/2020 10:53 AM EDT Call from pt asking what she needs to be scheduled her in pulmonary? Her family is relocating back to [place]. Let her know we need a referral from her physician and notes,reports, images sent to us and we will call her to schedule when we have the referral. documented in this encounter Plan of Treatment Upcoming Encounters Date Type Department Care Team (Late st Contact Info) Description 11/14/2024 9:30 AM EST Procedure visit Neurology at [address] [address] Debbie Becker MD [facility] [place] [address] documented as of this encounter Visit Diagnoses Not on filedocumented in this encounter Care Teams Fire Technology Instructor Relationship Specialty Start Date End Date Handy James MD PCP - General Family Medicine 08/09/20 documented as of this encounter
--- OUTSIDE RECORDS SUMMARY | 2024-11-07 16:47 | XMS_ITS | Encounter Summary ---
[place] [address] Care Team Providers Care Spike Driver Name Role Phone Handy James MD Primary Care Provider Reason for Visit * High Dollar Medication (Routine) - Closed Specialty Diagnoses / Procedures Referred By Contac t Referred To Contact Neurology Diagnoses Cervical dystonia Procedures Onabotulinumtoxin A (BOTOX) Authorizations Request (IN CLINIC) TC ONABOTULINUMTOXINA, 1 UNIT, INJECTION Debbie Becker MD [facility] [place] [address] Debbie Becker MD [facility] [place] [address] Referral ID Status Reason Start Date Expiration Date V isits Requested Visits Authorized [id number] Closed Consult, Test & Treat 02/06/2023 03/24/2025 9 11 Encounter Details Date Type Department Care Team (Late st Contact Info) Description 02/19/2023 3:30 PM EDT [place] [address] Debbie Becker MD [facility] [place] [address] Cervical dystonia; Essential tremor Social History Tobacco [...] with injections today. Codes for chemodenervation visit: 78586, 77224 Exam: Procedure: A time out was performed [...] know howthis works. She will be in [place] when her next injections are due. If she has great benefit I will try to find someone there to do her injections end of May. If she does not have good benefitI will have her come here in July when she is back so we can regroup on dosing pattern. Debbie Becker MD [facility] Neurology-Movement Disorders documented in this encounter Plan of Treatment Upcoming Encounters Date Type Department Care Team (Late st Contact Info) Description 11/14/2024 9:30 AM EST Procedure visit Neurology at [facility] [address] [place] [address] Debbie Becker MD [facility] [place] [address] documented as of this encounter Procedures Procedure [...] with injections today. Codes for chemodenervation visit: 26898, 72699 Exam: Procedure: A time out was performed [...] how this works. She will be in [place] when her next injections are due. If she has great benefit I will try to find someone there to do her injections end of May. If she does not have good benefit I will have her come here in July when she is back so we can regroup on dosing pattern. Debbie Becker MD [facility] Neurology-Movement Disorders Debbie Becker MD NEUROLOGY ORDERABL [...] Units documented in this encounter Care Teams Spike Driver Relationship Specialty Start Date End Date Handy James MD PCP - General Family Medicine 08/09/20 documented as of this encounter
--- OUTSIDE RECORDS SUMMARY | 2024-11-07 16:47 | XMS_ITS | Encounter Summary ---
Author Organization [facility] [place] [address] Care Team Providers Care Communications Strategist Name Role Phone Handy James MD Primary Care Provider [phone] Reason for Referral * High Dollar Medication (Routine) - Closed Specialty Diagnoses / Procedures Referred By Contac t Referred To Contact Neurology Diagnoses Cervical dystonia Procedures Onabotulinumtoxin A (BOTOX) Authorizations Request (IN CLINIC) TC ONABOTULINUMTOXINA, 1 UNIT, INJECTION Debbie Becker MD [facility] [place] [address] Debbie Becker MD [facility] [place] [address] Referral ID Status Reason Start Date Expiration Date V isits Requested Visits Authorized [id number] Closed Consult, Test & Treat 02/06/2023 03/24/2025 9 11 Reason for Visit * Consultation (Routine) - Closed Specialty Diagnoses / Procedures Referred By Contac t Referred To Contact Neurology Diagnoses Essential tremor Fior Deal MD [facility] [address] [place] [address] [facility] Neurology [address] [place] [phone] Referral ID Status Reason Start Date Expiration Date V isits Requested Visits Authorized [id number] Closed Consult, Test & Treat 08/31/2022 08/31/2023 1 1 Encounter Details Date Type Department Care Team (Late st Contact Info) Description 02/06/2023 12:00 PM EDT [place] [address] Debbie Becker MD [facility] [place] [address] Essential tremor; Cervical dystonia Social [...] from the original note were not included. [facility] Movement Disorders New Patient Evaluation Date of service 02/06/2023 Referring provider Handy James MD [address] [place] [address] Cc: tremor History of present illness Thelma Bonner is a 77 y.o. right handed woman who presents to the movement disorders clinic for evaluation of tremor. 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 Tremors since her 40s. She has noted [...] around the country, Daughter lives close in [place] Family History Problem Relation Age of Onset [...] plan to inject 02/14 Debbie Becker MD [facility] Neurology-Movement Disorders documented in this encounter Plan of Treatment Upcoming Encounters Date Type Department Care Team (Late st Contact Info) Description 11/14/2024 9:30 AM EST Procedure visit Neurology at [address] [address] Debbie Becker MD [facility] [place] [address] documented as of this encounter Visit Diagnoses Diagnosis Essential tremor Essential and other specified forms of tremor Cervical dystonia Spasmodic torticollis documented in this encounter Care Teams Communications Strategist Relationship Specialty Start Date End Date Handy James MD PCP - General Family Medicine 08/09/20 documented as of this encounter
--- OUTSIDE RECORDS SUMMARY | 2024-11-07 16:47 | XMS_ITS | Encounter Summary ---
Author Organization [facility] [address] Care Team Providers Care Transition Mgr Rn Name Role Phone Handy James MD Primary Care Provider [phone] Reason for Referral * Diagnostic Test (Routine) - Closed Specialty Diagnoses / Procedures Referred By Ileana alexis Referred To Contact Radiology Diagnoses Lung nodules Procedures CT Chest w Contrast Handy James MD [address] [place] [address] [place] [address] [facility] [place] [address] Referral ID Status Reason Start Date Expiration Date V isits Requested Visits Authorized [id number] Closed Specialty Service Requested 09/10/2023 03/10/2025 1 1 Reason for Visit * Diagnostic Test (Routine) - Closed Specialty Diagnoses / Procedures Referred By Ileana alexis Referred To Contact Radiology Diagnoses Lung nodules Procedures CT Chest w Contrast Handy James MD [address] [place] [address] [place] [address] [facility] [place] [address] Referral ID Status Reason Start Date Expiration Date V isits Requested Visits Authorized [id number] Closed Specialty Service Requested 09/10/2023 03/10/2025 1 1 Encounter Details Date Type Department Care Team (Latest Contact Info) Description 10/08/2023 9:53 AM EST - 10/08/2023 11:59 PM EST Hospital [place] [address] aHndy James MD [address] [place] [address] [place] [address] Lung nodules Discharge Disposition: Home Social History [...] AM EST Procedure visit Neurology at [address] [address] Debbie Becker MD [facility] [place] [address] documented as of this encounter Procedures Procedure [...] who have questions please contact the health career consultant that requested your imaging first. ? Electronically signed by: Starla Tierney MD, [facility] ([phone]), at 10/08/2023 8:25 PM Narrative 10/08/2023 8:25 [...] patients who have questions please contactthe health career consultant that requested your imaging first. Handy James [...] mLs documented in this encounter Care Teams Transition Mgr Rn Relationship Specialty Start Date End Date Handy James MD PCP - General Family Medicine 08/09/20 documented as of this encounter
== END 2024-11-07 16:45 | disposition home or self-care (01) ==
LOC: NCHCN 16:44
PROVIDERS: PCP Family Medicine; Visit Provider Family Medicine
DX: K76.0 Fatty (change of) liver, not elsewhere classified (principal)
CPT/HCPCS: 80076; 85027

== ENCOUNTER 2024-11-21 00:20 | Outpatient (CLI) | payer MEDICARE, SELFPAY ==
--- OUTSIDE RECORDS SUMMARY | 2024-11-21 00:21 | XMS_ITS | Encounter Summary ---
Author Organization [facility] Address [address] [place] [address] Care Team Providers Care Pelt Salter Name Role Phone Handy James MD Primary Care Provider [phone] Reason for Visit * Auth/Cert (Routine) Specialty Diagnoses / Procedures [facility] Referred To Contact Diagnoses Cataract, left Cataract, left [H26.9] Procedures IL XCAPSL CTRC RMVL INSJ IO LENS PROSTH W/O ECP EXTRACTION, CATARACT, EXTRACAPSULAR, WITH IOL INSERTION Referral ID Status Reason Start Date Expiration Date Visits Re quested Visits Authorized [id number] 1 1 Encounter Details Date Type Department Care Team (Late st Contact Info) Description 02/05/2024 11:16 EDT Anesthesia Event [facility] Operating Room [address] [place], [place] [address] Bindu Farley MD [address] [place] [phone] Anesthesia Record Procedure Summary Procedure Name Responsible [...] MD - 02/05/2024 1140 EDT Patient: Thelma Bonner Vital signs were [...] 024 documented in this encounter Care Teams Pelt Salter Relationship Specialty Start Date End Date Handy James MD [address] [place] [address] PCP - General 02/05/24 documented as of this encounter
--- OUTSIDE RECORDS SUMMARY | 2024-11-21 00:21 | XMS_ITS | Encounter Summary ---
Author Organization [facility] Address [address] [place] [address] Care Team Providers Care Ship Harbor Pilot Name Role Phone Handy Oneill MD Primary Care Provider Encounter Details Date Type Department Care Team (Late st Contact Info) Description 09/21/[address] [facility] - Maple conversion [address] [place] [address] Bebeto Ferrari MD [address] [place] [address] [address] Social History Tobacco Use Types [...] ? THELMA BONNER ? Accession #: ? [id number] : ? 1945 (Age: 61) ??F ?Collect Date: ? 09/21/2006 Location: ? [facility] ? Receive Date: ? 09/24/2006 Provider: ?BEBETO FERRARI MD Copy to: ? Specimen/Source: ?ThinPrep Pap Test, Cervix/Endocervix, processed on Del[employer]Box ThinPrep Imaging System, with manual evaluation Last [...] ORDERABLES Final Resu lt [facility] [address] [place] [address] documented in this encounter Visit Diagnoses Not on filedocumented in this encounter Care Teams Ship Harbor Pilot Relationship Specialty Start Date End Date Handy Oneill MD [address] [place] [address] PCP - General 06/29/09 02/04/24 documented as of this encounter
--- OUTSIDE RECORDS SUMMARY | 2024-11-21 00:21 | XMS_ITS | Encounter Summary ---
Author Organization [facility] Address [address] [place] [address] Care Team Providers Care Any Commodity Sales Deliverer Name Role Phone Handy Oneill MD Primary Care Provider [phone] Encounter Details Date Type Department Care Team [...] on filedocumented in this encounter Care Teams Any Commodity Sales Deliverer Relationship Specialty Start Date End Date Handy Oneill MD [address] [place] [address] PCP - General 06/29/09 02/04/24 documented as of this encounter
--- OUTSIDE RECORDS SUMMARY | 2024-11-21 00:21 | XMS_ITS | Encounter Summary ---
Author Organization [facility] Address [address] [place] [address] Care Team Providers Care Realtime Reporter Name Role Phone Handy Oneill MD Primary Care Provider [phone] Reason for Visit * Auth/Cert (Routine) Specialty Diagnoses / Procedures [facility] Referred To Contact Diagnoses Cataract, right Cataract, right [H26.9] Procedures [place] XCAPSL CTRC RMVL INSJ IO LENS PROSTH W/O ECP EXTRACTION, CATARACT, EXTRACAPSULAR, WITH IOL INSERTION Referral ID Status Reason Start Date Expiration Date Visits Re quested Visits Authorized [id number] 1 1 Encounter Details Date Type Department Care Team (Latest Contact Info) Description 01/22/2024 11:08 EDT - 01/22/2024 13:28 EDT Hospital Encounter [facility] Operating Room [address] [place] [address] Ray Kimball MD [facility] [address] [place] [id number] Discharge Disposition: Home or Self Care Social [...] Where can you learn more? Go to [email or web address] or log into your [employer] account at [email or web address] Enter R255 in the search box to learn more about Cataract Surgery: What to Expect at Home. Current as of: November 28, 2021 Content Version: 13.4 ?? [employer]. Care instructions adapted under license by [facility]. If you have questions about a medical condition or this instruction, always ask your healthcare professional. [employer] disclaims any warranty or liability for your [...] (R) Operative Note Date: 01/22/2024 Location: [facility] [place] Name: Thelma Bonner, : 1945, Diagnosis [...] LENS INTRAOCULAR MONOFOCAL +6.5D TECNIS DCB00 - [id number] Implanted [id number] Staff: Appointment Clerk: Dior Momin RN; Patricia Cadet RN Scrub [...] to remove c ortical material and to russian the capsular bag. The capsular bag was [...] Yes Instructions for Thelma Bonner's Procedure at [facility] . These instructions are [...] items. Valuables, archuleta or credit cards. [facility] is not responsible for any lost items during your hospital visit. If you experience fevers, swelling, redness, rash or a break in your skin prior to your surgery contact your surgeon. Arriving for your procedure: Enter through the main entrance, and check in at the patient registration information desk. They will take your name and let us know you have arrived. A patient order desk clerk will then verify your information and give you an identification bracelet. You will then be directed to the Company Driver waiting area around the corner to check [...] 01/23/2024 14:4 4 EDT us Scan 2 Warehouse Stocker PROCEDURE/MINOR SURGICAL OR DERABLES Final Result documented in this encounter Visit Diagnoses Not on filedocumented in this encounter Administered Medications Inactive Administered Medications - up to 3 most recent administrations Medication Order MAR Action Action Date Dose Rate Site acetaminophen (TYLENOL) tablet 650 mg 650 mg, oral, Once (Without Time Specified), Starting on Sun01/22/24 at 1301, Until Sun01/22/24 at 1528, Routine, Recovery (only) rygyxrpeecpjfr-xkemdsrbzxa-diiurxnkq wwl-owrwreizyqjha-cfxhxopcc 1%-1%-0.1%-2.5%-0.4% ophthalmic solution drops 1 Drop 1 [...] Until Sun01/22/24 at 1528, Routine, Recovery (only) umrhxmutfavibd-ktpwlinfmzm-ryxhrh jsamem-jivyzwknjeoqn-kfvqhjdae 1%-1%-0.1%-2.5%-0.4% ophthalmic solution drops 1 Drop (COMPLETED) [...] 01/22/2024 documented in this encounter Care Teams Realtime Reporter Relationship Specialty Start Date End Date Handy Oneill MD [address] [place] [phone] PCP - General 06/29/09 02/04/24 documented as of this encounter
--- OUTSIDE RECORDS SUMMARY | 2024-11-21 00:21 | XMS_ITS | Encounter Summary ---
Author Organization [facility] Address [address] [place] [address] Care Team Providers Care Physical Medicine Physician Name Role Phone Rah Arguelles MD Primary Care Provider [phone] Encounter Details Date Type Department Care Team (Late st Contact Info) Description 05/23/2004 Results Only [facility] - Maple conversion [address] [place] [address] Gideon Bowen, DO [address] [facility] [address] [place], [place] [id number] Social History Tobacco Use Types Packs/Day Years [...] ? THELMA BONNER ? Accession #: ? [id number] ? : ? 1945 (Age: 58) ??F [...] toto as (B). ?? Received in [facility]'s fixative labelled Kailey and distal esophagus biopsy are two irregular morales-pink soft tissues averaging 0.2 x 0.2 x 0.1 cm which are submitted in toto as (C). ??(Leila Hazel)/tmg ?? End of Report [facility] 05/23/2004 05/23/2004 15: 18 EDT us Gideon Bowen DO PATHOLOGY ORDERABLES Fi nal Result Performing Organization Address City/State/[facility] Co de Phone Number [facility] [address] [place] [address] documented in this encounter Visit Diagnoses Not on filedocumented in this encounter Care Teams Physical Medicine Physician Relationship Specialty Start Date End Date Rah Arguelles MD [address] [place] [phone] PCP - General 06/29/09 02/04/24 documented as of this encounter
--- OUTSIDE RECORDS SUMMARY | 2024-11-21 00:21 | XMS_ITS | Encounter Summary ---
Author Organization [facility] Address [address] [place] [address] Care Team Providers Care Skidder Driver Name Role Phone Handy Oneill MD Primary Care Provider [phone] Encounter Details Date Type Department Care Team (Late st Contact Info) Description 07/25/2002 Results Only [facility] - Maple conversion [address] [place] [address] Bebeto Ferrari MD [address] [place] [address] [address] Social History Tobacco Use Types [...] ? THELMA BONNER ? Accession #: ? [id number] : ? 1945 (Age: 57) ??F ?Collect [...] and electronically signed by: ? Laura Gavin, [facility](ASCP) ? Report Date: ??08/05/2002 10:06 End of Report [facility] 07/25/2002 07/29/2002 us Bebeto Ferrari MD PATHOLOGY ORDERABLES Final Resu lt [facility] [address] [place] [address] documented in this encounter Visit Diagnoses Not on filedocumented in this encounter Care Teams Skidder Driver Relationship Specialty Start Date End Date Handy Oneill MD [address] [place] [address] PCP - General 06/29/09 02/04/24 documented as of this encounter
--- OUTSIDE RECORDS SUMMARY | 2024-11-21 00:21 | XMS_ITS | Clinical Summary ---
Author Organization [facility] Address [address] [place] [address] Care Team Providers Care Manufacturers Representative Name Role Phone Handy James MD Primary Care Provider Allergies No known active allergies Medications primidone [...] season) 2024 Medical Devices Implanted Type Area Screener And Blender Device Identifier Shelf Expiration Date Model / Serial / Lot Lens Intraocular Monofocal +6.5d Tecnis Simplicity - [id number] Implanted:Qty: 1 on 01/22/2024 by Ray Kimball MD at [facility] Lens Right: Lens [employer] [id number] 09/15/2026 [id number] / [id number] / Lens Intraocular Monofocal +5.0d Tecnis Simplicity - [id number] Implanted:Qty: 1 on 02/05/2024 by Ray Kimball MD at [facility] Lens Left: Eye [employer] [id number] 09/15/2025 [id number] / [id number] / Insurance [facility] MEDICARE JEAN CARLOS GAYLE [id number] Advance Directives For more information, please contact: [phone] * Full Code (Latest Code Status on [...] Who Made the Decision? Patient Care Teams Manufacturers Representative Relationship Specialty Start Date End Date Handy James MD [address] [place] [address] PCP - General 02/05/24
--- OUTSIDE RECORDS SUMMARY | 2024-11-21 00:21 | XMS_ITS | Encounter Summary ---
Author Organization [facility] Address [address] [place] [address] Care Team Providers Care Hollow Handle Knife Assembler Name Role Phone Handy Oneill MD Primary Care Provider [phone] Handy James MD Primary Care Provider [phone] Encounter Details Date Type Department Care Team (Late st Contact Info) Description 11/01/2020 Lab Requisition [facility] Pathology & Laboratory Medicine - [address] [address] Outr Resulting Lab, Provider Social History Tobacco [...] MICROBIOLOGY - GENER AL ORDERABLES Final Result [facility] [address] [place] [address] * COVID-19 TESTING (11/01/2020 10:52 EST) COVID-19 rt-PCR Result Negative Negative 11/02/2020 16:43 EST [facility] Comment: Negative results do not preclude 2019-nCoV infection and should not be used as the sole basis for treatment or other patient management decisions. Negative results must be combined with clinical observations, patient history, and epidemiological information. This test was developed and its performance characteristics determined by [facility]. It has not been cleared or approved [...] defined by the FDA Performed on the [employer] Flex. Performing Lab [employer] 7 [facility] Lab 11/02/2020 16:43 EST [facility] Swab 11/01/2020 10:5 2 EST 11/01/2020 15:33 EST us Provider Outr Resulting Lab MICROBIOLOGY - GENER AL ORDERABLES Final Result [facility] [address] [place] [address] documented in this encounter Visit Diagnoses Not on filedocumented in this encounter Care Teams Hollow Handle Knife Assembler Relationship Specialty Start Date End Date Handy Oneill MD [address] [place] [phone] PCP - General 06/29/09 02/04/24 Handy James MD [address] [place] [address] [place] [address] PCP - General 02/05/24 documented as of this encounter
--- OUTSIDE RECORDS SUMMARY | 2024-11-21 00:21 | XMS_ITS | Encounter Summary ---
Author Organization [facility] Address [address] [place] [address] Care Team Providers Care Marketing Communications Manager Name Role Phone Handy Oneill MD Primary Care Provider [phone] Encounter Details Date Type Department Care Team (Late st Contact Info) Description 11/08/2010 Results Only [facility] - [facility] ([facility] [address] [place] [address] Ana Jerome MD [address] [place] [address] [place] [address] Social History Tobacco Use Types Packs/Day Years [...] MD PATHOLOGY ORDERABLES Final Resu lt [facility] [address] [place] [address] documented in this encounter Visit Diagnoses Not on filedocumented in this encounter Care Teams Marketing Communications Manager Relationship Specialty Start Date End Date Handy Oneill MD [address] [place] [address] PCP - General 06/29/09 02/04/24 documented as of this encounter
--- OUTSIDE RECORDS SUMMARY | 2024-11-21 00:21 | XMS_ITS | Encounter Summary ---
Author Organization [facility] Address [address] [place] [address] Care Team Providers Care Dental Financial Coordinator Name Role Phone Handy Oneill MD Primary Care Provider [phone] Encounter Details Date Type Department Care Team (Late st Contact Info) Description 07/18/[address] [facility] - Maple conversion [address] [place] [address] Bebeto Ferrari MD [address] [place] [address] [address] Social History Tobacco Use Types [...] ? THELMA BONNER ? Accession #: ? [id number] : ? 1945 (Age: 56) ??F ?Collect [...] ORDERABLES Final Resu lt [facility] [address] [place] [address] documented in this encounter Visit Diagnoses Not on filedocumented in this encounter Care Teams Dental Financial Coordinator Relationship Specialty Start Date End Date Handy Oneill MD [address] [place] [address] PCP - General 06/29/09 02/04/24 documented as of this encounter
--- OUTSIDE RECORDS SUMMARY | 2024-11-21 00:21 | XMS_ITS | Encounter Summary ---
Author Organization [facility] Address [address] [place] [address] Care Team Providers Care Secondary History Teacher Name Role Phone Handy James MD Primary Care Provider [phone] Encounter Details Date Type Department Care Team [...] on filedocumented in this encounter Care Teams Secondary History Teacher Relationship Specialty Start Date End Date Handy James MD [address] [place] [address] PCP - General 02/05/24 documented as of this encounter
--- OUTSIDE RECORDS SUMMARY | 2024-11-21 00:21 | XMS_ITS | Encounter Summary ---
Author Organization [facility] Address [address] [place] [address] Care Team Providers Care Patient Service Rep Name Role Phone Handy Oneill MD Primary Care Provider [phone] Encounter Details Date Type Department Care Team (Late st Contact Info) Description 08/31/2014 Results Only [facility] Laboratory Services - [facility] ([facility]) [address] [place], [place] [id number] Ana Jerome MD [address] [place] [address] [place] [address] Social History Tobacco Use Types Packs/Day Years [...] ? THELMA BONNER ? Accession #: ? [id number] ? : ? 1945 (Age: 69) ??F [...] types 16,18,31,33,35, 39,45,51,52,56,58, 59,66, and 68 by offset pressman mediated amplification. Comments Document reviewed and electronically signed by: ? System Interface ? Report date: 09/08/2014 By the signature above, the attending physician certifies that he/she has personally conducted a gross and/or microscopic examination of the described specimens and rendered or confirmed the above diagnosis. End of Report [facility] 08/31/2014 09/01/2014 us Ana Jerome MD PATHOLOGY ORDERABLES Final Resu lt [facility] [address] [place] [address] documented in this encounter Visit Diagnoses Not on filedocumented in this encounter Care Teams Patient Service Rep Relationship Specialty Start Date End Date Handy Oneill MD [address] [place] [address] PCP - General 06/29/09 02/04/24 documented as of this encounter
--- OUTSIDE RECORDS SUMMARY | 2024-11-21 00:21 | XMS_ITS | Encounter Summary ---
Author Organization [facility] Address [address] [place] [address] Care Team Providers Care Activities Aide Name Role Phone Handy Oneill MD Primary Care Provider [phone] Encounter Details Date Type Department Care Team [...] on filedocumented in this encounter Care Teams Activities Aide Relationship Specialty Start Date End Date Handy Oneill MD [address] [place] [address] PCP - General 06/29/09 02/04/24 documented as of this encounter
--- OUTSIDE RECORDS SUMMARY | 2024-11-21 00:21 | XMS_ITS | Encounter Summary ---
Author Organization [facility] Address [address] [place] [address] Care Team Providers Care Small Products Ii Assembler Name Role Phone Handy Arguelles MD Primary Care Provider [phone] Encounter Details Date Type Department Care Team (Late st Contact Info) Description 06/08/2000 Results Only [facility] - Maple conversion [address] [place] [address] Bebeto Ferrari MD [address] [place] [address] [address] Social History Tobacco Use Types [...] ? THELMA BONNER ? Accession #: ? [id number] ? : ? 1945 (Age: 54) ??F [...] Final Resu lt [facility] [address] [place] [address] documented in this encounter Visit Diagnoses Not on filedocumented in this encounter Care Teams Small Products Ii Assembler Relationship Specialty Start Date End Date Handy Arguelles MD [address] [place] [address] PCP - General 06/29/09 02/04/24 documented as of this encounter
--- OUTSIDE RECORDS SUMMARY | 2024-11-21 00:21 | XMS_ITS | Encounter Summary ---
Author Organization [facility] Address [address] [place] [address] Care Team Providers Care Harness Inspector Name Role Phone Handy Oneill MD Primary Care Provider [phone] Encounter Details Date Type Department Care Team (Late st Contact Info) Description 05/18/[address] [facility] - Maple conversion [address] [place] [address] Bebeto Ferrari MD [address] [place] [address] [address] Social History Tobacco Use Types [...] ? THELMA BONNER ? Accession #: ? [id number] : ? 1945 (Age: 54) ??F ?Collect [...] Final Resu lt [facility] [address] [place] [address] documented in this encounter Visit Diagnoses Not on filedocumented in this encounter Care Teams Harness Inspector Relationship Specialty Start Date End Date Hanyd Oneill MD [address] [place] [address] PCP - General 06/29/09 02/04/24 documented as of this encounter
--- OUTSIDE RECORDS SUMMARY | 2024-11-21 00:21 | XMS_ITS | Encounter Summary ---
Author Organization [facility] Address [address] [place] [address] Care Team Providers Care Software Development Leader Name Role Phone Handy James MD Primary Care Provider [phone] Reason for Visit * Auth/Cert (Routine) Specialty Diagnoses / Procedures [facility] Referred To Contact Diagnoses Cataract, left Cataract, left [H26.9] Procedures DE XCAPSL CTRC RMVL INSJ IO LENS PROSTH W/O ECP EXTRACTION, CATARACT, EXTRACAPSULAR, WITH IOL INSERTION Referral ID Status Reason Start Date Expiration Date Visits Re quested Visits Authorized [id number] 1 1 Encounter Details Date Type Department Care Team (Late st Contact Info) Description 02/05/2024 11:35 EDT - 02/05/2024 12:10 EDT Surgery [facility] Operating Room [address] [place] [address] Ray Kimball MD [facility] [address] [place] [id number] EXTRACTION, CATARACT, EXTRACAPSULAR, WITH IOL INSERTION [39489 (CPT??)] Surgery Details Date/Time Status Location OR Service Patient Class Case Cl ass Case Type Trauma Case? 02/05/2024 1135 Posted [facility] OR [facility] Outpatient Surgery H - Elective [...] When should you call for help? Call 171 anytime you think you may need emergency [...] Where can you learn more? Go to [email or web address]. or log into your Minimus Spine account at [email or web address] Enter R255 in the search box to learn more about Cataract Surgery: What to Expect at Home. Current as of: November 28, 2021 Content Version: 13.4 ?? WoowUp. Care instructions adapted under license by [facility]. If you have questions about a medical condition or this instruction, always ask your healthcare professional. [employer]owUp disclaims any warranty or liability for your [...] Kimball MD 02/05/2024 11:04 Source Note - Hanyd James - 02/05/2024 0:00 EDT documented in this encounter OR Notes * OR Surgeon - Ray Kimball MD - 02/05/2024 1136 EDT EXTRACTION, CATARACT, EXTRACAPSULAR, WITH IOL INSERTION (L) Operative Note Date: 02/05/2024 Location: [facility] OR Name: Thelma Bonner, : 1945, Diagnosis [...] LENS INTRAOCULAR MONOFOCAL +5.0D TECNIS DCB00 - [id number] Implanted [id number] Staff: Lead Software Qa Engineer: Kristy Juan RN; Dior Momin RN Relief Lead Software Qa Engineer: Daylin Doran RN Scrub Person: Jennifer Lew [...] to remove co rtical material and to korean the capsular bag. The capsular bag was [...] bedtime Instructions for Thelma Bonner's Procedure at [facility] . These instructions [...] any items. Valuables, archuleta or credit cards. [facility] is not responsible for any lost items during your hospital visit. If you experience fevers, swelling, redness, rash or a break in your skin prior to your surgery contact your surgeon. Arriving for your procedure: Enter through the main entrance, and check in at the patient registration information desk. They will take your name and let us know you have arrived. A patient salesperson toy trains and accessories will then verify your information and give you an identification bracelet. You will then be directed to the Senior Attorney waiting area around the corner to check [...] 02/06/2024 13:3 3 EDT us Scan 2 Turkish Rubber PROCEDURE/MINOR SURGICAL OR DERABLES Final Result documented [...] 02/05/2024 11:24 EDT 0.5 mL Left Eye gcbrjfvoraykql-lzsfyqtvimz-phkii uvczbix-mbybheurfiqes-hbbjnxrsg 1%-1%-0.1%-2.5%-0.4% ophthalmic solution drops 1 Drop 1 [...] EDT. Scheduled Medication Order 02/03/2024 02/04/2024 02/05/2024 vpkijvccqemrwv-wblgvqclayk-owxag igrrnco-sjjittxhnjrsw-fwqcqbulb 1%-1%-0.1%-2.5%-0.4% ophthalmic solution drops 1 Drop () [...] 02/05/2024 documented in this encounter Care Teams Software Development Leader Relationship Specialty Start Date End Date Handy James MD [address] [place] [address] PCP - General 02/05/24 documented as of this encounter
--- OUTSIDE RECORDS SUMMARY | 2024-11-21 00:21 | XMS_ITS | Encounter Summary ---
Author Organization [facility] Address [address] [place] [address] Care Team Providers Care Cradle Placer Name Role Phone Unavailable Primary Care Provider Unavailabl e Encounter Details Date Type Department Care Team (Late st Contact Info) Description 06/25/[address] [facility] Laboratory Services - [facility] ([facility] [address] [place], [place] [phone] Gideon Bowen, DO [address] [facility] [address] [place] [address] Social History Tobacco Use Types [...] ? THELMA BONNER ? Accession #: ? [id number] ? : ? 1945 (Age: 63) ??F [...] gastritis ? Gross Description: ? Received in Sabrix's solution labelled Kailey, Thelma and biopsy ? antrum are two pink-morales irregular soft tissues, 0.3 x 0.2 x 0.2 cm and 0.3 x ?? 0.3 x 0.2 cm. ??Submitted in toto as (A). ? Received in Sabrix's solution labelled Kailey Thelma and biopsy distal [...] Fi nal Result [facility] [address] [place] [address] documented in this encounter Visit Diagnoses Not on filedocumented in this encounter
--- OUTSIDE RECORDS SUMMARY | 2024-11-21 00:21 | XMS_ITS | Encounter Summary ---
Author Organization [facility] Address [address] [place] [address] Care Team Providers Care Physical Therapy Nurse Name Role Phone Handy James MD Primary Care Provider [phone] Reason for Visit * Auth/Cert (Routine) Specialty Diagnoses / Procedures [facility] Referred To Contact Diagnoses Cataract, left Cataract, left [H26.9] Procedures FL XCAPSL CTRC RMVL INSJ IO LENS PROSTH W/O ECP EXTRACTION, CATARACT, EXTRACAPSULAR, WITH IOL INSERTION Referral ID Status Reason Start Date Expiration Date Visits Re quested Visits Authorized [id number] 1 1 Encounter Details Date Type Department Care Team (Latest Contact Info) Description 02/05/2024 10:22 EDT - 02/05/2024 23:59 EDT Hospital Encounter [facility] Operating Room [address] [place] [address] Ray Kimball MD [facility] [address] [place] [address] [id number] Discharge Disposition: Home or Self Care Social [...] Where can you learn more? Go to [email or web address] or log into your Xiaoi Robert account at [email or web address]. Enter R255 in the search box to learn more about Cataract Surgery: What to Expect at Home. Current as of: November 28, 2021 Content Version: 13.4 ?? LegalSherpa. Care instructions adapted under license by [facility]. If you have questions about a medical condition or this instruction, always ask your healthcare professional. LegalSherpa disclaims any warranty or liability for your [...] INSERTION (L) Operative Note Date: 02/05/2024 Location: [facility] OR Name: Thelma Bonner, : 1945, Diagnosis [...] LENS INTRAOCULAR MONOFOCAL +5.0D TECNIS DCB00 - [id number] Implanted [id number] Staff: Carbon Capture Power Plant Manager: Kristy Juan RN; Dior Momin RN Relief Carbon Capture Power Plant Manager: Daylin Doran RN Scrub Person: Jennifer [...] to remove co rtical material and to botswanan the capsular bag. The capsular bag was [...] any items. Valuables, archuleta or credit cards. [facility] is not responsible for any lost items during your hospital visit. If you experience fevers, swelling, redness, rash or a break in your skin prior to your surgery contact your surgeon. Arriving for your procedure: Enter through the main entrance, and check in at the patient registration information desk. They will take your name and let us know you have arrived. A patient sales department clerk will then verify your information and give you an identification bracelet. You will then be directed to the Manager City waiting area around the corner to check [...] 02/06/2024 13:3 3 EDT us Scan 2 Veneer Taper PROCEDURE/MINOR SURGICAL OR DERABLES Final Result documented in this encounter Visit Diagnoses Not on filedocumented in this encounter Administered Medications Inactive Administered Medications - up to 3 most recent administrations Medication Order MAR Action Action Date Dose Rate Site inpyzjvhteokfg-oyqkfznbiqh-zdrjglbqz ods-owpdmzdfncyjg-wqgdelewy 1%-1%-0.1%-2.5%-0.4% ophthalmic solution drops 1 Drop 1 [...] EDT. Scheduled Medication Order 02/03/2024 02/04/2024 02/05/2024 fmclnjvmekeuom-bubypluaefe-fyjbz zgeflyc-tsgrxcltrryws-gznyxhitz 1%-1%-0.1%-2.5%-0.4% ophthalmic solution drops 1 Drop () [...] 02/05/2024 documented in this encounter Care Teams Physical Therapy Nurse Relationship Specialty Start Date End Date Handy James MD [address] [place] [address] PCP - General 02/05/24 documented as of this encounter
--- OUTSIDE RECORDS SUMMARY | 2024-11-21 00:21 | XMS_ITS | Encounter Summary ---
Author Organization [facility] Address [address] [place] [address] Care Team Providers Care Staff Anesthetist Name Role Phone Handy Oneill MD Primary Care Provider [phone] Encounter Details Date Type Department Care Team (Late st Contact Info) Description 08/04/2005 Results Only [facility] - Maple conversion [address] [place] [address] Bebeto Ferrari MD [address] [place] [address] [address] Social History Tobacco Use Types [...] ? THELMA BONNER ? Accession #: ? [id number] : ? 1945 (Age: 60) ??F ?Collect Date: ? 08/04/2005 Location: ? [facility] ? Receive Date: ? 08/08/2005 Provider: ?BEBETO FERRARI MD Copy to: ? Specimen/Source: ?ThinPrep Pap Test, Cervix/Endocervix, processed on [employer] ThinPrep Imaging System, with manual evaluation Last [...] Final Resu lt [facility] [address] [place] [address] documented in this encounter Visit Diagnoses Not on filedocumented in this encounter Care Teams Staff Anesthetist Relationship Specialty Start Date End Date Handy Oneill MD [address] [place] [address] PCP - General 06/29/09 02/04/24 documented as of this encounter
--- OUTSIDE RECORDS SUMMARY | 2024-11-21 00:21 | XMS_ITS | Encounter Summary ---
Author Organization [facility] Address [address] [place] [address] Care Team Providers Care Lead Caregiver Name Role Phone Handy Oneill MD Primary Care Provider [phone] Reason for Visit * Auth/Cert (Routine) Specialty Diagnoses / Procedures [facility] Referred To Contact Diagnoses Cataract, right Cataract, right [H26.9] Procedures DE XCAPSL CTRC RMVL INSJ IO LENS PROSTH W/O ECP EXTRACTION, CATARACT, EXTRACAPSULAR, WITH IOL INSERTION Referral ID Status Reason Start Date Expiration Date Visits Re quested Visits Authorized [id number] 1 1 Encounter Details Date Type Department Care Team (Late st Contact Info) Description 01/22/2024 12:20 EDT - 01/22/2024 12:55 EDT Surgery [facility] Operating Room [address] [place] [address] Ray Kimball MD [facility] [address] [place] [id number] EXTRACTION, CATARACT, EXTRACAPSULAR, WITH IOL INSERTION [90158 (CPT??)] Surgery Details Date/Time Status Location OR Service Patient Class Case Cl ass Case Type Trauma Case? 01/22/2024 1220 Posted [facility] OR [facility] Op[facility] Hospital Outpatient Surgery H - Elective [...] Where can you learn more? Go to [email or web address] or log into your Quartz Solutions account at [email or web address] Enter R255 in the search box to learn more about Cataract Surgery: What to Expect at Home. Current as of: November 28, 2021 Content Version: 13.4 ?? Sparq Systems. Care instructions adapted under license by [facility]. If you have questions about a medical condition or this instruction, always ask your healthcare professional. [employer]q Systems disclaims any warranty or liability for your [...] INSERTION (R) Operative Note Date: 01/22/2024 Location: [facility] OR Name: Thelma Bonner, : 1945, Diagnosis [...] LENS INTRAOCULAR MONOFOCAL +6.5D TECNIS DCB00 - [id number] Implanted [id number] Staff: Butter Wrapper: Dior Momin RN; Patricia Cadet RN Scrub [...] to remove c ortical material and to brazilian the capsular bag. The capsular bag was [...] Instructions - Carolina Andres RN - 01/17/2024 7167 EDT The following preoperative instructions have been [...] Instructions for Thelma Leeann Kailey's Procedure at [facility] . These instructions [...] any items. Valuables, archuleta or credit cards. [facility] is not responsible for any lost items during your hospital visit. If you experience fevers, swelling, redness, rash or a break in your skin prior to your surgery contact your surgeon. Arriving for your procedure: Enter through the main entrance, and check in at the patient registration information desk. They will take your name and let us know you have arrived. A patient prescription clerk lenses will then verify your information and give you an identification bracelet. You will then be directed to the Tip Stretcher waiting area around the corner to check [...] 01/23/2024 14:4 4 EDT us Scan 2 Source Water Protection Specialist PROCEDURE/MINOR SURGICAL OR DERABLES Final Result documented [...] Intraprocedure Given 01/22/2024 12:36 EDT 1 Each yeagcunvbbtiol-apaoykvauoi-gung rcqqvzre-jwcicdmxzvulh-xjdvnskc c 1%-1%-0.1%-2.5%-0.4% ophthalmic solution drops 1 Drop [...] Until Sun01/22/24 at 1528, Routine, Recovery (only) optjmdhnitsgmi-ncrfbvlhjmp-ijietj imlcgc-wxdjscowjzmmh-lyizrzoju 1%-1%-0.1%-2.5%-0.4% ophthalmic solution drops 1 Drop (COMPLETED) [...] 01/22/2024 documented in this encounter Care Teams Lead Caregiver Relationship Specialty Start Date End Date Handy Oneill MD [address] [place] [phone] PCP - General 06/29/09 02/04/24 documented as of this encounter
--- OUTSIDE RECORDS SUMMARY | 2024-11-21 00:21 | XMS_ITS | Encounter Summary ---
Author Organization [facility] Address [address] [place] [address] Care Team Providers Care Motor Bus Driver Name Role Phone Handy Oneill MD Primary Care Provider [phone] Encounter Details Date Type Department Care Team (Late st Contact Info) Description 07/31/2003 Results Only [facility] - Maple conversion [address] [place] [address] Bebeto Ferrari MD [address] [place] [address] [address] Social History Tobacco Use Types [...] ng unformatted reports. Name: ? EAN THELMA Bradshaw ? Accession #: ? [id number] : ? 1945 (Age: 58) ??F ?Collect [...] ORDERABLES Final Resu lt [facility] [address] [place] [address] documented in this encounter Visit Diagnoses Not on filedocumented in this encounter Care Teams Motor Bus Driver Relationship Specialty Start Date End Date Handy Oneill MD [address] [place] [address] PCP - General 06/29/09 02/04/24 documented as of this encounter
--- OUTSIDE RECORDS SUMMARY | 2024-11-21 00:21 | XMS_ITS | Encounter Summary ---
Author Organization [facility] Address [address] [place] [address] Care Team Providers Care Last Remodeler Repairer Name Role Phone Handy Oneill MD Primary Care Provider [phone] Encounter Details Date Type Department Care Team [...] on filedocumented in this encounter Care Teams Last Remodeler Repairer Relationship Specialty Start Date End Date Handy Oneill MD [address] [place] [address] PCP - General 06/29/09 02/04/24 documented as of this encounter
--- OUTSIDE RECORDS SUMMARY | 2024-11-21 00:21 | XMS_ITS | Encounter Summary ---
Author Organization [facility] Address [address] [place] [address] Care Team Providers Care Masticator Name Role Phone Handy Oneill MD Primary Care Provider [phone] Encounter Details Date Type Department Care Team (Late st Contact Info) Description 08/02/2004 Results Only [facility] - Maple conversion [address] [place] [address] Bebeto Ferrari MD [address] [place] [address] [address] Social History Tobacco Use Types [...] EAN THELMA Bradshaw ? Accession #: ? [id number] : ? 1945 (Age: 59) ??F ?Collect [...] ORDERABLES Final Resu lt [facility] [address] [place] [address] documented in this encounter Visit Diagnoses Not on filedocumented in this encounter Care Teams Masticator Relationship Specialty Start Date End Date Handy Oneill MD [address] [place] [address] PCP - General 06/29/09 02/04/24 documented as of this encounter
--- OUTSIDE RECORDS SUMMARY | 2024-11-21 00:21 | XMS_ITS | Referral Summary ---
Author Organization [facility] Address [address] [place] [address] Care Team Providers Care Intelligence Operations Specialist Name Role Phone Handy James MD Primary Care Provider [phone] Allergies No known active allergies Medications primidone [...] on file Medical Devices Implanted Type Area Financial Services Education Consultant Device Identifier Shelf Expiration Date Model / Serial / Lot Lens Intraocular Monofocal +6.5d [employer] Simplicity - [id number] Implanted:Qty: 1 on 01/22/2024 by Ray Kimball MD at [facility] Lens Right: Lens [employer] [id number] 09/15/2026 [id number] / [id number] / Lens Intraocular Monofocal +5.0d [employer] Simplicity - [id number] Implanted:Qty: 1 on 02/05/2024 by Ray Kimball MD at [facility] Lens Left: Eye [employer] [id number] 09/15/2025 [id number] / [id number] / Insurance MEDICARE Advance Directives For more information, please contact: [phone] * Full Code (Latest Code Status on [...] Who Made the Decision? Patient Care Teams Intelligence Operations Specialist Relationship Specialty Start Date End Date Handy James MD [address] [facility] [place] [address] PCP - General 02/05/24
--- OUTSIDE RECORDS SUMMARY | 2024-11-21 00:21 | XMS_ITS | Encounter Summary ---
Author Organization [facility] Address [address] [place] [address] Care Team Providers Care Mechanical Unit Repairer Name Role Phone Handy Oneill MD Primary Care Provider [phone] Reason for Visit * Auth/Cert (Routine) Specialty Diagnoses / Procedures [facility] Referred To Contact Diagnoses Cataract, right Cataract, right [H26.9] Procedures ND XCAPSL CTRC RMVL INSJ IO LENS PROSTH W/O ECP EXTRACTION, CATARACT, EXTRACAPSULAR, WITH IOL INSERTION Referral ID Status Reason Start Date Expiration Date Visits Re quested Visits Authorized [id number] 1 1 Encounter Details Date Type Department Care Team (Late st Contact Info) Description 01/22/2024 12:30 EDT Anesthesia Event [facility] Operating Room [address] [place] [address] Maddison Drake MD [address] [facility], [address] [place] [address] Anesthesia Record Procedure Summary Procedure [...] mg documented in this encounter Care Teams Mechanical Unit Repairer Relationship Specialty Start Date End Date Handy Oneill MD [address] [place] [address] PCP - General 06/29/09 02/04/24 documented as of this encounter
--- OUTSIDE RECORDS SUMMARY | 2024-11-21 00:21 | XMS_ITS | Encounter Summary ---
Author Organization [facility] Address [address] [place] [address] Care Team Providers Care Chemistry Lab Instructor Name Role Phone Handy Oneill MD Primary Care Provider [phone] Encounter Details Date Type Department Care Team (Late st Contact Info) Description 11/26/2007 Results Only [facility] - Maple conversion [address] [place] [address] Bebeto Ferrari MD [address] [place] [address] [address] Social History Tobacco Use [...] ? THELMA BONNER ? Accession #: ? [id number] : ? 1945 (Age: 62) ??F ?Collect Date: ? 11/26/2007 Location: ? [facility] ? Receive Date: ? 11/27/2007 Provider: ?BEBETO FERRARI MD Copy to: ? Specimen/Source: ?ThinPrep Pap Test, Cervix/Endocervix, processed on [employer] ThinPrep Imaging System, with manual evaluation Last [...] ORDERABLES Final Resu lt [facility]ILL[facility]OR [address] [place] [address] documented in this encounter Visit Diagnoses Not on filedocumented in this encounter Care Teams Chemistry Lab Instructor Relationship Specialty Start Date End Date Handy Oneill MD [address] [place] [address] PCP - General 8/25/09 4/1/24 documented as of this encounter
--- OUTSIDE RECORDS SUMMARY | 2024-11-21 00:21 | XMS_ITS | Encounter Summary ---
Author Organization [facility] Address [address] [place] [address] Care Team Providers Care Emu Farm Worker Name Role Phone Rah Arguelles MD Primary Care Provider [phone] Encounter Details Date Type Department Care Team (Late st Contact Info) Description 09/11/2002 Results Only [facility] - Maple conversion [address] [place] [address] Rah Arguelles MD [address] [place] [address] Social History Tobacco Use Types [...] ? THELMA BONNER ? Accession #: ? [id number] ? : ? 1945 (Age: 57) ??F [...] Final Resul t [facility] [address] [place] [address] documented in this encounter Visit Diagnoses Not on filedocumented in this encounter Care Teams Emu Farm Worker Relationship Specialty Start Date End Date Rah Arguelles MD [address] [place] [phone] PCP - General 06/29/09 02/04/24 documented as of this encounter
--- OUTSIDE RECORDS SUMMARY | 2024-11-21 00:22 | XMS_ITS | Encounter Summary ---
Author Organization [facility] [place] [address] Care Team Providers Care Business Test Analyst Name Role Phone Handy James MD Primary Care Provider Reason for Referral * Diagnostic Test (Routine) - Closed Specialty Diagnoses / Procedures [facility] Referred To Contact Radiology Diagnoses Lung nodule Procedures CT Chest wo Contrast (Generic) CT Chest w Contrast Handy James MD [address] [place] [address] [place] [address] [facility] [place] [address] Referral ID Status Reason Start Date Expiration Date V isits Requested Visits Authorized [id number] Closed Specialty Service Requested 07/26/2021 09/23/2021 1 1 Reason for Visit * Diagnostic Test (Routine) - Closed Specialty Diagnoses / Procedures [facility] Referred To Contact Radiology Diagnoses Lung nodule Procedures CT Chest wo Contrast (Generic) CT Chest w Contrast Handy James MD [address] [place] [address] [place] [address] [facility] [place] [address] Referral ID Status Reason Start Date Expiration Date V isits Requested Visits Authorized [id number] Closed Specialty Service Requested 07/26/2021 09/23/2021 1 1 Encounter Details Date Type Department Care Team (Latest Contact Info) Description 08/09/2021 10:26 AM EDT - 08/09/2021 11:59 PM EDT Hospital [place] [address] Handy James MD [address] [place] [address] [place] [address] Lung nodule Discharge Disposition: Home Social History [...] Care Team (Late st Contact Info) Description 03/23/2025 10:00 AM EDT Procedure visit Neurology at [facility] [address] [place] [address] Debbie Becker MD [facility] [place] [address] documented as of this encounter Procedures Procedure [...] who have questions please contact the health patient care manager that requested your imaging first. ? Electronically signed by: Rajeev Gonzalez MD, [facility] ([phone]), at 08/09/2021 11:14 AM Narrative 08/09/2021 11:14 AM EDT EXAMINATION: CT CHEST WO CONTRAST (GENERIC) CLINICAL HISTORY: 7 mm nodule seen 12/2019 (in [place]) 08/2020 without change; Gristmill Operator in [place] recommended 12 month follow up (August 2021) [...] HISTORY: 7 mm nodule seen 12/2019 (in [place]) 08/2020 without change; Pulmonologistin [place] recommended 12 month follow up (August 2021) [...] patients who have questions please contactthe health patient care manager that requested your imaging first. Handy James MD IMG CT ORDERABLES documented in this encounter Visit Diagnoses Diagnosis Lung nodule Solitary pulmonary nodule documented in this encounter Care Teams Business Test Analyst Relationship Specialty Start Date End Date Handy James MD [address] [place] [address] [place] [address] PCP - General Family Medicine 08/09/20 documented as of this encounter
--- OUTSIDE RECORDS SUMMARY | 2024-11-21 00:22 | XMS_ITS | Encounter Summary ---
[place] [address] Care Team Providers Care Desk Maker Name Role Phone Handy James MD Primary Care Provider [phone] Reason for Visit * Reason Onset Date Comments Botox Injection 03/24/2024 Encounter Details Date Type Department Care Team (Late st Contact Info) Description 03/24/2024 Telephone Neurology at [address] [phone] Debbie Becker MD [facility] [place] [address] Botox Injection Social History Tobacco Use Types [...] 10:00 AM EDT Procedure visit Neurology at [address] [address] Debbie Becker MD [facility] [address] documented as of this encounter Visit Diagnoses Not on filedocumented in this encounter Care Teams Desk Maker Relationship Specialty Start Date End Date Handy James MD [address] [place] [address] [place] [address] PCP - General Family Medicine 08/09/20 documented as of this encounter
--- OUTSIDE RECORDS SUMMARY | 2024-11-21 00:22 | XMS_ITS | Encounter Summary ---
Author Organization [facility] [place] [address] Care Team Providers Care Radio Repair Teacher Name Role Phone Handy James MD Primary Care Provider [phone] Reason for Visit * High Dollar Medication (Routine) - Closed Specialty Diagnoses / Procedures Referred By Contac t Referred To Contact Neurology Diagnoses Cervical dystonia Procedures Onabotulinumtoxin A (BOTOX) Authorizations Request (IN CLINIC) TC ONABOTULINUMTOXINA, 1 UNIT, INJECTION Debbie Becker MD [facility] [place] [address] Debbie Becker MD [facility] [place] [address] Referral ID Status Reason Start Date Expiration Date V isits Requested Visits Authorized [id number] Closed Consult, Test & Treat 02/06/2023 03/24/2025 9 11 Encounter Details Date Type Department Care Team (Late st Contact Info) Description 06/25/2023 11:30 AM EDT Office Visit Neurology at [address] [address] Debbie Becker MD [facility] [place] [address] Cervical dystonia Social History Tobacco Use Types [...] attain better benefit. Codes for chemodenervation visit: 87773, 96261 Exam: Procedure: A time out was performed [...] F/u in 3 months. Debbie Becker MD [facility] Neurology-Movement Disorders documented in this encounter Plan of Treatment Upcoming Encounters Date Type Department Care Team (Late st Contact Info) Description 03/23/2025 10:00 AM EDT Procedure visit Neurology at [facility] [address] [place] [address] Debbie Becker MD [facility] [place] [address] documented as of this encounter Procedures Procedure [...] attain better benefit. Codes for chemodenervation visit: 46629, 09196 Exam: Procedure: A time out was performed [...] F/u in 3 months. Debbie Becker MD [facility] Neurology-Movement [...] 200 Units, Intramuscular, ONCE, 1 dose, On 06/25/23 at 1200, Routine Given 06/25/2023 11:55 AM EDT 170 Units documented in this encounter Care Teams Radio Repair Teacher Relationship Specialty Start Date End Date Handy James MD [facility] [place] [place] [address] PCP - General Family Medicine 08/09/20 documented as of this encounter
--- OUTSIDE RECORDS SUMMARY | 2024-11-21 00:22 | XMS_ITS | Encounter Summary ---
[place] [address] Care Team Providers Care Web Marketing Intern Name Role Phone Handy Oneill MD Primary Care Provider Unavaila ble Reason for Visit * Reason Comments Essential Tremor Encounter Details Date Type Department Care Team (Late st Contact Info) Description 08/22/2011 11:15 AM EDT [place] [phone] Pete Zurita MD Tremor; Trigeminal neuralgia; Essential [...] PM EDT Copy: Handy Oneill M.D. 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
--- OUTSIDE RECORDS SUMMARY | 2024-11-21 00:22 | XMS_ITS | Encounter Summary ---
Author Organization [facility] [place] [address] Care Team Providers Care Ve Teacher Name Role Phone Handy James MD Primary Care Provider [phone] Reason for Visit * High Dollar Medication (Routine) - Closed Specialty Diagnoses / Procedures Referred By Contac t Referred To Contact Neurology Diagnoses Cervical dystonia Procedures Onabotulinumtoxin A (BOTOX) Authorizations Request (IN CLINIC) TC ONABOTULINUMTOXINA, 1 UNIT, INJECTION Debbie Becker MD [facility] [place] [address] Debbie Becker MD [facility] [place] [address] Referral ID Status Reason Start Date Expiration Date V isits Requested Visits Authorized [id number] Closed Consult, Test & Treat 02/06/2023 03/24/2025 9 11 Encounter Details Date Type Department Care Team (Late st Contact Info) Description 04/11/2024 10:30 AM EDT Office Visit Neurology at [address] [address] Debbie Becker MD [facility] [place] [address] Cervical dystonia Social History Tobacco Use Types [...] 200 units dose. Codes for chemodenervation visit: 40193, 74855 Exam: Procedure: A time out was performed [...] 3 months. Debbie Becker MD [facility] Neurology-Movement Disorders documented in this encounter Plan of Treatment Upcoming Encounters Date Type Department Care Team (Late st Contact Info) Description 03/23/2025 10:00 AM EDT Procedure visit Neurology at [facility] [address] [place] [address] Debbie Becker MD [facility] [place] [address] documented as of this encounter Procedures Procedure [...] 200 units dose. Codes for chemodenervation visit: 86654, 39985 Exam: Procedure: A time out was performed [...] 3 months. Debbie Becker MD [facility] Neurology-Movement Disorders Debbie Becker MD NEUROLOGY [...] Units documented in this encounter Care Teams Ve Teacher Relationship Specialty Start Date End Date Handy James MD [facility] [facility] [place] [address] PCP - General Family Medicine 08/09/20 documented as of this encounter
--- OUTSIDE RECORDS SUMMARY | 2024-11-21 00:22 | XMS_ITS | Encounter Summary ---
[place] [address] Care Team Providers Care Compressor Operator Portable Name Role Phone Handy James MD Primary Care Provider [phone] Encounter Details Date Type Department Care Team [...] 10:00 AM EDT Procedure visit Neurology at [facility] [address] [place] [phone] Debbie Becker MD [facility] [place] [address] documented as of this encounter Visit Diagnoses Not on filedocumented in this encounter Care Teams Compressor Operator Portable Relationship Specialty Start Date End Date Handy James MD [facility] [place] [address] PCP - General Family Medicine 08/09/20 documented as of this encounter
--- OUTSIDE RECORDS SUMMARY | 2024-11-21 00:22 | XMS_ITS | Encounter Summary ---
[place] [address] Care Team Providers Care Block Tester Name Role Phone Handy James MD Primary Care Provider Reason for Referral * Psychiatric (Routine) - Authorized Specialty Diagnoses / Procedures Referred By Ileana alexis Referred To Contact Psychiatry Diagnoses Cervical dystonia Cognitive complaints Debbie Becker MD [facility] [place] [address] [facility] [address] [place] [address] Referral ID Status Reason Start Date Expiration Date Visits Requested Visits Authorized [id number] Authorized Consult, Test & Treat 11/14/2024 11/14/2025 1 1 Reason for Visit * High Dollar Medication (Routine) - Authorized Specialty Diagnoses / Procedures Referred By Ileana alexis Referred To Contact Neurology Diagnoses Cervical dystonia Procedures Onabotulinumtoxin A (BOTOX) Authorizations Request (IN CLINIC) TC ONABOTULINUMTOXINA, 1 UNIT, INJECTION Debbie Becker MD [facility] [place] [address] Debbie Becker MD [facility] [address] Referral ID Status Reason Start Date Expiration Date Visits Requested Visits Authorized [id number] Authorized Consult, Test & Treat 03/28/2024 03/28/2025 4 4 Encounter Details Date Type Department Care Team (Latest Contact Info) Description 11/14/2024 9:30 AM EST Procedure visit Neurology at [facility] [address] [place] [address] Debbie Becker MD [facility] [place] [address] Cervical dystonia; Cognitive complaints Social History Tobacco Use Types Packs/Day Years [...] Procedure Notes * Debbie Becker MD - 11/14/2024 9:30 AM ESTAssociated Order(s): CHEMODENERVATION W/ EMG GUIDANCE [...] 200 units dose. Codes for chemodenervation visit: 26673, 36714 Exam: Procedure: A time out was performed [...] F/u in 3 months. Debbie Becker MD [facility] Neurology-Movement Disorders documented in this encounter Plan of Treatment Upcoming Encounters Date Type Department Care Team (Late st Contact Info) Description 03/23/2025 10:00 AM EDT Procedure visit Neurology at [address] [address] Debbie Becker MD [facility] [place] [address] Scheduled Referrals Name Type Priority Associated Diagnoses Order Schedule Referral to Neuropsychology Outpatient Referral Routine Cervical dystonia Cognitive complaints Ordered: 11/14/2024 documented as of this encounter Procedures Procedure Name Priority Date/Time Associated Diagnosis Comments CHEMODENERVATION W/ EMG GUIDANCE Routine 11/14/2024 9:30 AM EST documented in this encounter Results * CHEMODENERVATION W/ EMG GUIDANCE (11/14/2024 9:30 AM EST) Narrative Debbie Becker MD - 11/14/2024 9:30 AM EST Debbie Becker MD ? 11/14/2024 ??9:56 AM Chemodenervation Procedure Note Diagnosis: cervical dystonia [...] 200 units dose. Codes for chemodenervation visit: 14110, 12047 Exam: Procedure: A time out was performed [...] F/u in 3 months. Debbie Becker MD [facility] Neurology-Movement Disorders Debbie Becker MD NEUROLOGY ORDERABL ES documented in this encounter Visit Diagnoses Diagnosis Cervical dystonia Spasmodic torticollis Cognitive complaints Other signs and symptoms involving cognition documented in this encounter Administered Medications Inactive Administered Medications - up to 3 most recent administrations Medication Order MAR Action Action Date Dose Rate Site botulinum toxin type A (Botox) injection 200 Units 200 Units, Intramuscular, ONCE, 1 dose, On Sun11/14/24 at 1000, Routine Given 11/14/2024 9:53 AM EST 200 Units documented in this encounter Care Teams Block Tester Relationship Specialty Start Date End Date Handy James MD [address] [place] [address] [place] [address] PCP - General Family Medicine 08/09/20 documented as of this encounter
--- OUTSIDE RECORDS SUMMARY | 2024-11-21 00:22 | XMS_ITS | Encounter Summary ---
[place] [address] Care Team Providers Care Lead Ramp Service Man Name Role Phone Handy James MD Primary Care Provider [phone] Encounter Details Date Type Department Care Team [...] 10:00 AM EDT Procedure visit Neurology at [facility] [address] [place] [address] Debbie Becker MD [facility] [place] [address] documented as of this encounter Visit Diagnoses Not on filedocumented in this encounter Care Teams Lead Ramp Service Man Relationship Specialty Start Date End Date Handy James MD [facility] [facility] [place] [address] PCP - General Family Medicine 08/09/20 documented as of this encounter
--- OUTSIDE RECORDS SUMMARY | 2024-11-21 00:22 | XMS_ITS | Encounter Summary ---
[place] [address] Care Team Providers Care Car Jockey Name Role Phone Handy Oneill MD Primary Care Provider Unavaila ble Reason for Visit * Reason Onset Date Comments Medication Refill 02/15/2012 Encounter Details Date Type Department Care Team (Late st Contact Info) Description 02/15/2012 Refill [place] [address] Pete Zurita MD Tremor Social History Tobacco [...] 10:00 AM EDT Procedure visit Neurology at [address] [address] [facility] [place] [address] documented as of this encounter Visit Diagnoses Diagnosis Tremor Abnormal involuntary movements documented in this encounter Care Teams Car Jockey Relationship Specialty Start Date End Date Handy Oneill MD PCP - General 09/27/10 02/23/19 documented as of this encounter
--- OUTSIDE RECORDS SUMMARY | 2024-11-21 00:22 | XMS_ITS | Encounter Summary ---
Author Organization [facility] [place] [address] Care Team Providers Care Relocation Counselor Name Role Phone Handy James MD Primary Care Provider [phone] Reason for Referral * High Dollar Medication (Routine) - Closed Specialty Diagnoses / Procedures Referred By Contac t Referred To Contact Neurology Diagnoses Cervical dystonia Procedures Onabotulinumtoxin A (BOTOX) Authorizations Request (IN CLINIC) TC ONABOTULINUMTOXINA, 1 UNIT, INJECTION Debbie Becker MD [facility] [place] [address] Debbie Becker MD [facility] [place] [address] Referral ID Status Reason Start Date Expiration Date V isits Requested Visits Authorized [id number] Closed Consult, Test & Treat 02/06/2023 03/24/2025 9 11 Reason for Visit * Consultation (Routine) - Closed Specialty Diagnoses / Procedures Referred By Contac t Referred To Contact Neurology Diagnoses Essential tremor Fior Deal MD [facility] [address] [place] [address] [facility] Neurology [address] [place] [phone] Referral ID Status Reason Start Date Expiration Date V isits Requested Visits Authorized [id number] Closed Consult, Test & Treat 08/31/2022 08/31/2023 1 1 Encounter Details Date Type Department Care Team (Late st Contact Info) Description 02/06/2023 12:00 PM EDT Office [place] [address] Debbie Becker MD [facility] [place] [address] Essential tremor; Cervical dystonia Social [...] from the original note were not included. [facility] Movement Disorders New Patient Evaluation Date of service 02/06/2023 Referring provider Handy James MD [address] [place] [address] Cc: tremor History of present illness Thelma Bonner is a 77 y.o. right handed woman who presents to the movement disorders clinic for evaluation of tremor. 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 Tremors since her 40s. She [...] around the country, Daughter lives close in [place] Family History Problem Relation Age of Onset [...] plan to inject 02/14 Debbie Becker MD [facility] Neurology-Movement Disorders documented in this encounter Plan of Treatment Upcoming Encounters Date Type Department Care Team (Late st Contact Info) Description 03/23/2025 10:00 AM EDT Procedure visit Neurology at [address] [address] Debbie Becker MD [facility] [place] [address] documented as of this encounter Visit Diagnoses Diagnosis Essential tremor Essential and other specified forms of tremor Cervical dystonia Spasmodic torticollis documented in this encounter Care Teams Relocation Counselor Relationship Specialty Start Date End Date Handy James MD [address] [place] [address] [place] [address] PCP - General Family Medicine 08/09/20 documented as of this encounter
--- OUTSIDE RECORDS SUMMARY | 2024-11-21 00:22 | XMS_ITS | Encounter Summary ---
[place] [address] Care Team Providers Care Inkjet Operator Name Role Phone Handy James MD Primary Care Provider [phone] Reason for Visit * High Dollar Medication (Routine) - Closed Specialty Diagnoses / Procedures Referred By Contac t Referred To Contact Neurology Diagnoses Cervical dystonia Procedures Onabotulinumtoxin A (BOTOX) Authorizations Request (IN CLINIC) TC ONABOTULINUMTOXINA, 1 UNIT, INJECTION Debbie Becker MD [facility] [place] [address] Debbie Becker MD [facility] [place] [address] Referral ID Status Reason Start Date Expiration Date V isits Requested Visits Authorized [id number] Closed Consult, Test & Treat 02/06/2023 03/24/2025 9 11 Encounter Details Date Type Department Care Team (Late st Contact Info) Description 02/19/2023 3:30 PM EDT [place] [address] Debbie Becker MD [facility] [place] [address] Cervical dystonia; Essential tremor Social History Tobacco [...] with injections today. Codes for chemodenervation visit: 96506, 48763 Exam: Procedure: A time out was performed [...] know howthis works. She will be in [place] when her next injections are due. If she has great benefit I will try to find someone there to do her injections end of May. If she does not have good benefitI will have her come here in July when she is back so we can regroup on dosing pattern. Debbie Becker MD [facility] Neurology-Movement Disorders documented in this encounter Plan of Treatment Upcoming Encounters Date Type Department Care Team (Late st Contact Info) Description 03/23/2025 10:00 AM EDT Procedure visit Neurology at [facility] [address] [place] [address] Debbie Becker MD [facility] [place] [address] documented as of this encounter Procedures Procedure [...] with injections today. Codes for chemodenervation visit: 48012, [address] Exam: Procedure: A time out was performed [...] how this works. She will be in [place] when her next injections are due. If she has great benefit I will try to find someone there to do her injections end of May. If she does not have good benefit I will have her come here in July when she is back so we can regroup on dosing pattern. Debbie Becker MD [facility] Neurology-Movement Disorders Debbie Becker MD NEUROLOGY [...] Units documented in this encounter Care Teams Inkjet Operator Relationship Specialty Start Date End Date Handy James MD [facility] [facility] [place] [address] PCP - General Family Medicine 08/09/20 documented as of this encounter
--- OUTSIDE RECORDS SUMMARY | 2024-11-21 00:22 | XMS_ITS | Encounter Summary ---
[place] [address] Care Team Providers Care Airplane Gas Tank Liner Assembler Name Role Phone Handy James MD Primary Care Provider [phone] Reason for Visit * Reason Onset Date Comments Medication Refill 04/21/2024 Encounter Details Date Type Department Care Team (Late st Contact Info) Description 04/21/2024 Telephone Neurology at [address] [phone] Debbie Becker MD [facility] [place] [address] Medication Refill Social History Tobacco Use Types [...] spoke with patient. I had called Dania Tickade in [place], [place] yesterday and confirmed that they had [...] 04/21/2024 4:03 PM EDT Copied from CRM #[id number]. Topic: Specialty Dept CRMs - Medication Issues >> Apr 21, 2024 2:53 PM Maddison Cedeño wrote: Medication Issues Specialist Debbie Becker Relationship (if other than patient-full name): Thelma Bonner Reason for call: Medication Issue (if symptom based used Triage Subtopic) Message/information for the nurse: Patient called, states that her pharmacy, [facility] in [facility] did not receive the prescription that was sent on 04/18 for a 90 day supply, please advise. Name of Medication: primidone (Mysoline) 50 mg tablet Issue with the medication: pharmacy did not receive documented in this encounter Plan of Treatment Upcoming Encounters Date Type Department Care Team (Late st Contact Info) Description 03/23/2025 10:00 AM EDT Procedure visit Neurology at [address] [phone] Debbie Becker MD [facility] [place] [address] documented as of this encounter Visit Diagnoses Not on filedocumented in this encounter Care Teams Airplane Gas Tank Liner Assembler Relationship Specialty Start Date End Date Handy James MD [address] [place] [address] [place] [address] PCP - General Family Medicine 08/09/20 documented as of this encounter
--- OUTSIDE RECORDS SUMMARY | 2024-11-21 00:22 | XMS_ITS | Encounter Summary ---
[place] [address] Care Team Providers Care Line Fixer Name Role Phone Handy James MD Primary Care Provider [phone] Encounter Details Date Type Department Care Team (Late st Contact Info) Description 01/25/2021 [place] [phone] Laureen Turcios Social History Tobacco Use Types [...] 10:00 AM EDT Procedure visit Neurology at [facility] [address] [place] [address] Debbie Becker MD [facility] [place] [address] documented as of this encounter Visit Diagnoses Not on filedocumented in this encounter Care Teams Line Fixer Relationship Specialty Start Date End Date Handy James MD [address] [place] [address] [place] [address] PCP - General Family Medicine 08/09/20 documented as of this encounter
--- OUTSIDE RECORDS SUMMARY | 2024-11-21 00:22 | XMS_ITS | Encounter Summary ---
[place] [address] Care Team Providers Care Assistant Reading Teacher Name Role Phone Handy James MD Primary Care Provider Reason for Visit * Reason Onset Date Comments Referral 09/28/2020 Encounter Details Date Type Department Care Team (Late st Contact Info) Description 09/28/2020 [place] [phone] Letty Alicea LPN Referral Social History Tobacco [...] spot but she will also have her Clinical Documentation Clerk in [place] send us notes and referral to see a cataract specialist. She is particularly concerned about the surgery due to her head termor and how it would effect the surgery. documented in this encounter Plan of Treatment Upcoming Encounters Date Type Department Care Team (Late st Contact Info) Description 03/23/2025 10:00 AM EDT Procedure visit Neurology at [address] [address] Debbie Becker MD [facility] [place] [address] documented as of this encounter Visit Diagnoses Not on filedocumented in this encounter Care Teams Assistant Reading Teacher Relationship Specialty Start Date End Date Handy James MD [address] [place] [address] [place] [address] PCP - General Family Medicine 08/09/20 documented as of this encounter
--- OUTSIDE RECORDS SUMMARY | 2024-11-21 00:22 | XMS_ITS | Encounter Summary ---
Author Organization [facility] [place] [address] Care Team Providers Care Shuttle Van Driver Name Role Phone Handy James MD Primary Care Provider [phone] Reason for Visit * High Dollar Medication (Routine) - Authorized Specialty Diagnoses / Procedures Referred By Contac t Referred To Contact Neurology Diagnoses Cervical dystonia Procedures Onabotulinumtoxin A (BOTOX) Authorizations Request (IN CLINIC) TC ONABOTULINUMTOXINA, 1 UNIT, INJECTION Debbie Becker MD [facility] [address] Debbie Becker MD [facility] [place] [address] Referral ID Status Reason Start Date Expiration Date Visits Requested Visits Authorized [id number] Authorized Consult, Test & Treat 03/28/2024 03/28/2025 4 4 Encounter Details Date Type Department Care Team (Late st Contact Info) Description 08/22/2024 11:00 AM EDT Procedure visit Neurology at [facility] [address] [place] [address] Debbie Becker MD [facility] [place] [address] Cervical dystonia Social History Tobacco Use Types [...] 200 units dose. Codes for chemodenervation visit: 47342, 60234 Exam: Procedure: A time out was performed [...] 10:00 AM EDT Procedure visit Neurology at [facility] [address] [place] [address] Debbie Becker MD [facility] [place] [address] documented as of this encounter Procedures Procedure [...] 200 units dose. Codes for chemodenervation visit: 37970, 21412 Exam: Procedure: A time out was performed [...] Units documented in this encounter Care Teams Shuttle Van Driver Relationship Specialty Start Date End Date Handy James MD [address] [place] [address] [place] [address] PCP - General Family Medicine 08/09/20 documented as of this encounter
--- OUTSIDE RECORDS SUMMARY | 2024-11-21 00:22 | XMS_ITS | Encounter Summary ---
Author Organization [facility] [place] [address] Care Team Providers Care Renovation Plant Supervisor Name Role Phone Handy James MD Primary Care Provider Reason for Referral * Diagnostic Test (Routine) - Closed Specialty Diagnoses / Procedures Referred By [facility] Referred To Contact Radiology Diagnoses Lung nodule Procedures CT Chest wo Contrast (Generic) Handy James MD [address] [place] [address] [place] [address] [facility] [place] [address] Referral ID Status Reason Start Date Expiration Date V isits Requested Visits Authorized [id number] Closed Specialty Service Requested 08/08/2022 02/07/2024 1 1 Reason for Visit * Diagnostic Test (Routine) - Closed Specialty Diagnoses / Procedures Referred By [facility] Referred To Contact Radiology Diagnoses Lung nodule Procedures CT Chest wo Contrast (Generic) Handy James MD [address] [place] [address] [place] [address] [facility] [place] [address] Referral ID Status Reason Start Date Expiration Date V isits Requested Visits Authorized [id number] Closed Specialty Service Requested 08/08/2022 02/07/2024 1 1 Encounter Details Date Type Department Care Team (Latest Contact Info) Description 08/14/2022 12:00 PM EDT - 08/14/2022 11:59 PM EDT Hospital [place] [address] Handy James MD [address] [place] [address] [place] [address] Lung nodule Discharge Disposition: Home Social History [...] 10:00 AM EDT Procedure visit Neurology at [facility] [address] [place] [phone] Debbie Becker MD [facility] [place] [address] documented as of this encounter Procedures Procedure [...] who have questions please contact the health lawn care professional that requested your imaging first. ? Electronically signed by: Arelis Carrington MD, [facility] ([phone]), at 08/14/2022 2:24 PM Narrative 08/14/2022 2:24 PM EDT EXAMINATION: CT [...] patients who have questions please contactthe health lawn care professional that requested your imaging first. Electronically signed by: Arelis Carrington MD, [facility]([phone]), at 08/14/2022 2:24 PM Handy James MD IMG CT ORDERABLES documented in this encounter Visit Diagnoses Diagnosis Lung nodule Solitary pulmonary nodule documented in this encounter Care Teams Renovation Plant Supervisor Relationship Specialty Start Date End Date Handy James MD [facility] [facility] [place] [address] PCP - General Family Medicine 08/09/20 documented as of this encounter
--- OUTSIDE RECORDS SUMMARY | 2024-11-21 00:22 | XMS_ITS | Encounter Summary ---
[place] [address] Care Team Providers Care Physical Therapy Assistant Instructor Name Role Phone Handy James MD Primary Care Provider [phone] Reason for Visit * Reason Onset Date Comments Appointment 02/06/2023 Encounter Details Date Type Department Care Team (Late st Contact Info) Description 02/06/2023 [place] [phone] Debbie Becker MD [facility] [place] [address] Appointment Social History Tobacco Use Types Packs/Day [...] assist in rescheduling * Telephone Encounter - Eddi Jayde Bradshaw - 02/06/2023 4:21 PM EDT Copied from CRM #[id number]. Topic: Specialty Dept CRMs - Appointment Needed [...] that day. Please call to advise at [phone]. documented in this encounter Plan of Treatment Upcoming Encounters Date Type Department Care Team (Late st Contact Info) Description 03/23/2025 10:00 AM EDT Procedure visit Neurology at [address] [address] Debbie Becker MD [facility] [place] [address] documented as of this encounter Visit Diagnoses Not on filedocumented in this encounter Care Teams Physical Therapy Assistant Instructor Relationship Specialty Start Date End Date Handy James MD [address] [place] [address] [place] [address] PCP - General Family Medicine 08/09/20 documented as of this encounter
--- OUTSIDE RECORDS SUMMARY | 2024-11-21 00:22 | XMS_ITS | Encounter Summary ---
[place] [address] Care Team Providers Care Women'S Activities Adviser Name Role Phone Handy James MD Primary Care Provider [phone] Encounter Details Date Type Department Care Team [...] 10:00 AM EDT Procedure visit Neurology at [facility] [address] [place] [phone] Debbie Becker MD [facility] [address] documented as of this encounter Visit Diagnoses Not on filedocumented in this encounter Care Teams Women'S Activities Adviser Relationship Specialty Start Date End Date Handy James MD [facility] [facility] [place] [address] PCP - General Family Medicine 08/09/20 documented as of this encounter
--- OUTSIDE RECORDS SUMMARY | 2024-11-21 00:22 | XMS_ITS | Clinical Summary ---
Author Organization [facility] [place] [address] Care Team Providers Care Play Therapist Name Role Phone Handy James MD Primary Care Provider [phone] Allergies No known active allergies Medications Medication [...] Encounters Date Type Department Care Team Description 11/14/2024 9:30 AM EST Procedure visit Neurology at [address] [address] Debbie Becker MD Cervical dystonia; Cognitive complaints 11/14/2024 Travel 08/22/2024 11:00 AM EDT Procedure visit Neurology at [address] [phone] Debbie Becker MD Cervical dystonia 08/22/2024 Travel [...] 10:00 AM EDT Procedure visit Neurology at [address] [address] Debbie Becker MD [facility] [place] [address] Health Maintenance Due Date Last Done Comments Hepatitis C Screening 1962 Tetanus/Diphtheria/Pertussis Vaccines (1 - Tdap) 07/17 Pneumoccocal Vaccine: 50+ (1 of 1 - PCV) 1994 Zoster vaccine (1 of 2) 1994 Advance Directive 1999 Bone Density Scan 2009 RSV Vaccine (1 - 1-dose 75+ series) 2019 Covid-19 Vaccine ( - 2023- season) 2024 Influenza (Flu) vaccine (1 o f 1 - Influenza standard series) 07/06/2024 Procedures Procedure Name Priority Date/Time Associated Diagnosis Comments CHEMODENERVATION W/ EMG GUIDANCE Routine 11/14/2024 9:30 AM EST CHEMODENERVATION W/ EMG GUIDANCE Routine 08/22/2024 11:00 AM EDT from Last 3 Months Results * CHEMODENERVATION W/ EMG GUIDANCE (11/14/2024 [...] 200 units dose. Codes for chemodenervation visit: 73937, 29100 Exam: Procedure: A time out was performed [...] F/u in 3 months. Debbie Becker MD [facility] Neurology-Movement Disorders Debbie Becker MD NEUROLOGY ORDERABL ES * CHEMODENERVATION W/ EMG GUIDANCE (08/22/2024 11:00 [...] 200 units dose. Codes for chemodenervation visit: 35293, [address]6440 Exam: Procedure: A time out was performed [...] F/u in 3 months. Debbie Becker MD [facility] Neurology-Movement Disorders Debbie Becker MD NEUROLOGY ORDERABL ES from Last 3 Months Care Teams Play Therapist Relationship Specialty Start Date End Date Handy Jmaes MD [facility] [place], [place] [id number] PCP - General Family Medicine 08/09/20
--- OUTSIDE RECORDS SUMMARY | 2024-11-21 00:22 | XMS_ITS | Encounter Summary ---
[place] [address] Care Team Providers Care Vulcanizing Machine Operator Name Role Phone Handy Oneill MD Primary Care Provider Unavaila ble Reason for Visit * Reason Onset Date Comments Medication Refill 08/25/2011 Encounter Details Date Type Department Care Team (Late st Contact Info) Description 08/25/2011 [place] [address] Pete Zurita MD Trigeminal neuralgia; Tremor Social [...] 10:00 AM EDT Procedure visit Neurology at [address] [address] Debbie Becker MD [facility] [place] [address] documented as of this encounter Visit Diagnoses Diagnosis Trigeminal neuralgia Tremor Abnormal involuntary movements documented in this encounter Care Teams Vulcanizing Machine Operator Relationship Specialty Start Date End Date Handy Oneill MD PCP - General 09/27/10 02/23/19 documented as of this encounter
--- OUTSIDE RECORDS SUMMARY | 2024-11-21 00:22 | XMS_ITS | Encounter Summary ---
Author Organization [facility] [address] Care Team Providers Care Eyeglass Assembler Name Role Phone Handy James MD Primary Care Provider [phone] Reason for Referral * Diagnostic Test (Routine) - Closed Specialty Diagnoses / Procedures Referred By Contac t Referred To Contact Radiology Diagnoses Pulmonary nodule Procedures CT Chest wo Contrast (Generic) Teresa Nair MD [address] [place] [phone] [facility] [place] [address] Referral ID Status Reason Start Date Expiration Date V isits Requested Visits Authorized [id number] Closed Specialty Service Requested 08/17/2020 02/12/2021 1 1 Reason for Visit * Diagnostic Test (Routine) - Closed Specialty Diagnoses / Procedures Referred By Contac t Referred To Contact Radiology Diagnoses Pulmonary nodule Procedures CT Chest wo Contrast (Generic) Teresa Nair MD [address] [place] [phone] [facility] [place] [address] Referral ID Status Reason Start Date Expiration Date V isits Requested Visits Authorized [id number] Closed Specialty Service Requested 08/17/2020 02/12/2021 1 1 Encounter Details Date Type Department Care Team (Latest Contact Info) Description 08/17/2020 11:38 AM EDT - 08/17/2020 11:59 PM EDT Hospital [place] [address] Teresa Nair MD [address] [place] [phone] Pulmonary nodule Discharge Disposition: Home Social [...] 10:00 AM EDT Procedure visit Neurology at [facility] [address] [place] [phone] Debbie Becker MD [facility] [place] [address] documented as of this encounter Procedures Procedure [...] signed by: Syeda Rene MD, [facility] ([phone]), at 08/17/2020 1:23 PM Narrative 08/17/2020 1:23 [...] nodule documented in this encounter Care Teams Eyeglass Assembler Relationship Specialty Start Date End Date Handy James MD [address] [place] [address] [place] [address] PCP - General Family Medicine 08/09/20 documented as of this encounter
--- OUTSIDE RECORDS SUMMARY | 2024-11-21 00:22 | XMS_ITS | Encounter Summary ---
[place] [address] Care Team Providers Care Acid Extractor Name Role Phone Handy James MD Primary Care Provider [phone] Encounter Details Date Type Department Care Team [...] 10:00 AM EDT Procedure visit Neurology at [facility] [address] [place] [phone] Debbie Becker MD [facility] [place] [address] documented as of this encounter Visit Diagnoses Not on filedocumented in this encounter Care Teams Acid Extractor Relationship Specialty Start Date End Date Handy James MD [facility] [place] [address] PCP - General Family Medicine 08/09/20 documented as of this encounter
--- OUTSIDE RECORDS SUMMARY | 2024-11-21 00:22 | XMS_ITS | Encounter Summary ---
[place] [address] Care Team Providers Care Property Economist Name Role Phone Handy Oneill MD Primary Care Provider Eliesera ble Encounter Details Date Type Department Care Team (Late st Contact Info) Description 08/21/2013 1:45 PM EDT [place] [phone] Pete Zurita MD Tremor (Primary Dx) Discharge [...] 10:00 AM EDT Procedure visit Neurology at [address] [address] Debbie Becker MD [facility] [place] [address] documented as of this encounter Visit Diagnoses Diagnosis Tremor- Primary Abnormal involuntary movements documented in this encounter Care Teams Property Economist Relationship Specialty Start Date End Date Handy Oneill MD PCP - General 09/27/10 02/23/19 documented as of this encounter
--- OUTSIDE RECORDS SUMMARY | 2024-11-21 00:22 | XMS_ITS | Encounter Summary ---
[place] [address] Care Team Providers Care Osteology Teacher Name Role Phone Handy James MD Primary Care Provider [phone] Reason for Referral * Consultation (Routine) - Canceled Specialty Diagnoses / Procedures Referred By Ileana alexis Referred To Contact Endocrinology Diagnoses Hypothyroidism, unspecified type Clarisa Day MD [address] [place] [address] [facility] [address] [place] [phone] Referral ID Status Reason Start Date Expiration Date V isits Requested Visits Authorized [id number] Canceled Consult, Test & Treat 09/11/2022 09/11/2022 6 6 Encounter Details Date Type Department Care Team (Latest Contact Info) Description 09/12/2022 Transcribe Orders eDH Incoming Referrals [phone] Clarisa Day MD [address] [place] [address] Hypothyroidism, unspecified type Social History Tobacco Use [...] 10:00 AM EDT Procedure visit Neurology at [address] [address] Debbie Becker MD [facility] [place] [address] Scheduled Referrals Name Type Priority Associated Diagnoses Order Schedule Referral to Endocrinology Outpatient Referral Routine Hypothyroidism, unspecified type Ordered: 09/12/2022 documented as of this encounter Visit Diagnoses Diagnosis Hypothyroidism, unspecified type documented in this encounter Care Teams Osteology Teacher Relationship Specialty Start Date End Date Handy James MD [facility] [place] [place] [address] PCP - General Family Medicine 08/09/20 documented as of this encounter
--- OUTSIDE RECORDS SUMMARY | 2024-11-21 00:22 | XMS_ITS | Encounter Summary ---
[place] [address] Care Team Providers Care Water Treatment Technician Name Role Phone Handy Oneill MD Primary Care Provider Unavaila ble Encounter Details Date Type Department Care Team (Late st Contact Info) Description 08/21/2011 [place] [address] Pete Zurita MD Social History Tobacco Use [...] 10:00 AM EDT Procedure visit Neurology at [address] [address] Debbie Becker MD [facility] [place] [address] documented as of this encounter Visit Diagnoses Not on filedocumented in this encounter Care Teams Water Treatment Technician Relationship Specialty Start Date End Date Handy Oneill MD PCP - General 09/27/10 02/23/19 documented as of this encounter
--- OUTSIDE RECORDS SUMMARY | 2024-11-21 00:22 | XMS_ITS | Encounter Summary ---
Author Organization [facility] [place] [address] Care Team Providers Care Pump And Still Operator Name Role Phone Handy James MD Primary Care Provider Reason for Referral * Diagnostic Test (Routine) - Closed Specialty Diagnoses / Procedures Referred By Ileana alexis Referred To Contact Radiology Diagnoses Lung nodules Procedures CT Chest w Contrast Handy James MD [address] [place] [address] [place] [address] [facility] [place] [address] Referral ID Status Reason Start Date Expiration Date V isits Requested Visits Authorized [id number] Closed Specialty Service Requested 09/10/2023 03/10/2025 1 1 Reason for Visit * Diagnostic Test (Routine) - Closed Specialty Diagnoses / Procedures Referred By Ileana alexis Referred To Contact Radiology Diagnoses Lung nodules Procedures CT Chest w Contrast Handy James MD [address] [place] [address] [place] [address] [facility] [place] [address] Referral ID Status Reason Start Date Expiration Date V isits Requested Visits Authorized [id number] Closed Specialty Service Requested 09/10/2023 03/10/2025 1 1 Encounter Details Date Type Department Care Team (Latest Contact Info) Description 10/08/2023 9:53 AM EST - 10/08/2023 11:59 PM EST Hospital [place] [address] Handy James MD [address] [place] [address] [place] [address] Lung nodules Discharge Disposition: Home Social History [...] AM EDT Procedure visit Neurology at [address] [address] Debbie Becker MD [facility] [place] [address] documented as of this encounter Procedures Procedure [...] who have questions please contact the health youth care specialist that requested your imaging first. ? Electronically signed by: Starla Tierney MD, [facility] ([phone]), at 10/08/2023 8:25 PM Narrative 10/08/2023 8:25 [...] patients who have questions please contactthe health youth care specialist that requested your imaging first. Electronically signed by: Starla Tierney MD, [facility] ([phone]), at 10/08/2023 8:25 PM Handy James MD IMG CT ORDERABLES [...] mLs documented in this encounter Care Teams Pump And Still Operator Relationship Specialty Start Date End Date Handy James MD [facility] [place] [address] PCP - General Family Medicine 08/09/20 documented as of this encounter
--- OUTSIDE RECORDS SUMMARY | 2024-11-21 00:22 | XMS_ITS | Encounter Summary ---
[place] [address] Care Team Providers Care Choir Member Name Role Phone Handy James MD Primary Care Provider [phone] Encounter Details Date Type Department Care Team [...] 10:00 AM EDT Procedure visit Neurology at [facility] [address] [place] [address] Debbie Becker MD [facility] [place] [address] documented as of this encounter Visit Diagnoses Not on filedocumented in this encounter Care Teams Choir Member Relationship Specialty Start Date End Date Handy James MD [facility] [place] [address] PCP - General Family Medicine 08/09/20 documented as of this encounter
--- OUTSIDE RECORDS SUMMARY | 2024-11-21 00:22 | XMS_ITS | Encounter Summary ---
[place] [address] Care Team Providers Care Jacquard Loom Weaver Name Role Phone Handy James MD Primary Care Provider [phone] Encounter Details Date Type Department Care Team [...] 10:00 AM EDT Procedure visit Neurology at [facility] [address] [place] [address] Debbie Becker MD [facility] [place] [address] documented as of this encounter Visit Diagnoses Not on filedocumented in this encounter Care Teams Jacquard Loom Weaver Relationship Specialty Start Date End Date Handy James MD [facility] [facility] [place] [address] PCP - General Family Medicine 08/09/20 documented as of this encounter
--- OUTSIDE RECORDS SUMMARY | 2024-11-21 00:22 | XMS_ITS | Encounter Summary ---
[place] [address] Care Team Providers Care Trial Manager Name Role Phone Handy James MD Primary Care Provider [phone] Encounter Details Date Type Department Care Team (Late st Contact Info) Description 03/06/2023 [place] [address] Debbie Becker MD [facility] [place] [address] Social History Tobacco Use Types Packs/Day Years [...] - 03/06/2023 12:08 PM EDT Copied from [facility] #[id number]. Topic: Specialty Dept CRMs - Generic Call [...] 10:00 AM EDT Procedure visit Neurology at [address] [address] Debbie Becker MD [facility] [place] [address] documented as of this encounter Visit Diagnoses Not on filedocumented in this encounter Care Teams Trial Manager Relationship Specialty Start Date End Date Handy James MD [address] [place] [address] [place] [address] PCP - General Family Medicine 08/09/20 documented as of this encounter
--- OUTSIDE RECORDS SUMMARY | 2024-11-21 00:22 | XMS_ITS | Encounter Summary ---
Author Organization [facility] [place] [address] Care Team Providers Care Sales Expert Name Role Phone Handy James MD Primary Care Provider [phone] Reason for Referral * High Dollar Medication (Routine) - Authorized Specialty Diagnoses / Procedures Referred By Contac t Referred To Contact Neurology Diagnoses Cervical dystonia Procedures Onabotulinumtoxin A (BOTOX) Authorizations Request (IN CLINIC) TC ONABOTULINUMTOXINA, 1 UNIT, INJECTION Debbie Becker MD [facility] [place] [address] Debbie Becker MD [facility] [place] [address] Referral ID Status Reason Start Date Expiration Date Visits Requested Visits Authorized [id number] Authorized Consult, Test & Treat 03/28/2024 03/28/2025 4 4 Encounter Details Date Type Department Care Team (Late st Contact Info) Description 03/28/2024 Orders Only Neurology at [facility] [address] [place] [address] Debbie Becker MD [facility] [place] [place] [address] Cervical dystonia Social History Tobacco Use Types [...] 10:00 AM EDT Procedure visit Neurology at [address] [address] Debbie Becker MD [facility] [place] [address] documented as of this encounter Visit Diagnoses Diagnosis Cervical dystonia Spasmodic torticollis documented in this encounter Care Teams Sales Expert Relationship Specialty Start Date End Date Handy James MD [address] [place] [address] [place] [address] PCP - General Family Medicine 08/09/20 documented as of this encounter
--- OUTSIDE RECORDS SUMMARY | 2024-11-21 00:22 | XMS_ITS | Encounter Summary ---
[place] [address] Care Team Providers Care Factory Helper Name Role Phone Handy James MD Primary Care Provider [phone] Reason for Visit * Reason Onset Date Comments Medication Problem 04/14/2024 Encounter Details Date Type Department Care Team (Late st Contact Info) Description 04/14/2024 Refill Neurology at [address] [address] Debbie Becker MD [facility] [place] [address] Social History Tobacco Use Types Packs/Day Years [...] - 04/14/2024 10:09 AM EDT Copied from [facility] #[id number]. Topic: Specialty Dept CRMs - Medication Issues [...] 10:00 AM EDT Procedure visit Neurology at [address] [address] Debbie Becker MD [facility] [place] [address] documented as of this encounter Visit Diagnoses Not on filedocumented in this encounter Care Teams Factory Helper Relationship Specialty Start Date End Date Handy James MD [address] [place] [address] [place] [address] PCP - General Family Medicine 08/09/20 documented as of this encounter
--- OUTSIDE RECORDS SUMMARY | 2024-11-21 00:22 | XMS_ITS | Encounter Summary ---
Author [place] [address] Care Team Providers Care Intake Counselor Name Role Phone Handy James MD Primary Care Provider [phone] Encounter Details Date Type Department Care Team (Latest Contact Info) Description 03/02/2021 9:19 PM EDT - 03/02/2021 11:59 PM EDT Hospital En[place] [address] Discharge Disposition: Home Social History Tobacco Use [...] AM EDT Procedure visit Neurology at [address] [address] Debbie Becker MD [facility] [place] [address] documented as of this encounter Procedures Procedure Name Priority Date/Time Associated Diagnosis Comments SURGICAL PATHOLOGY REPORT Routine 03/02/2021 12:22 PM EDT documented in this encounter Results * Surgical Pathology Report (03/02/2021 12:22 PM EDT) Final Diagnosis [id number] ? Location: [facility] The signing pathologist has (i) examined the relevant preparation(s) for the specimen(s) and (ii) rendered or confirmed the diagnosis(es). . ?Surgical Pathology DIAGNOSIS Rectum, ??polypectomy: Hyperplastic polyp. CR-PX Electronically signed by: ?Lyndsey CAMPO PhD, [place] Verified: ??03/07/2021 9:36 ?? Pathologist Performed at: ??-[facility] [place], [place], [place] SPECIMEN(S) SUBMITTED A - Rectal polyp, biopsy (1) Referring Identifier: ?(not provided) Report to: Arelis Cline CLINICAL INFORMATION Screening colonoscopy SPECIMEN PROCESSING A - Labeled/Fixativ e: Rectal polyp, formalin. Quantity/Size: Single, 0.2 cm. Tissue Description: Soft, morales-brown tissue. Sections/Proces sing: Submitted en toto ??in 1 cassette labeled A1. ??eunice 03/07/2021 9:36 AM EDT [facility] GI Biopsy 03/02/2021 12:2 2 PM EDT 03/02/2021 12:22 PM EDT Gideon Forman DO PATHOLOGY/CYTOL OGY ORDERABLES [facility] [place] [address] documented in this encounter Visit Diagnoses Not on filedocumented in this encounter Care Teams Intake Counselor Relationship Specialty Start Date End Date Handy James MD [address] [place] [address] [place] [address] PCP - General Family Medicine 08/09/20 documented as of this encounter
--- OUTSIDE RECORDS SUMMARY | 2024-11-21 00:22 | XMS_ITS | Encounter Summary ---
[place] [address] Care Team Providers Care Space Engineer Name Role Phone Handy Oneill MD Primary Care Provider Unavaila ble Encounter Details Date Type Department Care Team (Late st Contact Info) Description 05/20/2012 2:45 PM EDT [place] [address] Pete Zurita MD Essential and other specified [...] and her . She is really enjoying fci on that account. 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
--- OUTSIDE RECORDS SUMMARY | 2024-11-21 00:22 | XMS_ITS | Encounter Summary ---
[place] [address] Care Team Providers Care Parts Cataloguer Name Role Phone Handy James MD Primary Care Provider [phone] Encounter Details Date Type Department Care Team (Latest Contact Info) Description 11/14/2024 Travel Social History Tobacco Use Types Packs/Day [...] 10:00 AM EDT Procedure visit Neurology at [facility] [address] [place] [address] Debbie Becker MD [facility] [place] [address] documented as of this encounter Visit Diagnoses Not on filedocumented in this encounter Care Teams Parts Cataloguer Relationship Specialty Start Date End Date Handy James MD [facility] [place] [address] PCP - General Family Medicine 08/09/20 documented as of this encounter
--- OUTSIDE RECORDS SUMMARY | 2024-11-21 00:22 | XMS_ITS | Encounter Summary ---
[place] [address] Care Team Providers Care Fabrication Technician Name Role Phone Handy James MD Primary Care Provider Reason for Referral * Consultation (Routine) - Closed Specialty Diagnoses / Procedures Referred By Ileana alexis Referred To Contact Neurology Diagnoses Essential tremor Fior Deal MD [facility] [address] [place] [address] [facility] [address] [place] [phone] Referral ID Status Reason Start Date Expiration Date V isits Requested Visits Authorized [id number] Closed Consult, Test & Treat 08/31/2022 08/31/2023 1 1 Encounter Details Date Type Department Care Team (Late st Contact Info) Description 08/31/2022 Transcribe Orders eDH Incoming Referrals [phone] Fior Deal MD [facility] [address] [place], [place] [id number] Essential tremor (Primary Dx) Social History Tobacco [...] 10:00 AM EDT Procedure visit Neurology at [address] [address] Debbie Becker MD [facility] [place] [address] Scheduled Referrals Name Type Priority Associated Diagnoses Orde r Schedule Referral to Neurology Outpatient Referral Routine Essential tremor Ordered: 08/31/2022 documented as of this encounter Visit Diagnoses Diagnosis Essential tremor- Primary Essential and other specified forms of tremor documented in this encounter Care Teams Fabrication Technician Relationship Specialty Start Date End Date Handy James MD [facility] [place] [address] PCP - General Family Medicine 08/09/20 documented as of this encounter
--- OUTSIDE RECORDS SUMMARY | 2024-11-21 00:22 | XMS_ITS | Encounter Summary ---
[place] [address] Care Team Providers Care Dealership Manager Name Role Phone Handy James MD Primary Care Provider Reason for Referral * Consultation (Routine) - Closed Specialty Diagnoses / Procedures Referred By Contac t Referred To Contact Pulmonology Diagnoses Abnormal findings on diagnostic imaging of lung Handy James MD [address] [place] [address] [place] [address] [facility] Pulmon[facility] [address] [place] [phone] Referral ID Status Reason Start Date Expiration Date V isits Requested Visits Authorized [id number] Closed Consult, Test & Treat 10/02/2023 10/01/2024 6 6 Encounter Details Date Type Department Care Team (Late st Contact Info) Description 10/02/2023 Transcribe Orders eDH Incoming Referrals [phone] Handy James MD [address] [place] [address] [place], [place] [phone] Abnormal findings on diagnostic imaging of lung [...] 10:00 AM EDT Procedure visit Neurology at [address] [address] [facility] DR NEUROLOGY [facility] [place] [address] Scheduled Referrals Name Type Priority Associated Diagnoses Order Schedule Referral to Pulmonology Outpatient Referral Routine Abnormal findings on diagnostic imaging of lung Ordered: 10/02/2023 documented as of this encounter Visit Diagnoses Diagnosis Abnormal findings on diagnostic imaging of lung Other nonspecific abnormal finding of lung field documented in this encounter Care Teams Dealership Manager Relationship Specialty Start Date End Date Handy James MD [facility] [place] [address] PCP - General Family Medicine 08/09/20 documented as of this encounter
--- OUTSIDE RECORDS SUMMARY | 2024-11-21 00:22 | XMS_ITS | Encounter Summary ---
Author Organization [facility] [place] [address] Care Team Providers Care Adult School Teacher Name Role Phone Handy James MD Primary Care Provider [phone] Reason for Visit * High Dollar Medication (Routine) - Closed Specialty Diagnoses / Procedures Referred By Contac t Referred To Contact Neurology Diagnoses Cervical dystonia Procedures Onabotulinumtoxin A (BOTOX) Authorizations Request (IN CLINIC) TC ONABOTULINUMTOXINA, 1 UNIT, INJECTION Debbie Becker MD [facility] [place] [address] Debbie Becker MD [facility] DR [place] [address] Referral ID Status Reason Start Date Expiration Date V isits Requested Visits Authorized [id number] Closed Consult, Test & Treat 02/06/2023 03/24/2025 9 11 Encounter Details Date Type Department Care Team (Late st Contact Info) Description 01/18/2024 10:00 AM EDT Office Visit Neurology at [address] [address] Debbie Becker MD [facility] DR [place] [address] Cervical dystonia Social History Tobacco Use Types [...] 200 units dose. Codes for chemodenervation visit: 30249, [address] Exam: Procedure: A time out was performed [...] F/u in 3 months. Debbie Becker MD [facility] Neurology-Movement Disorders documented in this encounter Plan of Treatment Upcoming Encounters Date Type Department Care Team (Late st Contact Info) Description 03/23/2025 10:00 AM EDT Procedure visit Neurology at [facility] [address] [place] [address] Debbie Becker MD [facility] DR [place]UROLOG[place] [address] documented as of this encounter Procedures Procedure [...] 200 units dose. Codes for chemodenervation visit: 92835, [address]8770 Exam: Procedure: A time out was performed [...] F/u in 3 months. Debbie Becker MD [facility] Neurology-Movement Disorders Debbie Becker MD [...] Units documented in this encounter Care Teams Adult School Teacher Relationship Specialty Start Date End Date Handy James MD [facility] [facility] [place] [address] PCP - General Family Medicine 08/09/20 documented as of this encounter
--- OUTSIDE RECORDS SUMMARY | 2024-11-21 00:22 | XMS_ITS | Encounter Summary ---
[place] [address] Care Team Providers Care Break Off Worker Name Role Phone Handy James MD Primary Care Provider [phone] Encounter Details Date Type Department Care Team [...] Neurology at [facility] [address] [place] [address] Debbie Becker MD [facility] [place] [address] documented as of this encounter Visit Diagnoses Not on filedocumented in this encounter Care Teams Break Off Worker Relationship Specialty Start Date End Date Handy James MD [facility] [facility] [place] [address] PCP - General Family Medicine 08/09/20 documented as of this encounter
--- OUTSIDE RECORDS SUMMARY | 2024-11-21 00:22 | XMS_ITS | Encounter Summary ---
[place] [address] Care Team Providers Care Casing Worker Name Role Phone Handy James MD Primary Care Provider [phone] Encounter Details Date Type Department Care Team (Late st Contact Info) Description 10/12/2023 Telephone [place] [address] Josiane Jaime Social History Tobacco Use Types [...] 10:00 AM EDT Procedure visit Neurology at [address] [address] Debbie Becker MD [facility] [place] [address] documented as of this encounter Visit Diagnoses Not on filedocumented in this encounter Care Teams Casing Worker Relationship Specialty Start Date End Date Handy James MD [address] [place] [address] [place] [address] PCP - General Family Medicine 08/09/20 documented as of this encounter
--- OUTSIDE RECORDS SUMMARY | 2024-11-21 00:22 | XMS_ITS | Encounter Summary ---
[place] [address] Care Team Providers Care Handkerchief Presser Name Role Phone Handy Oneill MD Primary Care Provider Unavaila ble Reason for Visit * Reason Comments Follow-up Encounter Details Date Type Department Care Team (Late st Contact Info) Description 02/16/2011 1:00 PM EDT [place] [id number] Pete Zurita MD Tremor, essential (Primary Dx) [...] 10:00 AM EDT Procedure visit Neurology at [address] [phone] Debbie Becker MD [facility] [place] [address] documented as of this encounter Visit Diagnoses Diagnosis Tremor, essential- Primary Essential and other specified forms of tremor documented in this encounter Care Teams Handkerchief Presser Relationship Specialty Start Date End Date Handy Oneill MD PCP - General 09/27/10 02/23/19 documented as of this encounter
--- OUTSIDE RECORDS SUMMARY | 2024-11-21 00:22 | XMS_ITS | Encounter Summary ---
Author Organization [facility] [place] [address] Care Team Providers Care Photolettering Machine Operator Name Role Phone Handy James MD Primary Care Provider [phone] Reason for Visit * High Dollar Medication (Routine) - Closed Specialty Diagnoses / Procedures Referred By Contac t Referred To Contact Neurology Diagnoses Cervical dystonia Procedures Onabotulinumtoxin A (BOTOX) Authorizations Request (IN CLINIC) TC ONABOTULINUMTOXINA, 1 UNIT, INJECTION Debbie Becker MD [facility] [place] [address] Debbie Becker MD [facility] [place] [address] Referral ID Status Reason Start Date Expiration Date V isits Requested Visits Authorized [id number] Closed Consult, Test & Treat 02/06/2023 03/24/2025 9 11 Encounter Details Date Type Department Care Team (Late st Contact Info) Description 10/08/2023 11:30 AM EST Office Visit Neurology at [facility] [address] [place] [address] Debbie Becker MD [facility] [place] [address] Cervical dystonia Social History Tobacco Use Types [...] 200 units today. Codes for chemodenervation visit: 81172, 55195 Exam: Procedure: A time out was performed [...] F/u in 3 months. Debbie Becker MD [facility] Neurology-Movement Disorders documented in this encounter Plan of Treatment Upcoming Encounters Date Type Department Care Team (Late st Contact Info) Description 03/23/2025 10:00 AM EDT Procedure visit Neurology at [facility] [address] [place] [address] Debbie Becker MD [facility] [address] [place] [address] documented as of this encounter Procedures Procedure [...] 200 units today. Codes for chemodenervation visit: 21653, 38266 Exam: Procedure: A time out was performed [...] immediate adverse events. F/u in 3 months. Debibe Becker MD [facility] Neurology-Movement Disorders Debbie Becker MD NEUROLOGY ORDERABL ES documented in this encounter Visit Diagnoses Diagnosis Cervical dystonia Spasmodic torticollis documented in this encounter Administered Medications Inactive Administered Medications - up to 3 most recent administrations Medication Order MAR Action Action Date Dose Rate Site botulinum toxin type A (Botox) injection 200 Units 200 Units, Intramuscular, ONCE, 1 dose, On 10/08/23 at 1200, Routine Given 10/08/2023 11:54 AM EST 200 Units documented in this encounter Care Teams Photolettering Machine Operator Relationship Specialty Start Date End Date Handy James MD [facility] [place] [address] PCP - General Family Medicine 08/09/20 documented as of this encounter
--- OUTSIDE RECORDS SUMMARY | 2024-11-21 00:22 | XMS_ITS | Encounter Summary ---
[place] [address] Care Team Providers Care Boatswain Mate Name Role Phone Handy James MD Primary Care Provider [phone] Encounter Details Date Type Department Care Team (Late st Contact Info) Description 08/16/2020 [place] [address] Lynn Fairbanks Social History Tobacco [...] Notes * Telephone Encounter - Lynn Fairbanks, WAREHOUSE PERSON - 08/16/2020 10:53 AM EDT Call from pt asking what she needs to be scheduled her in pulmonary? Her family is relocating back to [place]. Let her know we need a referral from her physician and notes,reports, images sent to us and we will call her to schedule when we have the referral. documented in this encounter Plan of Treatment Upcoming Encounters Date Type Department Care Team (Late st Contact Info) Description 03/23/2025 10:00 AM EDT Procedure visit Neurology at [address] [phone] Debbie Becker MD [facility] [place] [address] documented as of this encounter Visit Diagnoses Not on filedocumented in this encounter Care Teams Boatswain Mate Relationship Specialty Start Date End Date Handy James MD [address] [place] [address] [place] [address] PCP - General Family Medicine 08/09/20 documented as of this encounter
--- NOTE | 2024-11-21 16:03 | DI.MAMMO_ITS ---
Exam(s) MAMMO SCREENING EXAM: MAMMO SCREENING CLINICAL HISTORY: screening. TECHNIQUE: Bilateral full field digital CC and MLO mammographic images were obtained with 3D tomosyn thesis and utilizing computer aided detection (CAD). COMPARISON: Prior mammograms were reviewed. FINDINGS: There has been no significant change in the appearance and distribution of the fibroglandular tissue. Small nodular density in the right breast is again noted and shown to be a microcyst on prior ultraso und examination of October 2023. There are no new spiculated masses nor new malignant appearing microcalcification groups. There is no significant architectural distortion nor skin thickening-retraction. IMPRESSION: No radiographic evidence of malignancy. BI-RADS Category 2 - Benign Findings Breast Density - Category B - Scattered areas of fibroglandular density Breast density Category C or D implies that the patient has dense breast tissue. Dense breast tissue can make it harder to find cancer on a mammogram. Dense breast tissue is also associated with an incr eased risk of breast cancer. This information about the result of the mammogram report was provided to the patient to raise their awareness. Use this report when you speak with the patient about their risks for breast cancer, which includes their family history. At that time, you may recommend additional screening tests (Ultrasoun d or MRI) as these tests may add significant information. A negative radiographic report should not delay biopsy if a dominant or clinically suspicious mass is present. Up to ten percent of cancers are not identified on mammography. A negative report may reinforce clinical impression. Adenosis and dense breasts may obscure an underlying neoplasm. False positive reports average 6 to 10%. Patient will receive a letter notifying them of these results.
== END 2024-11-21 00:40 ==
LOC: DI 00:20
PROVIDERS: PCP Family Medicine; Visit Provider Obstetrics & Gynecology Gynecology
DX: Z12.31 Encounter for screening mammogram for malignant neoplasm of breast (principal); R92.323 Mammographic fibroglandular density, bilateral breasts; D24.1 Benign neoplasm of right breast
CPT/HCPCS: 77063; 77067

== ENCOUNTER 2024-11-27 02:47 | Outpatient (CLI) | payer MEDICARE, SELFPAY ==
--- NOTE | 2024-11-27 | DI.DEXA_ITS ---
Exam(s) XR DEXA BONE DENSITY W/WO AMY EXAM: XR DEXA BONE DENSITY W/WO AMY CLINICAL HISTORY: Z78.0 Asymptomatic menopausal state,screening for osteoporosis TECHNIQUE: Routine DEXA evaluation of the lumbar spine, hip, or forearm. COMPARISON: Prior DEXA scan of 2016 FINDINGS: Performed on a [employer] unit. Lateral image: No compression fracture evident. Lumbar Spine total T-score: -0.4. Prior reading in 2016 was -0.1. Hip total T-score:-1.1. Prior reading in 2016 was also -1.1 Independent reading at the level of the femoral neck yields T-score of -1.7 Forearm total T-score: -1.1. Prior reading was -0.6 IMPRESSION: Bone mineral density measures in the osteopenia range. Fracture risk is moderate. Note: Any spine fracture indicates 5x risk for subsequent spine fracture and 2x risk for subsequent h ip fracture. World Health Organization criteria for BMD interpretation classify patients: Normal...... T- Score at or above -1.0 Osteopenic... T- Score between -1.0 and -2.5 Osteoporosis... T-Score at or below -2.5
== END 2024-11-27 03:07 ==
LOC: DI 02:47
PROVIDERS: PCP Family Medicine; Visit Provider Family Medicine
DX: Z78.0 Asymptomatic menopausal state (principal); Z13.820 Encounter for screening for osteoporosis
CPT/HCPCS: 77080

== ENCOUNTER 2025-03-16 15:46 | Outpatient (CLI) | payer MEDICARE, SELFPAY ==
--- NOTE | 2025-03-16 15:00 | DI.RAD_ITS ---
Exam(s) XR KNEE LT 4V AP,LAT,SADIE,PAT EXAM: XR KNEE LT 4V AP,LAT,SADIE,PAT CLINICAL HISTORY: left knee pain. TECHNIQUE: 2D digital imaging was performed. COMPARISON: No exams were available for comparison FINDINGS: Four views No evidence of fracture. There is a small amount of increased joint fluid noted. There is no signif icant joint space narrowing but there is chondrocalcinosis noted in the medial and lateral compartmen ts. Patellofemoral compartment appears unremarkable. Bone density normal. No osseous lesions. No osteochondral defects. IMPRESSION: Chondrocalcinosis in the medial lateral compartments but no degenerative joint space narrowing. DATA REPOSITORY: RADIATION DOSE DELIVERED:
== END 2025-03-16 15:47 | disposition home or self-care (01) ==
LOC: DIORS 15:46
PROVIDERS: PCP Family Medicine; Referring Provider Family Medicine; Visit Provider Student in an Organized Health Care Education/Training Program
DX: M25.562 Pain in left knee (principal); M11.262 Other chondrocalcinosis, left knee; M18.12 Unilateral primary osteoarthritis of first carpometacarpal joint, left hand; Z79.01 Long term (current) use of anticoagulants
CPT/HCPCS: 20600; 20610; J1010; 73564

== ENCOUNTER 2025-04-01 00:27 | Outpatient (CLI) | payer MEDICARE, SELFPAY ==
--- NOTE | 2025-04-01 | DI.US_ITS ---
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 TECHNIQUE: Lower extremity venous ultrasound performed using grayscale, color-flow, and spectral Do ppler analysis. COMPARISON: US POCUS EXAM from 03/16/2025 FINDINGS: The common femoral, femoral and popliteal veins demonstrate normal compressibility, augmentation, and color Doppler. The posterior tibial and peroneal veins are patent. No saphenous vein thrombosis or other superficial venous thrombosis is seen. No hematoma or Roth's cyst is seen. IMPRESSION: Negative lower extremity ultrasound. No evidence of DVT. DATA REPOSITORY:
== END 2025-04-01 00:47 ==
LOC: DI 00:27
PROVIDERS: PCP Family Medicine; Visit Provider Family Medicine
DX: I82.512 Chronic embolism and thrombosis of left femoral vein (principal)
CPT/HCPCS: 93971

== ENCOUNTER → 2025-07-23 14:05 | Outpatient (BNVA) | payer MEDICARE, SELFPAY | PROVIDERS: PCP Family Medicine; Referring Provider Family Medicine; Visit Provider Physician Assistant | DX: M11.262 Other chondrocalcinosis, left knee (principal) | CPT/HCPCS: 20610; J1010 ==

== ENCOUNTER 2025-08-06 04:27 | Outpatient (CLI) | payer MEDICARE, SELFPAY ==
--- NOTE | 2025-08-06 07:30 | DI.US_ITS ---
Exam(s) US PELVIS TRANSVAGINAL EXAM: US PELVIS TRANSVAGINAL CLINICAL HISTORY: check stripe,VAGINAL DISCHARGE,PROLAPSE FEMALE ORGANS TECHNIQUE: Transabdominal and transvaginal imaging was performed using standard protocol. COMPARISON: None FINDINGS: Transabdominal images are limited by an empty bladder. UTERUS: Anteverted. 5.8 x 2.3 x 3 x 4 cm Endometrium: 2 mm . Minimal amount of fluid is noted in the lower endometrial canal. Myometrium: Vascular calcifications. No fibroids. Cervix: Nabothian cyst. OVARIES: Not visualized. Obscured by adjacent bowel. CUL-DE-SAC: Free fluid: None. IMPRESSION: 1. Normal-sized uterus. No endometrial thickening. 2. The ovaries were not visualized. DATA REPOSITORY:
== END 2025-08-06 04:47 ==
LOC: DI 04:27
PROVIDERS: PCP Family Medicine; Visit Provider Obstetrics & Gynecology
DX: N81.9 Female genital prolapse, unspecified (principal); N89.8 Other specified noninflammatory disorders of vagina
CPT/HCPCS: 76830; 76856

== ENCOUNTER → 2025-08-13 13:12 | Outpatient (BNVA) | payer MEDICARE, SELFPAY | PROVIDERS: PCP Family Medicine; Referring Provider Family Medicine; Visit Provider Student in an Organized Health Care Education/Training Program | DX: M18.12 Unilateral primary osteoarthritis of first carpometacarpal joint, left hand (principal) | CPT/HCPCS: 20604; J1010 ==